=== PATIENT | female | born 1935 | race American Indian/Alaskan Native ===

== ENCOUNTER 2017-01-12 12:36 | Emergency (ER) | payer MEDICARE ==
[2017-01-12 13:21] LABS: Basophils % (Auto) 0.4 % (0.0-1.8); Eosinophils % (Auto) 0.4 % (0.0-4.3); Hematocrit 28.3 % (30.3-42.9); Hemoglobin 9.1 gm/dl (10.1-14.3); Mean Corpuscular HGB Conc 32 % (30-34); Mean Corpuscular Hemoglobin 31 pg (28-32); Mean Corpuscular Volume 96 fl (79-97); Platelet Count 207 K/mm3 (140-440); Red Blood Count 2.95 M/mm3 (3.65-5.03); Red Cell Distribution Width 16.5 % (13.2-15.2); White Blood Count 4.4 K/mm3 (4.5-11.0)
[2017-01-12 13:35] LABS: BUN/Creatinine Ratio 5.85; Calcium 8.9 mg/dL (8.4-10.2); Chloride 91.2 mmol/L (98-107); Potassium 4.1 mmol/L (3.6-5.0)
[2017-01-12] MEDS ORDERED: NORMODYNE IV ONE (16:42)
[2017-01-12] MEDS ORDERED: TYLENOL #3 PO ONE (17:19)
[2017-01-12] MEDS ORDERED: APRESOLINE ONE (17:25)
--- NOTE | 2017-01-12 17:27 | Emergency Department Report ---
HPI - General Chief Complaint: Chest Pain Time Seen by Provider: 01/12/17 16:40 - HPI HPI: The patient is a 81-year-old female who presents for evaluation of chest pain. The patient reports chest pain since noon earlier today, greater than 4 hours prior to my evaluation, constant since onset, pressure-like, currently mild in severity, 3/10 in severity. The patient denies fever, cough, dyspnea, syncope, hemoptysis, unilateral leg swelling, recent immobilization, history of DVT or PE , recent cancer. The patient says that she received a stress test 2 months ago which was unremarkable. ED Past Medical Hx - Past Medical History Hx Hypertension: Yes Hx Congestive Heart Failure: Yes Hx Diabetes: No Hx Renal Disease: Yes (CKD on HD TTS) Hx COPD: No Additional medical history: Afib/Aflutter - Surgical History Additional Surgical History: vas cath to right chest - Social History Smoking Status: Unknown if ever smoked Substance Use Type: None - Medications Home Medications: Home Medications Medication Instructions Recorded Confirmed Last Taken Type Apixaban [Eliquis] 2.5 mg PO BID #60 tablet 01/09/17 01/12/17 01/11/17 Rx Losartan [Cozaar] 100 mg PO QDAY #30 tablet 01/09/17 01/12/17 01/11/17 Rx Metoprolol [Lopressor TAB] 50 mg PO QDAY #30 tablet 01/09/17 01/12/17 01/11/17 Rx NIFEdipine [Nifedipine ER] 60 mg PO QDAY #30 tab.er.24 01/09/17 01/12/17 Rx hydrALAZINE [Apresoline TAB] 50 mg PO Q8HR #90 tablet 01/09/17 01/12/17 Rx traMADol [Ultram 50 MG tab] 50 mg PO Q6HR PRN #10 tablet 01/12/17 Unknown Rx ED Review of Systems ROS: Stated complaint: CHEST PAIN Other details as noted in HPI Constitutional: denies: fever ENT: denies: throat or neck pain Respiratory: denies: cough, shortness of breath Cardiovascular: reports chest pain Endocrine: denies unexplained weight loss or gain Gastrointestinal: denies: abdominal pain, nausea Genitourinary: denies: dysuria Musculoskeletal: denies: leg swelling Skin: denies: rash Neurological: denies: headache Hematological/Lymphatic: denies: easy bleeding or easy bruising Psych: denies sadness or hopelessness Physical Exam - Physical Exam Vital Signs: Vital Signs 01/12/17 12:46 Temperature 99 F Pulse Rate 118 H Respiratory 20 Rate Blood Pressure 169/118 O2 Sat by Pulse 100 Oximetry Physical Exam: General: well-nourished, well-developed, no acute distress Head: Normocephalic, atraumatic Eyes: normal sclera ENT: Mucous membranes are pink and moist Neck: trachea midline, neck supple, No neck stiffness, no cervical adenopathy Respiratory: Breath sounds equal bilaterally, no wheezing, rales, or rhonchi Cardio: S1 and S2 present, no murmurs, rubs, gallops, capillary refill is brisk Abdomen: Normoactive bowel sounds, soft abdomen, no rigidity, no guarding or rebound tenderness Musc: No pitting edema Skin: No rash Neuro: no facial drooping, normal speech Psych: Normal affect ED Course Vital Signs 01/12/17 12:46 Temperature 99 F Pulse Rate 118 H Respiratory 20 Rate Blood Pressure 169/118 O2 Sat by Pulse 100 Oximetry ED Medical Decision Making - Lab Data Result diagrams: 01/12/17 13:05 01/12/17 13:05 - Medical Decision Making The patient was seen and examined by myself. The patient is placed on a cardiac surgeon and continuous pulse ox. On initial evaluation, the patient was found to be in no distress. EKG was negative for ST elevation or depression, or other findings concerning for acute cardiac infarct or ischemia, and EKG is grossly unchanged from recent EKG. Labs and imaging are obtained. The patient was given IV hydralazine for her elevated blood pressure and a tablet of Tylenol 3 for her pain. Chest x-ray is negative for pneumothorax, focal consolidation, pulmonary vascular congestion, pleural effusion, or other obvious acute cardiopulmonary disease process. Lab results revealed elevated creatinine level and patient baseline, and otherwise labs were non-concerning including levels of troponin, WBC, hemoglobin, hematocrit. Medical records are reviewed and revealed that the patient did in fact receive a stress test negative for ischemia 2 months ago. Additionally echocardiogram was grossly unremarkable. The patient was reevaluated and reported that her chest pain was significantly improved and nearly resolved. The patient is stable for discharge with outpatient follow-up. The patient is given follow-up and return instructions. The patient expressed understanding and agreed with the plan. The patient is discharged in stable condition. Critical care attestation.: If time is entered above; I have spent that time in minutes in the direct care of this critically ill patient, excluding procedure time. ED Disposition Clinical Impression: Acute on chronic renal failure, Hypertensive urgency, Acute chest pain Disposition: DISCHARGED TO HOME OR SELFCARE Is pt being admited?: No Does the pt Need Aspirin: No Condition: Stable Instructions: Chest Pain (ED), Chronic Hypertension (ED) Prescriptions: traMADol [Ultram 50 MG tab] 50 mg PO Q6HR PRN #10 tablet PRN Reason: Pain Referrals: AMADEO DE LEON, PAC [Primary Care Provider] - 3-5 Days Time of Disposition: 17:22
[2017-01-12] MEDS ORDERED: APRESOLINE IV ONE (17:55)
[2017-01-12 18:53] VITALS: BP 189/92
--- NOTE | 2017-01-13 08:51 | XRay Report ---
AP CHEST : 01/12/17 12:36:00 CLINICAL: Chest pain. COMPARISON:None FINDINGS: Normal heart and pulmonary vessels. Mild patchy opacity in the left midlung. The lung bases have cleared since the last exam. A right Vas-Cath tip remains in the right atrium at the cavoatrial junction. IMPRESSION: Interval improvement with clearing of the lung bases. Mild subsegmental atelectasis versus airspace disease in the left midlung.
== END 2017-01-12 18:47 | disposition home or self-care (01) ==
LOC: ED 12:36
DX: I16.0 Hypertensive urgency (principal); I12.9 Hypertensive chronic kidney disease with stage 1 through stage 4 chronic kidney disease, or unspecified chronic kidney disease; N18.9 Chronic kidney disease, unspecified; N17.9 Acute kidney failure, unspecified; R07.9 Chest pain, unspecified; I50.9 Heart failure, unspecified
CPT/HCPCS: 36415; 71010; 80048; 84484; 85025; 93005; 93010; 96374; 96375; 99285; J0360

== ENCOUNTER 2017-01-20 19:11 | Emergency (ER) | payer MEDICARE ==
[2017-01-20 19:19] VITALS: BP 160/120
[2017-01-20 20:16] LABS: Basophils % (Auto) 0.3 % (0.0-1.8); Hematocrit 25.6 % (30.3-42.9); Hemoglobin 8.3 gm/dl (10.1-14.3); Mean Corpuscular HGB Conc 33 % (30-34); Mean Corpuscular Hemoglobin 31 pg (28-32); Mean Corpuscular Volume 95 fl (79-97); Platelet Count 240 K/mm3 (140-440); Red Blood Count 2.68 M/mm3 (3.65-5.03); Red Cell Distribution Width 16.4 % (13.2-15.2); White Blood Count 5.6 K/mm3 (4.5-11.0)
[2017-01-20 20:39] LABS: Albumin 3.3 g/dL (3.9-5); Albumin/Globulin Ratio 0.6 %; BUN/Creatinine Ratio 5.07; Bilirubin,Total 0.4 mg/dL (0.1-1.2); Calcium 8.3 mg/dL (8.4-10.2); Chloride 94.7 mmol/L (98-107); Potassium 3.6 mmol/L (3.6-5.0); Total Protein 8.4 g/dL (6.3-8.2)
[2017-01-20 20:43] LABS: Creatine Kinase 53 units/L (30-135)
[2017-01-20 20:53] LABS: Creatine Kinase MB < 1.0 ng/mL (0.0-4.0)
[2017-01-20 21:10] LABS: Cholesterol 143 mg/dL (50-199); HDL Cholesterol 47 mg/dL (40-59); LDL Cholesterol,Direct 73 mg/dL (50-130); Triglycerides 119 mg/dL (2-149)
== END 2017-01-20 21:00 | disposition left against medical advice (07) ==
LOC: ED 19:11
DX: R06.02 Shortness of breath (principal); R10.9 Unspecified abdominal pain; Z53.21 Procedure and treatment not carried out due to patient leaving prior to being seen by health care provider
CPT/HCPCS: 36415; 80053; 80061; 82550; 82553; 83690; 84484; 85025; 93005; 93010

== ENCOUNTER 2017-01-31 15:48 | Emergency (ER) | payer MEDICARE ==
[2017-01-31 16:53] VITALS: BP 84/52
[2017-01-31 17:41] LABS: Basophils % (Auto) 0.8 % (0.0-1.8); Eosinophils % (Auto) 1.4 % (0.0-4.3); Hematocrit 27.5 % (30.3-42.9); Hemoglobin 8.8 gm/dl (10.1-14.3); Mean Corpuscular HGB Conc 32 % (30-34); Mean Corpuscular Hemoglobin 30 pg (28-32); Mean Corpuscular Volume 95 fl (79-97); Platelet Count 213 K/mm3 (140-440); Red Cell Distribution Width 16.4 % (13.2-15.2); White Blood Count 4.2 K/mm3 (4.5-11.0)
[2017-01-31 17:44] LABS: BUN/Creatinine Ratio 4.18; Calcium 8.7 mg/dL (8.4-10.2); Chloride 95.2 mmol/L (98-107); Potassium 4.2 mmol/L (3.6-5.0)
--- NOTE | 2017-02-02 19:45 | ED Elopement Review ---
ED Pt Elopement review - Results review Lab results: Laboratory Tests 01/31/17 01/31/17 17:15 17:15 WBC 4.2 L RBC 2.90 L Hgb 8.8 L Hct 27.5 L MCV 95 MCH 30 MCHC 32 RDW 16.4 H Plt Count 213 Lymph % (Auto) 18.9 Wilkin % (Auto) 7.2 Eos % (Auto) 1.4 Baso % (Auto) 0.8 Lymph # 0.8 L Wilkin # 0.3 Eos # 0.1 Baso # 0.0 Seg Neutrophils % 71.7 H Seg Neutrophils # 3.0 Sodium 138 Potassium 4.2 Chloride 95.2 L Carbon Dioxide 27 Anion Gap 20 BUN 18 H Creatinine 4.3 H Estimated GFR 12 BUN/Creatinine Ratio 4.18 Glucose 139 H Calcium 8.7 - Call Back decision Pt Call Back Decision: Call pt to return to ED VERA (hypotension)
== END 2017-01-31 19:50 | disposition left against medical advice (07) ==
LOC: ED 15:48
DX: R53.1 Weakness (principal); R10.9 Unspecified abdominal pain; Z53.21 Procedure and treatment not carried out due to patient leaving prior to being seen by health care provider
CPT/HCPCS: 36415; 80048; 85025

== ENCOUNTER 2017-02-03 05:13 | Inpatient (IN) | payer MEDICARE ==
[2017-02-03] MEDS ORDERED: ASPIRIN PO ONE (05:27)
[2017-02-03 05:40] LABS: Basophils % (Auto) 0.7 % (0.0-1.8); Eosinophils % (Auto) 1.4 % (0.0-4.3); Hematocrit 27.2 % (30.3-42.9); Hemoglobin 8.8 gm/dl (10.1-14.3); Mean Corpuscular HGB Conc 32 % (30-34); Mean Corpuscular Hemoglobin 31 pg (28-32); Mean Corpuscular Volume 96 fl (79-97); Platelet Count 184 K/mm3 (140-440); Red Blood Count 2.83 M/mm3 (3.65-5.03); Red Cell Distribution Width 17.2 % (13.2-15.2); White Blood Count 5.2 K/mm3 (4.5-11.0)
[2017-02-03] MEDS ORDERED: APRESOLINE IV ONE (05:41)
[2017-02-03] MEDS ORDERED: MORPHINE IV ONE (05:47)
[2017-02-03] MEDS ORDERED: ZOFRAN IV ONE (05:47)
--- NOTE | 2017-02-03 05:48 | Emergency Department Report ---
HPI - General Chief Complaint: Chest Pain - HPI HPI: The patient is a 81-year-old female presents for evaluation of chest pain. The patient reports chest pain center onset 2 hours prior to arrival, constant since onset, currently 9/10 in severity, midsternal, pressure-like in quality, and associated with dyspnea with exertion. The patient denies trauma to the chest wall, fever, cough, syncope, hemoptysis, unilateral leg swelling, recent immobilization, history of DVT or PE. ED Past Medical Hx - Past Medical History Hx Hypertension: Yes (EF 45-50%) Hx Heart Attack/AMI: Yes (01/13/2017 - severe chest pain) Hx Congestive Heart Failure: Yes Hx Diabetes: No Hx Renal Disease: Yes (ESRD Dialysis ,, Fri) Hx Sickle Cell Disease: No Hx COPD: No Additional medical history: Afib/Aflutter - Surgical History Additional Surgical History: vas cath to right chest - Social History Smoking Status: Never Smoker Substance Use Type: None - Medications Home Medications: Home Medications Medication Instructions Recorded Confirmed Last Taken Type Apixaban [Eliquis] 2.5 mg PO BID #60 tablet 01/09/17 01/12/17 01/11/17 Rx NIFEdipine [Nifedipine ER] 60 mg PO QDAY #30 tab.er.24 01/09/17 01/12/17 Rx Amiodarone [Cordarone 200 MG TAB] 200 mg PO BID #60 tablet 01/17/17 Unknown Rx AtorvaSTATin [Lipitor] 40 mg PO QHS #30 tablet 01/17/17 Unknown Rx ISOSORBIDE MONOnitrate [Imdur ER] 30 mg PO QDAY #30 tablet 01/17/17 Unknown Rx Losartan [Cozaar] 25 mg PO QDAY #30 tablet 01/17/17 01/12/17 01/11/17 Rx Metoprolol [Lopressor TAB] 100 mg PO QDAY #30 tablet 01/17/17 01/12/17 01/11/17 Rx ED Review of Systems ROS: Stated complaint: CHEST PAIN Other details as noted in HPI Constitutional: denies: fever ENT: denies: throat or neck pain Respiratory: denies: cough, shortness of breath Cardiovascular: reports chest pain Endocrine: denies unexplained weight loss or gain Gastrointestinal: denies: abdominal pain, nausea Genitourinary: denies: dysuria Musculoskeletal: denies: leg swelling Skin: denies: rash Neurological: denies: headache Hematological/Lymphatic: denies: easy bleeding or easy bruising Psych: denies sadness or hopelessness Physical Exam - Physical Exam Vital Signs: Vital Signs 02/03/17 05:22 Temperature 98.2 F Pulse Rate 102 H Blood Pressure 228/130 O2 Sat by Pulse 99 Oximetry Physical Exam: General: well-nourished, well-developed, patient appears uncomfortable Head: Normocephalic, atraumatic Eyes: normal sclera ENT: Mucous membranes are pink and moist Neck: trachea midline, neck supple, No neck stiffness, no cervical adenopathy Respiratory: Patient tachypnea, Breath sounds equal bilaterally, no wheezing, rales, or rhonchi Cardio: S1 and S2 present, no murmurs, rubs, gallops, capillary refill is brisk Abdomen: Normoactive bowel sounds, soft abdomen, no rigidity, no guarding or rebound tenderness Chest WALL/Back: No tenderness to palpation of the chest wall, no CVA tenderness with percussion Musc: No pitting edema Skin: No rash Neuro: no facial drooping, normal speech Psych: Normal affect ED Course Vital Signs 02/03/17 05:22 Temperature 98.2 F Pulse Rate 102 H Blood Pressure 228/130 O2 Sat by Pulse 99 Oximetry ED Medical Decision Making - Lab Data Result diagrams: 02/03/17 05:31 02/03/17 05:31 - Medical Decision Making The patient was seen and examined by myself. The patient is placed on a development analyst and continuous pulse ox. On initial evaluation, the patient was found to be in no distress. EKG exhibits multiple PVCs, and otherwise is grossly unchanged from previous EKG, and was negative for changes consistent with acute cardiac infarct. The patient is given an aspirin and a nitroglycerin tablet. Labs and imaging are obtained. The patient is given IV morphine for pain. Chest x-ray is negative for pneumothorax, focal consolidation, pulmonary vascular congestion, pleural effusion, or other obvious acute cardiopulmonary disease process. Lab results revealed elevated creatinine, elevated troponin of 0.4, and low hemoglobin level. The patient is given a tablet of aspirin. Medical records are reviewed and revealed that the patient chronically has elevated troponin level. The on-call hospitalist service was contacted. They agreed to admit the patient for further treatment and close monitoring. The ED admit order was placed. The patient was admitted in guarded condition. Critical care attestation.: If time is entered above; I have spent that time in minutes in the direct care of this critically ill patient, excluding procedure time. ED Disposition Clinical Impression: Acute chest pain, End-stage renal disease on hemodialysis, Hypertensive emergency Disposition: OP ADMITTED IP TO THIS HOSP Is pt being admited?: Yes Does the pt Need Aspirin: Yes Condition: Serious Instructions: Chest Pain (ED), Hypertension (ED) Time of Disposition: 05:48
[2017-02-03 05:52] LABS: BUN/Creatinine Ratio 4.75; Chloride 98.6 mmol/L (98-107); Potassium 3.5 mmol/L (3.6-5.0)
[2017-02-03] MEDS ORDERED: NITRO-BID 2% TP ONE (06:26)
--- NOTE | 2017-02-03 06:28 | History and Physical Report ---
History of Present Illness Date of examination: 02/03/17 History of present illness: This is a 81-year-old woman history of end-stage renal disease on dialysis Friday, , Friday, A. fib, hypertension comes emergency room with complaints of chest pain. Pain is in the epigastric area which she described as a dull pain, constant, intensity, 8/10, no radiation and she cannot identify exacerbating or relieving factors. She complains of shortness breath, no nausea vomiting, diaphoresis or palpitation Patient denies palpitation, cough, abdominal pain, hematochezia, dysuria, frequency, focal weakness, dysarthria, fever chills, polydipsia polyuria, hot or cold intolerance, easy bruisability, or rash or bleeding from mucosal membrane, rhinorrhea, epistaxis, earache, tinnitus, blurry vision, eye discharge , anxiety, depression. Other review of systems negative PAST SURGICAL HISTORY: None SOCIAL HISTORY: Denies alcohol, tobacco, drugs FAMILY HISTORY: Hypertension Medications and Allergies Allergies Allergy/AdvReac Type Severity Reaction Status Date / Time naproxen Allergy Itching Verified 01/31/17 16:52 Home Medications Medication Instructions Recorded Confirmed Last Taken Type Apixaban [Eliquis] 2.5 mg PO BID #60 tablet 01/09/17 01/12/17 01/11/17 Rx NIFEdipine [Nifedipine ER] 60 mg PO QDAY #30 tab.er.24 01/09/17 01/12/17 Rx Amiodarone [Cordarone 200 MG TAB] 200 mg PO BID #60 tablet 01/17/17 Unknown Rx AtorvaSTATin [Lipitor] 40 mg PO QHS #30 tablet 01/17/17 Unknown Rx ISOSORBIDE MONOnitrate [Imdur ER] 30 mg PO QDAY #30 tablet 01/17/17 Unknown Rx Losartan [Cozaar] 25 mg PO QDAY #30 tablet 01/17/17 01/12/17 01/11/17 Rx Metoprolol [Lopressor TAB] 100 mg PO QDAY #30 tablet 01/17/17 01/12/17 01/11/17 Rx Active Meds: Active Medications Nitroglycerin (Nitro-Bid 2%) 1 inch TP ONCE ONE PRN Reason: Protocol Stop: 02/03/17 06:27 Exam - Physical Exam Narrative exam: Gen. appearance: Patient lying in bed, no apparent distress HEENT: Normocephalic, atraumatic, pupils equally round and reactive to light, extraocular movement intact, and no sclericterus,. No JVD or thyromegaly or nodule,neck supple, no carotid bruit ,mucous membranes moist, no exudate or erythema Heart: S1, S2, regular rate and rhythm Lungs: Clear to auscultation bilaterally, breathing comfortable Abdomen: Positive bowel sounds, nontender, nondistended, no organomegaly Extremity: No edema, cyanosis, clubbing Skin: No rash, nodules, warm, dry Neuro: Oriented 3, cranial nerves II-12 intact, speech is fluent, motor and sensory intact - Constitutional Vitals: Temp Pulse Resp BP Pulse Ox 98.2 F 93 H 24 229/131 99 02/03/17 05:22 02/03/17 05:55 02/03/17 06:24 02/03/17 05:55 02/03/17 05:22 Results - Labs CBC & Chem 7: 02/03/17 05:31 02/03/17 05:31 Labs: Abnormal lab results 02/03/17 02/03/17 Range/Units 05:31 05:31 RBC 2.83 L (3.65-5.03) M/mm3 Hgb 8.8 L (10.1-14.3) gm/dl Hct 27.2 L (30.3-42.9) % RDW 17.2 H (13.2-15.2) % [place] % (Auto) 7.7 H (0.0-7.3) % Lymph # 0.9 L (1.2-5.4) K/mm3 Seg Neutrophils % 73.4 H (40.0-70.0) % Potassium 3.5 L (3.6-5.0) mmol/L BUN 19 H (7-17) mg/dL Creatinine 4.0 H (0.7-1.2) mg/dL Troponin T 0.040 H (0.00-0.029) ng/mL - Imaging and Cardiology EKG: image reviewed Chest x-ray: image reviewed Assessment and Plan Hypertension urgency, malignant Chest pain most likely secondary to above Acute renal failure Atrial fibrillation Start hydralazine, nitopaste, first dose check cardiac enzymes,d-dimer and consult cardiology Consult renal for dialysis Continue appropriate outpatient medications Continue DVT prophylaxis with eliquis
[2017-02-03] MEDS ORDERED: ZOFRAN IV PRN (06:29)
[2017-02-03] MEDS ORDERED: PERCOCET 5/325 PO PRN (06:29)
[2017-02-03] MEDS ORDERED: TYLENOL PO PRN (06:29)
[2017-02-03] MEDS ORDERED: DULCOLAX PR PRN (06:29)
[2017-02-03] MEDS ORDERED: APRESOLINE IV PRN (06:31)
--- NOTE | 2017-02-03 07:16 | Admit Criteria Form ---
Admission Criteria Documentation: CARDIOLOGY GRG Clinical Indications for Admission to Inpatient Care ( Place 'X' for any and all applicable criteria): Hospital admission is needed for appropriate care of the patient because of ANY ONE of the following (1): [ ] I. Hemodynamic instability as indicated by ALL of the following (1)(2)(3) (4)(5) [ ]a) Vital signs or other findings not as expected for chronic patient condition or baseline [ ]b) Instability indicated by ANY ONE of the following: [ ]i) Hypotension [ ]ii) Symptomatic Tachycardia unresponsive to treatment ( e.g., analgesia, fluids, sedation as indicated) [ ]iii) Inadequate perfusion indicated by ANY ONE of the following: [ ] 1) Lactic acidosis (> 2 mmol/L) [ ] 2) New abnormal capillary refill (> 3 seconds) [ ] 3) Reduced urine output [ ] 4) New altered mental status [ ]iv) Orthostatic vital sign changes unresponsive to treatment (e.g., fluids) [ ]v) IV inotropic or vasopressor medication required to maintain adequate blood pressure or perfusion [ ] II. Severe heart failure as indicated by ANY ONE of the following(17)(18) [ ]a) Respiratory distress [ ]b) Hypotension [ ]c) Anasarca (refractory to outpatient therapy) [ ]d) Cardiac arrhythmias of immediate concern [ ]e) Myocardial ischemia [ ] III. Cardiac arrhythmias or findings of immediate concern indicated by ANY ONE of the following (19)(20): [ ] a) Heart rhythms that are inherently dangerous or unstable indicated by ANY ONE of the following (21)(22)(23): [ ] i) Resuscitated ventricular fibrillation or cardiac arrest [ ] ii) Ventricular escape rhythm [ ] iii) Sustained ventricular tachycardia (30 seconds or more of ventricular rhythm at greater than 100 beats per minute) [ ] iv) Nonsustained ventricular tachycardia and ANY ONE of the following: [ ] 1) Suspected cardiac ischemia as cause or consequence of ventricular tachycardia [ ] 2) In setting of acute myocarditis [ ] b) Unstable cardiac conduction defects indicated by ANY ONE of the following(23)(24)(25) [ ] i) Type II second-degree atrioventricular block [ ]ii) Third-degree atrioventricular block [ ]iii) New-onset left bundle branch block with suspected myocardial ischemia [ ]c) Any heart rhythm and ANY ONE of the following (21)(22)(26)(27) (28) [ ] i) Continuous long-term ECG monitoring needed (e.g., initiation of drug requiring monitoring for more than 24 hours) [ ] ii) Patient has automatic implanted cardioverter defibrillator that is repeatedly firing, malfunctioning, or in need of immediate adjustment of settings beyond the scope of ambulatory or observation care [ ]d) Heart rhythms of concern due to ANY ONE of the following: [ ] i) Hypotension [ ] ii) Respiratory distress [ ] iii) Association with other significant symptoms (e.g., bradycardia with syncope or ongoing dizziness, supraventricular tachycardia with chest pain (14)(15)(17) [ ] IV. Monitoring for cardiac contusion beyond the scope of observation care needed [A](30)(31)(32) [ ] V. Surgical or device complication (e.g., valve replacement complication , pacemaker dysfunction) (35)(41)(44)(45)(46) [ ] . Inpatient palliative care needed. [B](49) Also use Inpatient Palliative Care Criteria [ ] VII. Nonbacterial thrombotic (marantic) endocarditis (36)(43)(47)(48) [X] VIII. Cardiology condition, symptom, or finding for which emergency and observation care has failed or are not considered appropriate. [ ] IX. Acute valvular disease requiring inpatient as indicated by ANY ONE of the following (41) [ ]a) Acute valvular regurgitation (42) [ ]b) Noninfectious valvulitis (43) [ ]c) Obstructive valve thrombosis [ ]d) Paravalvular leak [ ]e) Other significant valvular disorder remaining after emergency or observation level of care (as appropriate) [ ]X. Pericardial disease requiring inpatient treatment as indicated by ANY ONE of the following (33)(34)(35)(36)(37) [ ]a) Suspected tamponade (38)(39)(40) [ ]b) Hemopericardium [ ]c) Other significant pericardial disorder remaining after emergency or observation level of care (as appropriate) [ ] XI. Cardiac ischemia beyond scope of emergency and observation care. [X] XII. Hypertension requiring inpatient treatment as indicated by ANY ONE of the following (6)(7)(8) [X]a) SBP greater than 220 mm Hg or DBP greater than 120 mmHg despite treatment [ ]b) SBP greater than 140 mm Hg or DBP greater than 100 mm Hg with evidence of acute end organ damage as indicated by ANY ONE of the following [ ] i) Altered mental status [ ] ii) Acute renal failure as indicated by new onset of ANY ONE of the following (9)(10)(11)(12)(13) [ ]1) 3-fold rise in serum creatinine from baseline [ ]2) Serum creatinine greater than 4 mg/dL ( 354 micromoles/L) with acute rise greater than 0.5 mg/dL (44.2 micromoles/L) [ ]3) Reduction of more than 75% in estimated glomerular filtration rate from baseline [ ]4) Estimated glomerular filtration rate less than 35 mL/min/1.73m2 (0.59 mL/sec/1.73m2) in child up to 18 years of age [ ]5) Cessation of urine output indicated by ALL of the following [ ]A. Adequate volume status [ ]B. Inadequate urine output as indicated by ANY ONE of the following [ ]a. Urine output less than 0.3 mL/kg/hr for 24 hours [ ]b. Anuria (urine output less than 0.1 mL/kg/hr) for 12 hours [ ] iii) Aortic dissection [ ] iv) Myocardial Ischemia [ ] v) Left ventricular heart failure [ ]vi) Retinal Hemorrhage [ ]vii) Other significant finding [ ]c) Hypertension in child requiring inpatient treatment as indicated by ALL of the following(14)(15)(16) [ ] i) Outpatient treatment not effective, not available, or not appropriate [ ]ii) SBP or DBP greater than 95th percentile for age [ ]iii) Evidence of acute end organ damage as indicated by ANY ONE of the following [ ]1) Altered mental status [ ]2) Acute renal failure as indicated by new onset of ANY ONE of the following(9)(10)(11)(12)(13) [ ]A. 3-fold rise in serum creatinine from baseline [ ]B. Serum creatinine greater than 4 mg/dL (354 micromoles/L) with acute rise greater than 0.5 mg/dL (44.2 micromoles/L) [ ]C. Reduction of more than 75% in estimated glomerular filtration rate from baseline [ ]D. Estimated glomerular filtration rate less than 35 mL/min/1.73m2 (0.59 mL/sec/1.73m2) in child up to 18 years of age [ ]E. Cessation of urine output indicated by ALL of the following [ ]a. Adequate volume status [ ]b. Inadequate urine output as indicated by ANY ONE of the following [ ]i) Urine output less than 0.3 mL/kg/hr for 24 hours [ ]ii) Anuria ( urine output less than 0.1 mL/kg/hr) for 12 hours [ ]3) Severe headache [ ]4) Visual disturbance [ ]5) Retinal hemorrhage [ ]6) Other significant finding [ ]XIII. Complications of transplanted heart indicated by ANY ONE of the following(61): [ ]a) Acute graft rejection requiring inpatient management (eg, intravenous immunosuppression)(62)(63) [ ]b) Acute graft heart failure indicated by ANY ONE of the following(64): [ ]i) Hemodynamic instability [ ]ii) Cardiac arrhythmias of immediate concern [ ]iii) Pulmonary edema that is very severe (eg, mechanical ventilation needed, imminent or likely, need for 100% oxygen to keep oxygen saturation above 90%) [ ]iv) Pulmonary edema that is persistent as indicated by ALL of the following: [ ]1) New need for oxygen therapy to keep oxygen saturation above 90% (or increased FiO2 need from baseline) [ ]2) Has not improved sufficiently with emergency department or observation care IV diuretics or other heart failure treatments[E] [ ]v) Altered mental status that is severe or persistent [ ]vi) Increased creatinine (new on laboratory test) with reduction of more than 50% in estimated glomerular filtration rate from baseline [ ]vii) Progressively (ongoing) rising creatinine (known from past laboratory test) with reduction of more than 25% in estimated glomerular filtration rate from baseline [ ]viii) Acute renal failure [ ]ix) Acute peripheral ischemia (eg, examination shows pulseless, cool, mottled, or cyanotic extremity) [ ]x) Pulmonary artery catheter monitoring needed [ ]xi) Other sign or symptom of heart failure requiring inpatient treatment (ie, too severe or not responsive to outpatient and observation care treatment) [ ]c) Infection requiring inpatient management (eg, Hemodynamic instability, need for intravenous antimicrobial treatment)(66)(67)(68)(69)(70) [ ]d) Cardiac allograft vasculopathy requiring inpatient management ( eg evidence of cardiac ischemia)(71) [ ]e) Other complication of transplanted heart (eg, stroke, severe pulmonary hypertension, severe valvular dysfunction) requiring inpatient management(72) The original [facility] content created by [facility] [employer] has been revised. The portions of the content which have been revised are identified through the use of italic text or in bold, and [facility] has neither reviewed nor approved the modified material. All other unmodified content is copyright [facility] [employer]. Please see references footnoted in the original [facility] edition 2016 Admission Criteria Met: Yes
[2017-02-03 07:18] LABS: Creatine Kinase 31 units/L (30-135)
[2017-02-03 07:21] LABS: Creatine Kinase MB < 1.0 ng/mL (0.0-4.0)
--- NOTE | 2017-02-03 07:22 | XRay Report ---
AP CHEST: HISTORY: chest pain There is increased cardiomegaly and pulmonary venous congestion since 01/25/17. Moderate right pleural effusion and trace left pleural effusion have developed. Right basilar atelectasis is noted. No obvious pneumonia or pneumothorax. Dialysis catheter remains in good position. IMPRESSION: CHF.
--- NOTE | 2017-02-03 08:11 | History and Physical Report ---
History of Present Illness Date of admission: 02/03/17 06:29 Medications and Allergies Allergies Allergy/AdvReac Type Severity Reaction Status Date / Time naproxen Allergy Itching Verified 01/31/17 16:52 Home Medications Medication Instructions Recorded Confirmed Last Taken Type Apixaban [Eliquis] 2.5 mg PO BID #60 tablet 01/09/17 01/12/17 01/11/17 Rx NIFEdipine [Nifedipine ER] 60 mg PO QDAY #30 tab.er.24 01/09/17 01/12/17 Rx Amiodarone [Cordarone 200 MG TAB] 200 mg PO BID #60 tablet 01/17/17 Unknown Rx AtorvaSTATin [Lipitor] 40 mg PO QHS #30 tablet 01/17/17 Unknown Rx ISOSORBIDE MONOnitrate [Imdur ER] 30 mg PO QDAY #30 tablet 01/17/17 Unknown Rx Losartan [Cozaar] 25 mg PO QDAY #30 tablet 01/17/17 01/12/17 01/11/17 Rx Metoprolol [Lopressor TAB] 100 mg PO QDAY #30 tablet 01/17/17 01/12/17 01/11/17 Rx Active Meds: Active Medications Acetaminophen (Tylenol) 650 mg PO Q4H PRN PRN Reason: Pain MILD(1-3)/Fever >100.5/OLMEDO Amiodarone HCl (Cordarone) 200 mg PO BID GAVIOTA Apixaban (Eliquis) 2.5 mg PO BID GAVIOTA Atorvastatin Calcium (Lipitor) 40 mg PO QHS GAVIOTA Bisacodyl (Dulcolax) 10 mg [place] QDAY PRN PRN Reason: Constipation unrelieved by [facility]OM Hydralazine HCl (Apresoline) 5 mg IV Q6H PRN PRN Reason: Hypertension Isosorbide Mononitrate (Imdur) 30 mg PO QDAY GAVIOTA Losartan Potassium (Cozaar) 25 mg PO QDAY GAVIOTA Metoprolol Tartrate (Lopressor) 100 mg PO QDAY GAVIOTA Ondansetron HCl (Zofran) 4 mg IV Q8H PRN PRN Reason: N/V unrelieved by Reglan Oxycodone/Acetaminophen (Percocet 5/325) 1 tab PO Q6H PRN PRN Reason: Pain, Moderate (4-6) Exam - Vital Signs Vital signs: Vital Signs Temp Pulse BP Pulse Ox 98.2 F 102 H 228/130 99 02/03/17 05:22 02/03/17 05:22 02/03/17 05:22 02/03/17 05:22 - Physical Exam Narrative exam: General appearance: well-developed, well-nourished EENT: ATNC Neck: Present: Other (RIJ permcath) Respiratory: Clear to Ascultation Heart: regular, S1S2 Gastrointestinal: Present: normal. Absent: tenderness, distended Integumentary: warm and dry Neurologic: no focal deficit Psychiatric: cooperative lts Results - Lab Results 02/03/17 05:31 02/03/17 05:31 Most recent lab results Calcium 9.0 mg/dL (8.4-10.2) 02/03/17 05:31 Assessment and Plan Assessment: * End stage renal disease on HD TTS * Atrial fibrillation w/ RVR * Fever - r/o catheter related bacteremia * Hypoxia * Hypertension * Anemia secondary to ESRD Plan: * Rate control has improved c/w this am; now HR in 60s; will plan for HD today; UF as tolerated; 3K bath * Continue TTS hemodialysis schedule * Obtain blood cx in light of fever in patient w/ permcath * Will give Vanco 1g x 1 dose empirically * Rate control per cardiology * Continue antiHTN medications * Dose medications for renal function
--- NOTE | 2017-02-03 08:18 | Consultation ---
History of Present Illness - Reason for Consult Consult date: 02/03/17 end stage renal disease, accelerated hypertension Requesting physician: DHARMESH ORDOÑEZ - History of Present Illness This is a 81-year-old woman history of end-stage renal disease on dialysis Friday, , Friday, A. fib, hypertension comes emergency room with complaints of chest pain. Pain is in the epigastric area which she described as a dull pain, constant, intensity, 8/10, no radiation and she cannot identify exacerbating or relieving factors. She complains of shortness breath, no nausea vomiting, diaphoresis or palpitation Patient denies palpitation, cough, abdominal pain, hematochezia, dysuria, frequency, focal weakness, dysarthria, fever chills, polydipsia polyuria, hot or cold intolerance, easy bruisability, or rash or bleeding from mucosal membrane, rhinorrhea, epistaxis, earache, tinnitus, blurry vision, eye discharge , anxiety, depression. Past History Past Medical History: atrial fib, anemia, CAD, dialysis, ESRD, hypertension, renal failure Past Surgical History: Other (dialysis access placement) Social history: full code. denies: alcohol abuse, prescription drug abuse, IV drug use, AND/DNR-allow natural Family history: hypertension Medications and Allergies Allergies Allergy/AdvReac Type Severity Reaction Status Date / Time naproxen Allergy Itching Verified 01/31/17 16:52 Home Medications Medication Instructions Recorded Confirmed Last Taken Type Apixaban [Eliquis] 2.5 mg PO BID #60 tablet 01/09/17 01/12/17 01/11/17 Rx NIFEdipine [Nifedipine ER] 60 mg PO QDAY #30 tab.er.24 01/09/17 01/12/17 Rx Amiodarone [Cordarone 200 MG TAB] 200 mg PO BID #60 tablet 01/17/17 Unknown Rx AtorvaSTATin [Lipitor] 40 mg PO QHS #30 tablet 01/17/17 Unknown Rx ISOSORBIDE MONOnitrate [Imdur ER] 30 mg PO QDAY #30 tablet 01/17/17 Unknown Rx Losartan [Cozaar] 25 mg PO QDAY #30 tablet 01/17/17 01/12/17 01/11/17 Rx Metoprolol [Lopressor TAB] 100 mg PO QDAY #30 tablet 01/17/17 01/12/17 01/11/17 Rx Active Meds: Active Medications Acetaminophen (Tylenol) 650 mg PO Q4H PRN PRN Reason: Pain MILD(1-3)/Fever >100.5/OLMEDO Amiodarone HCl (Cordarone) 200 mg PO BID GAVIOTA Apixaban (Eliquis) 2.5 mg PO BID GAVIOTA Atorvastatin Calcium (Lipitor) 40 mg PO QHS GAVIOTA Bisacodyl (Dulcolax) 10 mg [place] QDAY PRN PRN Reason: Constipation unrelieved by [facility] Hydralazine HCl (Apresoline) 5 mg IV Q6H PRN PRN Reason: Hypertension Isosorbide Mononitrate (Imdur) 30 mg PO QDAY GAVIOTA Losartan Potassium (Cozaar) 25 mg PO QDAY GAVIOTA Metoprolol Tartrate (Lopressor) 100 mg PO QDAY GAVIOTA Ondansetron HCl (Zofran) 4 mg IV Q8H PRN PRN Reason: N/V unrelieved by Reglan Oxycodone/Acetaminophen (Percocet 5/325) 1 tab PO Q6H PRN PRN Reason: Pain, Moderate (4-6) Review of Systems Cardiovascular: rapid/irregular heart beat, dyspnea on exertion, high blood pressure Exam - Vital Signs Vital signs: Vital Signs Temp Pulse BP Pulse Ox 98.2 F 102 H 228/130 99 02/03/17 05:22 02/03/17 05:22 02/03/17 05:22 02/03/17 05:22 - Physical Exam Narrative exam: General appearance: well-developed, well-nourished EENT: ATNC Neck: Present: Other (RIJ permcath) Respiratory: Clear to Ascultation Heart: regular, S1S2 Gastrointestinal: Present: normal. Absent: tenderness, distended Integumentary: warm and dry Neurologic: no focal deficit Psychiatric: cooperative Results - Lab Results 02/03/17 05:31 02/03/17 05:31 Most recent lab results Calcium 9.0 mg/dL (8.4-10.2) 02/03/17 05:31 Assessment and Plan Assessment: * End stage renal disease on HD TTS * Atrial fibrillation w/ RVR * Accelerated HTN * chest pain * Anemia secondary to ESRD * volume overload Plan: * Dialysis today for volume removal then Continue TTS hemodialysis schedule * Rate control per cardiology * Continue antiHTN medications * strict i/os * epogen with hd * dialysis diet * Dose medications for renal function
[2017-02-03] MEDS ORDERED: NACL 0.9% 100 ML IV PRN (08:22)
[2017-02-03] MEDS ORDERED: LOPRESSOR PO SCH (10:00)
[2017-02-03] MEDS ORDERED: LOVENOX SUB-Q SCH (10:00)
--- NOTE | 2017-02-03 11:54 | Consultation ---
History of Present Illness Consult date: 02/03/17 Requesting physician: NORA KAUFFMAN Consult reason: chest pain History of present illness: The patient is a 81-year-old female who is followed by Dr. Moreira in the office with a history of paroxysmal atrial flutter, hypertension, ESRD on HD who presented with complaints of substernal chest pain that started yesterday morning. She states the chest pain is non-radiating and describes it as " someone pressing down on her chest." Associated with shortness of breath and generalized weakness. No palpitations, nausea, vomiting or diaphoresis. BP on presentation was 228/130. Troponin level is mildly elevated. Stress test done was negative for ischemia. Echo done 11/2016 showed moderate LVH, EF 45-50% , mild-moderate MR, moderate-severe TR, RVSP 65mmHg. Left heart cath done 2011 revealed normal coronaries. Past History Past Medical History: atrial fib, anemia, dialysis, ESRD, hypertension Past Surgical History: Other (dialysis access placement) Social history: , full code. denies: smoking, alcohol abuse, prescription drug abuse, IV drug use, AND/DNR-allow natural Family history: hypertension Medications and Allergies Allergies Allergy/AdvReac Type Severity Reaction Status Date / Time naproxen Allergy Itching Verified 01/31/17 16:52 Home Medications Medication Instructions Recorded Confirmed Last Taken Type Apixaban [Eliquis] 2.5 mg PO BID #60 tablet 01/09/17 01/12/17 01/11/17 Rx NIFEdipine [Nifedipine ER] 60 mg PO QDAY #30 tab.er.24 01/09/17 01/12/17 Rx Amiodarone [Cordarone 200 MG TAB] 200 mg PO BID #60 tablet 01/17/17 Unknown Rx AtorvaSTATin [Lipitor] 40 mg PO QHS #30 tablet 01/17/17 Unknown Rx ISOSORBIDE MONOnitrate [Imdur ER] 30 mg PO QDAY #30 tablet 01/17/17 Unknown Rx Losartan [Cozaar] 25 mg PO QDAY #30 tablet 01/17/17 01/12/17 01/11/17 Rx Metoprolol [Lopressor TAB] 100 mg PO QDAY #30 tablet 01/17/17 01/12/17 01/11/17 Rx Active Meds: Active Medications Acetaminophen (Tylenol) 650 mg PO Q4H PRN PRN Reason: Pain MILD(1-3)/Fever >100.5/OLMEDO Amiodarone HCl (Cordarone) 200 mg PO BID GAVIOTA Apixaban (Eliquis) 2.5 mg PO BID GAVIOTA Atorvastatin Calcium (Lipitor) 40 mg PO QHS GAVIOTA Bisacodyl (Dulcolax) 10 mg [place] QDAY PRN PRN Reason: Constipation unrelieved by [facility] Epoetin Harsha (Procrit) 10,000 unit IV SHIRA PRN PRN Reason: hemodialysis Heparin Sodium (Porcine) (Heparin) 5,000 unit IV SHIRA PRN PRN Reason: hemodialysis Hydralazine HCl (Apresoline) 5 mg IV Q6H PRN PRN Reason: Hypertension Sodium Chloride (Nacl 0.9%) 100 mls @ 999 mls/hr IV SHIRA PRN PRN Reason: Hypotension Isosorbide Mononitrate (Imdur) 30 mg PO QDAY GAVIOTA Losartan Potassium (Cozaar) 25 mg PO QDAY GAVIOTA Metoprolol Tartrate (Lopressor) 100 mg PO QDAY GAVIOTA Ondansetron HCl (Zofran) 4 mg IV Q8H PRN PRN Reason: N/V unrelieved by Reglan Oxycodone/Acetaminophen (Percocet 5/325) 1 tab PO Q6H PRN PRN Reason: Pain, Moderate (4-6) Review of Systems Constitutional: weakness, no fever, no chills Ears, nose, mouth and throat: no nasal congestion, no nasal discharge, no sinus pressure Cardiovascular: chest pain, shortness of breath, no palpitations, no leg edema Respiratory: shortness of breath, no cough, no congestion, no wheezing Gastrointestinal: no abdominal pain, no nausea, no vomiting, no diarrhea, no constipation Genitourinary Female: no dysuria, no urgency Musculoskeletal: no neck stiffness, no neck pain, no myalgias Integumentary: no rash, no pruritis Neurological: no parathesias, no numbness, no tingling, no headaches Endocrine: no cold intolerance, no heat intolerance Hematologic/Lymphatic: no easy bruising, no easy bleeding Allergic/Immunologic: no urticaria, no wheezing Physical Examination Vital Signs Temp Pulse BP Pulse Ox 98.2 F 102 H 228/130 99 02/03/17 05:22 02/03/17 05:22 02/03/17 05:22 02/03/17 05:22 General appearance: no acute distress HEENT: Positive: PERRL, Normocephaly, Mucus Membranes Moist Neck: Positive: neck supple, trachea midline Cardiac: Positive: Reg Rate and Rhythm, S1/S2 Lungs: Positive: clear to auscultation Neuro: Positive: Grossly Intact Abdomen: Positive: Soft, Active Bowel Sounds. Negative: Tender Skin: Positive: Clear. Negative: Rash Extremities: Present: normal. Absent: edema Results 02/03/17 05:31 02/03/17 05:31 Cardiac Enzymes 02/03/17 Range/Units 06:42 CK-MB (CK-2) < 1.0 (0.0-4.0) ng/mL - Imaging and Cardiology Echo: report reviewed (11/2016: EF 45-50%, moderate LVH, mild AR, moderate- severe TR, RVSP 65mmHg) EKG: image reviewed EKG interpretations - Telemetry EKG Rhythm: Sinus Rhythm - EKG Sinus rhythms and dysrhythmias: sinus rhythm Ventricular dysrhythmias: ventricular premature com Assessment and Plan Atypical chest pain-->resolved mildly elevated troponin due to CKD stress MPI 10/2016: no ischemia LHC 12/2011: normal coronaries Paroxysmal atrial flutter-->currently sinus rhythm with PVCs s/p SAUNDRA and attempted DCCV with 200, 300, 360 joules on 01/16/17--> unsuccessful Echo 11/2016: EF 45-50%, moderate LVH, mild AR, moderate-severe TR, RVSP 65mmHg continue amiodarone 200mg BID continue metoprolol, Eliquis Accelerated hypertension continue metoprolol, losartan ESRD on HD Anemia Given resolution of atypical chest pain and recent negative stress test, recommend continuing medical management including aggressive BP control. The patient has been seen in conjunction with Dr. Johnson who agrees with the assessment and plan of care. Thank you Dr. Kauffman for allowing us to participate in the care of this patient.
[2017-02-03] MEDS ORDERED: NACL 0.9 (PRIMING MACHINE ONLY DIALYSIS) MC ONE (12:08)
[2017-02-03 12:42] LABS: Creatine Kinase MB 1.1 ng/mL (0.0-4.0)
--- NOTE | 2017-02-03 13:15 | Event Note ---
Date: 02/03/17 Patient admitted for chest pain, uncontrolled HTN. Nephrology and cardiology consulted. Will get dialysis today.
[2017-02-03] MEDS: PROCRIT IV PRN (13:27)
[2017-02-03] MEDS: HEPARIN IV PRN (13:28)
[2017-02-03] MEDS: ELIQUIS PO SCH ×2 (14:42→21:43)
[2017-02-03] MEDS: IMDUR PO SCH (14:42)
[2017-02-03] MEDS: COZAAR PO SCH (14:42)
[2017-02-03] MEDS: CORDARONE PO SCH ×2 (14:42→21:42)
[2017-02-03] MEDS: LOPRESSOR PO SCH (21:44)
[2017-02-04 06:22] LABS: Basophils % (Auto) 1.1 % (0.0-1.8); Hematocrit 26.4 % (30.3-42.9); Hemoglobin 8.6 gm/dl (10.1-14.3); Mean Corpuscular HGB Conc 33 % (30-34); Mean Corpuscular Hemoglobin 31 pg (28-32); Mean Corpuscular Volume 95 fl (79-97); Platelet Count 156 K/mm3 (140-440); Red Blood Count 2.78 M/mm3 (3.65-5.03); Red Cell Distribution Width 16.8 % (13.2-15.2); White Blood Count 2.7 K/mm3 (4.5-11.0)
[2017-02-04 06:27] LABS: BUN/Creatinine Ratio 3.15; Calcium 8.8 mg/dL (8.4-10.2); Chloride 97.1 mmol/L (98-107); Potassium 4.3 mmol/L (3.6-5.0)
--- NOTE | 2017-02-04 07:46 | Progress Note ---
Assessment and Plan Assessment: * End stage renal disease on HD TTS * Atrial fibrillation w/ RVR * Accelerated HTN * chest pain * Anemia secondary to ESRD * volume overload Plan: * Continue TTS hemodialysis schedule * Rate control per cardiology * Continue antiHTN medications * strict i/os * epogen with hd * dialysis diet * Dose medications for renal function Subjective Date of service: 02/04/17 Principal diagnosis: esrd Interval history: no new complaints today, resting in bed Objective - Exam Narrative Exam: General appearance: well-developed, well-nourished EENT: ATNC Neck: Present: Other (RIJ permcath) Respiratory: Clear to Ascultation Heart: regular, S1S2 Gastrointestinal: Present: normal. Absent: tenderness, distended Integumentary: warm and dry Neurologic: no focal deficit Psychiatric: cooperative - Vital Signs Vital signs: Vital Signs - 12hr 02/03/17 02/03/17 02/04/17 21:49 23:00 01:03 Temperature 98.2 F 97.7 F Pulse Rate 77 Pulse Rate [ 81 72 Left Radial] Respiratory 20 20 Rate Blood Pressure 169/75 [Left Radial Artery] Blood Pressure 162/90 [Right Arm] O2 Sat by Pulse 99 100 Oximetry 02/04/17 04:15 Temperature 98.3 F Pulse Rate Pulse Rate [ 73 Left Radial] Respiratory 20 Rate Blood Pressure 135/74 [Left Radial Artery] Blood Pressure [Right Arm] O2 Sat by Pulse 100 Oximetry - Lab 02/04/17 05:15 02/04/17 05:15 Most recent lab results Calcium 8.8 mg/dL (8.4-10.2) 02/04/17 05:15
--- NOTE | 2017-02-04 10:14 | Discharge Summary ---
Providers - Providers Date of Admission: 02/03/17 06:29 Attending physician: SONIYA CEVALLOS 02/03/17 06:37 Consult to Physician [CONS] Routine Consulting Provider: YVES TUCKER Reason For Exam: hd Notified:: placement secretary pl call Primary care physician: KYLEE FRANCO Hospitalization Condition: Serious Hospital course: 81 YO Female admitted for Atypical Chest Pain, Fluid Overload, ESRD on HD. Nephrology team consulted for dialysis. Pt treated with BP control with improvement in symptoms. Cardiology team consulted for Atypical chest pain. Pt convalesced well during hospital course. Pt symptoms resolved with therapy. Pt seen and evaluated prior to discharge but no new physical exam findings since admission. Pt medically optimized and back to usual state of health. Pt discharged home and instructed to f/u pcp 1wk, nephrology and cardiology as directed. 35 minutes dedicated to patient discharge and education. Disposition: DISCHARGED TO HOME OR SELFCARE - Discharge Diagnoses (1) Accelerated hypertension Status: Acute (2) Acute chest pain Status: Acute (3) Acute on chronic renal failure Status: Acute (4) Fluid overload Status: Acute Qualifiers: Hypervolemia type: H (5) Hypertensive emergency Status: Acute Core Measure Documentation - Palliative Care Palliative Care/ Comfort Measures: Not Applicable - Core Measures Any of the following diagnoses?: none Exam - Constitutional Vitals: Temp Pulse Resp BP Pulse Ox 98.8 F 71 18 191/92 100 02/04/17 07:47 02/04/17 08:31 02/04/17 07:47 02/04/17 08:46 02/04/17 07:47 General appearance: Present: no acute distress, well-nourished - EENT Eyes: Present: PERRL ENT: hearing intact, clear oral mucosa - Neck Neck: Present: supple, normal ROM - Respiratory Respiratory effort: normal Respiratory: bilateral: CTA - Cardiovascular Heart Sounds: Present: S1 & S2. Absent: rub, click - Extremities Extremities: pulses symmetrical, No edema Peripheral Pulses: within normal limits - Abdominal General gastrointestinal: Present: soft, non-tender, non-distended, normal bowel sounds Female genitourinary: Present: normal - Integumentary Integumentary: Present: clear, warm, dry - Musculoskeletal Musculoskeletal: gait normal, strength equal bilaterally - Psychiatric Psychiatric: appropriate mood/affect, intact judgment & insight - Neurologic Neurologic: CNII-XII intact, moves all extremities Plan Activity: advance as tolerated Follow up with: KYLEE FRANCO MD [Primary Care Provider] - 3-5 Days Forms: Discharge Signature Page Prescriptions: Amiodarone [Cordarone 200 MG TAB] 200 mg PO BID #60 tablet Apixaban [Eliquis] 2.5 mg PO BID #60 tablet AtorvaSTATin [Lipitor] 40 mg PO QHS #30 tablet ISOSORBIDE MONOnitrate [Imdur ER] 30 mg PO QDAY #30 tablet Losartan [Cozaar] 100 mg PO QDAY #30 tablet Metoprolol [Lopressor TAB] 100 mg PO BID #60 tablet
[2017-02-04] MEDS ORDERED: COZAAR PO SCH ×2 (10:36→11:30)
--- NOTE | 2017-02-04 10:39 | Progress Note ---
Assessment and Plan Atypical chest pain-->resolved mildly elevated troponin due to CKD stress MPI 10/2016: no ischemia C 12/2011: normal coronaries Paroxysmal atrial flutter-->currently sinus rhythm with PVCs s/p SAUNDRA and attempted DCCV with 200, 300, 360 joules on 01/16/17--> unsuccessful Echo 11/2016: EF 45-50%, moderate LVH, mild AR, moderate-severe TR, RVSP 65mmHg continue amiodarone 200mg BID continue metoprolol, Eliquis Accelerated hypertension continue metoprolol increase losartan to 100mg daily ESRD on HD Anemia No further chest pain. Will optimize anti-hypertensive regimen. The patient has been seen in conjunction with Dr. Johnson who agrees with the assessment and plan of care. Subjective Date of service: 02/04/17 Principal diagnosis: esrd, atypical chest pain Interval history: The patient is resting in bed. No further chest pain. Sinus rhythm on the monitor. Objective Last Vital Signs Temp 98.8 F 02/04/17 07:47 Pulse 71 02/04/17 08:31 Resp 18 02/04/17 07:47 BP 191/92 02/04/17 08:46 Pulse Ox 100 02/04/17 10:00 - Physical Examination General: No Apparent Distress HEENT: Positive: PERRL, Normocephaly, Mucus Membranes Moist Neck: Positive: neck supple, trachea midline Cardiac: Positive: Reg Rate and Rhythm, S1/S2, Systolic Murmur Lungs: Positive: clear to auscultation Neuro: Positive: Grossly Intact Abdomen: Positive: Soft, Active Bowel Sounds. Negative: Tender Skin: Positive: Clear. Negative: Rash Extremities: Present: normal. Absent: edema - Labs and Meds Cardiac Enzymes 02/03/17 Range/Units 12:30 CK-MB (CK-2) 1.1 (0.0-4.0) ng/mL CBC 02/04/17 Range/Units 05:15 WBC 2.7 L (4.5-11.0) K/mm3 RBC 2.78 L (3.65-5.03) M/mm3 Hgb 8.6 L (10.1-14.3) gm/dl Hct 26.4 L (30.3-42.9) % Plt Count 156 (140-440) K/mm3 Lymph # 0.8 L (1.2-5.4) K/mm3 Potter # 0.4 (0.0-0.8) K/mm3 Eos # 0.1 (0.0-0.4) K/mm3 Baso # 0.0 (0.0-0.1) K/mm3 Comprehensive Metabolic Panel 02/04/17 Range/Units 05:15 Sodium 137 (137-145) mmol/L Potassium 4.3 D (3.6-5.0) mmol/L Chloride 97.1 L (98-107) mmol/L Carbon Dioxide 28 (22-30) mmol/L BUN 12 (7-17) mg/dL Creatinine 3.8 H (0.7-1.2) mg/dL Glucose 81 (65-100) mg/dL Calcium 8.8 (8.4-10.2) mg/dL - Imaging and Cardiology EKG: image reviewed Echo: report reviewed (11/2016: EF 45-50%, moderate LVH, mild AR, moderate- severe TR, RVSP 65mmHg) - Telemetry EKG Rhythm: Sinus Rhythm - EKG Sinus rhythms and dysrhythmias: sinus rhythm Ventricular dysrhythmias: ventricular premature com
[2017-02-04] MEDS ORDERED: NACL 0.9 (PRIMING MACHINE ONLY DIALYSIS) MC ONE (11:42)
[2017-02-04] MEDS: PROCRIT IV PRN (13:46)
[2017-02-04 14:03] VITALS: BP 161/91
[2017-02-04] MEDS: ELIQUIS PO SCH (14:24)
[2017-02-04] MEDS: IMDUR PO SCH (14:24)
[2017-02-04] MEDS: CORDARONE PO SCH (14:24)
[2017-02-04] MEDS: LOPRESSOR PO SCH (14:25)
[2017-02-04] MEDS: HEPARIN IV PRN (14:42)
[2017-02-04] MEDS: COZAAR PO SCH (14:47)
== END 2017-02-04 14:50 | disposition home or self-care (01) | DRG 291 ==
LOC: SUATTDRO 05:13 → ED 05:13 → 4A 06:29
PROVIDERS: ADMIT Internal Medicine; ATTEND Internal Medicine
PROC: 5A1D60Z (ICD-10-PCS; principal; 2017-02-03)
DX: I13.2 Hypertensive heart and chronic kidney disease with heart failure and with stage 5 chronic kidney disease, or end stage renal disease (principal); N18.6 End stage renal disease; N17.9 Acute kidney failure, unspecified; I48.92 Unspecified atrial flutter; I16.0 Hypertensive urgency; I48.91 Unspecified atrial fibrillation; D63.1 Anemia in chronic kidney disease; R07.89 Other chest pain; I50.9 Heart failure, unspecified; Z79.899 Other long term (current) drug therapy; Z82.49 Family history of ischemic heart disease and other diseases of the circulatory system; Z88.6 Allergy status to analgesic agent
CPT/HCPCS: 36415; 71010; 80048; 80061; 82550; 82553; 84484; 85025; 85379; 93005; 93010; 96374; 96375; A9270-GY; J0360; J0885; J1644; J2270; J2405; J7030

== ENCOUNTER 2017-02-05 14:49 | Emergency (ER) | payer MEDICARE ==
[2017-02-05 16:04] LABS: Eosinophils % (Auto) 1.6 % (0.0-4.3); Hematocrit 28.6 % (30.3-42.9); Hemoglobin 9.2 gm/dl (10.1-14.3); Mean Corpuscular HGB Conc 32 % (30-34); Mean Corpuscular Hemoglobin 31 pg (28-32); Mean Corpuscular Volume 96 fl (79-97); Platelet Count 193 K/mm3 (140-440); Red Blood Count 2.98 M/mm3 (3.65-5.03); Red Cell Distribution Width 17.1 % (13.2-15.2); White Blood Count 3.8 K/mm3 (4.5-11.0)
--- NOTE | 2017-02-05 16:38 | XRay Report ---
AP chest: Comparison is made to the prior study of February 03, 2017. The patient has a central Vas-Cath via the right jugular vein. The heart is normal in size. There is no vascular congestion and the lungs appear relatively clear. This is a marked improvement compared to the recent study demonstrating bilateral effusions and congestion. Impression: Apparent interval resolution of recent fluid overload.
[2017-02-05 16:45] LABS: BUN/Creatinine Ratio 5.11; Calcium 9.3 mg/dL (8.4-10.2); Chloride 95.5 mmol/L (98-107); Potassium 3.9 mmol/L (3.6-5.0)
[2017-02-05] MEDS ORDERED: NACL 0.9% 500 ML 500 ML IV ONE (17:39)
--- NOTE | 2017-02-05 18:15 | Emergency Department Report ---
- General Chief complaint: Weakness Stated complaint: WEAK Time Seen by Provider: 02/05/17 17:03 Source: patient, family Mode of arrival: Ambulatory Limitations: No Limitations - History of Present Illness MD Complaint: generalized weakness, lack of energy -: Gradual (recently discharge yesterday , ) Location: generalized Severity scale (0 -10): 0 Consistency: intermittent Improves with: none Worsens with: none Associated Symptoms: denies: chest pain, confusion, dark stools, diaphoresis, easy bruising, fever/chills, headaches, loss of appetite, nausea/vomiting, rash , shortness of breath - Related Data Previous Rx's Medication Instructions Recorded Last Taken Type NIFEdipine [Nifedipine ER] 60 mg PO QDAY #30 tab.er.24 01/09/17 01/11/17 Rx Amiodarone [Cordarone 200 MG TAB] 200 mg PO BID #60 tablet 02/04/17 Unknown Rx Apixaban [Eliquis] 2.5 mg PO BID #60 tablet 02/04/17 Unknown Rx AtorvaSTATin [Lipitor] 40 mg PO QHS #30 tablet 02/04/17 Unknown Rx ISOSORBIDE MONOnitrate [Imdur ER] 30 mg PO QDAY #30 tablet 02/04/17 Unknown Rx Losartan [Cozaar] 100 mg PO QDAY #30 tablet 02/04/17 Unknown Rx Metoprolol [Lopressor TAB] 100 mg PO BID #60 tablet 02/04/17 Unknown Rx Allergies Allergy/AdvReac Type Severity Reaction Status Date / Time naproxen Allergy Itching Verified 01/31/17 16:52 ED Review of Systems ROS: Stated complaint: WEAK Other details as noted in HPI Constitutional: denies: chills, fever Eyes: denies: eye pain, eye discharge, vision change ENT: denies: ear pain, throat pain Respiratory: denies: cough, shortness of breath, wheezing Cardiovascular: denies: chest pain, palpitations Endocrine: no symptoms reported Gastrointestinal: denies: abdominal pain, nausea, diarrhea Genitourinary: denies: urgency, dysuria, discharge Musculoskeletal: denies: back pain, joint swelling, arthralgia Skin: denies: rash, lesions Neurological: denies: headache, weakness, paresthesias Psychiatric: denies: anxiety, depression Hematological/Lymphatic: denies: easy bleeding, easy bruising ED Past Medical Hx - Past Medical History Previous Medical History?: Yes Hx Hypertension: Yes Hx Heart Attack/AMI: Yes (01/13/2017 - severe chest pain) Hx Congestive Heart Failure: Yes Hx Diabetes: No Hx Renal Disease: Yes (ESRD Dialysis T,Th, Sat) Hx Sickle Cell Disease: No Hx COPD: Yes Additional medical history: Afib/Aflutter - Surgical History Past Surgical History?: Yes Additional Surgical History: vas cath to right chest - Social History Smoking Status: Never Smoker Substance Use Type: Prescribed - Medications Home Medications: Home Medications Medication Instructions Recorded Confirmed Last Taken Type NIFEdipine [Nifedipine ER] 60 mg PO QDAY #30 tab.er.24 01/09/17 02/03/17 Rx Amiodarone [Cordarone 200 MG TAB] 200 mg PO BID #60 tablet 02/04/17 Unknown Rx Apixaban [Eliquis] 2.5 mg PO BID #60 tablet 02/04/17 Unknown Rx AtorvaSTATin [Lipitor] 40 mg PO QHS #30 tablet 02/04/17 Unknown Rx ISOSORBIDE MONOnitrate [Imdur ER] 30 mg PO QDAY #30 tablet 02/04/17 Unknown Rx Losartan [Cozaar] 100 mg PO QDAY #30 tablet 02/04/17 Unknown Rx Metoprolol [Lopressor TAB] 100 mg PO BID #60 tablet 02/04/17 Unknown Rx ED Physical Exam - General Limitations: No Limitations General appearance: alert, in no apparent distress - Head Head exam: Present: atraumatic, normocephalic - Eye Eye exam: Present: normal appearance, PERRL, EOMI - ENT ENT exam: Present: mucous membranes moist - Neck Neck exam: Present: normal inspection - Respiratory Respiratory exam: Present: normal lung sounds bilaterally. Absent: respiratory distress - Cardiovascular Cardiovascular Exam: Present: regular rate, normal rhythm. Absent: systolic murmur, diastolic murmur, rubs, gallop - GI/Abdominal GI/Abdominal exam: Present: soft, normal bowel sounds - Extremities Exam Extremities exam: Present: normal inspection - Back Exam Back exam: Present: normal inspection - Neurological Exam Neurological exam: Present: alert, oriented X3 - Psychiatric Psychiatric exam: Present: normal affect, normal mood - Skin Skin exam: Present: warm, dry, intact, normal color. Absent: rash ED Course Vital Signs 02/05/17 15:03 Temperature 97.4 F L Pulse Rate 66 Respiratory 18 Rate Blood Pressure 124/102 O2 Sat by Pulse 100 Oximetry ED Medical Decision Making - Lab Data Result diagrams: 02/05/17 15:49 02/05/17 15:49 - EKG Data -: EKG Interpreted by Me EKG shows normal: sinus rhythm - EKG Data When compared to previous EKG there are: no significant change Interpretation: no acute changes - Medical Decision Making Patient feeling better upon arrival, recently discharge yesterday fro chest pain and weakness ( please see prior records ), today she had an argument with her and the called 911 cause she was feeling weak again, she is tolerating po here in the er and ambulatory. no chest pain , labs unchanged. Will discharge from ER and follow up in 24-48h, no indication for admission at this time. Critical care attestation.: If time is entered above; I have spent that time in minutes in the direct care of this critically ill patient, excluding procedure time. ED Disposition Clinical Impression: Acute on chronic renal failure, Hypertensive urgency, Weakness Disposition: DISCHARGED TO HOME OR SELFCARE Is pt being admited?: No Does the pt Need Aspirin: No Condition: Good Instructions: Chronic Kidney Disease (ED), Chronic Hypertension (ED) Referrals: PRIMARY CARE, [Primary Care Provider] - 3-5 Days Time of Disposition: 18:15
[2017-02-05 18:28] VITALS: BP 110/72
[2017-02-05 21:35] LABS: Albumin 3.8 g/dL (3.9-5); Albumin/Globulin Ratio 0.7 %; Bilirubin,Total 0.4 mg/dL (0.1-1.2); Calcium 9.4 mg/dL (8.4-10.2); Chloride 93.7 mmol/L (98-107); Total Protein 9.2 g/dL (6.3-8.2)
== END 2017-02-05 18:20 | disposition home or self-care (01) ==
LOC: ED 14:49
DX: I12.9 Hypertensive chronic kidney disease with stage 1 through stage 4 chronic kidney disease, or unspecified chronic kidney disease (principal); N18.9 Chronic kidney disease, unspecified; N17.9 Acute kidney failure, unspecified; I25.2 Old myocardial infarction; I50.9 Heart failure, unspecified; J44.9 Chronic obstructive pulmonary disease, unspecified
CPT/HCPCS: 36415; 71020; 80048; 80053; 84484; 85025; 93005; 93010; 99284

== ENCOUNTER 2017-02-07 16:35 | Emergency (ER) | payer MEDICARE ==
[2017-02-07 17:58] LABS: Basophils % (Auto) 0.9 % (0.0-1.8); Eosinophils % (Auto) 1.6 % (0.0-4.3); Hematocrit 25.6 % (30.3-42.9); Hemoglobin 8.4 gm/dl (10.1-14.3); Mean Corpuscular HGB Conc 33 % (30-34); Mean Corpuscular Hemoglobin 32 pg (28-32); Mean Corpuscular Volume 97 fl (79-97); Platelet Count 192 K/mm3 (140-440); Red Blood Count 2.64 M/mm3 (3.65-5.03); Red Cell Distribution Width 17.7 % (13.2-15.2); White Blood Count 3.7 K/mm3 (4.5-11.0)
[2017-02-07 18:02] LABS: BUN/Creatinine Ratio 5.09; Calcium 9.2 mg/dL (8.4-10.2); Chloride 94.3 mmol/L (98-107); Potassium 4.7 mmol/L (3.6-5.0)
[2017-02-07] MEDS ORDERED: TYLENOL PO ONE (20:30)
--- NOTE | 2017-02-07 20:31 | Emergency Department Report ---
ED Chest Pain HPI - General Chief Complaint: Chest Pain Stated Complaint: CHEST PAIN Time Seen by Provider: 02/07/17 20:15 Source: patient, RN notes reviewed, old records reviewed Mode of arrival: Wheelchair Limitations: No Limitations - History of Present Illness Initial Comments: This is an 81-year-old female. She is previously unknown to me. Her integration specialist is Dr. Graham. Her rectifying operator is Dr. Mendez. Past medical history includes end-stage renal disease, on dialysis Friday, , Friday. Also has a history of paroxysmal atrial flutter/ fibrillation, typically takes eliquis, and reports compliance with this. As per review of old medical records, patient had a nuclear stress test performed in October 2016, which was negative for ischemia. An echocardiogram performed in November 2016 demonstrated left ventricular hypertrophy, ejection fraction of 45-50%, mild to moderate mitral regurgitation, moderate to severe tricuspid regurgitation, and had a left heart cardiac catheterization performed in December 2011 which demonstrated normal coronary arteries. Patient was recently admitted to the hospital for chest pain. She was seen by cardiology, who felt that her chest pain was clinically atypical. They further indicated that they felt that the patient's elevated troponin was secondary to chronic renal insufficiency. Today, the patient presents to the ER with chest pain. The chest pain is epigastric. It does not radiate to the back, arms or neck. There is no vomiting or diaphoresis. There is no leg pain. There is no leg swelling. Currently, the patient is not short of breath. She is not vomiting. She reports compliance with her anticoagulation. Initially she denied shortness of breath in its entirety to me, but upon review of her triage note, she did indicate to the charge nurse/triage nurse that she was expressing shortness of breath was pleuritic in nature. This lasted for a few seconds and has since resolved. Complaint: chest pain -: hour(s) Onset: during rest Pain Location: epigastric Pain Radiation: none Severity: mild Severity scale (0 -10): 6 Consistency: other Improves With: nothing Worsens With: inspiration Context: recent immobilization re: denies: nausea, vomting, diaphoresis, sense of impending doom - Related Data On Oral Contraceptives: No Previous Rx's Medication Instructions Recorded Last Taken Type NIFEdipine [Nifedipine ER] 60 mg PO QDAY #30 tab.er.24 01/09/17 1 Day Ago Rx 60 Amiodarone [Cordarone 200 MG TAB] 200 mg PO BID #60 tablet 02/04/17 1 Day Ago Rx 200 Apixaban [Eliquis] 2.5 mg PO BID #60 tablet 02/04/17 1 Day Ago Rx 2.5 AtorvaSTATin [Lipitor] 40 mg PO QHS #30 tablet 02/04/17 1 Day Ago Rx 40 ISOSORBIDE MONOnitrate [Imdur ER] 30 mg PO QDAY #30 tablet 02/04/17 1 Day Ago Rx 30 Losartan [Cozaar] 100 mg PO QDAY #30 tablet 02/04/17 1 Day Ago Rx 100 Metoprolol [Lopressor TAB] 100 mg PO BID #60 tablet 02/04/17 1 Day Ago Rx 100 Allergies Allergy/AdvReac Type Severity Reaction Status Date / Time naproxen Allergy Itching Verified 01/31/17 16:52 JOSHUA score - Joshua Score Age > 65: (1) Yes Aspirin use within the Past 7 Days: (0) No 3 or more CAD Risk Factors: (1) Yes 2 or more Angina events in past 24 hrs: (0) No Known CAD with more than 50% Stenosis: (0) No Elevated Cardiac Markers: (1) Yes ST Deviation Greater than 0.5mm: (0) No JOSHUA Score: 3 ED Review of Systems ROS: Stated complaint: CHEST PAIN Other details as noted in HPI Constitutional: denies: fever, malaise Eyes: denies: vision change ENT: denies: epistaxis Respiratory: see HPI Cardiovascular: chest pain Gastrointestinal: denies: abdominal pain Genitourinary: denies: urgency, dysuria Musculoskeletal: denies: back pain Skin: denies: rash, lesions Neurological: denies: headache Psychiatric: as per HPI ED Past Medical Hx - Past Medical History Hx Hypertension: Yes Hx Heart Attack/AMI: Yes (01/13/2017 - severe chest pain) Hx Congestive Heart Failure: Yes Hx Diabetes: No Hx Renal Disease: Yes (ESRD Dialysis T,, Fri) Hx Sickle Cell Disease: No Hx COPD: Yes Additional medical history: Afib/Aflutter - Surgical History Additional Surgical History: vas cath to right chest - Social History Smoking Status: Never Smoker Substance Use Type: None - Medications Home Medications: Home Medications Medication Instructions Recorded Confirmed Last Taken Type NIFEdipine [Nifedipine ER] 60 mg PO QDAY #30 tab.er.24 01/09/17 02/07/17 1 Day Ago Rx 60 Amiodarone [Cordarone 200 MG TAB] 200 mg PO BID #60 tablet 02/04/17 02/07/17 1 Day Ago Rx 200 Apixaban [Eliquis] 2.5 mg PO BID #60 tablet 02/04/17 02/07/17 1 Day Ago Rx 2.5 AtorvaSTATin [Lipitor] 40 mg PO QHS #30 tablet 02/04/17 02/07/17 1 Day Ago Rx 40 ISOSORBIDE MONOnitrate [Imdur ER] 30 mg PO QDAY #30 tablet 02/04/17 02/07/17 1 Day Ago Rx 30 Losartan [Cozaar] 100 mg PO QDAY #30 tablet 02/04/17 02/07/17 1 Day Ago Rx 100 Metoprolol [Lopressor TAB] 100 mg PO BID #60 tablet 02/04/17 02/07/17 1 Day Ago Rx 100 ED Physical Exam - General Limitations: No Limitations General appearance: alert, in no apparent distress - Head Head exam: Present: atraumatic, normocephalic - Eye Eye exam: Present: normal appearance, EOMI. Absent: nystagmus - ENT ENT exam: Present: normal exam, normal orophraynx, mucous membranes moist, normal external ear exam - Neck Neck exam: Present: normal inspection, full ROM. Absent: tenderness, meningismus - Respiratory Respiratory exam: Present: normal lung sounds bilaterally. Absent: respiratory distress, wheezes, rales, rhonchi, stridor, decreased breath sounds - Cardiovascular Cardiovascular Exam: Present: regular rate, normal rhythm, normal heart sounds. Absent: bradycardia, tachycardia, irregular rhythm, systolic murmur, diastolic murmur, rubs, gallop - GI/Abdominal GI/Abdominal exam: Present: soft, normal bowel sounds. Absent: distended, tenderness, guarding, rebound, rigid, pulsatile mass - Extremities Exam Extremities exam: Present: normal inspection, full ROM, normal capillary refill. Absent: tenderness, pedal edema, joint swelling, calf tenderness - Back Exam Back exam: Present: normal inspection, full ROM. Absent: tenderness, CVA tenderness (R), CVA tenderness (L), muscle spasm, paraspinal tenderness, vertebral tenderness - Neurological Exam Neurological exam: Present: alert, oriented X3, normal gait, other (Extraocular movements intact. Tongue midline. No facial droop. Facial sensation intact to light touch in the V1, V2, V3 distribution bilaterally. 5 and 5 strength in 4 extremities.. Sensation is intact to light touch in 4 extremities.). Absent : motor sensory deficit, reflexes normal - Psychiatric Psychiatric exam: Present: normal affect, normal mood - Skin Skin exam: Present: warm, dry, intact, normal color. Absent: rash ED Course Vital Signs 02/07/17 02/07/17 02/07/17 16:50 20:26 22:19 Temperature 98.1 F Pulse Rate 56 L 45 L 52 L Respiratory 20 20 18 Rate Blood Pressure 93/53 Blood Pressure 125/60 126/61 [Left] O2 Sat by Pulse 100 98 98 Oximetry 02/08/17 02/08/17 00:00 01:14 Temperature Pulse Rate 54 L 52 L Respiratory 18 18 Rate Blood Pressure Blood Pressure 124/62 126/60 [Left] O2 Sat by Pulse 98 98 Oximetry - Reevaluation(s) Reevaluation #1: 02/07/17 21:03 Differential diagnosis: GERD, gastritis, pneumonia, pericarditis, reflux, pleuritis, acute coronary syndrome Assessment and plan: 81-year-old female with clinically atypical chest pain. She is afebrile with reassuring vital signs. She is pain-free at this time. Her EKG is morphologically abnormal, but is essentially unchanged from prior EKG. Patient recently admitted to the hospital 4 days ago for chest pain, seen and cleared by cardiology. Abdomen negative nuclear stress test a few months ago. Clean cardiac catheterization in 2011. She reports compliance with her systemic anticoagulation. Her chest x-ray is unremarkable, and her clinical symptoms do not suggest a subtle pneumonia. I have discussed the case with the covering rectifying operator, Dr. Gonzalez, who agrees that the patient does not require readmission for acute coronary syndrome risk stratification. Patient will be treated symptomatically, and cardiology indicates patient can follow-up in office on Friday or Friday. This is discussed with the patient and her who are in agreement with this. Given resolved shortness of breath and pleuritic pain, a d-dimer sent to risk stratify the patient for pulmonary embolus, although given the patient's clinical history seems atypical for pulmonary embolus and that she has been taking her systemic anticoagulation consistently, I think pulmonary embolus is very unlikely. Reevaluation #2: 02/08/17 00:27 nuclear medicine study low probability. Mild troponin leak chronic, essentially appears to be at baseline. Patient will be discharged at this time. Instructed to follow-up with her outpatient rectifying operator. Return precautions are extensively reviewed. ED Medical Decision Making - Lab Data Result diagrams: 02/07/17 17:28 02/07/17 17:28 Vital Signs 02/07/17 02/07/17 16:50 20:26 Temperature 98.1 F Pulse Rate 56 L 45 L Respiratory 20 20 Rate Blood Pressure 93/53 Blood Pressure 125/60 [Left] O2 Sat by Pulse 100 98 Oximetry Labs 02/07/17 02/07/17 02/07/17 17:28 17:28 20:14 WBC 3.7 L RBC 2.64 L Hgb 8.4 L Hct 25.6 L MCV 97 MCH 32 MCHC 33 RDW 17.7 H Plt Count 192 Lymph % (Auto) 25.3 Harvey % (Auto) 13.2 H Eos % (Auto) 1.6 Baso % (Auto) 0.9 Lymph # 0.9 L Harvey # 0.5 Eos # 0.1 Baso # 0.0 Seg Neutrophils % 59.0 Seg Neutrophils # 2.2 Sodium 136 L Potassium 4.7 Chloride 94.3 L Carbon Dioxide 25 Anion Gap 21 BUN 26 H Creatinine 5.1 H Estimated GFR 10 BUN/Creatinine Ratio 5.09 Glucose 103 H Calcium 9.2 Troponin T 0.046 H D 0.047 H - EKG Data When compared to previous EKG there are: no significant change Interpretation: no acute changes 02/07/17 21:05\ Sinus bradycardia, 48 bpm, left axis deviation, poor R-wave progression, left bundle branch block, QTC 496 ms, not morphologically consistent with STEMI, appears unchanged from prior EKG from 01/20/2017. - Radiology Data Radiology results: report reviewed, image reviewed interpreted by me: X-ray of the chest is negative for acute disease. Right-sided thoracic dialysis catheter is noted. Nuclear medicine study is low probability Critical care attestation.: If time is entered above; I have spent that time in minutes in the direct care of this critically ill patient, excluding procedure time. ED Disposition Clinical Impression: Chest pain, End-stage renal disease on hemodialysis Disposition: DISCHARGED TO HOME OR SELFCARE Is pt being admited?: No Does the pt Need Aspirin: No Condition: Stable Instructions: Chest Pain (ED), Chronic Kidney Disease (ED) Additional Instructions: continue current outpatient medications. Follow-up with her rectifying operator within the next week. Contact her rectifying operator office on Friday to arrange outpatient follow-up. Return to the ER right away with new pain, worsened pain , migration of pain, fevers or chills, nausea or vomiting, inability to tolerate liquid feeds. Referrals: PRIMARY CARE, [Primary Care Provider] - 3-5 Days STEF MENDEZ MD [Staff Physician] - 3-5 Days
[2017-02-07 21:47] LABS: INR 1.01 (0.87-1.13)
--- NOTE | 2017-02-08 00:16 | Nuclear Medicine Report ---
FINAL REPORT PROCEDURE: NM LUNG SCAN PERF/VENT TECHNIQUE: 5 mCi Tc-99m MAA was injected IV for pulmonary perfusion imaging in multiple projections. 15 MCi XE-[id number] was inhaled for pulmonary ventilation imaging in multiple projections. Injection site: RIGHT antecubital fossa. CPT 32145 REGULATORY GUIDELINES: The patient was released based upon guidelines established in [place] State Regulations for Protection Against Radiation, Chapter 9414-20-48-35, Release of Individuals Containing Radioactive Drugs or Implants. HISTORY: cp COMPARISON: No prior studies are available for comparison. FINDINGS: Perfusion: No defects . Ventilation: No defects . IMPRESSION: Normal Examination
[2017-02-08 01:14] VITALS: BP 126/60
--- NOTE | 2017-02-08 09:32 | XRay Report ---
Chest 2 views: Compared with 02/05/17. History: Chest pain. Findings: Normal cardiomediastinal silhouette. Trachea is midline. No consolidation, pneumothorax or pleural effusion. Impression: No acute cardiopulmonary findings. Stable large bore right venous catheter.
== END 2017-02-08 01:14 | disposition home or self-care (01) ==
LOC: ED 16:35
DX: I12.0 Hypertensive chronic kidney disease with stage 5 chronic kidney disease or end stage renal disease (principal); N18.6 End stage renal disease; R07.9 Chest pain, unspecified; I25.2 Old myocardial infarction; I50.9 Heart failure, unspecified; Z88.8 Allergy status to other drugs, medicaments and biological substances; Z99.2 Dependence on renal dialysis
CPT/HCPCS: 36415; 71020; 78582; 80048; 84484; 85025; 85379; 85610; 93005; 93010; 99285; A9540; A9558

== ENCOUNTER 2017-02-08 18:41 | Emergency (ER) | payer MEDICARE ==
[2017-02-08 19:21] VITALS: BP 90/56
[2017-02-08 19:58] LABS: Eosinophils % (Auto) 1.1 % (0.0-4.3); Hemoglobin 8.7 gm/dl (10.1-14.3); Mean Corpuscular HGB Conc 32 % (30-34); Mean Corpuscular Hemoglobin 31 pg (28-32); Mean Corpuscular Volume 95 fl (79-97); Platelet Count 211 K/mm3 (140-440); Red Blood Count 2.84 M/mm3 (3.65-5.03); Red Cell Distribution Width 17.9 % (13.2-15.2)
[2017-02-08 20:07] LABS: BUN/Creatinine Ratio 3.7; Calcium 8.7 mg/dL (8.4-10.2)
[2017-02-08 20:08] LABS: Chloride 97.8 mmol/L (98-107); Potassium 4.3 mmol/L (3.6-5.0)
--- NOTE | 2017-02-09 10:11 | XRay Report ---
ROUTINE CHEST, TWO VIEWS: HISTORY: Shortness of breath. Compared to 02/07/17. The lungs remain hyperinflated but clear. There is borderline heart size and pulmonary vascularity. No evidence for pleural effusion or pneumothorax. A right venous catheter remains in the same position. IMPRESSION: No change. Hyperinflated lungs. Borderline heart size and pulmonary vascularity but no CHF.
== END 2017-02-08 22:35 | disposition left against medical advice (07) ==
LOC: ED 18:41
DX: R06.02 Shortness of breath (principal); I50.9 Heart failure, unspecified; J44.9 Chronic obstructive pulmonary disease, unspecified; I12.0 Hypertensive chronic kidney disease with stage 5 chronic kidney disease or end stage renal disease; N18.6 End stage renal disease; Z99.2 Dependence on renal dialysis; Z88.8 Allergy status to other drugs, medicaments and biological substances; Z53.21 Procedure and treatment not carried out due to patient leaving prior to being seen by health care provider
CPT/HCPCS: 36415; 71020; 80048; 84484; 85025; 93005; 93010

== ENCOUNTER 2017-02-09 14:34 | Emergency (ER) | payer MEDICARE | END 2017-02-09 14:45 | disposition left against medical advice (07) | LOC: ED 14:34 | DX: R53.1 Weakness (principal); Z53.21 Procedure and treatment not carried out due to patient leaving prior to being seen by health care provider ==

== ENCOUNTER 2017-03-25 15:19 | Emergency (ER) | payer MEDICARE ==
[2017-03-25 15:28] VITALS: BP 171/89
--- NOTE | 2017-03-25 16:10 | Emergency Department Report ---
ED ENT HPI - General Chief complaint: Dental/Oral Stated complaint: TOOTHACHE Time Seen by Provider: 03/25/17 16:04 Source: patient Mode of arrival: Ambulatory Limitations: No Limitations - History of Present Illness Initial comments: 81-year-old -[place] female with past medical history of hypertension end-stage renal disease on dialysis Friday resistance and Saturdays A flutter, pacemaker complaint of upper back tooth pain. Patient reports that she took Tylenol without any relief. Patient reports that she was discharged from the hospital yesterday. He says currently on Elquis, Lipitor carvedilol Imdur, Cozaar, hydralazine. Patient denies any fever or chills no nausea no vomiting. She did go to dialysis today. MD complaint: other (dental pain) - Related Data Previous Rx's Medication Instructions Recorded Last Taken Type Apixaban [Eliquis] 2.5 mg PO BID #60 tablet 03/24/17 Unknown Rx AtorvaSTATin [Lipitor] 40 mg PO QHS #30 tablet 03/24/17 Unknown Rx Carvedilol [Coreg] 12.5 mg PO BID #60 tablet 03/24/17 Unknown Rx ISOSORBIDE MONOnitrate [Imdur ER] 30 mg PO QDAY #30 tablet 03/24/17 Unknown Rx Losartan [Cozaar] 100 mg PO QDAY #30 tablet 03/24/17 Unknown Rx hydrALAZINE [Apresoline TAB] 50 mg PO Q8HR #180 tablet 03/24/17 Unknown Rx traMADol [Ultram 50 MG tab] 50 mg PO Q6HR PRN #12 tablet 03/25/17 Unknown Rx Allergies Allergy/AdvReac Type Severity Reaction Status Date / Time naproxen Allergy Itching Verified 01/31/17 16:52 ED Dental HPI - General Chief complaint: Dental/Oral Stated complaint: TOOTHACHE Time Seen by Provider: 03/25/17 16:04 Source: patient Mode of arrival: Ambulatory Limitations: No Limitations - Related Data Previous Rx's Medication Instructions Recorded Last Taken Type Apixaban [Eliquis] 2.5 mg PO BID #60 tablet 03/24/17 Unknown Rx AtorvaSTATin [Lipitor] 40 mg PO QHS #30 tablet 03/24/17 Unknown Rx Carvedilol [Coreg] 12.5 mg PO BID #60 tablet 05/01/17 Unknown Rx ISOSORBIDE MONOnitrate [Imdur ER] 30 mg PO QDAY #30 tablet 03/24/17 Unknown Rx Losartan [Cozaar] 100 mg PO QDAY #30 tablet 03/24/17 Unknown Rx hydrALAZINE [Apresoline TAB] 50 mg PO Q8HR #180 tablet 03/24/17 Unknown Rx traMADol [Ultram 50 MG tab] 50 mg PO Q6HR PRN #12 tablet 03/25/17 Unknown Rx Allergies Allergy/AdvReac Type Severity Reaction Status Date / Time naproxen Allergy Itching Verified 01/31/17 16:52 ED Review of Systems ROS: Stated complaint: TOOTHACHE Other details as noted in HPI ED Past Medical Hx - Past Medical History Previous Medical History?: Yes Hx Hypertension: Yes Hx Heart Attack/AMI: Yes (01/13/2017 - severe chest pain) Hx Congestive Heart Failure: Yes Hx Diabetes: No Hx Renal Disease: Yes (ESRD Dialysis T,Th, Sat) Hx Sickle Cell Disease: No Hx COPD: Yes Hx Dementia: Yes (NOTED ON H&P/PT CAN TELL ME NAME AND ) Hx HIV: No Additional medical history: Afib/Aflutter - Surgical History Past Surgical History?: Yes Hx Pacemaker: Yes (s/p dual chamber pacemaker insertion 03/19/17 ) Additional Surgical History: vas cath to right chest - Social History Smoking Status: Never Smoker Substance Use Type: None - Medications Home Medications: Home Medications Medication Instructions Recorded Confirmed Last Taken Type Apixaban [Eliquis] 2.5 mg PO BID #60 tablet 03/24/17 Unknown Rx AtorvaSTATin [Lipitor] 40 mg PO QHS #30 tablet 03/24/17 Unknown Rx Carvedilol [Coreg] 12.5 mg PO BID #60 tablet 03/24/17 Unknown Rx ISOSORBIDE MONOnitrate [Imdur ER] 30 mg PO QDAY #30 tablet 03/24/17 Unknown Rx Losartan [Cozaar] 100 mg PO QDAY #30 tablet 03/24/17 Unknown Rx hydrALAZINE [Apresoline TAB] 50 mg PO Q8HR #180 tablet 03/24/17 Unknown Rx traMADol [Ultram 50 MG tab] 50 mg PO Q6HR PRN #12 tablet 03/25/17 Unknown Rx ED Physical Exam - General Limitations: No Limitations General appearance: alert, in no apparent distress - Head Head exam: Present: atraumatic, normocephalic - Eye Eye exam: Present: normal appearance - Expanded ENT Exam Expanded Teeth exam: Present: other (patient has no teeth on upper jaw) Throat exam: Positive: normal inspection - Neck Neck exam: Present: normal inspection, full ROM. Absent: tenderness, lymphadenopathy ED Course Vital Signs 03/25/17 15:26 Temperature 98.5 F Pulse Rate 94 H Respiratory 18 Rate Blood Pressure 171/89 O2 Sat by Pulse 100 Oximetry ED Medical Decision Making - Medical Decision Making Patient's been evaluated by this provider fast track. Discussed patient we'll give her pain medication I will give her tramadol 50mg twice a day . She needs to follow-up with her dentist. Critical care attestation.: If time is entered above; I have spent that time in minutes in the direct care of this critically ill patient, excluding procedure time. ED Disposition Clinical Impression: Pain in gums Disposition: DISCHARGED TO HOME OR SELFCARE Is pt being admited?: No Does the pt Need Aspirin: No Condition: Stable Additional Instructions: Please take pain medication as prescribed follow up with her family dentist. Prescriptions: traMADol [Ultram 50 MG tab] 50 mg PO Q6HR PRN #12 tablet PRN Reason: Pain Referrals: PRIMARY CARE, [Primary Care Provider] - 3-5 Days
== END 2017-03-25 16:16 | disposition home or self-care (01) ==
LOC: ED 15:19
DX: K13.79 Other lesions of oral mucosa (principal); I12.0 Hypertensive chronic kidney disease with stage 5 chronic kidney disease or end stage renal disease; N18.6 End stage renal disease; J44.9 Chronic obstructive pulmonary disease, unspecified; I25.2 Old myocardial infarction; I50.9 Heart failure, unspecified; F03.90 Unspecified dementia, unspecified severity, without behavioral disturbance, psychotic disturbance, mood disturbance, and anxiety; Z95.0 Presence of cardiac pacemaker; Z99.2 Dependence on renal dialysis; Z88.8 Allergy status to other drugs, medicaments and biological substances
CPT/HCPCS: 99282

== ENCOUNTER 2017-04-09 22:35 | Emergency (ER) | payer MEDICARE ==
[2017-04-09 23:16] LABS: Basophils % (Auto) 0.5 % (0.0-1.8); Eosinophils % (Auto) 1.6 % (0.0-4.3); Hematocrit 23.8 % (30.3-42.9); Hemoglobin 7.9 gm/dl (10.1-14.3); Mean Corpuscular HGB Conc 33 % (30-34); Mean Corpuscular Hemoglobin 33 pg (28-32); Mean Corpuscular Volume 99 fl (79-97); Platelet Count 142 K/mm3 (140-440)
[2017-04-09 23:17] LABS: Red Cell Distribution Width 20.9 % (13.2-15.2)
[2017-04-09 23:37] LABS: Albumin 3.6 g/dL (3.9-5); Albumin/Globulin Ratio 0.7 %; BUN/Creatinine Ratio 5.62; Bilirubin,Total 0.7 mg/dL (0.1-1.2); Calcium 9.1 mg/dL (8.4-10.2); Chloride 93.4 mmol/L (98-107); Potassium 3.9 mmol/L (3.6-5.0); Total Protein 8.6 g/dL (6.3-8.2)
--- NOTE | 2017-04-10 00:02 | Cat Scan Report ---
FINAL REPORT EXAM: CT HEAD/BRAIN WO CON HISTORY: HEADACHE TECHNIQUE: CT imaging is acquired through the brain without contrast. Transaxial reformations are provided. PRIORS: 04/02/2017, 03/31/2017 FINDINGS: Loss of pineda-white matter differentiation in the left parieto-occipital region is unchanged from prior. Serpiginous discontinuous hyperattenuation centered within the region of infarct is unchanged. No new/other intracranial hemorrhage. Ventricles and CSF spaces are otherwise proportionately enlarged, consistent with parenchymal atrophy. Scattered deep and subcortical white matter hypodense foci are confluent in some areas and are compatible with microvascular angiopathy. No herniation/mass effect. Calvarium and superficial scalp are intact. Partially visualized paranasal sinuses are clear. Mastoids are clear. IMPRESSION: No significant change involving left parieto-occipital hemorrhagic infarct. No mass effect or new intracranial hemorrhage. Consider additional imaging including MRI for worsening/persistent symptoms.
[2017-04-10] MEDS ORDERED: CATAPRES PO ONE (02:08)
[2017-04-10] MEDS ORDERED: TYLENOL PO ONE (02:09)
--- NOTE | 2017-04-10 02:18 | Emergency Department Report ---
ED Headache HPI - General Chief Complaint: Headache Stated Complaint: SEVERE HEADACHE Time Seen by Provider: 04/10/17 01:41 Source: patient Exam Limitations: no limitations - History of Present Illness Initial Comments: 81-year-old female with a past medical history CHF, COPD, hypertension, atrial fibrillation, end-stage renal disease on dialysis, and recent ischemic stroke with hemorrhagic conversion presents to the hospital complaints of headache that started this evening. Headache is frontal, constant, no aggravating or alleviating factors reported. Pain initially reported 10/10 upon arrival but patient states pain is 9 mild. She did not take any medications and headache improved spontaneously. Patient presents with elevated blood pressure stay she has been compliant with all her medication twice a day. Previous medical record reviewed. Patient was admitted here April 01 until April 05 with presentation of headache and dizziness. CT head without contrast showed left parietal occipital lobe and ischemic infarct with hemorrhagic transformation. Patient was evaluated by neurosurgery and neurology and no intervention was recommended other observation and repeat outpatient CT head in 10-14 days. It appears that patient signed out AMA on the . When questioned, has been states they felt that during the admission they were here long enough they were ready to go home. Since discharge patient apparently has been well up until tonight and has been compliant with her Friday, , and Friday dialysis. No previous or new deficits reported. Anticoagulates with discontinued including antiplatelets medication. Patient is not currently taking any anti-coag denies or antiplatelets. Allergies/Adverse Reactions: Allergies naproxen Allergy (Verified 01/31/17 16:52) Itching Home Medications: Ambulatory Orders Hydralazine HCl 100 mg PO TID 04/02/17 Renal-Peggy Tablet 1 tab PO QDAY 04/02/17 Calcitriol [Rocaltrol] 0.25 mcg PO DAILY 04/03/17 Clonidine HCl [Kapvay] 0.2 mg PO TID 04/03/17 Metoprolol [Lopressor] 25 mg PO BID 04/03/17 Oxycodone-Acetaminophn 5-325/5 5 mg PO Q4H PRN 04/03/17 amLODIPine [Norvasc] 10 mg PO DAILY 04/03/17 HYDROcodone/APAP 5-325 [[place] 5/325] 1 each PO Q6HR PRN #20 tablet 04/10/17 Losartan [Cozaar] 50 mg PO QDAY #30 tablet 04/10/17 ED Review of Systems ROS: Stated complaint: SEVERE HEADACHE Other details as noted in HPI Comment: All other systems reviewed and negative Other: Constitutional: No fevers chills Eyes: No eye pain visual changes ENT: No ear pain or throat pain Neck: Denies pain Respiratory: Denies cough wheezing shortness of breath Cardiovascular: Denies chest pain, palpitations, syncope GI: Denies abdominal pain, nausea, vomiting, diarrhea : Denies dysuria Musculoskeletal: Denies back pain Skin: Denies rash, lesions, erythema Neurologic: Denies numbness, weakness ED Past Medical Hx - Past Medical History Previous Medical History?: Yes Hx Hypertension: Yes Hx Heart Attack/AMI: Yes Hx Congestive Heart Failure: Yes Hx Diabetes: No Hx Renal Disease: Yes (ESRD Dialysis ,, Fri) Hx Sickle Cell Disease: No Hx COPD: Yes Hx Dementia: Yes Hx HIV: No Additional medical history: Afib/Aflutter - Surgical History Past Surgical History?: Yes Hx Pacemaker: Yes (Dual chamber PPM) Additional Surgical History: vas cath to right chest - Social History Smoking Status: Never Smoker Substance Use Type: None - Medications Home Medications: Home Medications Medication Instructions Recorded Confirmed Last Taken Type Hydralazine HCl 100 mg PO TID 04/02/17 04/03/17 Unknown History Renal-Peggy Tablet 1 tab PO QDAY 04/02/17 04/03/17 Unknown History Calcitriol [Rocaltrol] 0.25 mcg PO DAILY 04/03/17 04/03/17 Unknown History Clonidine HCl [Kapvay] 0.2 mg PO TID 04/03/17 04/03/17 Unknown History Metoprolol [Lopressor] 25 mg PO BID 04/03/17 04/03/17 Unknown History Oxycodone-Acetaminophn 5-325/5 5 mg PO Q4H PRN 04/03/17 04/03/17 Unknown History amLODIPine [Norvasc] 10 mg PO DAILY 04/03/17 04/03/17 Unknown History HYDROcodone/APAP 5-325 [[place] 1 each PO Q6HR PRN #20 tablet 04/10/17 Unknown Rx 5/325] Losartan [Cozaar] 50 mg PO QDAY #30 tablet 04/10/17 Unknown Rx ED Physical Exam - General Limitations: No Limitations - Other Other exam information: General: No limitations, patient is alert in no acute distress Head exam: Atraumatic, normocephalic Eyes exam: Normal appearance, pupils equal reactive to light, extraocular movements intact ENT: Moist mucous membrane, normal oropharynx Neck exam: Normal inspection, full range of motion, no meningismus nontender Respiratory exam: Clear to auscultation bilateral, no wheezes, rales, crackles Cardiovascular: Irregular rhythm with a loud systolic murmur Abdomen: Soft, nondistended, and nontender, with normal bowel sounds, no rebound, or guarding Extremity: Full range of motion normal inspection no deformity Back: Normal Inspection, full range of motion, no tenderness Neurologic: Alert, oriented x3, cranial nerves intact, no motor or sensory deficit, [id number] function intact Psychiatric: normal affect, normal mood Skin: Warm, dry, intact ED Course Vital Signs 04/09/17 04/09/17 04/10/17 22:40 22:48 01:29 Temperature 98.2 F 98.2 F Pulse Rate 101 H 101 H 96 H Respiratory 20 20 16 Rate Blood Pressure 179/116 Blood Pressure 179/116 186/111 [Right] O2 Sat by Pulse 97 20 L 100 Oximetry 04/10/17 03:03 Temperature Pulse Rate 88 Respiratory 18 Rate Blood Pressure Blood Pressure 166/95 [Right] O2 Sat by Pulse 99 Oximetry - Reevaluation(s) Reevaluation #1: 04/10/17 03:13 Patient given clonidine and Tylenol with improvement in blood pressure and headache 04/10/17 03:20 BP 166/95 - Consultations Consultation #1: 04/10/17 02:18 case d/w DR. Zavala. Rec increase in Losartan to 50mg bid for better BP control ED Medical Decision Making - Lab Data Result diagrams: 04/09/17 22:59 04/09/17 22:59 Lab Results 04/09/17 04/09/17 Range/Units 22:59 22:59 WBC 4.0 L (4.5-11.0) K/mm3 RBC 2.40 L (3.65-5.03) M/mm3 Hgb 7.9 L (10.1-14.3) gm/dl Hct 23.8 L (30.3-42.9) % MCV 99 H (79-97) fl MCH 33 H (28-32) pg MCHC 33 (30-34) % RDW 20.9 H (13.2-15.2) % Plt Count 142 (140-440) K/mm3 Lymph % (Auto) 30.7 (13.4-35.0) % [place] % (Auto) 10.6 H (0.0-7.3) % Eos % (Auto) 1.6 (0.0-4.3) % Baso % (Auto) 0.5 (0.0-1.8) % Lymph # 1.2 (1.2-5.4) K/mm3 [place] # 0.4 (0.0-0.8) K/mm3 Eos # 0.1 (0.0-0.4) K/mm3 Baso # 0.0 (0.0-0.1) K/mm3 Seg Neutrophils % 56.6 (40.0-70.0) % Seg Neutrophils # 2.3 (1.8-7.7) K/mm3 Sodium 135 L (137-145) mmol/L Potassium 3.9 (3.6-5.0) mmol/L Chloride 93.4 L (98-107) mmol/L Carbon Dioxide 25 (22-30) mmol/L Anion Gap 21 mmol/L BUN 27 H (7-17) mg/dL Creatinine 4.8 H (0.7-1.2) mg/dL Estimated GFR 11 ml/min BUN/Creatinine Ratio 5.62 % Glucose 91 (65-100) mg/dL Calcium 9.1 (8.4-10.2) mg/dL Total Bilirubin 0.70 (0.1-1.2) mg/dL AST 29 (5-40) units/L ALT 6 L (7-56) units/L Alkaline Phosphatase 58 (35-129) units/L Total Protein 8.6 H (6.3-8.2) g/dL Albumin 3.6 L (3.9-5) g/dL Albumin/Globulin Ratio 0.7 % - Radiology Data Radiology results: report reviewed (CT head: No significant change involving the left parietal-occipital hemorrhagic infarct compared to 04/02/2017) - Medical Decision Making Patient has chronic anemia that is unchanged compared to previous. CT does not show any new abnormality. Headache improved even prior to ED treatment. Symptoms further improved with Tylenol and clonidine. Case discussed with nephrology recommends increasing losartan to 50 mg daily. She continues to have uncontrolled hypertension despite medication compliance - Differential Diagnosis intracranial hemorrhage, post-CVA headache, hypertensive emergency Critical Care Time: No Critical care attestation.: If time is entered above; I have spent that time in minutes in the direct care of this critically ill patient, excluding procedure time. ED Disposition Clinical Impression: Headache, Uncontrolled hypertension, ESRD (end stage renal disease) on dialysis , Chronic anemia, Recent cerebrovascular accident (CVA), Chronic atrial fibrillation Disposition: DISCHARGED TO HOME OR SELFCARE Is pt being admited?: No Does the pt Need Aspirin: No Condition: Stable Instructions: Acute Headache (ED), Self Care Measures After a Stroke (ED), Hypertension (ED) Additional Instructions: Take the [place]/hydrocodone as needed for pain. I have increased your Losartan from 25 mg once a day up to 50 mg once a day. I have written for a 30 day supply. You may continue your current losartan 25 mg however, take 2 tablets once a day. Once the 25 mg tablet is done you may began the 50 mg tablets I have prescribed. Follow up with your doctors for further blood pressure check, evaluation, and possible medication adjustment. Return if symptoms worsen. Prescriptions: HYDROcodone/APAP 5-325 [[place] 5/325] 1 each PO Q6HR PRN #20 tablet PRN Reason: Pain Losartan [Cozaar] 50 mg PO QDAY #30 tablet Referrals: KYLEE FRANCO MD [Primary Care Provider] - 2-3 Days Time of Disposition: 03:19
[2017-04-10 03:04] VITALS: BP 166/95
== END 2017-04-10 03:20 | disposition home or self-care (01) ==
LOC: ED 22:35
DX: I12.0 Hypertensive chronic kidney disease with stage 5 chronic kidney disease or end stage renal disease (principal); D64.9 Anemia, unspecified; I63.9 Cerebral infarction, unspecified; N18.6 End stage renal disease; Z99.2 Dependence on renal dialysis; I25.2 Old myocardial infarction; I50.9 Heart failure, unspecified; J44.9 Chronic obstructive pulmonary disease, unspecified; F03.90 Unspecified dementia, unspecified severity, without behavioral disturbance, psychotic disturbance, mood disturbance, and anxiety; I48.91 Unspecified atrial fibrillation; R51 Headache
CPT/HCPCS: 36415; 70450; 80053; 85025; 99284

== ENCOUNTER 2017-04-10 18:02 | Emergency (ER) | payer MEDICARE ==
[2017-04-10 18:50] VITALS: BP 113/73
== END 2017-04-10 18:35 | disposition left against medical advice (07) ==
LOC: ED 18:02
DX: R53.1 Weakness (principal); Z53.21 Procedure and treatment not carried out due to patient leaving prior to being seen by health care provider

== ENCOUNTER 2017-04-12 07:37 | Inpatient (IN) | payer MEDICARE ==
[2017-04-12 08:24] LABS: Eosinophils % (Auto) 0.9 % (0.0-4.3); Hematocrit 24.6 % (30.3-42.9); Hemoglobin 8.1 gm/dl (10.1-14.3); Mean Corpuscular HGB Conc 33 % (30-34); Mean Corpuscular Hemoglobin 33 pg (28-32); Mean Corpuscular Volume 100 fl (79-97); Platelet Count 155 K/mm3 (140-440); Red Blood Count 2.47 M/mm3 (3.65-5.03); White Blood Count 3.9 K/mm3 (4.5-11.0)
[2017-04-12 08:31] LABS: Red Cell Distribution Width 20.5 % (13.2-15.2)
[2017-04-12 09:16] LABS: BUN/Creatinine Ratio 4.13; Calcium 9.2 mg/dL (8.4-10.2); Chloride 95.6 mmol/L (98-107); Potassium 4.3 mmol/L (3.6-5.0)
[2017-04-12] MEDS ORDERED: ZOFRAN IV ONE (10:57)
[2017-04-12] MEDS ORDERED: NITRO-BID 2% TP ONE (10:57)
[2017-04-12] MEDS ORDERED: MORPHINE IV ONE (10:57)
[2017-04-12] MEDS ORDERED: APRESOLINE IV ONE (10:57)
[2017-04-12] MEDS ORDERED: CARDENE 50 MG in NACL 0.9% 250ML 230 ML IV SCH (11:00)
[2017-04-12] MEDS ORDERED: NACL 0.9% 100 ML IV PRN (11:04)
--- NOTE | 2017-04-12 11:30 | XRay Report ---
AP CHEST :04/12/17 07:37:00 CLINICAL: Dyspnea. COMPARISON:03/19/17 FINDINGS: The heart is large and has enlarged since the last exam. Central vascular congestion and new bibasal opacification with silhouetting of the heart borders and the diaphragm. New bilateral perihilar reticular interstitial opacities. A right Vas-Cath tip remains in the distal SVC. Pacer leads in the heart. IMPRESSION: Interval development of congestive heart failure with interstitial pulmonary edema and bilateral pleural effusions.
[2017-04-12 11:41] LABS: INR 1.1 (0.87-1.13)
[2017-04-12 11:42] LABS: Partial Thromboplastin Time 32.5 Sec. (24.2-36.6)
--- NOTE | 2017-04-12 11:53 | Emergency Department Report ---
ED General Adult HPI - General Chief complaint: Chest Pain Stated complaint: CHEST PAIN Time Seen by Provider: 04/12/17 10:29 Source: patient Mode of arrival: Ambulatory Limitations: No Limitations - History of Present Illness Initial comments: This is an 81-year-old female that is 4 months of hemodialysis. 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 Quick review of her previous recent admission with discharge date indicates that she had an occipital stroke with hemorrhagic transformation. She had a history of atrial fibrillation. Due to the above anticoagulation was discontinued. She had an echocardiogram on 04/01/2017 which revealed a depressed left ventricular systolic function and EF 45-50 and a dilated cardiomyopathy. Today the patient states that at about 4 in the morning she began to experience anterior chest pain. It is still mildly persistent. She states she has had this before. It was associated with shortness of breath. According to triage and radiated to the legs but the patient is not complaining of that now. She states that she is compliant with her blood pressure medicine. Due to the chest pain/epigastric pain and difficulty in breathing, the patient presented to this facility for evaluation. At the time of my to show awareness of the patient's chart, I found her to have significantly abnormal vital signs and respiratory distress. Initial stabilization was ordered. -: Gradual Location: chest, abdomen Radiation: extremity Quality: aching Consistency: constant Improves with: none Worsens with: none Associated Symptoms: shortness of breath - Related Data Home Medications Medication Instructions Recorded Confirmed Last Taken Hydralazine HCl 100 mg PO TID 04/02/17 04/12/17 04/11/17 Renal-Peggy Tablet 1 tab PO QDAY 04/02/17 04/12/17 04/11/17 Calcitriol [Rocaltrol] 0.25 mcg PO DAILY 04/03/17 04/12/17 04/11/17 Clonidine HCl [Kapvay] 0.2 mg PO TID 04/03/17 04/12/17 04/11/17 Metoprolol [Lopressor] 25 mg PO BID 04/03/17 04/12/17 04/11/17 Oxycodone-Acetaminophn 5-325/5 5 mg PO Q4H PRN 04/03/17 04/12/17 04/11/17 amLODIPine [Norvasc] 10 mg PO DAILY 04/03/17 04/12/17 04/11/17 Previous Rx's Medication Instructions Recorded Last Taken Type HYDROcodone/APAP 5-325 [[place] 1 each PO Q6HR PRN #20 tablet 04/10/17 04/11/17 Rx 5/325] Losartan [Cozaar] 50 mg PO QDAY #30 tablet 04/10/17 04/11/17 Rx Allergies Allergy/AdvReac Type Severity Reaction Status Date / Time naproxen Allergy Itching Verified 04/12/17 07:53 ED Review of Systems ROS: Stated complaint: CHEST PAIN Other details as noted in HPI Constitutional: denies: chills, fever Eyes: denies: eye pain, eye discharge, vision change ENT: denies: ear pain, throat pain Respiratory: shortness of breath. denies: cough, wheezing Cardiovascular: chest pain. denies: palpitations Endocrine: no symptoms reported Gastrointestinal: abdominal pain. denies: nausea, diarrhea Genitourinary: denies: urgency, dysuria, discharge Musculoskeletal: denies: back pain, joint swelling, arthralgia Skin: denies: rash, lesions Neurological: denies: headache, weakness, paresthesias Psychiatric: denies: anxiety, depression Hematological/Lymphatic: denies: easy bleeding, easy bruising ED Past Medical Hx - Past Medical History Hx Hypertension: Yes Hx Heart Attack/AMI: Yes Hx Congestive Heart Failure: Yes Hx Diabetes: No Hx Renal Disease: Yes (ESRD Dialysis T,Th, Sat) Hx Sickle Cell Disease: No Hx COPD: Yes Hx Dementia: Yes Hx HIV: No Additional medical history: Afib/Aflutter - Surgical History Hx Pacemaker: Yes (Dual chamber PPM) Additional Surgical History: vas cath to right chest - Social History Smoking Status: Never Smoker Substance Use Type: None - Medications Home Medications: Home Medications Medication Instructions Recorded Confirmed Last Taken Type Hydralazine HCl 100 mg PO TID 04/02/17 04/12/17 04/11/17 History Renal-Peggy Tablet 1 tab PO QDAY 04/02/17 04/12/17 04/11/17 History Calcitriol [Rocaltrol] 0.25 mcg PO DAILY 04/03/17 04/12/17 04/11/17 History Clonidine HCl [Kapvay] 0.2 mg PO TID 0504/12/17 04/11/17 History Metoprolol [Lopressor] 25 mg PO BID 04/03/17 04/12/17 04/11/17 History Oxycodone-Acetaminophn 5-325/5 5 mg PO Q4H PRN 04/03/17 04/12/17 04/11/17 History amLODIPine [Norvasc] 10 mg PO DAILY 04/03/17 04/12/17 04/11/17 History HYDROcodone/APAP 5-325 [[place] 1 each PO Q6HR PRN #20 tablet 04/10/17 04/12/17 Rx 5/325] Losartan [Cozaar] 50 mg PO QDAY #30 tablet 04/10/17 04/12/17 04/11/17 Rx ED Physical Exam - General Limitations: No Limitations General appearance: alert, in no apparent distress, in distress (respiratory distress increased work of breathing) - Head Head exam: Present: atraumatic, normocephalic - Eye Eye exam: Present: normal appearance. Absent: scleral icterus - ENT ENT exam: Present: mucous membranes moist - Neck Neck exam: Present: normal inspection - Respiratory Respiratory exam: Present: normal lung sounds bilaterally. Absent: respiratory distress - Cardiovascular Cardiovascular Exam: Present: regular rate, normal rhythm. Absent: systolic murmur, diastolic murmur, rubs, gallop - GI/Abdominal GI/Abdominal exam: Present: soft, normal bowel sounds. Absent: distended, tenderness, guarding, rebound - Extremities Exam Extremities exam: Present: normal inspection - Back Exam Back exam: Present: normal inspection - Neurological Exam Neurological exam: Present: alert, oriented X3, CN II-XII intact. Absent: motor sensory deficit - Psychiatric Psychiatric exam: Present: anxious, flat affect - Skin Skin exam: Present: warm, dry, intact, normal color. Absent: rash ED Course Vital Signs 04/12/17 04/12/17 04/12/17 07:53 08:06 08:10 Temperature 98.2 F Pulse Rate 59 L 105 H 102 H Respiratory 32 H 48 H 47 H Rate Blood Pressure 190/111 196/123 Blood Pressure [Left] O2 Sat by Pulse 98 96 Oximetry 04/12/17 04/12/17 04/12/17 08:16 08:20 08:30 Temperature Pulse Rate 95 H 92 H Respiratory 20 11 L 21 Rate Blood Pressure 183/104 183/104 Blood Pressure [Left] O2 Sat by Pulse 96 95 93 Oximetry 04/12/17 04/12/17 04/12/17 08:40 08:50 09:00 Temperature Pulse Rate 96 H 96 H 93 H Respiratory 14 26 H 21 Rate Blood Pressure 210/115 205/130 205/130 Blood Pressure [Left] O2 Sat by Pulse 99 96 96 Oximetry 04/12/17 04/12/17 04/12/17 09:10 09:20 09:30 Temperature Pulse Rate 91 H 95 H 108 H Respiratory 22 13 13 Rate Blood Pressure 208/112 194/125 194/125 Blood Pressure [Left] O2 Sat by Pulse 98 94 90 Oximetry 04/12/17 04/12/17 04/12/17 09:40 09:50 10:01 Temperature Pulse Rate 108 H 101 H 113 H Respiratory 20 40 H 21 Rate Blood Pressure 194/125 205/130 216/118 Blood Pressure [Left] O2 Sat by Pulse 93 93 96 Oximetry 04/12/17 04/12/17 04/12/17 10:10 10:21 10:31 Temperature Pulse Rate 107 H 95 H 96 H Respiratory 23 37 H 23 Rate Blood Pressure 241/131 241/131 241/131 Blood Pressure [Left] O2 Sat by Pulse 95 96 95 Oximetry 04/12/17 04/12/17 04/12/17 10:40 10:51 11:01 Temperature Pulse Rate 107 H 109 H 103 H Respiratory 19 44 H 15 Rate Blood Pressure 241/131 240/125 240/125 Blood Pressure [Left] O2 Sat by Pulse 95 96 94 Oximetry 04/12/17 04/12/17 04/12/17 11:06 11:10 11:12 Temperature Pulse Rate 107 H 105 H 95 H Respiratory 20 31 H Rate Blood Pressure 240/125 192/105 Blood Pressure 194/101 [Left] O2 Sat by Pulse 96 100 Oximetry 04/12/17 04/12/17 04/12/17 11:20 11:31 11:40 Temperature Pulse Rate 106 H 106 H 102 H Respiratory 26 H 13 22 Rate Blood Pressure 183/89 153/75 153/75 Blood Pressure [Left] O2 Sat by Pulse 96 97 96 Oximetry 04/12/17 04/12/17 04/12/17 11:50 12:01 12:10 Temperature Pulse Rate 101 H 105 H 114 H Respiratory 20 17 18 Rate Blood Pressure 142/73 131/74 132/81 Blood Pressure [Left] O2 Sat by Pulse 96 96 95 Oximetry 04/12/17 04/12/17 04/12/17 12:20 12:30 12:40 Temperature Pulse Rate 99 H 97 H 101 H Respiratory 19 19 21 Rate Blood Pressure 150/80 164/68 165/82 Blood Pressure [Left] O2 Sat by Pulse 96 97 95 Oximetry 04/12/17 04/12/17 04/12/17 12:50 13:00 13:10 Temperature Pulse Rate 99 H 108 H 98 H Respiratory 16 44 H 26 H Rate Blood Pressure 162/85 154/82 151/75 Blood Pressure [Left] O2 Sat by Pulse 96 97 96 Oximetry 04/12/17 04/12/17 04/12/17 13:20 13:30 14:16 Temperature Pulse Rate 99 H 99 H Respiratory 24 23 Rate Blood Pressure 133/74 155/81 150/82 Blood Pressure [Left] O2 Sat by Pulse 96 97 94 Oximetry 04/12/17 04/12/17 04/12/17 14:20 14:30 14:40 Temperature Pulse Rate 95 H 97 H 93 H Respiratory 16 16 19 Rate Blood Pressure 146/77 146/75 148/79 Blood Pressure [Left] O2 Sat by Pulse 98 97 98 Oximetry 04/12/17 04/12/17 04/12/17 14:50 15:12 15:21 Temperature Pulse Rate 91 H 92 H Respiratory 14 18 Rate Blood Pressure 150/83 Blood Pressure [Left] O2 Sat by Pulse 99 95 86 Oximetry - Reevaluation(s) Reevaluation #1: Initial interventions with Nitropaste hydralazine morphine and Zofran were effective. The patient's blood pressure is in the 150s systolic. Dialysis is pending. At placement in the ICU is pending. I do have some residual concern that the patient could have an aortic issue with her significant accelerated hypertension and chest/abdominal pain radiating to the legs. No think she is a candidate for contrast angiogram at this time. I will try to get a noncontrast CT. Further workup regarding this issue, his deferred to the patient's inpatient course. 04/12/17 12:01 ED Medical Decision Making - Lab Data Result diagrams: 04/12/17 08:03 04/12/17 08:03 Laboratory Results - last 24 hr 04/12/17 04/12/17 04/12/17 08:03 08:03 10:58 WBC 3.9 L RBC 2.47 L Hgb 8.1 L Hct 24.6 L MCV 100 H MCH 33 H MCHC 33 RDW 20.5 H Plt Count 155 Lymph % (Auto) 28.6 [place] % (Auto) 6.9 Eos % (Auto) 0.9 Baso % (Auto) 1.0 Lymph # 1.1 L [place] # 0.3 Eos # 0.0 Baso # 0.0 Seg Neutrophils % 62.6 Seg Neutrophils # 2.4 PT 14.1 INR 1.10 APTT 32.5 Sodium 139 Potassium 4.3 Chloride 95.6 L Carbon Dioxide 25 Anion Gap 23 BUN 19 H Creatinine 4.6 H Estimated GFR 11 BUN/Creatinine Ratio 4.13 Glucose 100 Calcium 9.2 Troponin T 0.143 H* Triglycerides 83 Cholesterol 181 LDL Cholesterol Direct 88 HDL Cholesterol 77 H Cholesterol/HDL Ratio 2.35 - EKG Data -: EKG Interpreted by Me Rate: tachycardia - EKG Data Interpretation: other (PVCs nonspecific ST-T wave changes affect. Left axis Deviation. Consider anteroseptal zone) - Radiology Data interpreted by me: Chest x-ray is consistent with pulmonary edema pleural effusion CHF. The mediastinum looks similar compared to prior and is not enlarged. Critical Care Time: Yes Critical care time in (mins) excluding proc time.: 60 Critical care attestation.: If time is entered above; I have spent that time in minutes in the direct care of this critically ill patient, excluding procedure time. ED Disposition Clinical Impression: ESRD (end stage renal disease) on dialysis, Hypertensive urgency, Hypertensive crisis, Chronic anemia Pulmonary edema Qualifiers: Chronicity: acute Qualified Code(s): J81.0 - Acute pulmonary edema Chest pain Qualifiers: Chest pain type: unspecified Qualified Code(s): R07.9 - Chest pain, unspecified Disposition: OP ADMITTED IP TO THIS HOSP Is pt being admited?: Yes Does the pt Need Aspirin: Yes Condition: Stable Time of Disposition: 17:00
[2017-04-12 12:19] LABS: Albumin 3.7 g/dL (3.9-5); Albumin/Globulin Ratio 0.7 %; Bilirubin,Direct 0.3 mg/dL (0-0.2); Bilirubin,Indirect 0.7 mg/dL; Phosphorous 4.6 mg/dL (2.5-4.5)
--- NOTE | 2017-04-12 12:59 | Consultation ---
History of Present Illness Consult date: 04/12/17 Requesting physician: ANUM PITTS Reason for consult: chest pain, pleural effusion (Hypertensive Emergency; ACS), other History of present illness: PULMONARY/CCM CONSULT NOTE (Full dictation #[id number]) Please see dictated notes for full details Medications and Allergies Allergies Allergy/AdvReac Type Severity Reaction Status Date / Time naproxen Allergy Itching Verified 04/12/17 07:53 Home Medications Medication Instructions Recorded Confirmed Last Taken Type Hydralazine HCl 100 mg PO TID 04/02/17 04/12/17 04/11/17 History Renal-Peggy Tablet 1 tab PO QDAY 04/02/17 04/12/17 04/11/17 History Calcitriol [Rocaltrol] 0.25 mcg PO DAILY 04/03/17 04/12/17 04/11/17 History Clonidine HCl [Kapvay] 0.2 mg PO TID 04/03/17 04/12/17 04/11/17 History Metoprolol [Lopressor] 25 mg PO BID 04/03/17 04/12/17 04/11/17 History Oxycodone-Acetaminophn 5-325/5 5 mg PO Q4H PRN 04/03/17 04/12/17 04/11/17 History amLODIPine [Norvasc] 10 mg PO DAILY 04/03/17 04/12/17 04/11/17 History HYDROcodone/APAP 5-325 [[place] 1 each PO Q6HR PRN #20 tablet 04/10/17 04/12/17 Rx 5/325] Losartan [Cozaar] 50 mg PO QDAY #30 tablet 04/10/17 04/12/17 04/11/17 Rx Active Meds: Active Medications Nicardipine HCl 50 mg/ Sodium (Chloride) 250 mls @ 25 mls/hr IV TITR [place]; 5 MG/ HR PRN Reason: Protocol Last Titration: 04/12/17 12:45 Dose: 2.5 mg/hr, 12.5 mls/hr Sodium Chloride (Nacl 0.9%) 100 mls @ 999 mls/hr IV SHIRA PRN PRN Reason: Hypotension Physical Examination Vital signs: Vital Signs Temp Pulse Resp BP Pulse Ox 98.2 F 59 L 32 H 190/111 98 04/12/17 07:53 04/12/17 07:53 04/12/17 07:53 04/12/17 07:53 04/12/17 07:53 Results - Laboratory Findings CBC and BMP: 04/12/17 08:03 04/12/17 08:03 PT/INR, D-dimer PT 14.1 Sec. (12.2-14.9) 04/12/17 10:58 INR 1.10 (0.87-1.13) 04/12/17 10:58
--- NOTE | 2017-04-12 14:06 | Admit Criteria Form ---
Admission Criteria Documentation: RENAL FAILURE, CHRONIC Clinical Indications for Admission to Inpatient Care (Place 'X' for any and all applicable criteria): Admission is indicated for ANY ONE of the following (1)(2)(3)(4)(5): [X ]I. Inpatient admission required rather than observation care (Use Renal Failure, Chronic: Observation Care Criteria as appropriate) because of ANY ONE of the following: [ ]a) Volume overload or uremic symptoms (eg, clinically significant pulmonary edema, hypertension, pericarditis, acidosis) too severe for, or not responsive (eg, for over 24 hours) to emergency department or observation care dialysis or treatment regimen (11) [ ]b) Hemodynamic instability that is severe or persistent [ ]c) Respiratory distress that is severe or persistent (11) [ ]d) Clinically significant electrolyte abnormality that requires inpatient care (eg,hyperkalemia with severe ECG findings)[B] [ ]e) Supplement O2 or respiratory therapy for over 24hrs that is performable only in acute inpatient setting [ ]f) Continuous IV infusion of anticoagulation, platelet inhibitor, vasoactive, or Antiarrhythmic medication (15), [ ]g) Pulmonary artery catheter monitoring [ ]h) Temporary pacemaker placement [ ]i) Emergent pericardiocentesis [X ]j) Other condition, treatment or monitoring requiring inpatient admission [ ]II. Unexplained syncope [A] [ ]III. Recurrent seizures [ ]IV. Severe infections not treatable in outpatient setting (eg, peritonitis)(9 ) [ ]V. Cardiac arrhythmias of immediate concern [ ]. Encephalopathy [ ]VII.Bleeding abnormalities (eg, platelet dysfunction) with active (eg, gastrointestinal) bleeding Extended stay beyond goal length of stay may be needed for (3)(4)(35)(36): [ ]a) Continuing uremic complications [ ]b) Comorbidities or complications The original [employer] content created by [employer] has been revised. The portions of the content which have been revised are identified through the use of italic text or in bold, and [email or web address] has neither reviewed nor approved the modified material. All other unmodified content is copyright [employer]. Please see references footnoted in the original [email or web address] edition 2016 Admission Criteria Met: Yes
[2017-04-12] MEDS ORDERED: NACL 0.9 (PRIMING MACHINE ONLY DIALYSIS) MC ONE (15:21)
--- NOTE | 2017-04-12 15:28 | Cat Scan Report ---
FINAL REPORT EXAM: CT ABDOMEN PELVIS WO CON HISTORY: abd pain htn radiating to legs TECHNIQUE: CT of the abdomen and pelvis was performed without intravenous contrast. Reconstructions were included in the coronal and sagittal planes. PRIORS: None. FINDINGS: Lower thorax: There is a moderate right and small left pleural effusions with patchy bibasilar opacities. Electronic device courses through the right atrium into the superior margin of the IVC of uncertain etiology. The visualized portions of the heart are normal. Liver: The liver is normal in attenuation. No intrahepatic biliary duct dilation. Several scattered simple hepatic cysts are seen. Gallbladder/ biliary system: No cholelithiasis. The common bile duct appears nondilated. Spleen: No splenic lesions are seen. Pancreas: No pancreatic lesions are seen. No pancreatic duct dilation. Kidneys: Two nonspecific hyper attenuating lesions are seen within the right kidney. The lesion in the inferior pole of the right kidney measures 1.3 centimeters. The lesion in the superior pole of the right kidney measures 2.1 centimeters. No renal or ureteral calcifications. Adrenal glands: No adrenal masses. Vasculature: The abdominal aorta is nondilated. Atherosclerotic calcifications are seen within the abdominal aorta. Lymph nodes: No enlarged lymph nodes are seen in the abdomen or pelvis. Bowel, mesentery, peritoneum: No bowel obstruction. No free fluid or free air. The appendix is not definitively seen. No pericecal inflammatory change. Colonic diverticulosis is seen. No evidence of diverticulitis. No bowel wall thickening. Urinary bladder: No filling defects are seen. Pelvis: Post hysterectomy. Abdominal wall: No abdominal wall hernia or other subcutaneous findings. Bones: Diffuse heterogeneous appearance of the bones is noted. IMPRESSION: 1. Two nonspecific right renal lesions should be further evaluated with multiphasic renal CT or MRI to exclude renal cell carcinoma. 2. Appearance of the bones may be related to diffuse metastatic disease versus multiple myeloma or other etiology. Consider further evaluation with bone scan. 3. Moderate right and small left pleural effusions with bibasilar atelectasis versus pneumonia. 4. Colonic diverticulosis without diverticulitis. 5. Several simple hepatic cysts.
[2017-04-12] MEDS ORDERED: ACETAMINOPHEN PO PRN (16:49)
[2017-04-12] MEDS ORDERED: NORCO 5/325 PO PRN (16:49)
[2017-04-12] MEDS ORDERED: OXYCODONE PO PRN (16:49)
[2017-04-12] MEDS ORDERED: HEPARIN IV PRN (16:59)
[2017-04-12] MEDS ORDERED: COZAAR PO SCH (17:00)
[2017-04-12] MEDS ORDERED: NORVASC PO SCH (17:00)
--- NOTE | 2017-04-12 19:55 | Consultation ---
History of Present Illness - Reason for Consult Consult date: 04/12/17 end stage renal disease - History of Present Illness Mrs. Villanueva is an 81yo with ESRD on HD TTS and uncontrolled admission who presented to the ED with < 1 day history of chest pain and SOB. She denies nausea, vomiting. In the ED, she was noted to have a blood pressure of 241- 131. She has been admitted for further management. This is patient's seventh hospitalization since Dec 2016. She is seen during dialysis. At present, she is chest pain free. She denies shortness of breath. Past History Past Medical History: atrial fib, ESRD, heart failure, hypertension, stroke Past Surgical History: Other (Dialyis access placement) Social history: , lives with family Family history: no significant family history Medications and Allergies Allergies Allergy/AdvReac Type Severity Reaction Status Date / Time naproxen Allergy Itching Verified 04/12/17 07:53 Home Medications Medication Instructions Recorded Confirmed Last Taken Type Hydralazine HCl 100 mg PO TID 04/02/17 04/12/17 04/11/17 History Renal-Peggy Tablet 1 tab PO QDAY 04/02/17 04/12/17 04/11/17 History Calcitriol [Rocaltrol] 0.25 mcg PO DAILY 04/03/17 04/12/17 04/11/17 History Clonidine HCl [Kapvay] 0.2 mg PO TID 04/03/17 04/12/17 04/11/17 History Metoprolol [Lopressor] 25 mg PO BID 04/03/17 04/12/17 04/11/17 History Oxycodone-Acetaminophn 5-325/5 5 mg PO Q4H PRN 04/03/17 04/12/17 04/11/17 History amLODIPine [Norvasc] 10 mg PO DAILY 04/03/17 04/12/17 04/11/17 History HYDROcodone/APAP 5-325 [Neon 1 each PO Q6HR PRN #20 tablet 04/10/17 04/12/17 Rx 5/325] Losartan [Cozaar] 50 mg PO QDAY #30 tablet 04/10/17 04/12/17 04/11/17 Rx Active Meds: Active Medications Acetaminophen/Hydrocodone Bitart (Neon 5/325) 1 each PO Q6H PRN PRN Reason: MODERATE PAIN (4-6) Amlodipine Besylate (Norvasc) 10 mg PO DAILY [facility] Calcitriol (Rocaltrol) 0.25 mcg PO DAILY [facility] Clonidine HCl (Catapres) 0.2 mg PO TID [facility] Heparin Sodium (Porcine) (Heparin) 5,000 unit IV SHIRA PRN PRN Reason: hemodialysis Hydralazine HCl (Apresoline) 100 mg PO TID [facility] Nicardipine HCl 50 mg/ Sodium (Chloride) 250 mls @ 25 mls/hr IV TITR [place]; 5 MG/ HR PRN Reason: Protocol Last Titration: 04/12/17 12:45 Dose: 2.5 mg/hr, 12.5 mls/hr Sodium Chloride (Nacl 0.9%) 100 mls @ 999 mls/hr IV SHIRA PRN PRN Reason: Hypotension Losartan Potassium (Cozaar) 50 mg PO QDAY [facility] Metoprolol Tartrate (Lopressor) 25 mg PO BID [facility] Multivit/Ca Carb/B Cmplx/FA/Prenat (Renal Caps) 1 cap PO QDAY [facility] Review of Systems Constitutional: no fever, no chills, no sweats Cardiovascular: chest pain, shortness of breath Respiratory: shortness of breath, no cough Gastrointestinal: no abdominal pain, no nausea, no vomiting, no diarrhea Musculoskeletal: no myalgias Integumentary: no rash Exam - Vital Signs Vital signs: Vital Signs Temp Pulse Resp BP Pulse Ox 98.2 F 59 L 32 H 190/111 98 04/12/17 07:53 04/12/17 07:53 04/12/17 07:53 04/12/17 07:53 04/12/17 07:53 - General Appearance General appearance: well-developed, frail EENT: ATNC Respiratory: Clear to Ascultation Heart: regular, S1S2 Gastrointestinal: Present: normal. Absent: tenderness, distended Integumentary: no rash Musculoskeletal: Present: other (no edema) Psychiatric: cooperative Results - Lab Results 04/12/17 08:03 04/12/17 08:03 Most recent lab results Calcium 9.2 mg/dL (8.4-10.2) 04/12/17 08:03 Phosphorus 4.60 mg/dL (2.5-4.5) H 05/20/17 10:58 Assessment and Plan Impression: * End stage renal disease on HD TTS * Accelerated hypertension * Chest pain * Hx of subacute infract of left parieto-occipital region with hemorrhagic transformation * Atrial fibrillation * Bradycardia --s/p dual chamber PPM 03/19 * Anemia secondary to ESRD * Secondary hyperparathyroidism Plan * Hemodialysis today; copntinue TTS schedule --no systemic heparin - heparin lock catheter ordered only * Cardene gtt per CCM * Resume home antiHTN medications * Renal diet * Epogen Hb 10-12 if BP improves
[2017-04-12] MEDS: LOPRESSOR PO SCH (22:51)
[2017-04-12] MEDS: Renal Caps PO SCH (22:51)
[2017-04-12] MEDS: CATAPRES PO SCH (22:52)
[2017-04-12] MEDS: COZAAR PO SCH (22:57)
[2017-04-12] MEDS: NORVASC PO SCH (22:57)
[2017-04-12] MEDS: APRESOLINE PO SCH (22:57)
--- NOTE | 2017-04-12 23:48 | Event Note ---
Date: 04/12/17 See H/p in reports HTN Emergency on cardene drip ESRD on HD Noncompliance Chst pain-Lexiscan on 04/14/17
--- NOTE | 2017-04-13 02:56 | Consultation ---
CONSULTING PHYSICIAN: Dr. Robins, Emergency Room doctor and Dr. Encinas REASON FOR CONSULTATION: Hypertensive emergency, chest pain, end-stage renal disease requiring dialysis. CHIEF COMPLAINT AND HISTORY OF PRESENT ILLNESS: The patient is an 81-year-old -Turkish female with past medical history indeed significant for a history of end-stage renal disease, on dialysis, but also a cardiomyopathy who came into the Emergency Room today complaining of a chest pain. She apparently has a history of noncompliance with her blood pressure medications. She also had a prior history of atrial fibrillation that she is not on any anticoagulation for it due an occipital stroke with hemorrhage. She told her to bring her to the Emergency Room secondary to the pain it was typical in nature, exertional associated with shortness of breath. She also complained of radiation of the pain to her legs and her lower back. Blood pressure was found to be significantly elevated. She required a Cardene drip. She had missed a dialysis session and the skimmer had been spoken with. ICU admission is requested for continuing the Cardene drip for an acute coronary syndrome and for her dialysis issues. When I stopped by to see her, she was resting in the Emergency Room, she felt she was doing better, asking if she could go home, but remained on the Cardene drip at that time, she denied any nausea, vomiting, the chest pain was a little bit better. Now in terms of tobacco, she is a never smoker. That is as much of the history of presentation as I have. PAST MEDICAL HISTORY: Hypertension, coronary artery disease, congestive heart failure, end-stage renal disease on dialysis Friday, , Friday; COPD and history of dementia and history of atrial fibrillation/flutter. PAST SURGICAL HISTORY: She has a dual chamber permanent pacemaker and Vas-Cath to the right chest. MEDICATIONS: She was on at the time I stopped by to see her, according to the medication administration record included the following, nicardipine drip was going at 5 mg per hour. She had received some morphine earlier. ALLERGIES: NAPROXEN, NATURE OF THIS ALLERGY IS UNKNOWN. DIET: Thin lady. Denies significant weight loss or gain preceding few weeks to months. FAMILY AND SOCIAL HISTORY: Lives in the community. She is . She is a never smoker. Denies alcohol or illicit drug use or abuse. REVIEW OF SYSTEMS: No loss of consciousness. No new onset seizures. No new onset focal weakness. Denies gross hematochezia or melena. Denies gross hematuria or dysuria. No hematemesis. No hemoptysis. She had the chest pain. She denies any headache. Complete review of systems obtained. Pertinent positives and/or negatives as in body of history above, otherwise noncontributory. PHYSICAL EXAMINATION: VITAL SIGNS: At presentation, she was afebrile, temperature 98.2, pulse was 59, respiratory rate was 32, blood pressure was 190/111, respiratory rate is 32, O2 sats 98%, inspired oxygen concentration was not recorded. HEAD, EYES, EARS, NOSE AND THROAT: Pupils are equal, round, about 3 mm, reactive to light. Extraocular muscle movements appeared intact. Grossly, no palpable lymph nodes in the supraclavicular or submandibular lymph node chains. She does complain of some right submandibular tenderness. Right Vas-Cath is in place in the anterior chest wall on the right. LUNGS: Auscultation of both lung urias, diminished breath sounds. No active wheezing, occasional basilar rales. HEART: Sounds 1 and 2 are heard at the time of my evaluation actually regular rate and rhythm. ABDOMEN: Soft, full, bowel sounds are positive, nontender. EXTREMITIES: Without overt digital clubbing, cyanosis or pedal edema. NEUROLOGIC: The exam was grossly nonfocal. LABORATORY DATA: From my review are as follows: White cell count 3900, hemoglobin 8.1, hematocrit 24.6, platelets 155. INR was 1.10. Serum sodium 139, potassium 4.3, chloride 96, bicarbonate 25, BUN 19, creatinine 4.6 and glucose 100. Liver function tests: AST 45, otherwise essentially within normal limits. Troponin was 0.118. Radiographic studies have been reviewed. I have also reviewed the radiologist's interpretation and she has right pleural effusion, left lower lobe bibasilar infiltrates, the Vas-Cath is in place with the tip in the distal SVC/right atrium junction, mild hilar congestion and implanted cardiac device is in the left upper anterior chest wall, perhaps some osteoporosis, no gross pneumothorax, no gross bony fractures. There is fluid in the fissure on the right. There is cardiomegaly. ASSESSMENT AND PLAN: We have an elderly lady in with an acute coronary syndrome, but also complaining of typical type chest pain with significant volume overload and requiring Cardene for hypertensive emergency. From a respiratory standpoint, we will keep her on supplemental oxygen and titrate that to keep sats greater than or equal to about 92 to 94%. Aspiration precautions will be maintained, bilevel positive airway pressure ventilation therapy will be offered on a p.r.n. basis and hopefully, she does better post-dialysis. From a cardiovascular standpoint, she will remain on the Cardene drip. Home antihypertensive medications will be introduced and see if we can get her off the Cardene drip. I will also put her on some IV hydralazine and hopefully we can quickly wean her off the nicardipine drip. Cardiology consultation will be at the behest of the attending physician. She has a nitro paste on and she definitely will need Cardiology evaluation. From a Gastrointestinal and nutritional standpoint, oral nutrition will be the feeding modality of choice. She will be placed on gastrointestinal prophylaxis and aspiration precautions will be maintained. From renal standpoint, skimmer has been consulted. Plans are being made to dialyze her. Ultrafiltration obviously will be required. Also, I will defer to Nephrology, otherwise no major electrolyte abnormalities at this point. From a DRUG DEPARTMENT WORKER standpoint, the exam is grossly nonfocal. No acute indication for neuro imaging. We will follow her clinically. From an Infectious Disease standpoint, no signs and symptoms of overwhelming sepsis. No acute indication for antibiotics. We will follow her clinically. From a general and hospital healthcare maintenance standpoint, she is going to be placed on gastrointestinal and deep venous thrombosis prophylaxis. Flu and pneumonia vaccination will be per protocol. Thank you very much for the consult Dr. Robins, Dr. Encinas. We will follow along and make further recommendations as picture progresses/becomes clearer. At this point, I have spent about 30 to 35 minutes of critical care time without overlap and excluding any procedural time that may be necessary. She is critically ill and life-sustaining interventions including the vasopressors at risk for further deterioration. JOB# [id number] LEBRON/PIERO
[2017-04-13] MEDS ORDERED: SODIUM CHLORIDE FLUSH SYRINGE 10 ML IV PRN (08:15)
[2017-04-13] MEDS: APRESOLINE PO SCH ×3 (09:00→22:39)
[2017-04-13] MEDS: CATAPRES PO SCH ×3 (09:00→22:38)
--- NOTE | 2017-04-13 09:15 | History and Physical Report ---
CHIEF COMPLAINT: Anterior chest pain. HISTORY OF PRESENT ILLNESS: An 87-year-old -[place] female noncompliant with her dialysis and antihypertensive medicine comes in for anterior chest pain which is still mildly persistent. Also has severe shortness of breath. The patient's blood pressure is very high in the range of 190/111 and 196/123. Some shortness of breath and intermittent chest pain present. Noncompliant with medications. Slight shortness of breath present. PAST MEDICAL HISTORY: Significant for end-stage renal disease, congestive heart failure, hypertension, dementia, atrial fibrillation with flutter. PAST SURGICAL HISTORY: Dual chamber pacemaker, Vascath to the right side of the chest. SOCIAL HISTORY: Does not smoke. No alcohol, no recreational drugs. FAMILY HISTORY: Significant for hypertension. CURRENT MEDICATIONS: Hydralazine 100 mg 3 times a day, ____ 1 tablet p.o. daily, calcitriol 0.25 mcg p.o. daily, clonidine 0.2 p.o. q. 8, Lopressor 25 mg twice a day, oxycodone 5 mg q.4 hours p.r.n., amlodipine 10 mg p.o. daily, [place] 5/325 q.6 p.r.n., losartan 50 mg once a day. FAMILY HISTORY: Hypertension. REVIEW OF SYSTEMS: CONSTITUTIONAL: No weight loss, no weight gain. No fever, no chills. HEENT: No sore throat. No postnasal drip. CARDIOVASCULAR AND RESPIRATORY SYSTEM: Slight chest pain present. Slight shortness of breath present. No cough, no wheezing. GASTROINTESTINAL: No nausea, no vomiting, no diarrhea. GENITOURINARY: No dysuria, no flank pain. MUSCULOSKELETAL: No joint pains. CENTRAL NERVOUS SYSTEM: No syncope, no seizures. SKIN: No rashes. PHYSICAL EXAMINATION GENERAL: Elderly female, cooperative during examination, cheerful. VITAL SIGNS: Blood pressure was 190/111 and 190/126. Pulse is 83. Respiratory rate is 17. Sats are 100%. HEENT: Unremarkable. Pupils equal and reactive. NECK: Supple, no lymphadenopathy, no thyromegaly. LUNGS: Clear to auscultation and percussion. Good air entry. CARDIOVASCULAR: S1, S2 heard. No gallop, no murmur, no rub. Apical impulse in left fifth intercostal space and midclavicular line. ABDOMEN: Soft and benign. Bowel sounds are normal. Hernial orifices are normal. EXTREMITIES: Good pedal pulses. No pedal edema. CENTRAL NERVOUS SYSTEM: Alert and oriented x 4, nonfocal exam. SKIN: Normal. LABORATORY DATA: White count is 3900, H and H is 8.1 and 24.6, platelet count is 155,000. Protime is 14.1, INR is 1.1, PTT is 32.5. Sodium is 139, potassium is 4.3, chloride is 95.6, bicarb is 25. BUN and creatinine is 19 and 4.6. Glucose is 100, calcium is 9.2, phosphorus is 4.6. Total bilirubin is 1.0. Direct bilirubin is 0.3. Indirect bilirubin is 0.7. AST is 45, ALT is 10, alkaline phosphatase is 63, troponin is 0.118 and repeat is 0.1417. BNP is 70,000. Total protein is 20. HDL is 77. EKG shows PVCs and nonspecific ST-T wave changes. Chest x-ray is consistent with pulmonary edema and CHF. ASSESSMENT AND PLAN: 1. Hypertensive emergency. The patient started on Cardene drip. The patient also counseled about compliance. The patient to be transitioned from Cardene drip to oral medications. 2. CHF/ pulmonary edema. The patient needs ultrafiltration and removal of more fluid. The patient is being admitted to ICU because of blood pressure 3. Pain management. Continue oxycodone. 4. End-stage renal disease. Continue dialysis and renal diet. 5. Deep venous thrombosis prophylaxis, heparin 5000 q.12h. CRITICAL CARE STATEMENT: High probability of clinically significant sudden or life-threatening deterioration of the cardiorespiratory system required my full and direct attention, intervention and personal management. The aggregate critical care time was 38 minutes. The time is in addition to spent performing reported procedures, but includes the following. 1. Data review and interpretation. 2. The patient assessment and monitoring of vital signs. 3. Documentation. 4. Medication orders and management. JOB# [id number] YEHUDA/NTS
[2017-04-13] MEDS: Renal Caps PO SCH (09:48)
[2017-04-13] MEDS: NORVASC PO SCH (09:48)
[2017-04-13] MEDS: ROCALTROL PO SCH ×2 (09:50→15:06)
[2017-04-13] MEDS: COZAAR PO SCH (09:50)
[2017-04-13] MEDS: LOPRESSOR PO SCH ×2 (09:56→22:39)
[2017-04-13 11:02] LABS: Hematocrit 26.6 % (30.3-42.9); Hemoglobin 8.5 gm/dl (10.1-14.3); Mean Corpuscular HGB Conc 32 % (30-34); Mean Corpuscular Hemoglobin 32 pg (28-32); Mean Corpuscular Volume 100 fl (79-97); Platelet Count 142 K/mm3 (140-440); Red Blood Count 2.65 M/mm3 (3.65-5.03); White Blood Count 3.1 K/mm3 (4.5-11.0)
[2017-04-13 11:04] LABS: Red Cell Distribution Width 20.9 % (13.2-15.2)
[2017-04-13 11:09] LABS: BUN/Creatinine Ratio 3.8; Calcium 8.8 mg/dL (8.4-10.2); Chloride 95.1 mmol/L (98-107); Potassium 3.6 mmol/L (3.6-5.0)
[2017-04-13 11:16] LABS: Creatine Kinase MB 1.1 ng/mL (0.0-4.0)
--- NOTE | 2017-04-13 14:06 | Progress Note ---
Subjective Date of service: 04/13/17 Principal diagnosis: Acute Hypoxemic Resp Failure; Hypertensive Emergency Interval history: Seen and examined at bedside; 24 hour events reviewed; nursing and respiratory care staff consulted; no adverse overnight events reported to me; Objective Vital Signs - 12hr 04/13/17 04/13/17 04/13/17 03:35 04:51 05:00 Temperature 98.8 F Pulse Rate 66 68 Respiratory 18 18 Rate Blood Pressure 133/64 124/74 O2 Sat by Pulse 100 100 Oximetry 04/13/17 04/13/17 04/13/17 05:11 05:21 05:30 Temperature Pulse Rate 62 64 60 Respiratory 19 17 14 Rate Blood Pressure 124/74 130/73 122/68 O2 Sat by Pulse 100 100 100 Oximetry 04/13/17 04/13/17 04/13/17 05:41 05:51 06:00 Temperature Pulse Rate 76 62 63 Respiratory 17 17 17 Rate Blood Pressure 122/68 130/72 135/70 O2 Sat by Pulse 100 100 100 Oximetry 04/13/17 04/13/17 04/13/17 06:11 06:21 06:30 Temperature Pulse Rate 65 58 L 61 Respiratory 18 18 18 Rate Blood Pressure 135/70 136/79 135/77 O2 Sat by Pulse 100 100 100 Oximetry 04/13/17 04/13/17 04/13/17 06:41 06:51 07:00 Temperature Pulse Rate 61 59 L 61 Respiratory 17 15 16 Rate Blood Pressure 136/79 131/71 138/64 O2 Sat by Pulse 100 100 100 Oximetry 04/13/17 04/13/17 04/13/17 07:11 07:21 07:30 Temperature Pulse Rate 62 61 61 Respiratory 14 16 19 Rate Blood Pressure 138/64 127/69 127/72 O2 Sat by Pulse 100 92 100 Oximetry 04/13/17 04/13/17 04/13/17 07:41 07:51 08:00 Temperature 98.0 F Pulse Rate 59 L 62 60 Respiratory 14 12 19 Rate Blood Pressure 127/72 129/65 132/69 O2 Sat by Pulse 100 100 100 Oximetry 04/13/17 04/13/17 04/13/17 08:11 08:21 08:30 Temperature Pulse Rate 59 L 63 61 Respiratory 16 15 13 Rate Blood Pressure 132/69 128/69 133/71 O2 Sat by Pulse 100 100 100 Oximetry 04/13/17 04/13/17 04/13/17 08:41 08:51 09:00 Temperature Pulse Rate 72 64 69 Respiratory 16 14 15 Rate Blood Pressure 133/71 140/78 131/77 O2 Sat by Pulse 100 100 100 Oximetry 04/13/17 04/13/17 04/13/17 09:10 09:21 09:30 Temperature Pulse Rate 68 66 65 Respiratory 12 17 17 Rate Blood Pressure 136/79 119/71 122/71 O2 Sat by Pulse 100 100 100 Oximetry 04/13/17 04/13/17 04/13/17 09:41 09:48 09:50 Temperature Pulse Rate 70 73 69 Respiratory 18 Rate Blood Pressure 119/71 122/71 122/71 O2 Sat by Pulse 100 Oximetry 04/13/17 04/13/17 04/13/17 09:51 09:56 10:00 Temperature Pulse Rate 68 73 77 Respiratory 16 Rate Blood Pressure 114/64 122/71 O2 Sat by Pulse 100 100 Oximetry 04/13/17 04/13/17 04/13/17 10:01 10:11 10:21 Temperature Pulse Rate 89 78 72 Respiratory 23 20 18 Rate Blood Pressure 114/64 122/71 109/68 O2 Sat by Pulse 89 94 100 Oximetry 04/13/17 04/13/17 04/13/17 10:30 10:41 10:51 Temperature Pulse Rate 70 70 71 Respiratory 21 17 18 Rate Blood Pressure 103/62 103/62 106/55 O2 Sat by Pulse 100 100 100 Oximetry 04/13/17 04/13/17 04/13/17 11:00 11:11 11:21 Temperature Pulse Rate 67 69 67 Respiratory 20 17 18 Rate Blood Pressure 109/55 109/55 109/62 O2 Sat by Pulse 100 100 100 Oximetry 04/13/17 04/13/17 04/13/17 11:30 11:41 11:51 Temperature Pulse Rate 70 69 69 Respiratory 17 14 17 Rate Blood Pressure 110/56 110/56 107/63 O2 Sat by Pulse 100 99 100 Oximetry 04/13/17 04/13/17 04/13/17 12:00 12:11 12:21 Temperature 97.3 F L Pulse Rate 63 65 71 Respiratory 16 17 19 Rate Blood Pressure 115/57 115/57 117/60 O2 Sat by Pulse 100 100 100 Oximetry 04/13/17 04/13/17 04/13/17 12:30 12:41 12:51 Temperature Pulse Rate 66 73 70 Respiratory 20 14 19 Rate Blood Pressure 125/60 125/60 107/57 O2 Sat by Pulse 99 100 98 Oximetry 04/13/17 13:00 Temperature Pulse Rate 70 Respiratory 19 Rate Blood Pressure 117/60 O2 Sat by Pulse 100 Oximetry CBC and BMP: 04/13/17 10:36 04/13/17 10:36 ABG, PT/INR, D-dimer: PT/INR, D-dimer PT 14.1 Sec. (12.2-14.9) 04/12/17 10:58 INR 1.10 (0.87-1.13) 04/12/17 10:58 Abnormal lab findings: Abnormal Labs 04/12/17 04/13/17 04/13/17 15:06 10:36 10:36 WBC 3.1 L RBC 2.65 L Hgb 8.5 L Hct 26.6 L MCV 100 H RDW 20.9 H Chloride Creatinine Glucose Troponin T 0.141 H* 0.159 H* 04/13/17 10:36 WBC RBC Hgb Hct MCV RDW Chloride 95.1 L Creatinine 4.2 H Glucose 113 H Troponin T
--- NOTE | 2017-04-13 15:37 | Progress Note ---
Assessment and Plan Mrs. Villanueva is an 81yo with ESRD on HD TTS and uncontrolled hypertension who presented to the ED with < 1 day history of chest pain and SOB. In the ED, she was noted to have a blood pressure of 241-131, placed on Cardene drip. She has been admitted for further management. 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 Recent Echocardiogram revealed global left trigger systolic function mildly decreased with an EF of 45-50%. There is also evidence of severe pulmonary hypertension. The right ventricular systolic pressure is 69 mmHg. Placed on duel chamber pacemaker on 03/10. Acute hypoxemic respiratory failure - due to volume overload Hypertensive emergency Acute CHF exacerbation Chronic pain syndrome End-stage renal disease on dialysis H/o atrial fib, not on anticoagualtion Severe pulmonary hypertension Chest pain, with elevated troponin h/o hemorrhagic CVA Bradycardia s/p dual chamber PPM 03/19 - off cardine drip this am - S/p HD, on RA now - resumed home meds - place on renal diet, transfer to tele floor - will follow stress test result Subjective Date of service: 04/13/17 Principal diagnosis: Acute Hypoxemic Resp Failure; Hypertensive Emergency Interval history: Patient seen and examined. Medical records and medication list reviewed. No acute event overnight noted by the RN. Patient denies any chest pain or difficulty breathing. Patient is tolerating diet. Discussed plan of care at bedside with patient. Objective - Exam Narrative Exam: GENERAL: well-developed elderly AAF lying on bed appeared to be in no discomfort. HEENT: Normocephalic. Atraumatic. No conjunctival congestion or icterus. Patient has moist mucous membranes. NECK: Supple. Trachea midline. CHEST/LUNGS: Clear to auscultated bilaterally, breathing nonlabored. No wheezes crackles or rhonchi. HEART/CARDIOVASCULAR: Regular in rate and rhythm. S1 and S2 positive. ABDOMEN: Abdomen is soft, nontender. Patient has normal bowel sounds. SKIN: There is no rash. Warm and dry. NEURO: No focal motor deficit. Follows command. MUSCULOSKELETAL: No joint effusion or tenderness. EXTRIMITY: No edema, no cyanosis or clubbing. PSYCH: Cooperative. - Constitutional Vitals: Vital Signs - 12hr 04/13/17 04/13/17 04/13/17 04:51 05:00 05:11 Temperature Pulse Rate 66 68 62 Respiratory 18 18 19 Rate Blood Pressure 133/64 124/74 124/74 O2 Sat by Pulse 100 100 100 Oximetry 04/13/17 04/13/17 04/13/17 05:21 05:30 05:41 Temperature Pulse Rate 64 60 76 Respiratory 17 14 17 Rate Blood Pressure 130/73 122/68 122/68 O2 Sat by Pulse 100 100 100 Oximetry 04/13/17 04/13/17 04/13/17 05:51 06:00 06:11 Temperature Pulse Rate 62 63 65 Respiratory 17 17 18 Rate Blood Pressure 130/72 135/70 135/70 O2 Sat by Pulse 100 100 100 Oximetry 04/13/17 04/13/17 04/13/17 06:21 06:30 06:41 Temperature Pulse Rate 58 L 61 61 Respiratory 18 18 17 Rate Blood Pressure 136/79 135/77 136/79 O2 Sat by Pulse 100 100 100 Oximetry 04/13/17 04/13/17 04/13/17 06:51 07:00 07:11 Temperature Pulse Rate 59 L 61 62 Respiratory 15 16 14 Rate Blood Pressure 131/71 138/64 138/64 O2 Sat by Pulse 100 100 100 Oximetry 04/13/17 04/13/17 04/13/17 07:21 07:30 07:41 Temperature Pulse Rate 61 61 59 L Respiratory 16 19 14 Rate Blood Pressure 127/69 127/72 127/72 O2 Sat by Pulse 92 100 100 Oximetry 04/13/17 04/13/17 04/13/17 07:51 08:00 08:11 Temperature 98.0 F Pulse Rate 62 60 59 L Respiratory 12 19 16 Rate Blood Pressure 129/65 132/69 132/69 O2 Sat by Pulse 100 100 100 Oximetry 04/13/17 04/13/17 04/13/17 08:21 08:30 08:41 Temperature Pulse Rate 63 61 72 Respiratory 15 13 16 Rate Blood Pressure 128/69 133/71 133/71 O2 Sat by Pulse 100 100 100 Oximetry 04/13/17 04/13/17 04/13/17 08:51 09:00 09:10 Temperature Pulse Rate 64 69 68 Respiratory 14 15 12 Rate Blood Pressure 140/78 131/77 136/79 O2 Sat by Pulse 100 100 100 Oximetry 04/13/17 04/13/17 04/13/17 09:21 09:30 09:41 Temperature Pulse Rate 66 65 70 Respiratory 17 17 18 Rate Blood Pressure 119/71 122/71 119/71 O2 Sat by Pulse 100 100 100 Oximetry 04/13/17 04/13/17 04/13/17 09:48 09:50 09:51 Temperature Pulse Rate 73 69 68 Respiratory 16 Rate Blood Pressure 122/71 122/71 114/64 O2 Sat by Pulse 100 Oximetry 04/13/17 04/13/17 04/13/17 09:56 10:00 10:01 Temperature Pulse Rate 73 77 89 Respiratory 23 Rate Blood Pressure 122/71 114/64 O2 Sat by Pulse 100 89 Oximetry 04/13/17 04/13/17 04/13/17 10:11 10:21 10:30 Temperature Pulse Rate 78 72 70 Respiratory 20 18 21 Rate Blood Pressure 122/71 109/68 103/62 O2 Sat by Pulse 94 100 100 Oximetry 04/13/17 04/13/17 04/13/17 10:41 10:51 11:00 Temperature Pulse Rate 70 71 67 Respiratory 17 18 20 Rate Blood Pressure 103/62 106/55 109/55 O2 Sat by Pulse 100 100 100 Oximetry 04/13/17 04/13/17 04/13/17 11:11 11:21 11:30 Temperature Pulse Rate 69 67 70 Respiratory 17 18 17 Rate Blood Pressure 109/55 109/62 110/56 O2 Sat by Pulse 100 100 100 Oximetry 04/13/17 04/13/17 04/13/17 11:41 11:51 12:00 Temperature 97.3 F L Pulse Rate 69 69 63 Respiratory 14 17 16 Rate Blood Pressure 110/56 107/63 115/57 O2 Sat by Pulse 99 100 100 Oximetry 04/13/17 04/13/17 04/13/17 12:11 12:21 12:30 Temperature Pulse Rate 65 71 66 Respiratory 17 19 20 Rate Blood Pressure 115/57 117/60 125/60 O2 Sat by Pulse 100 100 99 Oximetry 04/13/17 04/13/17 04/13/17 12:41 12:51 13:00 Temperature Pulse Rate 73 70 70 Respiratory 14 19 19 Rate Blood Pressure 125/60 107/57 117/60 O2 Sat by Pulse 100 98 100 Oximetry - Labs CBC & Chem 7: 04/13/17 10:36 04/13/17 10:36 Labs: Abnormal lab results 04/12/17 04/13/1717 Range/Units 15:06 10:36 10:36 WBC 3.1 L (4.5-11.0) K/mm3 RBC 2.65 L (3.65-5.03) M/mm3 Hgb 8.5 L (10.1-14.3) gm/dl Hct 26.6 L (30.3-42.9) % MCV 100 H (79-97) fl RDW 20.9 H (13.2-15.2) % Chloride (98-107) mmol/L Creatinine (0.7-1.2) mg/dL Glucose (65-100) mg/dL Troponin T 0.141 H* 0.159 H* (0.00-0.029) ng/mL 04/13/17 Range/Units 10:36 WBC (4.5-11.0) K/mm3 RBC (3.65-5.03) M/mm3 Hgb (10.1-14.3) gm/dl Hct (30.3-42.9) % MCV (79-97) fl RDW (13.2-15.2) % Chloride 95.1 L (98-107) mmol/L Creatinine 4.2 H (0.7-1.2) mg/dL Glucose 113 H (65-100) mg/dL Troponin T (0.00-0.029) ng/mL
--- NOTE | 2017-04-13 16:19 | Progress Note ---
Assessment and Plan Impression: * End stage renal disease on HD TTS * Accelerated hypertension * Chest pain * Hx of subacute infract of left parieto-occipital region with hemorrhagic transformation * Atrial fibrillation * Bradycardia --s/p dual chamber PPM 03/19 * Anemia secondary to ESRD * Secondary hyperparathyroidism * Recurrent hospitalizations (seventh admission since Dec) Plan * Hemodialysis TS schedule --no systemic heparin - heparin lock catheter ordered only * Continue antiHTN medications - BP is controlled * Renal diet * Epogen Hb 10-12 as BP improved Subjective Date of service: 04/13/17 Principal diagnosis: Acute Hypoxemic Resp Failure; Hypertensive Emergency Interval history: Patient without complaint. Objective - Vital Signs Vital signs: Vital Signs - 12hr 04/13/17 04/13/17 04/13/17 04:51 05:00 05:11 Temperature Pulse Rate 66 68 62 Respiratory 18 18 19 Rate Blood Pressure 133/64 124/74 124/74 O2 Sat by Pulse 100 100 100 Oximetry 04/13/17 04/13/17 04/13/17 05:21 05:30 05:41 Temperature Pulse Rate 64 60 76 Respiratory 17 14 17 Rate Blood Pressure 130/73 122/68 122/68 O2 Sat by Pulse 100 100 100 Oximetry 04/13/17 04/13/17 04/13/17 05:51 06:00 06:11 Temperature Pulse Rate 62 63 65 Respiratory 17 17 18 Rate Blood Pressure 130/72 135/70 135/70 O2 Sat by Pulse 100 100 100 Oximetry 04/13/17 04/13/17 04/13/17 06:21 06:30 06:41 Temperature Pulse Rate 58 L 61 61 Respiratory 18 18 17 Rate Blood Pressure 136/79 135/77 136/79 O2 Sat by Pulse 100 100 100 Oximetry 04/13/17 04/13/17 04/13/17 06:51 07:00 07:11 Temperature Pulse Rate 59 L 61 62 Respiratory 15 16 14 Rate Blood Pressure 131/71 138/64 138/64 O2 Sat by Pulse 100 100 100 Oximetry 04/13/17 04/13/17 04/13/17 07:21 07:30 07:41 Temperature Pulse Rate 61 61 59 L Respiratory 16 19 14 Rate Blood Pressure 127/69 127/72 127/72 O2 Sat by Pulse 92 100 100 Oximetry 04/13/17 04/13/17 04/13/17 07:51 08:00 08:11 Temperature 98.0 F Pulse Rate 62 60 59 L Respiratory 12 19 16 Rate Blood Pressure 129/65 132/69 132/69 O2 Sat by Pulse 100 100 100 Oximetry 04/13/17 04/13/17 04/13/17 08:21 08:30 08:41 Temperature Pulse Rate 63 61 72 Respiratory 15 13 16 Rate Blood Pressure 128/69 133/71 133/71 O2 Sat by Pulse 100 100 100 Oximetry 04/13/17 04/13/17 04/13/17 08:51 09:00 09:10 Temperature Pulse Rate 64 69 68 Respiratory 14 15 12 Rate Blood Pressure 140/78 131/77 136/79 O2 Sat by Pulse 100 100 100 Oximetry 04/13/17 04/13/17 04/13/17 09:21 09:30 09:41 Temperature Pulse Rate 66 65 70 Respiratory 17 17 18 Rate Blood Pressure 119/71 122/71 119/71 O2 Sat by Pulse 100 100 100 Oximetry 04/13/17 04/13/17 04/13/17 09:48 09:50 09:51 Temperature Pulse Rate 73 69 68 Respiratory 16 Rate Blood Pressure 122/71 122/71 114/64 O2 Sat by Pulse 100 Oximetry 04/13/17 04/13/17 04/13/17 09:56 10:00 10:01 Temperature Pulse Rate 73 77 89 Respiratory 23 Rate Blood Pressure 122/71 114/64 O2 Sat by Pulse 100 89 Oximetry 04/13/17 04/13/17 04/13/17 10:11 10:21 10:30 Temperature Pulse Rate 78 72 70 Respiratory 20 18 21 Rate Blood Pressure 122/71 109/68 103/62 O2 Sat by Pulse 94 100 100 Oximetry 04/13/17 04/13/17 04/13/17 10:41 10:51 11:00 Temperature Pulse Rate 70 71 67 Respiratory 17 18 20 Rate Blood Pressure 103/62 106/55 109/55 O2 Sat by Pulse 100 100 100 Oximetry 04/13/17 04/13/17 04/13/17 11:11 11:21 11:30 Temperature Pulse Rate 69 67 70 Respiratory 17 18 17 Rate Blood Pressure 109/55 109/62 110/56 O2 Sat by Pulse 100 100 100 Oximetry 04/13/17 04/13/17 04/13/17 11:41 11:51 12:00 Temperature 97.3 F L Pulse Rate 69 69 63 Respiratory 14 17 16 Rate Blood Pressure 110/56 107/63 115/57 O2 Sat by Pulse 99 100 100 Oximetry 04/13/17 04/13/17 04/13/17 12:11 12:21 12:30 Temperature Pulse Rate 65 71 66 Respiratory 17 19 20 Rate Blood Pressure 115/57 117/60 125/60 O2 Sat by Pulse 100 100 99 Oximetry 04/13/17 04/13/17 04/13/17 12:41 12:51 13:00 Temperature Pulse Rate 73 70 70 Respiratory 14 19 19 Rate Blood Pressure 125/60 107/57 117/60 O2 Sat by Pulse 100 98 100 Oximetry - General Appearance General appearance: well-developed, well-nourished EENT: ATNC Respiratory: Present: Clear to Ascultation Cardiology: regular, S1S2 Gastrointestinal: normal, no tenderness, no distended Integumentary: no rash Musculoskeletal: other (no edema) Psychiatric: cooperative - Lab 04/13/17 10:36 04/13/17 10:36 Most recent lab results Calcium 8.8 mg/dL (8.4-10.2) 04/13/17 10:36 Phosphorus 4.60 mg/dL (2.5-4.5) H 04/12/17 10:58
--- NOTE | 2017-04-14 08:16 | Progress Note ---
Assessment and Plan End-stage renal disease the patient was very noncompliant Patient was last seen on hemodialysis last week she did not have name of any of her medication neither did she had bottles including her It was very unsafe to take medications without knowledge of what she is taking and hence she was sent to the ER Patient likely will require to be transferred to a structured facility I believe she deserves a higher level of care than what she is being provided at home Family has very poor knowledge about her medication this has resulted in several different admissions for different causes anemia and demonstrated no disease to monitor current hemoglobin 8.5 Secondary hyperparathyroidism to monitor phosphorus and PTH level History of atrial fibrillation history of left occipital stroke Patient does need disposition to a correction Subjective Principal diagnosis: Acute Hypoxemic Resp Failure; Hypertensive Emergency Objective - Vital Signs Vital signs: Vital Signs - 12hr 04/13/17 04/13/17 04/13/17 20:57 21:23 22:38 Temperature Pulse Rate 66 Pulse Rate [ Apical] Respiratory Rate Blood Pressure 130/67 Blood Pressure [Left Arm] O2 Sat by Pulse 100 98 Oximetry 04/13/17 04/14/17 04/14/17 22:39 00:30 06:12 Temperature 99.1 F 98.1 F Pulse Rate 66 Pulse Rate [ 69 53 L Apical] Respiratory 18 18 Rate Blood Pressure 130/67 Blood Pressure 142/71 110/61 [Left Arm] O2 Sat by Pulse 100 100 Oximetry 04/14/17 07:42 Temperature Pulse Rate Pulse Rate [ Apical] Respiratory Rate Blood Pressure Blood Pressure [Left Arm] O2 Sat by Pulse 95 Oximetry - Lab 04/13/17 10:36 04/13/17 10:36 Most recent lab results Calcium 8.8 mg/dL (8.4-10.2) 04/13/17 10:36 Phosphorus 4.60 mg/dL (2.5-4.5) H 04/12/17 10:58
[2017-04-14 10:15] VITALS: BP 136/70
[2017-04-14] MEDS: CATAPRES PO SCH (10:39)
[2017-04-14] MEDS: APRESOLINE PO SCH (10:39)
[2017-04-14] MEDS: NORVASC PO SCH (10:51)
[2017-04-14] MEDS: COZAAR PO SCH (10:51)
[2017-04-14] MEDS: Renal Caps PO SCH (10:52)
[2017-04-14] MEDS: LOPRESSOR PO SCH (10:52)
[2017-04-14] MEDS: ROCALTROL PO SCH (10:52)
--- NOTE | 2017-04-14 10:58 | Discharge Summary ---
Providers - Providers Date of Admission: 04/12/17 11:55 Date of discharge: 04/14/17 Attending physician: SOPHIA DELEON 04/12/17 12:08 Consult to Physician [CONS] Urgent Consulting Provider: DONTAE PAGAN Reason For Exam: ICU Place consult to:: [facility]/WAITER Notified:: yes Was contact made?: Yes 04/12/17 14:59 Consult to Physician [CONS] Urgent Consulting Provider: YVES TUCKER Reason For Exam: ESRD CHF Place consult to:: NEPHROLOGY Notified:: yes If yes, spoke with:: DR TUCKER 04/13/17 Consult to Cardiac Rehabilitation [CONS] Routine Reason For Exam: Phase I 04/13/17 08:19 Consult to Physician [CONS] Routine Consulting Provider: BROOK OCONNELL Reason For Exam: CHF +Htn emergency Place consult to:: cardialogist Notified:: yes If yes, spoke with:: cal Oconnell Primary care physician: COUNTER INSTALLER Hospitalization Condition: Stable Hospital course: Mrs. Villanueva is an 81yo with ESRD on HD TTS and uncontrolled hypertension who presented to the ED with < 1 day history of chest pain and SOB. In the ED, she was noted to have a blood pressure of 241-131, placed on Cardene drip. She has been admitted for further management. 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 Recent Echocardiogram revealed global left trigger systolic function mildly decreased with an EF of 45-50%. There is also evidence of severe pulmonary hypertension. The right ventricular systolic pressure is 69 mmHg. Placed on duel chamber pacemaker on 03/10. Discharge Diagnosis: Acute hypoxemic respiratory failure - due to volume overload, resolved Hypertensive emergency s/p cardene drip Acute CHF exacerbation Chronic pain syndrome End-stage renal disease on dialysis H/o atrial fib, not on anticoagualtion Severe pulmonary hypertension Chest pain, with elevated troponin h/o hemorrhagic CVA Bradycardia s/p dual chamber PPM 03/19 Disposition: DISCHARGED TO HOME OR SELFCARE Time spent for discharge: 32 minutes Core Measure Documentation - Palliative Care Palliative Care/ Comfort Measures: Not Applicable Exam - Constitutional Vitals: Temp Pulse Resp BP Pulse Ox 98.1 F 62 20 136/70 100 04/14/17 08:00 04/14/17 10:52 04/14/17 08:00 04/14/17 10:52 04/14/17 08:00 Plan Follow up with: PRIMARY CARE, [Primary Care Provider] - 3-5 Days
--- NOTE | 2017-04-14 12:28 | Consultation ---
History of Present Illness Consult date: 04/14/17 Requesting physician: SHAHRIAR MARTINO Consult reason: congestive heart failure, hypertension History of present illness: The patient is a 81-year-old female who is followed by Dr. Moreira in the office with a history of bradycardia, PPM in situ, paroxysmal atrial flutter, CVA with hemorrhagic conversion (Eliquis d/c'd), hypertension, recurrent chest pain, ESRD on HD, and noncompliance. She presented with c/o chest pain and SOB. She reports that her chest pain was a nonexertional, nonradiating, midsternal pressure that became present several hours [employer]. She denies any aggravating or alleviating factors associated with her symptoms. She denies any palpitations, n /v, diaphoresis, dizziness, or syncope. She reports that she always takes her AM BP meds, but usually forgets to take her PM meds. Following admission, her BP was found to be 190s/120s. Stress test done 10/2016 was negative for ischemia. Echo done 03/2017 showed moderate LVH, EF 45-50%, moderate MR, moderate TR, severe pulm HTN, RVSP 69mmHg, mild . Left heart cath done 12/2011 revealed normal coronaries. On evaluation, she denies any complaints and is requesting to be discharged home. She promises to be compliant with her medications and OP follow up appts. Past History Past Medical History: atrial fib, ESRD, heart failure, hypertension, stroke Past Surgical History: Other (Dialyis access placement; PPM ) Social history: , lives with family Family history: no significant family history Medications and Allergies Allergies Allergy/AdvReac Type Severity Reaction Status Date / Time naproxen Allergy Itching Verified 04/12/17 07:53 Home Medications Medication Instructions Recorded Confirmed Last Taken Type Hydralazine HCl 100 mg PO TID 04/02/17 04/12/17 04/11/17 History Renal-Peggy Tablet 1 tab PO QDAY 04/02/17 04/12/17 04/11/17 History Calcitriol [Rocaltrol] 0.25 mcg PO DAILY 04/03/17 04/12/17 04/11/17 History Clonidine HCl [Kapvay] 0.2 mg PO TID 04/03/17 04/12/17 04/11/17 History Metoprolol [Lopressor TAB] 25 mg PO BID 04/03/17 04/12/17 04/11/17 History Oxycodone-Acetaminophn 5-325/5 5 mg PO Q4H PRN 04/03/17 04/12/17 04/11/17 History amLODIPine [Norvasc] 10 mg PO DAILY 04/03/17 04/12/17 04/11/17 History HYDROcodone/APAP 5-325 [[place] 1 each PO Q6HR PRN #20 tablet 04/10/17 04/12/17 Rx 5-325 mg TAB] Losartan [Cozaar] 50 mg PO QDAY #30 tablet 04/10/17 04/12/17 04/11/17 Rx Review of Systems All systems: negative Cardiovascular: chest pain, shortness of breath Physical Examination Vital Signs Temp Pulse Resp BP Pulse Ox 98.2 F 59 L 32 H 190/111 98 04/12/17 07:53 04/12/17 07:53 04/12/17 07:53 04/12/17 07:53 04/12/17 07:53 General appearance: no acute distress HEENT: Positive: PERRL, Normocephaly, Mucus Membranes Moist Neck: Positive: neck supple Cardiac: Positive: Reg Rate and Rhythm, S1/S2 Lungs: Positive: Normal Exam, clear to auscultation, Normal Breath Sounds Neuro: Positive: Grossly Intact, Cranial Nerve 2-12 Intact Abdomen: Positive: Unremarkable, Soft, Active Bowel Sounds Skin: Positive: Clear, Other. Negative: Rash, Wound Musculoskeletal: No Fluid Collection, No Pain, Normal Range of Motion Extremities: Present: upper extr. pulses, lower extr. pulses. Absent: edema Results 04/13/17 10:36 04/13/17 10:36 Cardiac Enzymes 04/13/17 Range/Units 16:02 CK-MB (CK-2) 1.0 (0.0-4.0) ng/mL - Imaging and Cardiology Echo: report reviewed Cardiac cath: report reviewed EKG: report reviewed, image reviewed Assessment and Plan Assessment: Accelerated hypertension - improved s/p cardene gtt. Chest pain, atypical - ECG with NAF; currently resolved. Elevated troponin - with normal CK/MB; chronically minimally elevated in setting of ESRD on HD; currently nonspecific. 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 ESRD on HD - s/p HD access placement on 03/21/2017. PPM in situ - h/o Bradycardia (CHB v. ventricular escape); S/P dual chamber PPM implantation 03/19/2017 Anemia Dementia Noncompliance Plan: Currently stable cardiac status. No indication for any further cardiac testing at this time. D/c plans as per hospitalist. Pt may discharge home from cardiology standpoint. Follow up in our [place] office with Kyung Mancia NP, within 1-2 weeks of hospital discharge. The patient has been seen in conjunction with Dr. Moreira who agrees with the assessment and plan of care.
== END 2017-04-14 12:19 | disposition home health service (06) | DRG 291 ==
LOC: ED 07:37 → CC1 11:55 → 4A 04-13 15:25
PROVIDERS: ADMIT Internal Medicine; ATTEND Internal Medicine
PROC: 5A1D00Z (ICD-10-PCS; principal; 2017-04-12)
DX: I13.2 Hypertensive heart and chronic kidney disease with heart failure and with stage 5 chronic kidney disease, or end stage renal disease (principal); I50.21 Acute systolic (congestive) heart failure; J96.00 Acute respiratory failure, unspecified whether with hypoxia or hypercapnia; N18.6 End stage renal disease; I16.1 Hypertensive emergency; I16.9 Hypertensive crisis, unspecified; N25.81 Secondary hyperparathyroidism of renal origin; I48.92 Unspecified atrial flutter; J44.9 Chronic obstructive pulmonary disease, unspecified; F03.90 Unspecified dementia, unspecified severity, without behavioral disturbance, psychotic disturbance, mood disturbance, and anxiety; I25.10 Atherosclerotic heart disease of native coronary artery without angina pectoris; G89.4 Chronic pain syndrome; D63.1 Anemia in chronic kidney disease; I48.91 Unspecified atrial fibrillation; Z91.14 Patient's other noncompliance with medication regimen; Z86.73 Personal history of transient ischemic attack (TIA), and cerebral infarction without residual deficits; Z88.8 Allergy status to other drugs, medicaments and biological substances; I25.2 Old myocardial infarction; Z99.2 Dependence on renal dialysis; Z82.49 Family history of ischemic heart disease and other diseases of the circulatory system
CPT/HCPCS: 36415; 71010; 74176; 80048; 80061; 80074; 82550; 82553; 83880; 84100; 84484; 85025; 85027; 85610; 85730; 93005; 93010; 94760; 96365; 96375; J0360; J2270; J2405; J7030; J7050

== ENCOUNTER 2017-04-17 11:13 | Emergency (ER) | payer MEDICARE ==
[2017-04-17 11:28] VITALS: BP 146/86
[2017-04-17 11:56] LABS: Basophils % (Auto) 0.7 % (0.0-1.8); Eosinophils % (Auto) 1.1 % (0.0-4.3); Hematocrit 25.6 % (30.3-42.9); Hemoglobin 8.2 gm/dl (10.1-14.3); Mean Corpuscular HGB Conc 32 % (30-34); Mean Corpuscular Hemoglobin 32 pg (28-32); Mean Corpuscular Volume 99 fl (79-97); Platelet Count 150 K/mm3 (140-440); Red Blood Count 2.59 M/mm3 (3.65-5.03); White Blood Count 2.8 K/mm3 (4.5-11.0)
[2017-04-17 12:05] LABS: BUN/Creatinine Ratio 4.2; Calcium 8.9 mg/dL (8.4-10.2); Chloride 88.3 mmol/L (98-107); Potassium 3.5 mmol/L (3.6-5.0)
--- NOTE | 2017-04-20 05:34 | ED Elopement Review ---
ED Pt Elopement review - Results review Lab results: Laboratory Tests 04/17/17 04/17/17 04/17/17 11:31 11:31 14:14 WBC 2.8 L RBC 2.59 L Hgb 8.2 L Hct 25.6 L MCV 99 H MCH 32 MCHC 32 RDW 19.0 H Plt Count 150 Lymph % (Auto) 29.7 [place] % (Auto) 9.5 H Eos % (Auto) 1.1 Baso % (Auto) 0.7 Lymph # 0.8 L [place] # 0.3 Eos # 0.0 Baso # 0.0 Seg Neutrophils % 59.0 Seg Neutrophils # 1.7 L Sodium 134 L Potassium 3.5 L Chloride 88.3 L Carbon Dioxide 30 Anion Gap 19 BUN 21 H Creatinine 5.0 H Estimated GFR 10 BUN/Creatinine Ratio 4.20 Glucose 127 H Calcium 8.9 Troponin T 0.082 H D 0.079 H - Call Back decision Pt Call Back Decision: No action required
== END 2017-04-17 21:34 | disposition left against medical advice (07) ==
LOC: ED 11:13
DX: R07.9 Chest pain, unspecified (principal); Z53.21 Procedure and treatment not carried out due to patient leaving prior to being seen by health care provider
CPT/HCPCS: 36415; 80048; 84484; 85025; 93005; 93010

== ENCOUNTER 2017-06-26 22:01 | Inpatient (IN) | payer MEDICARE ==
[2017-06-26 23:31] LABS: Basophils % (Auto) 0.5 % (0.0-1.8); Eosinophils % (Auto) 0.9 % (0.0-4.3); Hematocrit 32.2 % (30.3-42.9); Hemoglobin 10.1 gm/dl (10.1-14.3); Mean Corpuscular HGB Conc 31 % (30-34); Mean Corpuscular Hemoglobin 33 pg (28-32); Mean Corpuscular Volume 107 fl (79-97); Platelet Count 111 K/mm3 (140-440); Red Blood Count 3.02 M/mm3 (3.65-5.03); White Blood Count 3.6 K/mm3 (4.5-11.0)
[2017-06-26 23:38] LABS: BUN/Creatinine Ratio 10.43; Calcium 9.3 mg/dL (8.4-10.2); Chloride 86.8 mmol/L (98-107)
[2017-06-26 23:50] LABS: Red Cell Distribution Width 22.1 % (13.2-15.2)
[2017-06-26 23:57] LABS: Potassium 6.7 mmol/L (3.6-5.0)
[2017-06-27] MEDS ORDERED: ASPIRIN PO ONE (02:56)
[2017-06-27] MEDS ORDERED: CALCIUM GLUCONATE 1,000 MG in NACL 0.9% 100 ML IV ONE (02:59)
[2017-06-27] MEDS ORDERED: D50W (25GM) IV ONE (03:00)
--- NOTE | 2017-06-27 04:33 | History and Physical Report ---
History of Present Illness Date of examination: 06/27/17 History of present illness: This is a 81-year-old woman history of end-stage renal disease on dialysis Friday, , Friday, A. fib, hypertension comes emergency room with complaints of chest pain. Pain is in the epigastric area which she described as a sharp pain, intermittent in nature, lasting for less than 5 minutes,, intensity, 5/10, no radiation and she cannot identify exacerbating or relieving factors. Constitutional: no fever, no chills, no weight loss Ears, eyes, nose, mouth and throat: no nasal congestion, no nasal discharge, no sinus pressure, no vision change, no red eye. Neck: No neck pain or rigidity. Cardiovascular: no orthopnea, no palpitations, no leg swelling Respiratory: No shortness of breath, no cough, no congestion, no wheezing Gastrointestinal: abdominal pain, hematochezia, no nausea, no vomiting Genitourinary : no dysuria, frequency , no hematuria Musculoskeletal: no joint swelling or muscle ache Integumentary: no rash, no pruritis Neurological: no parathesias, no numbness, no focal weakness Endocrine: no cold or heat intolerance, no polyuria or polydipsia Hematologic/Lymphatic: no easy bruising, no easy bleeding, no gland swelling Allergic/Immunologic: no urticaria, no angioedema. PAST MEDICAL HISTORY:End-stage renal disease, A. fib, hypertension PAST SURGICAL HISTORY: None SOCIAL HISTORY: Denies alcohol, tobacco, drugs FAMILY HISTORY: Hypertension Medications and Allergies Allergies Allergy/AdvReac Type Severity Reaction Status Date / Time naproxen Allergy Itching Verified 04/17/17 11:25 Home Medications Medication Instructions Recorded Confirmed Last Taken Type Hydralazine HCl 100 mg PO TID 04/02/17 06/20/17 04/11/17 History Clonidine HCl [Kapvay] 0.2 mg PO TID 04/03/17 06/20/17 04/11/17 History Exam - Physical Exam Narrative exam: Gen. appearance: Patient lying in bed, no apparent distress HEENT: Normocephalic, atraumatic, pupils equally round and reactive to light, extraocular movement intact, and no sclericterus,. No JVD or thyromegaly or nodule,neck supple, no carotid bruit ,mucous membranes moist, no exudate or erythema Heart: S1, S2, regular rate and rhythm Lungs: Clear to auscultation bilaterally, breathing comfortable Abdomen: Positive bowel sounds, nontender, nondistended, no organomegaly Extremity: No edema, cyanosis, clubbing Skin: No rash, nodules, warm, dry Neuro: Oriented 3, cranial nerves II-12 intact, speech is fluent, motor and sensory intact - Constitutional Vitals: Temp Pulse Resp BP Pulse Ox 97.9 F 62 12 204/112 100 06/26/17 22:18 06/26/17 23:18 06/26/17 23:18 06/26/17 23:18 06/26/17 23:18 Results - Labs CBC & Chem 7: 06/26/17 23:06 06/26/17 23:06 Labs: Abnormal lab results 06/26/17 06/26/17 Range/Units 23:06 23:06 WBC 3.6 L (4.5-11.0) K/mm3 RBC 3.02 L (3.65-5.03) M/mm3 MCV 107 H (79-97) fl MCH 33 H (28-32) pg RDW 22.1 H (13.2-15.2) % Plt Count 111 L (140-440) K/mm3 [place] % (Auto) 10.3 H (0.0-7.3) % Sodium 131 L (137-145) mmol/L Potassium 6.7 H* (3.6-5.0) mmol/L Chloride 86.8 L (98-107) mmol/L Carbon Dioxide 13 L (22-30) mmol/L BUN 97 H (7-17) mg/dL Creatinine 9.3 H (0.7-1.2) mg/dL Troponin T 0.058 H (0.00-0.029) ng/mL - Imaging and Cardiology EKG: image reviewed Assessment and Plan Hypertensive urgency Hyperkalemia End Stage renal disease needing dialysis Chest pain most likely secondary to #1 Atrial fibrillation Start IV hydralazine hydralazine, first dose now check cardiac enzymes,d-dimer and consult cardiology Consult renal for dialysis, if cocktail for hyperkalemia Continue appropriate outpatient medications Due to prophylaxis with SCD, status post bleeding on eliquis
[2017-06-27] MEDS ORDERED: PERCOCET 5/325 PO PRN (05:36)
[2017-06-27] MEDS ORDERED: TYLENOL PO PRN (05:36)
[2017-06-27] MEDS ORDERED: ZOFRAN IV PRN (05:36)
[2017-06-27] MEDS ORDERED: DULCOLAX PR PRN (05:36)
[2017-06-27] MEDS ORDERED: SODIUM BICARBONATE IV ONE ×3 (06:06→06:17)
[2017-06-27] MEDS ORDERED: APRESOLINE IV PRN ×2 (06:17→14:34)
--- NOTE | 2017-06-27 06:26 | Emergency Department Report ---
ED General Adult HPI - General Chief complaint: Weakness Stated complaint: CHEST PAIN Source: patient Mode of arrival: Ambulatory Limitations: No Limitations - History of Present Illness Initial comments: Condition is an 82-year-old female who has end-stage renal disease who presents with weakness and fatigue. She also states that she has been having some chest pain does been going on for the last 2 days. She previously came here but eloped from the hospital. Her chest pain right now is a 4 out of 10 located in the right side of her chest nothing makes her chest pain better or worse and is intermittent is an achy type of chest pain is not associated with any symptoms. Patient states that she's had weakness episode that occurred which caused her to come back to the emergency department. Severity scale (0 -10): 0 - Related Data Home Medications Medication Instructions Recorded Confirmed Last Taken Hydralazine HCl 100 mg PO TID 04/02/17 06/20/17 04/11/17 Clonidine HCl [Kapvay] 0.2 mg PO TID 04/03/17 06/20/17 04/11/17 Allergies Allergy/AdvReac Type Severity Reaction Status Date / Time naproxen Allergy Itching Verified 04/17/17 11:25 ED Review of Systems ROS: Stated complaint: CHEST PAIN Other details as noted in HPI Constitutional: weakness Eyes: denies: eye pain, eye discharge, vision change ENT: denies: ear pain, throat pain Respiratory: denies: cough, shortness of breath, wheezing Cardiovascular: chest pain. denies: palpitations Endocrine: no symptoms reported Gastrointestinal: denies: abdominal pain, nausea, diarrhea Genitourinary: denies: urgency, dysuria, discharge Musculoskeletal: denies: back pain, joint swelling, arthralgia Skin: denies: rash, lesions Neurological: denies: headache, weakness, paresthesias Psychiatric: denies: anxiety, depression Hematological/Lymphatic: denies: easy bleeding, easy bruising ED Past Medical Hx - Past Medical History Previous Medical History?: Yes Hx Hypertension: Yes Hx Heart Attack/AMI: Yes Hx Congestive Heart Failure: Yes Hx Diabetes: No Hx Renal Disease: Yes (ESRD Dialysis T,, Fri) Hx Sickle Cell Disease: No Hx COPD: Yes Hx Dementia: Yes Hx HIV: No Additional medical history: Afib/Aflutter - Surgical History Past Surgical History?: Yes Hx Pacemaker: Yes (Dual chamber PPM) Additional Surgical History: vas cath to right chest - Social History Smoking Status: Unknown if ever smoked Substance Use Type: Prescribed - Medications Home Medications: Home Medications Medication Instructions Recorded Confirmed Last Taken Type Hydralazine HCl 100 mg PO TID 04/02/17 06/20/17 04/11/17 History Clonidine HCl [Kapvay] 0.2 mg PO TID 04/03/17 06/20/17 04/11/17 History ED Physical Exam - General Limitations: No Limitations General appearance: alert, in no apparent distress - Head Head exam: Present: atraumatic, normocephalic - Eye Eye exam: Present: normal appearance - ENT ENT exam: Present: mucous membranes moist - Neck Neck exam: Present: normal inspection - Respiratory Respiratory exam: Present: normal lung sounds bilaterally. Absent: respiratory distress - Cardiovascular Cardiovascular Exam: Present: regular rate, normal rhythm. Absent: systolic murmur, diastolic murmur, rubs, gallop - GI/Abdominal GI/Abdominal exam: Present: soft, normal bowel sounds - Extremities Exam Extremities exam: Present: normal inspection - Back Exam Back exam: Present: normal inspection - Neurological Exam Neurological exam: Present: alert, oriented X3 - Skin Skin exam: Present: warm, dry, intact, normal color. Absent: rash ED Course Vital Signs 06/26/17 06/26/17 06/27/17 22:18 23:18 03:00 Temperature 97.9 F Pulse Rate 67 62 64 Respiratory 12 22 Rate Blood Pressure 201/106 Blood Pressure 204/112 [Right] O2 Sat by Pulse 96 100 Oximetry 06/27/17 06/27/17 06/27/17 03:11 03:21 03:31 Temperature Pulse Rate 61 79 Respiratory 21 18 19 Rate Blood Pressure 195/93 205/98 195/93 Blood Pressure [Right] O2 Sat by Pulse 100 99 Oximetry 06/27/17 06/27/17 06/27/17 03:41 03:51 04:01 Temperature Pulse Rate Respiratory 14 13 15 Rate Blood Pressure 195/93 195/93 195/93 Blood Pressure [Right] O2 Sat by Pulse 99 99 100 Oximetry 06/27/17 06/27/17 06/27/17 04:11 04:21 04:31 Temperature Pulse Rate Respiratory 13 13 20 Rate Blood Pressure 195/93 195/93 195/93 Blood Pressure [Right] O2 Sat by Pulse 98 99 98 Oximetry 06/27/17 04:45 Temperature Pulse Rate Respiratory 18 Rate Blood Pressure Blood Pressure [Right] O2 Sat by Pulse 99 Oximetry - Reevaluation(s) Reevaluation #1: 06/27/17 06:34 Patient has hyperkalemia will give albuterol insulin dextrose fluids and will closely monitor. Reevaluation #2: 06/27/17 05:34 This case with hospitalist will give patient aspirin discussed patient that she will need to be admitted and will need to be seen by nephrology in the morning to consider for urgent dialysis. ED Medical Decision Making - Lab Data Result diagrams: 06/26/17 23:06 06/26/17 23:06 Laboratory Results - last 24 hr 06/26/17 06/26/17 23:06 23:06 WBC 3.6 L RBC 3.02 L Hgb 10.1 Hct 32.2 MCV 107 H MCH 33 H MCHC 31 RDW 22.1 H Plt Count 111 L Lymph % (Auto) 33.7 [place] % (Auto) 10.3 H Eos % (Auto) 0.9 Baso % (Auto) 0.5 Lymph # 1.2 [place] # 0.4 Eos # 0.0 Baso # 0.0 Seg Neutrophils % 54.6 Seg Neutrophils # 1.9 Sodium 131 L Potassium 6.7 H* Chloride 86.8 L Carbon Dioxide 13 L Anion Gap 38 BUN 97 H Creatinine 9.3 H Estimated GFR 5 BUN/Creatinine Ratio 10.43 Glucose 80 Calcium 9.3 Troponin T 0.058 H - EKG Data -: EKG Interpreted by Ok - EKG Data 06/27/17 06:35 EKG shows electronic atrial pacemaker left axis deviation nonspecific intraventricular block septal infarct T wave depressions in V5 and V6 and Q waves in lead 3 - Medical Decision Making Chief medical diagnosis: Hyperkalemia secondary to end-stage renal disease Differential medical diagnosis hypertensive emergency, non-STEMI CBC, CMP, EKG, albuterol, calcium, insulin and dextrose Due to patient's life-threatening condition she will need to be admitted to the hospital and will need hyperkalemic treatment Critical Care Time: Yes Critical care time in (mins) excluding proc time.: 30 Critical care attestation.: If time is entered above; I have spent that time in minutes in the direct care of this critically ill patient, excluding procedure time. Critical Care Time: Critical care Time spent with the patient 20 minutes Time spent reviewing patient's laboratory findings of medical records 5 minutes Time spent discussing with hospitalist and discussing diagnostic findings patient 5 Total time of critical care 30 minutes. ED Disposition Clinical Impression: End stage renal disease, Hyperkalemia, Hypertensive urgency, Elevated troponin Chest pain Qualifiers: Chest pain type: other chest pain Qualified Code(s): R07.89 - Other chest pain Disposition: 09 OP ADMIT IP TO THIS HOSP Is pt being admited?: Yes Does the pt Need Aspirin: No Condition: Stable Time of Disposition: 06:32
[2017-06-27 06:37] LABS: Creatine Kinase MB 1.9 ng/mL (0.0-4.0)
--- NOTE | 2017-06-27 07:20 | Admit Criteria Form ---
Admission Criteria Documentation: GENERAL ADMISSION CRITERIA (Place 'X' for any and all applicable criteria): Admission is indicated for ANY ONE of the following: [ ]I. Hemodynamic instability as indicated by ANY ONE of the following(1)(2) (3)(4)(5): [ ]a) Vital sign abnormality not readily corrected by appropriate treatment within 12 to 24 hours indicated by ANY ONE of the following: [ ]i) Hypotension [ ]ii) Symptomatic Tachycardia unresponsive to treatment (eg , analgesia, fluids, sedation as indicated) [ ]iii) Orthostatic vital sign changes unresponsive to treatment (eg, fluids) [ ]b) Vital sign abnormality that is severe indicated by ANY ONE of the following: [ ]i) Inadequate perfusion indicated by ANY ONE of the following: [ ]1) Lactic acidosis (greater than 2 mmol/L) [ ]2) New abnormal capillary refill (greater than 3 seconds) [ ]3) Other metabolic acidosis (arterial pH less than 7.35) not otherwise explained [ ]4) Reduced urine output [ ]5) Altered mental status [ ]6) Myocardial Ischemia [ ]v) Mean arterial pressure[A] less than 60 mm Hg [ ]vi) Mean arterial pressure[A] less than 70 mm Hg after 30 minutes of appropriate treatment (eg, fluid resuscitation) [ ]vii) IV inotropic or vasopressor medication required to maintain adequate blood pressure or perfusion [ ]viii) Sustained heart rate greater than 120 beats per minute in adult or child 6 years or older[B]] [ ]II. Hypertension requiring inpatient treatment as indicated by ANY ONE of the following(6)(7)(8): [ ]a) SBP greater than 220 mm Hg or DBP greater than 120 mm Hg despite treatment [ ]b) SBP greater than 140 mm Hg or DBP greater than 100 mm Hg with evidence of acute end organ damage as indicated by ANY ONE of the following: [ ]i) Encephalopathy [ ]ii) Acute renal failure as indicated by new onset of ANY ONE of the following(9)(10)(11)(12)(13): [ ]1) A 3-fold rise in serum creatinine from baseline [ ]2) Serum creatinine greater than 4 mg/dL ( 354 micromoles/L) with acute rise greater than 0.5 mg/dL (44.2 micromoles/L) [ ]3) Reduction of more than 75% in estimated glomerular filtration rate from baseline [ ]4) Estimated glomerular filtration rate less than 35 mL/min/1.73m2 (0.59 mL/sec/1.73m2) in child up to 18 years of age [ ]5) Cessation of urine output indicated by ALL of the following: [ ]A. Adequate volume status [ ]B. Inadequate urine output as indicated by ANY ONE of the following: [ ]a. Urine output less than 0.3 mL/kg/hr for 24 hours [ ]b. Anuria (urine output less than 0.1 mL/kg/hr) for 12 hours [ ]iii) Aortic dissection [ ]iv) Myocardial ischemia [ ]v) Left ventricular heart failure [ ]vi) Retinal hemorrhage [ ]vii) Other significant finding [ ]c) Hypertension in child requiring inpatient treatment as indicated by ALL of the following(14)(15)(16): [ ]i) Outpatient treatment not effective, not available, or not appropriate [ ]ii) SBP or DBP greater than 95th percentile for age [ ]iii) Evidence of acute end organ damage as indicated by ANY ONE of the following: [ ]1) Altered mental status [ ]2) Acute renal failure as indicated by new onset of ANY ONE of the following(9)(10)(11)(12)(13): [ ]A. A 3-fold rise in serum creatinine from baseline [ ]B. Serum creatinine greater than 4 mg/dL (354 micromoles/L) with acute rise greater than 0.5 mg/dL (44.2 micromoles/L) [ ]C. Reduction of more than 75% in estimated glomerular filtration rate from baseline [ ]D. Estimated glomerular filtration rate less than 35 mL/min/1.73m2 (0.59 mL/sec/1.73m2)in child up to 18 years of age [ ]E. Cessation of urine output indicated by ALL of the following: [ ]a. Adequate volume status [ ]b. Inadequate urine output as indicated by ANY ONE of the following: [ ]1) Urine output less than 0.3 mL/kg/hr for 24 hours [ ]2) Anuria (urine output less than 0.1 mL/kg/hr) for 12 hours [ ]3) Severe headache [ ]4) Visual disturbance [ ]5) Retinal hemorrhage [ ]6) Other significant finding [ ]III. Acute cardiac or peripheral ischemia as indicated by ANY ONE of the following: [ ]a) Acute coronary syndrome(17)(18) [ ]b) Acute peripheral ischemia (eg, pulseless, cool, mottled, or cyanotic extremity)(19) [ ]IV. Cardiac arrhythmias or findings of immediate concern indicated by ANY ONE of the following(20)(21): [ ]a) Heart rhythms that are inherently dangerous or unstable indicated by ANY ONE of the following(22)(23)(24): [ ]i) Resuscitated ventricular fibrillation or cardiac arrest [ ]ii) Ventricular escape rhythm [ ]iii) Sustained ventricular tachycardia (30 seconds or more of ventricular rhythm at greater than 100 beats per minute) [ ]iv) Nonsustained ventricular tachycardia and ANY ONE of the following: [ ]1) Suspected cardiac ischemia as cause or consequence of ventricular tachycardia [ ]2) In setting of acute myocarditis [ ]b) Unstable cardiac conduction defects indicated by ANY ONE of the following(24)(25)(26): [ ]i) Type II second-degree atrioventricular block [ ]ii) Third-degree atrioventricular block [ ]iii) New-onset left bundle branch block with suspected myocardial ischemia [ ]c) Any heart rhythm and ANY ONE of the following(22)(23)(27)(28)( 29): [ ] i) Continuous long-term ECG monitoring needed (eg, initiation of drug requiring monitoring for more than 24 hours) [ ] ii) Patient has automatic implanted cardioverter defibrillator that is repeatedly firing, malfunctioning, or in need of immediate adjustment of settings beyond the scope of ambulatory or observation care. [ ]d) Heart rhythms of concern due to ANY ONE of the following: [ ]i) Hypotension [ ]ii) Respiratory distress [ ]iii) Association with other significant symptoms (eg, bradycardia with syncope or ongoing dizziness, supraventricular tachycardia with chest pain) (27)(28) (30) [ ] V. Severe heart failure as indicated by ANY ONE of the following ( 31)(32): [ ]a) Respiratory distress [ ]b) Hypotension [ ]c) Anasarca (refractory to outpatient therapy) [ ]d) Cardiac arrhythmias of immediate concern [ ]e) Myocardial ischemia [ ]. Respiratory abnormalities, including ANY ONE of the following(33)(34) (35)(36): [ ]a) Respiratory rate greater than 30 breaths per minute unresponsive to treatment [A] [ ]b) New saturation of arterial oxygen less than 90% [ ]c) New partial pressure of carbon dioxide greater than 44 mm Hg ( 5.9 kPa) [ ]d) Supplemental oxygen or respiratory treatments needed that are new or not performable at other levels of care [ ]e) New-onset cyanosis [ ]f) Inability to protect airway [ ]g) Chronic lung disease with severe deterioration (not responsive to emergency and observation care treatment as appropriate) as indicated by ANY ONE of the following(34)(36 ): [ ]i) SaO2 5% below baseline in patient with chronic hypoxemia [ ]ii) New requirement for supplemental oxygen to keep SaO2 at baseline or acceptable level [ ]iii) Required supplemental oxygen performable only in acute inpatient setting [ ]iv) Severe airflow or ventilation abnormalities [ ]v) Previously mobile patient unable to walk between rooms [ ]vi Inability to eat or sleep due to dyspnea [ ]vii) Rapid rate of exacerbation onset [ ]viii) Altered mental status ]VII. Severe airflow or ventilation abnormalities (not responsive to emergency and observation care treatment as appropriate) as indicated by ANY ONE of the following(33)(34)(35)(37): [ ]a) PCO2 greater than 42 mm Hg (5.6 kPa) and pH less than 7.35 (new ) [ ]b) Documented PCO2 increased more than 5 mm Hg (0.7 kPa) from disease baseline [ ]c) Airflow measurements [B] less than 60% of previous best or predicted (eg, peak expiratory flow rate less than 300 L/minute) despite intensive emergent treatment [C] [ ]d) Required respiratory treatments that are performable only in acute inpatient setting [ ]VIII. Impending or actual respiratory arrest ( Also use Respiratory Failure GRG for severe respiratory disease and long-term mechanical ventilation patients) [ ]IX. Neurologic abnormalities, including ANY ONE of the following: [ ]a) New findings that suggest ANY ONE of the following: [ ]i) VARNISH BLENDER infection(38) [ ]ii) Cerebral bleeding, ischemia, or vasospasm(39)(40) [ ]iii) Increased intracranial pressure, hydrocephalus, or cerebral edema(41)(42)(43) [ ]iv) Spinal cord injury(44) [ ]b) Uncontrolled seizures(45) [ ]c) New-onset coma (eg, Prague coma scale score less than 9) or unexplained abnormal mental status (eg, Prague coma scale score less than 14) [D](41)(46)(47) [ ]X. New-onset severe neurologic findings requiring inpatient care; examples include(42)(48)(49): [ ]a) Papilledema [ ]b) Cerebral edema [ ]c) Mass effect on CT scan [ ]XI. Suspected acute intra-abdominal process with peritoneal signs, abdominal mass, or similar findings (50)(51)(52) [ ]XII. Severe physiologic disorder remaining after emergency or observation level care (as appropriate) as indicated by ANY ONE of the following (53): [ ]a) Significant dehydration [ ]b) Diabetic ketoacidosis [ ]c) Hyperglycemic hyperosmolar state (eg, osmolality greater than 320 mOsm/kg (mmol/kg) [ ]d) Hypoglycemia [ ]e) Other (new) acid-base disorder with pH less than 7.35 or greater than 7.5(54) [ ]f) Thyroid storm (55) [ ]g) Myxedema coma (55) [ ]XIII. Abdominal abnormalities with ANY ONE of the following(56)(57): [ ]a) Absent bowel sounds with complete ileus [ ]b) Signs of intestinal obstruction or peritonitis [E] [ ]c) Nausea and vomiting that cannot be controlled with outpatient or observation care [ ]XIV. Acute renal failure as indicated by new onset of ANY ONE of the following(9)(10)(11)(12)(13): [ ]a) A 3-fold rise in serum creatinine from baseline [ ]b) Serum creatinine greater than 4 mg/dL (354 micromoles/L) with acute rise greater than 0.5 mg/dL (44.2 micromoles/L) [ ]c) Reduction of more than 75% in estimated glomerular filtration rate from baseline [ ]d) Estimated glomerular filtration rate less than 35 mL/min/ 1.73m2 (0.59 mL/sec/1.73m2) in child up to 18 years of age [ ]e) Cessation of urine output indicated by ALL of the following: [ ]i) Adequate volume status [ ]ii) Inadequate urine output as indicated by ANY ONE of the following: [ ]1) Urine output less than 0.3 mL/kg/hr for 24 hours [ ]2) Anuria (urine output less than 0.1 mL/kg/hr) for 12 hours [ ]XV. Significant uremic complications as indicated by ANY ONE of the following(58)(59)(60): [ ]a) Outpatient therapy is ineffective or not feasible for ANY ONE of the following: [ ]i) Severe heart failure [ ]ii) Severehypertension [ ]iii) Pleural effusion [ ]iv) Pericarditis or pericardial effusion [ ]b) Cardiac arrhythmias of immediate concern [ ]c) Intractable nausea or vomiting [ ]d) Recurrent seizures [ ]e) Encephalopathy [ ]f) Bleeding abnormalities (eg, platelet dysfunction) with active (eg, gastrointestinal) bleeding [ ]g) Dialysis indicated before long-term access or ambulatory arrangements can be made [ ]h) Significant metabolic or electrolyte abnormalities (eg, severe acidosis or hyperkalemia) [ ]XVI. High fever or other high-risk infection situation as indicated by ANY ONE of the following(61)(62)(63)(64): [ ]a) Outpatient and observation care antimicrobial treatment unavailable, not effective, or not appropriate [ ]b) Documented bacteremia [ ]c) Temperature greater than 40.5 degrees C (104.9 degrees F) ( oral) [ ]d) Temperature greater than 39.5 degrees C (103.1 degrees F) ( oral) or less than 36 degrees C (96.8 degrees F) (rectal) that does not respond to e treatment and observation care [ ] XVII. Temperature less than 95 degrees F (35 degrees C)(rectal)(65) [ ] XVIII. Severe nutritional abnormalities as indicated by ALL of the following (66)(67): [ ]a) Inability to tolerate or establish sufficient oral or other enteral nutrition in outpatient setting [ ]b) Parenteral nutrition regimen need that must be implemented on inpatient basis [X ] XIX. Severe electrolyte abnormalities indicated by ALL of the following(68 )(69)(70): [X]a) Electrolytes and associated findings are not as expected for patient baseline or acceptable treatment effects. [X ]b) Severe abnormalities indicated by ANY ONE of the following: [ ]i) Sodium less than 130 mEq/L (mmol/L) (new) [ ]ii)Sodium less than 135 mEq/L (mmol/L) with ANY ONE of the following: [ ]1) Uncorrectable (to near normal or chronic baseline) after trial of outpatient and emergency treatment [ ]2) Altered mental status [ ]3) Seizures [ ]4) Severe medical etiology requiring inpatient management (eg, heart failure, hypovolemia) [ ]iii) Sodium greater than 155 mEq/L (mmol/L) [ ]iv) Sodium greater than 150 mEq/L (mmol/L) with ANY ONE of the following: [ ]1) Uncorrectable (to near normal or chronic baseline) with outpatient and emergency treatment [ ]2) Altered mental status [ ]3) Seizures [ ]4) Severe medical etiology (eg, hypovolemia, diabetes insipidus) [ ]v) Potassium less than 2.5 mEq/L (mmol/L) despite outpatient and emergency treatment [ ]vi) Potassium less than 3 mEq/L (mmol/L) with ANY ONE of the following: [ ]1) Weakness [ ]2) Cardiac abnormality (eg, arrhythmia, conduction disturbance) [ ]3) Cardiac ischemia [ ]4) Ileus [ ]5) Ongoing medical cause requiring inpatient management (eg, acute renal wasting or SIADH) [ ]6) Other severe symptoms [X ]vii) Potassium greater than 6.5 mEq/L (mmol/L) [ ]viii) Potassium greater than 5 mEq/L (mmol/L) with ANY ONE of the following: [ ]1) Uncorrectable (to near normal or chronic baseline) with outpatient and emergency treatment [ ]2) Severe ECG findings [F] [ ]3) Acute worsening of renal failure (creatinine greater than 2.5 mg/dL (221 micromoles/L) or significant elevation for age and size) [ ]4) Severe weakness [ ]5) Severe medical etiology (eg, hemolysis, infection, drug overdose) [ ]ix) Calcium less than 7 mg/dL (1.75 mmol/L) despite outpatient and emergency treatment (72) [ ]x) Calcium less than 8 mg/dL (2 mmol/L) with significant symptoms or findings; examples include(72): [ ]1) Altered mental status [ ]2) Muscle spasms [ ]3) Seizures [ ]4) Breathing difficulty [ ]5) Cardiac abnormality (eg, arrhythmia or conduction disturbance) [ ]xi) Calcium greater than 14 mg/dL (3.5 mmol/L)(72) [ ]xii) Calcium greater than 12 mg/dL (3 mmol/L) with ANY ONE of the following(72): [ ]1) Uncorrectable (to near normal or chronic baseline) with outpatient and emergency treatment [ ]2) Significant dehydration or hypovolemia as indicated by ALL of the following(70)(73)(74): [ ]A. Not resolved with initial treatments [ ]B. Clinically significant dehydration as indicated by ANY ONE of the following: [ ]a. Vomiting refractory to outpatient treatment (ie, precluding oral rehydration) [ ]b. Inability to drink [ ]c. Hypernatremia or other electrolyte abnormality unable to be corrected with outpatient and emergency treatment [ ]d. Failure to remain hydrated with outpatient therapy [ ]e. Reduced urine output [ ]f. Hypotension [ ]g. Serious cause for dehydration requiring acute hospitalization (eg, bowel obstruction, increased intracranial pressure, infectious cause) [ ]h. Child with ANY ONE of the following(75): [ ]1) Severe abdominal tenderness [ ]2) Adequate care not available at home [ ]3) Severe dehydration ( greater than 9% loss of body weight) [ ]4) Significant symptoms or findings; examples include: [ ]A. Altered mental status [ ]B. Cardiac abnormality (eg, arrhythmia, conduction disturbance) [ ]C. Malignant etiology requiring inpatient treatment [ ]xiii) Phosphorus less than 1 mg/dL (0.32 mmol/L) [ ]xiv) Phosphorus less than 1.5 mg/dL (0.48 mmol/L) with ANY ONE of the following: [ ]1) Patient unresponsive to outpatient and emergency treatment [ ]2) Significant symptoms or findings; examples include: [ ]A. Weakness [ ]B. Altered mental status [ ]C. Breathing difficulty [ ]D. Seizures [ ]E. Rhabdomyolysis [ ]xv) Phosphorus greater than 10 mg/dL (3.2 mmol/L) [ ]xvi) Phosphorus greater than 4.5 mg/dL (1.45 mmol/L) (new) with ANY ONE of the following: [ ]1) Severe medical etiology (eg, crush injury, acute renal failure) [ ]2) Associated hypocalcemia with significant findings; examples include: [ ]A. Neurologic symptoms [ ]B. Altered mental status [ ]C. Muscle spasms [ ]D. Seizures [ ]E. Breathing difficulty [ ]F. Cardiac abnormality (eg, arrhythmia, conduction disturbance) [ ]xvii) Magnesium less than 1 mg/dL (0.41 mmol/L) [ ]xviii) Magnesium less than 1.5 mg/dL (0.62 mmol/L) with ANY ONE of the following: [ ]1) Patient unresponsive to outpatient and emergency treatment [ ]2) Associated hypocalcemia with significant findings; examples include: [ ]A. Altered mental status [ ]B. Muscle spasms [ ]C. Seizures [ ]D. Breathing difficulty [ ]E. Cardiac abnormality (eg, arrhythmia , conduction disturbance) [ ]3) Associated hypokalemia (potassium less than 3 mEq/L (mmol/L)) with risk of arrhythmia [ ]xix) Magnesium greater than 4 mEq/L (2 mmol/L) [ ]xx) Magnesium greater than 2.5 mEq/L (1.25 mmol/L) with significant symptoms or findings; examples include: [ ]1) Weakness [ ]2) Altered mental status [ ]3) Cardiac abnormality (eg, arrhythmia, conduction disturbance) [ ]4) Breathing difficulty [ ]5) Severe medical etiology (eg, renal failure, hypovolemia) [ ]xxi) Uric acid greater than 20 mg/dL (1190 micromoles/L)(76) [ ]xxii) Uric acid greater than 8 mg/dL (476 micromoles/L) with significant symptoms or findings of tumor lysis syndrome; examples include(76): [ ]1) Creatinine greater than 1.5 times upper limit of normal [ ]2) Cardiac abnormality (eg, arrhythmia, conduction disturbance) [ ]3) Seizure [ ]XX. Acute blood loss causing significant abnormality as indicated by ANY ONE of the following(77)(78): [ ]a) Hemoglobin less than 10 g/dL (100 g/L) (not baseline) [ ]b) Hematocrit less than 30% (0.30) (not baseline) [ ]c) Repeat hematocrit decreased more than 2% (0.02) [ ]d) Uncontrolled bleeding [ ]XXI. Severe anemia indicated by ANY ONE of the following(78)(79): [ ]a) Altered mental status [ ]b) Chest pain [ ]c) Exertional dyspnea [ ]d) Syncope [ ]e) Other findings suggesting inadequate perfusion [ ]f) Treatment with transfusion or volume replacement is ineffective at resolving ANY ONE of the following [G]: [ ]i) Tachycardia for age [ ]ii) Orthostatic vital sign changes as indicated by ANY ONE of the following(80): [ ]1) Fall in SBP of 20 mm Hg or more 1 to 3 minutes after patient sits or stands from recumbent position [ ]2) Fall in DBP of 10 mm Hg or more 1 to 3 minutes after patient sits or stands from recumbent position [ ]XXII. High-risk low platelet count as indicated by ANY ONE of the following( 81)(82): [ ]a) Severe or life-threatening bleeding (eg, intracranial, major gastrointestinal, or extensive mucosal bleeding), with any reduced platelet count [ ]b) Platelet count less than 20,000/mm3 (20 x109/L) with any active bleeding [ ]c) Platelet count less than 10,000/mm3 (10 x109/L) with minor purpura or petechiae [ ]d) Platelet count less than 5000/mm3 (5 x109/L) [ ]e) Low platelet count with hemolytic anemia [ ]XXIII. Disseminated intravascular coagulation(77)(83) [ ]XXIV. Severe adverse drug or systemic toxin reaction requiring inpatient treatment; examples include(84)(85): [ ]a) Serotonin syndrome(86) [ ]b) Neuroleptic malignant syndrome(86) [ ]c) Cholinergic syndrome with severe symptoms (eg, bronchorrhea, weakness, mental status changes, seizures) [ ]d) Sympathetic syndrome with severe symptoms (eg, seizures, mental status changes, cardiac dysrhythmias) [ ]e) Anticholinergic syndrome [ ]XXV. Severe pain requiring acute inpatient management as indicated by ALL of the following (87)(88)(89): [ ]a) Continuous or frequent (eg, every 2 to 4 hours) parenteral analgesics required [H] [ ]b) Rapid improvement expected from treatment or acute intervention (eg, surgery, anesthesia procedure) [ ]XXVI.Severe behavioral health issues judged unmanageable at a lower level of care (eg, residential) in a patient who is ANY ONE of the following(91) [ ]a) Acutely suicidal [ ]b) A danger to self (eg, self-mutilating or suicidal behavior) [ ]c) A danger to others (eg, assaultive or homicidal behavior) [ ]d) Incapacitated because of grave disability (eg, inability to provide for self at lower level of care) (92) [ ]XXVII. Inpatient monitoring needed; examples include(1)(3)(87)(93)(94)(95)(96 ): [ ]a) Vital signs, neurologic signs, or vascular checks more frequently than every 4 hours [ ]b) Cardiac or respiratory monitoring beyond the scope (eg, over 24 hours) of observation care [ ]c) Pulmonary artery catheter monitoring [ ]d) Suspected compartment syndrome(97) (98) [ ]e) Cerebral bleeding, hydrocephalus, or vasospasm monitoring [ ]f) Increased intracranial pressure or cerebral edema monitoring [ ]g) monitoring [ ]XXVIII. Treatment requiring inpatient care; examples include: [ ]a) IV fluid to replace significant ongoing losses (greater than 3 L/m2 per day)(53) [ ]b) High concentration oxygen (greater than 40%)(33)(99)(100) [ ]c) Frequent respiratory therapy (more frequently than every 4 hours) to maintain airflow rates greater than 60% of baseline(33)(99)(100) [ ]d) Epidural analgesia(87) [ ]e) IV anticoagulation, vasoactive, or antiarrhythmic medication(19 )(23) [ ]f) Acute thrombolytics (generally require 24 hours of observation )(101)(102) [ ]XXIX. Emergency procedures needed; examples include: [ ]a) Emergency inpatient surgery [ ]b) Temporary pacemaker placement(103) [ ]c) Chest tube placement with active evacuation (eg, suction, drainage)(104) [ ]d) Emergent cardioversion(105) [ ]e) Emergent cardiac or vascular procedures (eg, cardiac catheterization, angioplasty) (17)(18) [ ]f) Emergent dialysis access placement and institution(10)(106) [ ]g) Emergent pericardiocentesis(107) [ ]h) Emergent plasmapheresis or leukapheresis(83) [ ]i) Emergent tracheostomy The original [employer] content created by [employer] has been revised. The portions of the content which have been revised are identified through the use of italic text or in bold, and [employer] has neither reviewed nor approved the modified material. All other unmodified content is copyright [employer]. Please see references footnoted in the original [employer] edition 2016 Admission Criteria Met: Yes
--- NOTE | 2017-06-27 09:51 | Consultation ---
History of Present Illness Consult date: 06/27/17 Requesting physician: NORA MCDERMOTT Consult reason: chest pain History of present illness: The patient is a 82-year-old female who is followed by Dr. Moreira in the office with a history of bradycardia, PPM in situ, paroxysmal atrial flutter, CVA with hemorrhagic conversion (Eliquis d/c'd), hypertension, recurrent chest pain, ESRD on HD, dementia, and noncompliance. She presented with c/o "high blood pressure". On evaluation, she denies any complaints. Per records, she presented with c/o chest pain. She denies any palpitations, n/v, diaphoresis, dizziness, or syncope. Following admission, her BP was found to be 201/106. Stress test done 10/2016 was negative for ischemia. Echo done 03/2017 showed moderate LVH, EF 45-50%, moderate MR, moderate TR, severe pulm HTN, RVSP 69mmHg, mild . Left heart cath done 12/2011 revealed normal coronaries. Past History Past Medical History: atrial fib, dialysis, ESRD, hypertension, stroke Past Surgical History: Other (PPM) Medications and Allergies Allergies Allergy/AdvReac Type Severity Reaction Status Date / Time naproxen Allergy Itching Verified 04/17/17 11:25 Home Medications Medication Instructions Recorded Confirmed Last Taken Type Hydralazine HCl 100 mg PO TID 04/02/17 06/20/17 04/11/17 History Clonidine HCl [Kapvay] 0.2 mg PO TID 04/03/17 06/20/17 04/11/17 History Active Meds: Active Medications Acetaminophen (Tylenol) 650 mg PO Q4H PRN PRN Reason: Pain MILD(1-3)/Fever >100.5/OLMEDO Bisacodyl (Dulcolax) 10 mg [place] QDAY PRN PRN Reason: Constipation unrelieved by MOM Hydralazine HCl (Apresoline) 5 mg IV Q6HR PRN PRN Reason: Hypertension Ondansetron HCl (Zofran) 4 mg IV Q8H PRN PRN Reason: N/V unrelieved by Reglan Oxycodone/Acetaminophen (Percocet 5/325) 1 tab PO Q6H PRN PRN Reason: Pain, Moderate (4-6) Review of Systems All systems: negative Cardiovascular: high blood pressure Physical Examination Vital Signs Temp Pulse BP Pulse Ox 97.9 F 67 201/106 96 06/26/17 22:18 06/26/17 22:18 06/26/17 22:18 06/26/17 22:18 General appearance: no acute distress HEENT: Positive: PERRL, Normocephaly, Mucus Membranes Moist Neck: Positive: neck supple, trachea midline Cardiac: Positive: Reg Rate and Rhythm, S1/S2 Lungs: Positive: clear to auscultation Neuro: Positive: Grossly Intact, Cranial Nerve 2-12 Intact Abdomen: Positive: Unremarkable, Soft, Active Bowel Sounds. Negative: Tender Skin: Positive: Clear. Negative: Rash, Wound Musculoskeletal: No Fluid Collection, No Pain, Normal Range of Motion Extremities: Absent: edema Results 06/26/17 23:06 06/26/17 23:06 Cardiac Enzymes 06/27/17 Range/Units 05:59 CK-MB (CK-2) 1.9 (0.0-4.0) ng/mL Lipids 06/27/17 Range/Units 05:59 Triglycerides 78 (2-149) mg/dL Cholesterol 147 (50-199) mg/dL HDL Cholesterol 48 (40-59) mg/dL Cholesterol/HDL Ratio 3.06 % - Imaging and Cardiology Echo: report reviewed (03/2017 showed moderate LVH, EF 45-50%, moderate MR, moderate TR, severe pulm HTN, RVSP 69mmHg, mild ) Cardiac cath: report reviewed (12/2011 revealed normal coronaries.) EKG: image reviewed EKG interpretations Pacemaker: atrial pacing w/capture Assessment and Plan Assessment: Accelerated hypertension ? Chest pain, atypical - per records, pt denies on evaluation; ECG with NAF; currently resolved. Elevated troponin - with normal CK/MB; chronically minimally elevated in setting of ESRD on HD; currently nonspecific. Hyperkalemia Paroxysmal atrial flutter h/o Subacute infarct of the left parietal occipital region with hemorrhagic transformation - Rajni d/c'd. ESRD on HD - s/p HD access placement on 03/21/2017. PPM in situ - h/o Bradycardia (CHB v. ventricular escape); S/P dual chamber PPM implantation 03/19/2017 Anemia Dementia Noncompliance Plan: Resume home Toprol XL, 50mg daily, and hydralazine, 100mg PO TID. No indication for any further cardiac testing at this time. Await nephrology consultation. Volume optimization per HD. The patient has been seen in conjunction with Dr. Horne who agrees with the assessment and plan of care.
--- NOTE | 2017-06-27 12:22 | XRay Report ---
PORTABLE CHEST INDICATION: Protocol. COMPARISON: 06/20/2017 FINDINGS: Portable, frontal chest radiograph demonstrates stable cardiomediastinal silhouette/mild cardiomegaly, slight aortic knob calcifications, left-sided dual-chamber pacemaker, right-sided central catheter tip along the distal SVC and various bony degenerative changes. Right lower lung hazy opacity/effusion obscuring the right hemidiaphragm again noted. Mild left basilar atelectasis may also again be present. No CHF. CONCLUSION: No significant interval change, as described. Thank you for the opportunity to participate in this patient's care.
[2017-06-27] MEDS ORDERED: NACL 0.9% 100 ML IV PRN (12:54)
[2017-06-27] MEDS ORDERED: PROCRIT IV PRN (12:54)
[2017-06-27] MEDS: APRESOLINE PO SCH ×2 (13:32→14:23)
[2017-06-27] MEDS: TOPROL XL PO SCH (13:32)
--- NOTE | 2017-06-27 13:46 | Event Note ---
Date: 06/27/17 seen and examined, in no acute distress. D.dimer elevated above baseline. patient denies chest pain. states she was sent from dialysis center. R/O PE/DVT RECHECK K to ensure correction with intervention. Patient agreable to placement on Discharge. d/w Case management.
--- NOTE | 2017-06-27 14:13 | Nuclear Medicine Report ---
LUNG SCAN, VENTILATION AND PERFUSION: History: Chest pain, pulmonary embolus. Technique: 5mci of Tc99m MAA was infused for the perfusion images. 15mci XE 133 gas was inhaled for the ventilatory images. Correlation is made with a chest x-ray dated 06/27/17. Findings: Inhalation of Xenon gas demonstrates a normal distribution of the activity throughout both lungs. The wash out phases show no focal retention of activity. After injection of Technetium 99m macroaggregated albumin gamma camera imaging of the lungs in multiple projections demonstrates normal pulmonary contours with a homogeneous distribution of activity. No focal areas of perfusion deficiency are identified. IMPRESSION: Low probability for pulmonary embolus.
--- NOTE | 2017-06-27 14:25 | Consultation ---
History of Present Illness - Reason for Consult Consult date: 06/27/17 end stage renal disease Requesting physician: NORA MCDERMOTT - History of Present Illness History of present illness: This is a 81-year-old woman history of end-stage renal disease on dialysis Friday, , Friday, A. fib, hypertension comes emergency room with complaints of chest pain. Pain is in the epigastric area which she described as a sharp pain, intermittent in nature, lasting for less than 5 minutes,, intensity, 5/10, no radiation and she cannot identify exacerbating or relieving factors. Patient did not get her dialysis yesterday. She denies any shortness of breath at this time. No nausea vomiting or diarrhea Past History Past Medical History: atrial fib, dialysis, ESRD, hypertension, stroke Past Surgical History: Other (PPM) Medications and Allergies Allergies Allergy/AdvReac Type Severity Reaction Status Date / Time naproxen Allergy Itching Verified 04/17/17 11:25 Home Medications Medication Instructions Recorded Confirmed Last Taken Type Hydralazine HCl 100 mg PO TID 04/02/17 06/20/17 04/11/17 History Clonidine HCl [Kapvay] 0.2 mg PO TID 04/03/17 06/20/17 04/11/17 History Active Meds: Active Medications Acetaminophen (Tylenol) 650 mg PO Q4H PRN PRN Reason: Pain MILD(1-3)/Fever >100.5/OLMEDO Bisacodyl (Dulcolax) 10 mg [place] QDAY PRN PRN Reason: Constipation unrelieved by MOM Epoetin Harsha (Procrit) 10,000 unit IV SHIRA PRN PRN Reason: hemodialysis Hydralazine HCl (Apresoline) 5 mg IV Q6HR PRN PRN Reason: Hypertension Hydralazine HCl (Apresoline) 100 mg PO TID [facility] Last Admin: 06/27/17 13:32 Dose: Not Given Sodium Chloride (Nacl 0.9%) 100 mls @ 999 mls/hr IV SHIRA PRN PRN Reason: Hypotension Metoprolol Succinate (Toprol Xl) 50 mg PO QDAY [facility] Last Admin: 06/27/17 13:32 Dose: Not Given Ondansetron HCl (Zofran) 4 mg IV Q8H PRN PRN Reason: N/V unrelieved by Reglan Oxycodone/Acetaminophen (Percocet 5/325) 1 tab PO Q6H PRN PRN Reason: Pain, Moderate (4-6) Review of Systems All systems: negative (except as noted above) Exam - Vital Signs Vital signs: Vital Signs Temp Pulse BP Pulse Ox 97.9 F 67 201/106 96 06/26/17 22:18 06/26/17 22:18 06/26/17 22:18 06/26/17 22:18 - General Appearance General appearance: well-developed, well-nourished, appears stated age EENT: ATNC, PERRL Neck: Present: neck supple, trachea midline, Other (right IJ permcath in place ) . Absent: JVD/HJR, Masses Respiratory: Clear to Ascultation Heart: irregularly irregular Gastrointestinal: Present: normal, normoactive bowel sounds Integumentary: no rash, other (no edema) Results - Lab Results 06/26/17 23:06 06/27/17 11:45 Most recent lab results Calcium 9.3 mg/dL (8.4-10.2) 06/26/17 23:06 Assessment and Plan Impression * End-stage renal disease on maintenance hemodialysis * Hyperkalemia * Chronic atrial fibrillation * Hypertension * Chest pain Recommendations * Shall schedule patient for hemodialysis today. * Outpatient days are however Tuesdays, and Saturdays * Hyperkalemia should be corrected with the dialysis treatment * Recheck her chemistries in AM * Adjust diet and meds for ESRD state * Epogen with dialysis * Binders with diet * Avoid nephrotoxins * Thank you very much for the consultation. Shall follow along with you
[2017-06-27] MEDS ORDERED: NORVASC PO STA (14:40)
[2017-06-27] MEDS ORDERED: HEPARIN IV PRN (15:58)
[2017-06-27] MEDS ORDERED: NACL 0.9 (PRIMING MACHINE ONLY DIALYSIS) MC ONE (16:50)
[2017-06-28 05:39] LABS: BUN/Creatinine Ratio 8.08; Calcium 7.9 mg/dL (8.4-10.2); Chloride 91.7 mmol/L (98-107)
[2017-06-28 05:45] LABS: Potassium 4.5 mmol/L (3.6-5.0)
[2017-06-28 05:46] LABS: Basophils % (Auto) 0.9 % (0.0-1.8); Eosinophils % (Auto) 1.2 % (0.0-4.3); Hematocrit 27.6 % (30.3-42.9); Hemoglobin 9.2 gm/dl (10.1-14.3); Mean Corpuscular HGB Conc 34 % (30-34); Mean Corpuscular Hemoglobin 33 pg (28-32); Mean Corpuscular Volume 99 fl (79-97); Platelet Count 103 K/mm3 (140-440); Red Blood Count 2.78 M/mm3 (3.65-5.03); White Blood Count 3.1 K/mm3 (4.5-11.0)
[2017-06-28 05:54] LABS: Red Cell Distribution Width 21.1 % (13.2-15.2)
[2017-06-28] MEDS ORDERED: NORVASC PO SCH ×2 (10:00)
--- NOTE | 2017-06-28 10:21 | Progress Note ---
Assessment and Plan Accelerated hypertension Noncompliance ntsemi type 2 Atypical chest pain End-stage renal disease on hemodialysis Mild cardiomyopathy Dementia Coronary disease Pacemaker Recommend continue Norvasc beta lowell at hydralazine 50 mg 3 times a day and dialysis as per the nephrology stable from a cardiovascular BP is better today Subjective Date of service: 06/28/17 Principal diagnosis: htn Interval history: Patient has no chest pain shortness of breath sitting in chair Objective Vital Signs Temp Pulse Pulse Resp Resp BP Pulse Ox 06/28/17 08:20 97.6 F 88 20 169/88 97 06/27/17 22:00 80 16 06/27/17 20:57 16 06/27/17 20:54 98 06/27/17 18:10 98.0 F 76 18 187/93 06/27/17 18:00 60 173/88 06/27/17 17:45 78 179/95 06/27/17 17:30 78 159/92 06/27/17 17:15 62 165/102 06/27/17 17:07 63 06/27/17 17:00 79 180/90 06/27/17 16:45 75 183/104 06/27/17 16:30 70 175/96 06/27/17 16:15 80 181/102 06/27/17 16:00 74 182/92 06/27/17 15:45 75 183/91 06/27/17 15:30 73 176/93 06/27/17 15:15 76 179/99 06/27/17 15:09 100 06/27/17 15:00 77 191/96 06/27/17 14:45 80 191/92 06/27/17 14:30 78 194/98 06/27/17 14:15 79 199/102 06/27/17 14:00 98.0 F 80 18 199/107 06/27/17 11:00 97.5 F L 60 18 182/84 100 - Physical Examination HEENT: Positive: PERRL, Normocephaly, Mucus Membranes Moist Neck: Positive: neck supple, trachea midline, Other (right IJ permcath in place ). Negative: JVD/HJR, Masses Cardiac: Positive: Reg Rate and Rhythm Lungs: Positive: clear to auscultation Neuro: Positive: Grossly Intact, Cranial Nerve 2-12 Intact Abdomen: Positive: Unremarkable, Soft, Active Bowel Sounds. Negative: Tender Skin: Positive: Clear. Negative: Rash, Wound Musculoskeletal: No Fluid Collection, No Pain, Normal Range of Motion Extremities: Absent: edema - Labs and Meds Cardiac Enzymes 06/27/17 Range/Units 11:45 CK-MB (CK-2) 2.0 (0.0-4.0) ng/mL CBC 06/28/17 Range/Units 04:27 WBC 3.1 L (4.5-11.0) K/mm3 RBC 2.78 L (3.65-5.03) M/mm3 Hgb 9.2 L (10.1-14.3) gm/dl Hct 27.6 L (30.3-42.9) % Plt Count 103 L (140-440) K/mm3 Lymph # 0.7 L (1.2-5.4) K/mm3 [place] # 0.5 (0.0-0.8) K/mm3 Eos # 0.0 (0.0-0.4) K/mm3 Baso # 0.0 (0.0-0.1) K/mm3 Comprehensive Metabolic Panel 06/27/17 06/28/17 Range/Units 11:45 04:27 Sodium 132 L (137-145) mmol/L Potassium 6.3 H* 4.5 D (3.6-5.0) mmol/L Chloride 91.7 L (98-107) mmol/L Carbon Dioxide 22 D (22-30) mmol/L BUN 38 H (7-17) mg/dL Creatinine 4.7 H (0.7-1.2) mg/dL Glucose 102 H (65-100) mg/dL Calcium 7.9 L D (8.4-10.2) mg/dL - Imaging and Cardiology EKG: image reviewed Echo: report reviewed (03/2017 showed moderate LVH, EF 45-50%, moderate MR, moderate TR, severe pulm HTN, RVSP 69mmHg, mild ) Cardiac cath: report reviewed (12/2011 revealed normal coronaries.) - Telemetry EKG Rhythm: Sinus Rhythm Pacemaker: atrial pacing w/capture
--- NOTE | 2017-06-28 12:07 | Discharge Summary ---
Providers - Providers Date of Admission: 06/27/17 05:36 Date of discharge: 06/28/17 Attending physician: MICHELLE SHAH MD Primary care physician: [facility] Hospitalization Reason for admission: chest pain, hyperkalemia Condition: Stable Hospital course: Patient is an 81-year-old female with history of end-stage renal disease on dialysis Friday, , Friday, A. fib, hypertension amongst all dose who has presented to the hospital 10 times this year alone and has also based on the specialist evaluation been seen at all the neighboring hospitals as much time. Each visit is for similar or different etiology most likely resultant from noncompliance. Although the that they do not miss dialysis he is unable to tell me the days that he had dialysis normally are except I make sure she goes to dialysis whenever she can. He returns this time with complaints of chest pain intermittent in nature and epigastric center last 5-10 minutes although on my evaluation on day of admission the patient tells me that she went to dialysis and was still without potassium was too high and sent to the hospital regardless of the case she was markedly lethargic on my evaluation on that day I did discuss with her again the need for half-way facility to ensure that she is compliant with medications gets adequate rehabilitation treatment and also compliant with her treatment the patient at that time verbalize that she would like to go we did S breasts that she normally returns to her normal self after she is dialyzed here which tells me that there is some compliance issue with dialysis the patient verbalized that I will not be the case this time she would definitely want to go to rehabilitation well this morning after dialysis was again she is remarkably improved and demands to be discharged. She states that her pain is resolved she is clinically stable I would like to go back home to her and children. She states that she is trying to leave the [facility] which is [facility] looking for a ambriz. Again the is supportive of this I discussed with the butter melter who is in agreement that the patient come to discharge from this standpoint also with cardiology again stressed my reservation and my recommendation that the patient should go to a half-way facility for better management at least in the first 30 days so that we can better strategize as to why she is having multiple admissions in the hospital patient verbalized understanding but declines. This time around her medications were addressed she is going to be on Norvasc, beta lowell and hydralazine discussed the need for compliance again as her blood pressure was significantly high which likely was causing her chest pain. She does have a chronically elevated creatinine. Discharge diagnosis Hypertensive urgency Hyperkalemia End Stage renal disease needing dialysis Chest pain most likely secondary to #1 Chronic Atrial fibrillation-patient not on anticoagulation secondary to bleeding Disposition: [id number] HOME [facility] Time spent for discharge: 35 mins Core Measure Documentation - Palliative Care Palliative Care/ Comfort Measures: Not Applicable - Core Measures Any of the following diagnoses?: none - VTE Discharge Requirements Deep Vein Thrombosis/Pulmonary Embolism Present on Admission: No Exam - Physical Exam Narrative exam: VITAL SIGNS: Reviewed. GENERAL: The patient appeared in no acute distress. Vital signs as documented. HEAD: No signs of head trauma. Marked temporal wasting EYES: Pupils are equal. Extraocular motions intact. EARS: Hearing grossly intact. MOUTH: Oropharynx is normal. NECK: No adenopathy, no JVD. CHEST: Chest with clear breath sounds bilaterally. No wheezes, rales, or rhonchi. CARDIAC: Regular rate and rhythm. S1 and S2, without murmurs, gallops, or rubs. VASCULAR: No Edema. Peripheral pulses normal and equal in all extremities. ABDOMEN: Soft, without detectable tenderness. No sign of distention. No rebound or guarding, and no masses palpated. Bowel Sounds normal. MUSCULOSKELETAL: Good range of motion of all major joints. Extremities without clubbing, cyanosis or edema. NEUROLOGIC EXAM: Alert and oriented x 3. No focal sensory or strength deficits. Speech normal. Follows commands. PSYCHIATRIC: Mood normal. SKIN: No rash or lesions. Chest port for vascular access - Constitutional Vitals: Temp Pulse Resp BP Pulse Ox 97.6 F 88 20 169/88 97 06/28/17 08:20 06/28/17 08:20 06/28/17 08:20 06/28/17 08:20 06/28/17 08:20 Plan Activity: advance as tolerated, fall precautions Diet: renal Special Instructions: record daily weights, record daily BP diary Follow up with: KYLEE FRANCO MD [Referring] - 3-5 Days YING MCMILLAN MD [Staff Physician] - 7 Days YVES TUCKER MD [Staff Physician] - 7 Days Prescriptions: amLODIPine [Norvasc] 5 mg PO QDAY #30 tablet hydrALAZINE [Apresoline TAB] 50 mg PO Q8HR #90 tablet Metoprolol Xl [Metoprolol SUCCINATE ER TAB] 50 mg PO QDAY #30 tablet
[2017-06-28] MEDS: TOPROL XL PO SCH (12:33)
--- NOTE | 2017-06-28 13:38 | Progress Note ---
Assessment and Plan Impression * End-stage renal disease on maintenance hemodialysis * Hyperkalemia * Chronic atrial fibrillation * Hypertension * Chest pain Recommendations * Uneventful hemodialysis yesterday . * Patient states that her outpatient dialysis days are Mondays, Wednesdays and Fridays * Hyperkalemia has been corrected * Adjust diet and meds for ESRD state * Epogen with dialysis * Binders with diet * Avoid nephrotoxins * Okay to discharge patient home from renal standpoint Subjective Date of service: 06/28/17 Principal diagnosis: htn Interval history: Patient feels much better. Anxious to go home. Denies any chest pain or shortness of breath Objective - Vital Signs Vital signs: Vital Signs - 12hr 06/28/17 06/28/17 08:20 10:00 Temperature 97.6 F Pulse Rate 88 82 Respiratory 20 Rate Blood Pressure 169/88 O2 Sat by Pulse 97 Oximetry - General Appearance General appearance: chronically ill, frail, other (pleasant -[place] female) EENT: PERRL, mucous membranes moist Neck: no JVD, no thyromegaly, no carotid bruit, supple, other (right IJ PermCath in place) Respiratory: Present: Clear to Ascultation Cardiology: irregularly irregular Gastrointestinal: normal, normoactive bowel sounds Integumentary: no rash, other (no edema) - Lab 06/28/17 04:27 06/28/17 04:27 Most recent lab results Calcium 7.9 mg/dL (8.4-10.2) L D 06/28/17 04:27
[2017-06-28] MEDS ORDERED: APRESOLINE PO SCH (14:00)
[2017-06-28 14:21] VITALS: BP 140/88
== END 2017-06-28 13:29 | disposition home health service (06) | DRG 304 ==
LOC: ED 22:01 → 4A 06-27 05:36
PROVIDERS: ADMIT Internal Medicine; ATTEND Internal Medicine
PROC: 5A1D00Z (ICD-10-PCS; principal; 2017-06-27)
DX: I16.0 Hypertensive urgency (principal); N18.6 End stage renal disease; I42.9 Cardiomyopathy, unspecified; I13.2 Hypertensive heart and chronic kidney disease with heart failure and with stage 5 chronic kidney disease, or end stage renal disease; E87.5 Hyperkalemia; I48.2 Chronic atrial fibrillation; I50.9 Heart failure, unspecified; J44.9 Chronic obstructive pulmonary disease, unspecified; F03.90 Unspecified dementia, unspecified severity, without behavioral disturbance, psychotic disturbance, mood disturbance, and anxiety; D64.9 Anemia, unspecified; I25.10 Atherosclerotic heart disease of native coronary artery without angina pectoris; Z99.2 Dependence on renal dialysis; Z88.8 Allergy status to other drugs, medicaments and biological substances; Z95.0 Presence of cardiac pacemaker; Z82.49 Family history of ischemic heart disease and other diseases of the circulatory system; Z91.19 Patient's noncompliance with other medical treatment and regimen
CPT/HCPCS: 36415; 71010; 78582; 80048; 80061; 82550; 82553; 84132; 84484; 85025; 85379; 93005; 93010; 93970; 96365; 96375; A9540; A9558; J0360; J0610; J1644; J1815; J7030

== ENCOUNTER 2017-07-02 23:04 | Inpatient (IN) | payer MEDICARE ==
[2017-07-02] MEDS ORDERED: D50W (25GM) IV ONE ×2 (23:16→23:18)
--- NOTE | 2017-07-02 23:22 | Emergency Department Report ---
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 Patient presented with depressed mental status. Accu- Chek was less than 20 upon arrival. Patient still able to nod her head and follow basic commands but appears weak and lethargic. She denies chest pain at this time. Previous medical records reviewed. Patient has had frequent recent admissions here. She was most recently admitted June 27 until June 28. She has a history of dialysis noncompliance. On June 27 she had a low probability V/Q scan. On October 2016 negative stress test. Patient repeatedly denies chest pain after arrival. - Related Data Previous Rx's Medication Instructions Recorded Last Taken Type Metoprolol Xl [Metoprolol 50 mg PO QDAY #30 tablet 06/28/17 Unknown Rx SUCCINATE ER TAB] amLODIPine [Norvasc] 5 mg PO QDAY #30 tablet 06/28/17 Unknown Rx hydrALAZINE [Apresoline TAB] 50 mg PO Q8HR #90 tablet 06/28/17 Unknown Rx Allergies Allergy/AdvReac Type Severity Reaction Status Date / Time naproxen Allergy Itching Verified 04/17/17 11:25 Heart Score - HEART Score History: Slightly suspicious EKG: Non-specific Age: > 65 Risk factors: > 3 risk factors or hx of atherosclerotic disease Troponin: > 3x normal limit HEART Score: 7 ED Review of Systems ROS: Stated complaint: POSS STEMI Other details as noted in HPI Comment: Unobtainable due to pts medical conditions (ams see hpi) ED Past Medical Hx - Past Medical History Previous Medical History?: Yes Hx Hypertension: Yes Hx Heart Attack/AMI: Yes Hx Congestive Heart Failure: Yes Hx Diabetes: No Hx Renal Disease: Yes (ESRD Dialysis T,, Fri) Hx Sickle Cell Disease: No Hx COPD: Yes Hx Dementia: Yes Hx HIV: No Additional medical history: Afib/Aflutter - Surgical History Past Surgical History?: Yes Hx Pacemaker: Yes (Dual chamber PPM) Additional Surgical History: vas cath to right chest - Social History Smoking Status: Unknown if ever smoked Substance Use Type: None - Medications Home Medications: Home Medications Medication Instructions Recorded Confirmed Last Taken Type Metoprolol Xl [Metoprolol 50 mg PO QDAY #30 tablet 06/28/17 Unknown Rx SUCCINATE ER TAB] amLODIPine [Norvasc] 5 mg PO QDAY #30 tablet 06/28/17 Unknown Rx hydrALAZINE [Apresoline TAB] 50 mg PO Q8HR #90 tablet 06/28/17 Unknown Rx ED Physical Exam - General Limitations: Physical Limitation - Other Other exam information: General: Patient lethargic but able to respond Head exam: Atraumatic, normocephalic Eyes exam: Normal appearance, pupils equal reactive to light ENT: Moist mucous membrane, normal oropharynx Neck exam: Normal inspection, full range of motion, no meningismus nontender Respiratory exam: Clear to auscultation bilateral, no wheezes, rales, crackles Cardiovascular: Normal rate and rhythm, positive systolic murmur. Right upper chest dialysis catheter Abdomen: Soft, nondistended, and nontender, with normal bowel sounds, no rebound, or guarding Extremity: Full range of motion normal inspection no deformity Back: Normal Inspection, full range of motion, no tenderness Neurologic: Lethargic, no facial droop, speech clear, equal hand metal tile lather and foot dorsiflexion Psychiatric: normal affect, normal mood Skin: Warm, dry, intact ED Course Vital Signs 07/02/17 07/02/17 07/02/17 22:58 23:00 23:10 Temperature Pulse Rate 73 75 Pulse Rate [ Anterior Bilateral] Respiratory 16 27 H Rate Respiratory Rate [Anterior Bilateral] Blood Pressure 211/117 Blood Pressure [Right] O2 Sat by Pulse 95 90 99 Oximetry O2 Sat by Pulse Oximetry [ Anterior Bilateral Throughout] 07/02/17 07/02/17 07/02/17 23:19 23:20 23:30 Temperature 95.0 F L Pulse Rate 79 90 78 Pulse Rate [ Anterior Bilateral] Respiratory 16 26 H 23 Rate Respiratory Rate [Anterior Bilateral] Blood Pressure 180/106 180/106 Blood Pressure 211/117 [Right] O2 Sat by Pulse 95 100 100 Oximetry O2 Sat by Pulse Oximetry [ Anterior Bilateral Throughout] 07/02/17 07/02/17 07/03/17 23:40 23:50 00:00 Temperature Pulse Rate 79 70 85 Pulse Rate [ Anterior Bilateral] Respiratory 23 17 19 Rate Respiratory Rate [Anterior Bilateral] Blood Pressure 182/109 195/97 157/64 Blood Pressure 195/97 [Right] O2 Sat by Pulse 100 99 99 Oximetry O2 Sat by Pulse Oximetry [ Anterior Bilateral Throughout] 07/03/17 07/03/17 07/03/17 00:11 00:21 00:30 Temperature Pulse Rate 83 82 80 Pulse Rate [ Anterior Bilateral] Respiratory 18 20 17 Rate Respiratory Rate [Anterior Bilateral] Blood Pressure 195/97 134/67 127/57 Blood Pressure [Right] O2 Sat by Pulse 100 99 100 Oximetry O2 Sat by Pulse Oximetry [ Anterior Bilateral Throughout] 07/03/17 07/03/17 07/03/17 00:41 00:51 00:58 Temperature Pulse Rate 80 79 Pulse Rate [ 82 Anterior Bilateral] Respiratory 18 22 Rate Respiratory 18 Rate [Anterior Bilateral] Blood Pressure 127/57 127/57 Blood Pressure [Right] O2 Sat by Pulse 100 99 Oximetry O2 Sat by Pulse Oximetry [ Anterior Bilateral Throughout] 07/03/17 07/03/17 07/03/17 01:00 01:32 02:06 Temperature Pulse Rate 80 82 Pulse Rate [ 88 Anterior Bilateral] Respiratory 19 14 Rate Respiratory 18 Rate [Anterior Bilateral] Blood Pressure 128/64 109/56 Blood Pressure [Right] O2 Sat by Pulse 100 99 Oximetry O2 Sat by Pulse Oximetry [ Anterior Bilateral Throughout] 07/03/17 07/03/17 07/03/17 02:11 02:21 02:30 Temperature Pulse Rate 85 82 87 Pulse Rate [ Anterior Bilateral] Respiratory 22 14 18 Rate Respiratory Rate [Anterior Bilateral] Blood Pressure 109/56 128/64 128/66 Blood Pressure [Right] O2 Sat by Pulse 100 100 100 Oximetry O2 Sat by Pulse Oximetry [ Anterior Bilateral Throughout] 07/03/17 07/03/17 07/03/17 02:41 02:46 02:47 Temperature 93.5 F L 93.5 F L Pulse Rate 85 Pulse Rate [ Anterior Bilateral] Respiratory 13 Rate Respiratory Rate [Anterior Bilateral] Blood Pressure 128/66 Blood Pressure [Right] O2 Sat by Pulse 100 Oximetry O2 Sat by Pulse Oximetry [ Anterior Bilateral Throughout] 07/03/17 07/03/17 07/03/17 02:51 02:59 03:00 Temperature Pulse Rate 85 86 Pulse Rate [ Anterior Bilateral] Respiratory 13 14 Rate Respiratory Rate [Anterior Bilateral] Blood Pressure 135/65 131/68 Blood Pressure [Right] O2 Sat by Pulse 100 96 100 Oximetry O2 Sat by Pulse Oximetry [ Anterior Bilateral Throughout] 07/03/17 07/03/17 07/03/17 04:15 04:26 04:27 Temperature 95.0 F L Pulse Rate 91 H 90 90 Pulse Rate [ Anterior Bilateral] Respiratory 14 Rate Respiratory Rate [Anterior Bilateral] Blood Pressure 135/80 135/80 135/80 Blood Pressure [Right] O2 Sat by Pulse Oximetry O2 Sat by Pulse 100 Oximetry [ Anterior Bilateral Throughout] 07/03/17 07/03/17 07/03/17 04:30 04:45 05:00 Temperature Pulse Rate 91 H 91 H 95 H Pulse Rate [ Anterior Bilateral] Respiratory Rate Respiratory Rate [Anterior Bilateral] Blood Pressure 135/80 132/78 140/78 Blood Pressure [Right] O2 Sat by Pulse Oximetry O2 Sat by Pulse Oximetry [ Anterior Bilateral Throughout] 07/03/17 05:04 Temperature 98.4 F Pulse Rate Pulse Rate [ Anterior Bilateral] Respiratory Rate Respiratory Rate [Anterior Bilateral] Blood Pressure Blood Pressure [Right] O2 Sat by Pulse Oximetry O2 Sat by Pulse Oximetry [ Anterior Bilateral Throughout] - Reevaluation(s) Reevaluation #1: 07/03/17 01:25 Patient received D50 with improvement and Accu-Chek. Culture is ordered to rule out sepsis. Patient, vancomycin and Zosyn Y sources radiating to be identified. Cardene drip initiated for hypertension. Medications ordered for hyperkalemia included albuterol, calcium gluconate, sodium bicarbonate, and Kayexalate - Consultations Consultation #1: 07/02/17 23:33 EKG was reviewed and discussed with Dr. Chairez loom doffer retention manager at 10:57 PM. He agrees no signs of ST elevation SC at this time. After patient arrival I am able to verify that EKG is unchanged compared to previous Consultation #2: 07/03/17 01:05 Case d/w Dr Moreno. will arrange for dialysis tonight therefore patient may receive IV contrast with her scans JOSHUA score - Joshua Score Age > 65: (1) Yes Aspirin use within the Past 7 Days: (0) No 3 or more CAD Risk Factors: (1) Yes 2 or more Angina events in past 24 hrs: (0) No Known CAD with more than 50% Stenosis: (0) No Elevated Cardiac Markers: (1) Yes ST Deviation Greater than 0.5mm: (0) No JOSHUA Score: 3 ED Medical Decision Making - Lab Data Result diagrams: 07/02/17 23:32 07/02/17 23:32 Lab Results 07/02/17 07/02/17 07/02/17 Range/Units 23:13 23:32 23:32 WBC 4.5 (4.5-11.0) K/mm3 RBC 2.81 L (3.65-5.03) M/mm3 Hgb 9.2 L (10.1-14.3) gm/dl Hct 30.7 (30.3-42.9) % MCV 109 H (79-97) fl MCH 33 H (28-32) pg MCHC 30 (30-34) % RDW 21.9 H (13.2-15.2) % Plt Count 74 L (140-440) K/mm3 Lymph % (Auto) 8.2 L (13.4-35.0) % Mccone % (Auto) 4.3 (0.0-7.3) % Eos % (Auto) 0.0 (0.0-4.3) % Baso % (Auto) 0.2 (0.0-1.8) % Lymph # 0.4 L (1.2-5.4) K/mm3 Mccone # 0.2 (0.0-0.8) K/mm3 Eos # 0.0 (0.0-0.4) K/mm3 Baso # 0.0 (0.0-0.1) K/mm3 Seg Neutrophils % 87.3 H (40.0-70.0) % Seg Neutrophils # 3.9 (1.8-7.7) K/mm3 PT (12.2-14.9) Sec. INR (0.87-1.13) APTT (24.2-36.6) Sec. VBG pH (7.320-7.420) Sodium 131 L (137-145) mmol/L Potassium 5.9 H D (3.6-5.0) mmol/L Chloride 87.9 L (98-107) mmol/L Carbon Dioxide 8 L* D (22-30) mmol/L Anion Gap 41 mmol/L BUN 83 H (7-17) mg/dL Creatinine 8.4 H D (0.7-1.2) mg/dL Estimated GFR 5 ml/min BUN/Creatinine Ratio 9.88 % Glucose 187 H (65-100) mg/dL POC Glucose < 40 L (70-105) Lactic Acid (0.7-2.0) mmol/L Calcium 9.0 (8.4-10.2) mg/dL Total Creatine Kinase (30-135) units/L CK-MB (CK-2) (0.0-4.0) ng/mL CK-MB (CK-2) Rel Index (0-4) Troponin T 0.096 H (0.00-0.029) ng/mL Urine Color (Yellow) Urine Turbidity (Clear) Urine pH (5.0-7.0) Ur Specific [place] (1.003-1.030) Urine Protein (Negative) mg/dL Urine Glucose (UA) (Negative) mg/dL Urine Ketones (Negative) mg/dL Urine Blood (Negative) Urine Nitrite (Negative) Urine Bilirubin (Negative) Urine Urobilinogen (<2.0) mg/dL Ur Leukocyte Esterase (Negative) Urine WBC (Auto) (0.0-6.0) /HPF Urine RBC (Auto) (0.0-6.0) /HPF U Epithel Cells (Auto) (0-13.0) /HPF Urine Bacteria (Auto) (Negative) /HPF Urine WBC Clumps /HPF Urine Mucus /HPF 07/02/17 07/02/17 07/02/17 Range/Units 23:32 23:43 23:43 WBC (4.5-11.0) K/mm3 RBC (3.65-5.03) M/mm3 Hgb (10.1-14.3) gm/dl Hct (30.3-42.9) % MCV (79-97) fl MCH (28-32) pg MCHC (30-34) % RDW (13.2-15.2) % Plt Count (140-440) K/mm3 Lymph % (Auto) (13.4-35.0) % Mccone % (Auto) (0.0-7.3) % Eos % (Auto) (0.0-4.3) % Baso % (Auto) (0.0-1.8) % Lymph # (1.2-5.4) K/mm3 Mccone # (0.0-0.8) K/mm3 Eos # (0.0-0.4) K/mm3 Baso # (0.0-0.1) K/mm3 Seg Neutrophils % (40.0-70.0) % Seg Neutrophils # (1.8-7.7) K/mm3 PT 21.3 H (12.2-14.9) Sec. INR 1.74 H (0.87-1.13) APTT 40.0 H (24.2-36.6) Sec. VBG pH (7.320-7.420) Sodium (137-145) mmol/L Potassium (3.6-5.0) mmol/L Chloride (98-107) mmol/L Carbon Dioxide (22-30) mmol/L Anion Gap mmol/L BUN (7-17) mg/dL Creatinine (0.7-1.2) mg/dL Estimated GFR ml/min BUN/Creatinine Ratio % Glucose (65-100) mg/dL POC Glucose (70-105) Lactic Acid 9.90 H* (0.7-2.0) mmol/L Calcium (8.4-10.2) mg/dL Total Creatine Kinase 57 (30-135) units/L CK-MB (CK-2) 2.5 (0.0-4.0) ng/mL CK-MB (CK-2) Rel Index 4.3 H (0-4) Troponin T (0.00-0.029) ng/mL Urine Color (Yellow) Urine Turbidity (Clear) Urine pH (5.0-7.0) Ur Specific Sterling (1.003-1.030) Urine Protein (Negative) mg/dL Urine Glucose (UA) (Negative) mg/dL Urine Ketones (Negative) mg/dL Urine Blood (Negative) Urine Nitrite (Negative) Urine Bilirubin (Negative) Urine Urobilinogen (<2.0) mg/dL Ur Leukocyte Esterase (Negative) Urine WBC (Auto) (0.0-6.0) /HPF Urine RBC (Auto) (0.0-6.0) /HPF U Epithel Cells (Auto) (0-13.0) /HPF Urine Bacteria (Auto) (Negative) /HPF Urine WBC Clumps /HPF Urine Mucus /HPF 07/02/17 07/02/17 07/03/17 Range/Units 23:43 23:43 00:51 WBC (4.5-11.0) K/mm3 RBC (3.65-5.03) M/mm3 Hgb (10.1-14.3) gm/dl Hct (30.3-42.9) % MCV (79-97) fl MCH (28-32) pg MCHC (30-34) % RDW (13.2-15.2) % Plt Count (140-440) K/mm3 Lymph % (Auto) (13.4-35.0) % Mccone % (Auto) (0.0-7.3) % Eos % (Auto) (0.0-4.3) % Baso % (Auto) (0.0-1.8) % Lymph # (1.2-5.4) K/mm3 Mccone # (0.0-0.8) K/mm3 Eos # (0.0-0.4) K/mm3 Baso # (0.0-0.1) K/mm3 Seg Neutrophils % (40.0-70.0) % Seg Neutrophils # (1.8-7.7) K/mm3 PT (12.2-14.9) Sec. INR (0.87-1.13) APTT (24.2-36.6) Sec. VBG pH 7.268 L (7.320-7.420) Sodium (137-145) mmol/L Potassium (3.6-5.0) mmol/L Chloride (98-107) mmol/L Carbon Dioxide (22-30) mmol/L Anion Gap mmol/L BUN (7-17) mg/dL Creatinine (0.7-1.2) mg/dL Estimated GFR ml/min BUN/Creatinine Ratio % Glucose (65-100) mg/dL POC Glucose 164 H (70-105) Lactic Acid (0.7-2.0) mmol/L Calcium (8.4-10.2) mg/dL Total Creatine Kinase (30-135) units/L CK-MB (CK-2) (0.0-4.0) ng/mL CK-MB (CK-2) Rel Index (0-4) Troponin T (0.00-0.029) ng/mL Urine Color [place] (Yellow) Urine Turbidity Cloudy (Clear) Urine pH 5.0 (5.0-7.0) Ur Specific Sterling 1.016 (1.003-1.030) Urine Protein >500 (Negative) mg/dL Urine Glucose (UA) Neg (Negative) mg/dL Urine Ketones Neg (Negative) mg/dL Urine Blood Lg (Negative) Urine Nitrite Neg (Negative) Urine Bilirubin Neg (Negative) Urine Urobilinogen < 2.0 (<2.0) mg/dL Ur Leukocyte Esterase Lg (Negative) Urine WBC (Auto) > 182.0 H (0.0-6.0) /HPF Urine RBC (Auto) 19.0 (0.0-6.0) /HPF U Epithel Cells (Auto) 4.0 (0-13.0) /HPF Urine Bacteria (Auto) 4+ (Negative) /HPF Urine WBC Clumps 2+ /HPF Urine Mucus Few /HPF 07/03/17 07/03/17 Range/Units 02:31 03:38 WBC (4.5-11.0) K/mm3 RBC (3.65-5.03) M/mm3 Hgb (10.1-14.3) gm/dl Hct (30.3-42.9) % MCV (79-97) fl MCH (28-32) pg MCHC (30-34) % RDW (13.2-15.2) % Plt Count (140-440) K/mm3 Lymph % (Auto) (13.4-35.0) % Mccone % (Auto) (0.0-7.3) % Eos % (Auto) (0.0-4.3) % Baso % (Auto) (0.0-1.8) % Lymph # (1.2-5.4) K/mm3 Mccone # (0.0-0.8) K/mm3 Eos # (0.0-0.4) K/mm3 Baso # (0.0-0.1) K/mm3 Seg Neutrophils % (40.0-70.0) % Seg Neutrophils # (1.8-7.7) K/mm3 PT (12.2-14.9) Sec. INR (0.87-1.13) APTT (24.2-36.6) Sec. VBG pH (7.320-7.420) Sodium (137-145) mmol/L Potassium (3.6-5.0) mmol/L Chloride (98-107) mmol/L Carbon Dioxide (22-30) mmol/L Anion Gap mmol/L BUN (7-17) mg/dL Creatinine (0.7-1.2) mg/dL Estimated GFR ml/min BUN/Creatinine Ratio % Glucose (65-100) mg/dL POC Glucose 147 H 153 H (70-105) Lactic Acid (0.7-2.0) mmol/L Calcium (8.4-10.2) mg/dL Total Creatine Kinase (30-135) units/L CK-MB (CK-2) (0.0-4.0) ng/mL CK-MB (CK-2) Rel Index (0-4) Troponin T (0.00-0.029) ng/mL Urine Color (Yellow) Urine Turbidity (Clear) Urine pH (5.0-7.0) Ur Specific Sterling (1.003-1.030) Urine Protein (Negative) mg/dL Urine Glucose (UA) (Negative) mg/dL Urine Ketones (Negative) mg/dL Urine Blood (Negative) Urine Nitrite (Negative) Urine Bilirubin (Negative) Urine Urobilinogen (<2.0) mg/dL Ur Leukocyte Esterase (Negative) Urine WBC (Auto) (0.0-6.0) /HPF Urine RBC (Auto) (0.0-6.0) /HPF U Epithel Cells (Auto) (0-13.0) /HPF Urine Bacteria (Auto) (Negative) /HPF Urine WBC Clumps /HPF Urine Mucus /HPF - EKG Data -: EKG Interpreted by Me (paced rhythm rate 75) - EKG Data When compared to previous EKG there are: no significant change (compared to 01/2017) - Radiology Data Radiology results: report reviewed, image reviewed (chest x-ray portable: Right pleural effusion versus admission versus atelectasis appears somewhat similar to previous) CT head: No acute findings CT chest IV contrast: Concerning for CHF, mild cardiac enlargement. Moderate bilateral pleural effusions with septal thickening and groundglass opacities throughout the lungs. Consolidations at the lower lobes likely reflect compressive atelectasis. Should her post pneumonia cannot be is clear. No central PE. Diffuse patchy sclerosis and lucency of the bony pelvis concerning for osseous metastatic disease versus multiple myeloma CT abdomen and pelvis IV contrast: Findings compatible with diffuse anasarca. Diffuse body wall edema moderate ascites. No loculated collection or free air. Stable hepatic lesions likely cysts. Mild wall thickening of several large and small bowel loops segments. May be reactive secondary to ascites. Mild primary inflammation cannot be excluded. No bowel structure. Diffuse patchy sclerosis and lucency of the lumbar spine bony pelvis concerning for osseous metastatic disease versus multiple myeloma - Medical Decision Making I suspect the patient has an infection given her high lactic acid. She has been appeared to be covered with vancomycin and Zosyn was source of infection is being identified. Hospitalist and movement assembler informed. Emergency dialysis will be provided tonight. CT findings significant for sclerotic bony lesions represent metastatic disease or multiple myeloma. Troponin is noted to be mildly elevated which could be due to chronic renal disease. Patient denies chest pain during ED stay during ED stay - Differential Diagnosis sepsis, dialysis noncompliance, uremia, intracranial abnormality, Critical Care Time: No Critical care attestation.: If time is entered above; I have spent that time in minutes in the direct care of this critically ill patient, excluding procedure time. ED Disposition Clinical Impression: Hypertensive urgency, Hyperkalemia, ESRD needing dialysis, Lactic acidosis, Hypoglycemia, Pacemaker, CHF exacerbation, Thrombocytopenia, Bilateral pleural effusion, Anasarca Disposition: OP ADMIT IP TO THIS HOSP Is pt being admited?: Yes Condition: Stable Time of Disposition: 01:28 (Dr biswas/Hospitalist)
[2017-07-02] MEDS ORDERED: CARDENE 50 MG in NACL 0.9% 250ML 230 ML IV SCH (23:45)
[2017-07-02 23:49] LABS: Basophils % (Auto) 0.2 % (0.0-1.8); Mean Corpuscular HGB Conc 30 % (30-34); Mean Corpuscular Hemoglobin 33 pg (28-32); Mean Corpuscular Volume 109 fl (79-97); Red Blood Count 2.81 M/mm3 (3.65-5.03); White Blood Count 4.5 K/mm3 (4.5-11.0)
[2017-07-02 23:57] LABS: Hematocrit 30.7 % (30.3-42.9); Hemoglobin 9.2 gm/dl (10.1-14.3); Red Cell Distribution Width 21.9 % (13.2-15.2)
[2017-07-02 23:58] LABS: Platelet Count 74 K/mm3 (140-440)
[2017-07-03 00:12] LABS: Creatine Kinase MB 2.5 ng/mL (0.0-4.0)
[2017-07-03 00:25] LABS: INR 1.74 (0.87-1.13)
[2017-07-03 00:32] LABS: BUN/Creatinine Ratio 9.88; Chloride 87.9 mmol/L (98-107)
[2017-07-03 00:35] LABS: Potassium 5.9 mmol/L (3.6-5.0)
[2017-07-03] MEDS ORDERED: ZOSYN/NS 4.5GM/100ML 4.5 GM/100 ML VIAL IV ONE (00:49)
[2017-07-03] MEDS ORDERED: VANCOMYCIN/NS 1 GM/250 ML 1 GM/250 ML BAG IV ONE (00:49)
[2017-07-03] MEDS ORDERED: PROVENTIL IH ONE (00:49)
[2017-07-03] MEDS ORDERED: SODIUM BICARBONATE IV ONE ×2 (00:50)
[2017-07-03] MEDS ORDERED: CALCIUM GLUCONATE 1,000 MG in NACL 0.9% 100 ML IV ONE (00:51)
[2017-07-03] MEDS ORDERED: NACL ONE (01:07)
[2017-07-03] MEDS ORDERED: NACL 0.9% 100 ML IV PRN ×2 (01:15→04:06)
[2017-07-03 01:21] LABS: Bacteria,Urine 4+ /HPF (Negative); Bilirubin,Urine NEG (Negative); Blood,Urine LG (Negative); Ketones,Urine NEG (Negative); Leukocyte Esterase,Urine LG (Negative); Mucus,Urine FEW /HPF; Nitrite,Urine NEG (Negative); Urobilinogen,Urine < 2.0 mg/dL (<2.0)
[2017-07-03 01:22] LABS: Protein,Urine >500 mg/dL (Negative); WBC,Urine > 182.0 /HPF (0.0-6.0)
[2017-07-03] MEDS: KIONEX PO ONE ×2 (02:23→03:02)
--- NOTE | 2017-07-03 02:31 | Cat Scan Report ---
FINAL REPORT PROCEDURE: CT HEAD/BRAIN WO CON TECHNIQUE: Computerized tomography of the head was performed without contrast material. HISTORY: ams COMPARISON: 04/09/2017 FINDINGS: Skull and scalp: Normal. Paranasal sinuses: Normal. Ventricles and subarachnoid spaces: There is moderate central and cortical atrophy. There is no hydrocephalus or asymmetry.. Cerebrum: No evidence of hemorrhage, acute infarction or mass. There encephalomalacia in the left parietal lobe consistent with an old infarct. There is chronic periventricular deep white matter ischemic gliosis Cerebellum and brainstem: No evidence of hemorrhage, acute infarction or mass. Vasculature: Normal. Comments: None. IMPRESSION: There are chronic changes as described. There is no acute abnormality.
[2017-07-03] MEDS ORDERED: ZOFRAN IV PRN (02:37)
[2017-07-03] MEDS ORDERED: ALUM-MAG HYDROX-SIMETH 200-200-20MG/5ML PO PRN (02:37)
[2017-07-03] MEDS ORDERED: MORPHINE IV PRN (02:37)
[2017-07-03] MEDS ORDERED: DULCOLAX PR PRN (02:37)
--- NOTE | 2017-07-03 02:40 | History and Physical Report ---
History of Present Illness Date of examination: 07/03/17 Date of admission: 07/03/17 Chief complaint: Chest pain, Minimally responsive History of present illness: Patient is 82-year-old with history of end-stage renal disease on hemodialysis, coronary artery disease, stroke, atrial fibrillation and hypertension. Patient was brought in because of chest pain. Also she was minimally responsive. In Emergency Department was found to have a glucose of less than 20. Labs also show hyperkalemia with potassium of 5.9, severe metabolic acidosis with CO2 of 8 , and urinary tract infection. She was diagnosed with severe sepsis started on IV antibiotics. She will be admitted for further management. Past History Past Medical History: atrial fib, ESRD, heart failure, hypertension, hyperlipidemia, stroke (with hemorrhagic conversion) Past Surgical History: No surgical history Social history: , lives with family. denies: smoking, alcohol abuse Family history: CAD, hypertension Medications and Allergies Allergies Allergy/AdvReac Type Severity Reaction Status Date / Time naproxen Allergy Itching Verified 04/17/17 11:25 Home Medications Medication Instructions Recorded Confirmed Last Taken Type Metoprolol Xl [Metoprolol 50 mg PO QDAY #30 tablet 06/28/17 Unknown Rx SUCCINATE ER TAB] amLODIPine [Norvasc] 5 mg PO QDAY #30 tablet 06/28/17 Unknown Rx hydrALAZINE [Apresoline TAB] 50 mg PO Q8HR #90 tablet 06/28/17 Unknown Rx Active Meds: Active Medications Nicardipine HCl 50 mg/ Sodium (Chloride) 250 mls @ 25 mls/hr IV TITR GAVIOTA; 5 MG/ HR PRN Reason: Protocol Last Admin: 07/02/17 23:53 Dose: 5 mg/hr, 25 mls/hr Sodium Chloride (Nacl 0.9%) 100 mls @ 999 mls/hr IV SHIRA PRN PRN Reason: Hypotension Review of Systems ROS unobtainable: due to mental status Exam - Physical Exam Narrative exam: Gen appearance: very lethargic, HEENT: Head atraumatic Neck:supple, no JVD Lungs: clear to auscultation bilaterally, no crackles or wheezes Heart :S1 and S2 regular, no murmurs, rubs or gallop Abdomen: Soft, non tender,non distended, normal bowel sounds Extremities :no edema,no clubbing or cyanosis, Neuro: Very lethargic, - Constitutional Vitals: Temp Pulse Resp BP Pulse Ox 95.0 F L 85 22 109/56 100 07/02/17 23:19 07/03/17 02:11 07/03/17 02:11 07/03/17 02:11 07/03/17 02:11 Results - Labs CBC & Chem 7: 07/02/17 23:32 07/02/17 23:32 Labs: Abnormal lab results 07/02/17 07/02/17 07/02/17 Range/Units 23:13 23:32 23:32 RBC 2.81 L (3.65-5.03) M/mm3 Hgb 9.2 L (10.1-14.3) gm/dl MCV 109 H (79-97) fl MCH 33 H (28-32) pg RDW 21.9 H (13.2-15.2) % Plt Count 74 L (140-440) K/mm3 Lymph % (Auto) 8.2 L (13.4-35.0) % Lymph # 0.4 L (1.2-5.4) K/mm3 Seg Neutrophils % 87.3 H (40.0-70.0) % PT (12.2-14.9) Sec. INR (0.87-1.13) APTT (24.2-36.6) Sec. VBG pH (7.320-7.420) Sodium 131 L (137-145) mmol/L Potassium 5.9 H D (3.6-5.0) mmol/L Chloride 87.9 L (98-107) mmol/L Carbon Dioxide 8 L* D (22-30) mmol/L BUN 83 H (7-17) mg/dL Creatinine 8.4 H D (0.7-1.2) mg/dL Glucose 187 H (65-100) mg/dL POC Glucose < 40 L (70-105) Lactic Acid (0.7-2.0) mmol/L CK-MB (CK-2) Rel Index (0-4) Troponin T 0.096 H (0.00-0.029) ng/mL Urine WBC (Auto) (0.0-6.0) /HPF 07/02/17 07/02/17 07/02/17 Range/Units 23:32 23:43 23:43 RBC (3.65-5.03) M/mm3 Hgb (10.1-14.3) gm/dl MCV (79-97) fl MCH (28-32) pg RDW (13.2-15.2) % Plt Count (140-440) K/mm3 Lymph % (Auto) (13.4-35.0) % Lymph # (1.2-5.4) K/mm3 Seg Neutrophils % (40.0-70.0) % PT 21.3 H (12.2-14.9) Sec. INR 1.74 H (0.87-1.13) APTT 40.0 H (24.2-36.6) Sec. VBG pH (7.320-7.420) Sodium (137-145) mmol/L Potassium (3.6-5.0) mmol/L Chloride (98-107) mmol/L Carbon Dioxide (22-30) mmol/L BUN (7-17) mg/dL Creatinine (0.7-1.2) mg/dL Glucose (65-100) mg/dL POC Glucose (70-105) Lactic Acid 9.90 H* (0.7-2.0) mmol/L CK-MB (CK-2) Rel Index 4.3 H (0-4) Troponin T (0.00-0.029) ng/mL Urine WBC (Auto) (0.0-6.0) /HPF 07/02/17 07/02/17 07/03/17 Range/Units 23:43 23:43 00:51 RBC (3.65-5.03) M/mm3 Hgb (10.1-14.3) gm/dl MCV (79-97) fl MCH (28-32) pg RDW (13.2-15.2) % Plt Count (140-440) K/mm3 Lymph % (Auto) (13.4-35.0) % Lymph # (1.2-5.4) K/mm3 Seg Neutrophils % (40.0-70.0) % PT (12.2-14.9) Sec. INR (0.87-1.13) APTT (24.2-36.6) Sec. VBG pH 7.268 L (7.320-7.420) Sodium (137-145) mmol/L Potassium (3.6-5.0) mmol/L Chloride (98-107) mmol/L Carbon Dioxide (22-30) mmol/L BUN (7-17) mg/dL Creatinine (0.7-1.2) mg/dL Glucose (65-100) mg/dL POC Glucose 164 H (70-105) Lactic Acid (0.7-2.0) mmol/L CK-MB (CK-2) Rel Index (0-4) Troponin T (0.00-0.029) ng/mL Urine WBC (Auto) > 182.0 H (0.0-6.0) /HPF 07/03/17 Range/Units 02:31 RBC (3.65-5.03) M/mm3 Hgb (10.1-14.3) gm/dl MCV (79-97) fl MCH (28-32) pg RDW (13.2-15.2) % Plt Count (140-440) K/mm3 Lymph % (Auto) (13.4-35.0) % Lymph # (1.2-5.4) K/mm3 Seg Neutrophils % (40.0-70.0) % PT (12.2-14.9) Sec. INR (0.87-1.13) APTT (24.2-36.6) Sec. VBG pH (7.320-7.420) Sodium (137-145) mmol/L Potassium (3.6-5.0) mmol/L Chloride (98-107) mmol/L Carbon Dioxide (22-30) mmol/L BUN (7-17) mg/dL Creatinine (0.7-1.2) mg/dL Glucose (65-100) mg/dL POC Glucose 147 H (70-105) Lactic Acid (0.7-2.0) mmol/L CK-MB (CK-2) Rel Index (0-4) Troponin T (0.00-0.029) ng/mL Urine WBC (Auto) (0.0-6.0) /HPF Assessment and Plan Sepsis syndrome likely due to UTI. Patient has hypothermia, tachycardia, lactic acidosis. Admits to ICU. Blood Cultures drawn. Started on Zosyn and vancomycin. Hyperkalemia. Potassium 5.9. Calcium gluconate, Kayexalate ordered. Nephrology consulted for urgent hemodialysis End-stage renal disease on hemodialysis. Hyponatremia Acute on Chronic systolic CHF Acute pulmonary edema from fluid overload Hypothermia. Temp of 93.5. Warming blanket Urinary tract infection. Zosyn initiated. Obtain Urine culture. Severe metabolic acidosis. For urgent henodialysis tonight DVT prophylaxis. Heparin subcut Full CODE STATUS Sclerosis and lucency of bones on CT. Will need further workup.
[2017-07-03] MEDS ORDERED: D50W (25GM) IV PRN (02:55)
[2017-07-03] MEDS ORDERED: VANCOMYCIN PHARMACY TO DOSE IV SCH (03:00)
--- NOTE | 2017-07-03 03:04 | Cat Scan Report ---
FINAL REPORT EXAM: CT CHEST W CON HISTORY: cp, effusion, vs pneuomnia, vs atelectais COMPARISON: Chest x-ray from June 20, 2017. TECHNIQUE: Contiguous axial images were obtained. Administration of IV contrast given per institution protocol. Images submitted for interpretation. 100 cc Omnipaque 300. Additional sagittal and coronal reformatted images were obtained. FINDINGS: Mild cardiac enlargement. Thoracic aorta normal in caliber. No dissection. Mild to moderate calcified plaque along the thoracic aorta. No central pulmonary embolus. Distal segmental branches not well evaluated due to respiratory motion. Left-sided cardiac pacer is in place. Borderline enlarged intrathoracic lymph nodes suspected to be reactive. Ground-glass opacities and septal thickening throughout the lungs with more dense consolidations bilateral lower lobes which may relate to compressive atelectasis from moderate large bilateral pleural effusions. Patchy areas of sclerosis and lucency throughout the bony thorax. This is concerning for osseous metastatic disease versus multiple myeloma. Thoracic vertebral body heights are preserved. IMPRESSION: Findings most concerning for CHF. Mild cardiac enlargement. Moderate large bilateral pleural effusions with septal thickening and ground-glass opacities throughout the lungs. Consolidations of the lower lobes likely reflect compressive atelectasis. Superimposed pneumonia cannot be excluded. No central pulmonary embolus. Diffuse patchy sclerosis and lucency of the bony thorax concerning for osseous metastatic disease versus multiple myeloma.
--- NOTE | 2017-07-03 03:29 | Cat Scan Report ---
FINAL REPORT EXAM: CT ABDOMEN PELVIS W CON HISTORY: elevated lactic acid COMPARISON: CT abdomen pelvis from June 20, [address] from today. TECHNIQUE: Contiguous axial images were obtained. Additional sagittal and coronal reformatted images were obtained. Administration of IV contrast given per institution protocol. Images submitted for interpretation. 100 cc Omnipaque 300. FINDINGS: Please see CT of the chest from the same day for further details of the visualized lung bases. Moderate ascites. No loculated collection. Diffuse body wall edema. Stable low-attenuation lesion at the lateral margin right hepatic lobe measuring 1.8 x 1.7 centimeters. Internal Hounsfield units 17. There additional subcentimeter low-attenuation lesions within the left and right hepatic lobes. These are too small to accurately characterize by CT, but may reflects cysts. No definite solid enhancing hepatic mass. Portal vein is patent. No calcified gallstones or biliary dilatation. The common bile duct measures approximately 6-7 millimeters within normal limits for patient age. Spleen and pancreas are grossly unremarkable. No focal pancreatic lesion. Mild nodular thickening of adrenal glands. Stable hypodense lesion at the superior margin right kidney measuring 1.7 x 1.7 centimeters. Internal Hounsfield units 37. At the posterior margin right kidney there is a 2nd exophytic lesion measuring 1.2 x 1.2 centimeters. Internal Hounsfield units 102. No internal enhancement of these lesions compared to prior noncontrast exam compatible with hyperdense cyst. There are additional subcentimeter low-attenuation renal lesions on the right. These are stable from prior exam. These are too small to accurately characterize by CT, but may reflects cysts. no solid renal lesion on the left. No hydronephrosis bilaterally. Mild ectasia of the infrarenal aorta. Infrarenal aorta measures up to 2 centimeters in diameter. No dissection. Moderate calcification of the aorta. Urinary bladder is decompressed. Wall thickening which may relate to its decompressed state. Uterus is surgically absent. Major arterial branches of the aorta are well opacified despite atherosclerotic disease. The appendix is gas-filled and normal in caliber. Respiratory motion limits evaluation. Mild wall thickening of several segments of large and small bowel loops which may be reactive secondary to ascites. Mild inflammation of bowel cannot be excluded. No bowel obstruction. No free air pneumatosis. Diffuse patchy lucency and sclerosis of the lumbar spine and bony pelvis. This is nonspecific concerning for osseous metastatic disease versus multiple myeloma. IMPRESSION: Findings compatible with diffuse anasarca. There is diffuse body wall edema with moderate ascites. No loculated collection or free air. Stable low-attenuation hepatic lesions which may reflect cysts. No definite solid enhancing hepatic mass. Stable hyperdense renal cysts on the right. Mild wall thickening of several large and small bowel loops segments. This may be reactive secondary to ascites. Mild primary inflammation of bowel cannot be excluded. No bowel obstruction. No pneumatosis. Diffuse patchy sclerosis and lucency of the lumbar spine bony pelvis concerning for osseous metastatic disease versus multiple myeloma.
[2017-07-03] MEDS: APRESOLINE PO SCH ×3 (04:26→22:16)
[2017-07-03] MEDS: NORVASC PO SCH ×2 (04:27→11:06)
[2017-07-03] MEDS ORDERED: ZOSYN/NS 4.5GM/100ML 4.5 GM/100 ML VIAL IV SCH (06:00)
[2017-07-03] MEDS: HEPARIN SUB-Q SCH ×3 (07:21→22:14)
[2017-07-03] MEDS: HEPARIN IV PRN (07:23)
--- NOTE | 2017-07-03 07:36 | XRay Report ---
Single view chest: Compared to 06/27/17. History: Difficulty breathing. Findings: Borderline cardiomegaly. Stable right venous catheter. Moderate right pleural effusion. Probably slight increase in right pleural effusion. No consolidation or pneumothorax. Impression: Cardiomegaly with moderate right pleural effusion.
--- NOTE | 2017-07-03 09:05 | Consultation ---
History of Present Illness - Reason for Consult Consult date: 07/03/17 end stage renal disease Past History Past Medical History: atrial fib, ESRD, heart failure, hypertension, hyperlipidemia, stroke (with hemorrhagic conversion) Past Surgical History: No surgical history Social history: , lives with family. denies: smoking, alcohol abuse Family history: CAD, hypertension Medications and Allergies Allergies Allergy/AdvReac Type Severity Reaction Status Date / Time naproxen Allergy Itching Verified 04/17/17 11:25 Home Medications Medication Instructions Recorded Confirmed Last Taken Type Metoprolol Xl [Metoprolol 50 mg PO QDAY #30 tablet 06/28/17 Unknown Rx SUCCINATE ER TAB] amLODIPine [Norvasc] 5 mg PO QDAY #30 tablet 06/28/17 Unknown Rx hydrALAZINE [Apresoline TAB] 50 mg PO Q8HR #90 tablet 06/28/17 Unknown Rx Active Meds: Active Medications Al Hydrox/Mg Hydrox/Simethicone (Alum-Mag Hydrox-Simeth [id number]/5ml) 30 ml PO Q4H PRN PRN Reason: Indigestion Amlodipine Besylate (Norvasc) 5 mg PO QDAY GAVIOTA Last Admin: 07/03/17 04:27 Dose: Not Given Bisacodyl (Dulcolax) 10 mg WI QDAY PRN PRN Reason: constipation unrelieved by MOM Dextrose (D50w (25gm)) 25 ml IV PRN PRN PRN Reason: Hypoglycemia Heparin Sodium (Porcine) (Heparin) 5,000 unit SUB-Q Q8HR GAVIOTA Last Admin: 07/03/17 07:21 Dose: 5,000 unit Heparin Sodium (Porcine) (Heparin) 5,000 unit IV SHIRA PRN PRN Reason: hemodialysis Last Admin: 07/03/17 07:23 Dose: 5,000 unit Hydralazine HCl (Apresoline) 50 mg PO Q8HR GAVIOTA Last Admin: 07/03/17 04:26 Dose: Not Given Nicardipine HCl 50 mg/ Sodium (Chloride) 250 mls @ 25 mls/hr IV TITR GAVIOTA; 5 MG/ HR PRN Reason: Protocol Last Admin: 07/02/17 23:53 Dose: 5 mg/hr, 25 mls/hr Sodium Chloride (Nacl 0.9%) 100 mls @ 999 mls/hr IV SHIRA PRN PRN Reason: Hypotension Piperacillin Sod/Tazobactam Sod (Zosyn/Ns 2.25 Gm/50ml) 2.25 gm in 50 mls @ 100 mls/hr IV Q8H GAVIOTA PRN Reason: Protocol Metoprolol Succinate (Toprol Xl) 50 mg PO QDAY [facility] Morphine Sulfate (Morphine) 2 mg IV Q4H PRN PRN Reason: Pain, Moderate (4-6) Ondansetron HCl (Zofran) 4 mg IV Q6H PRN PRN Reason: nausea or vomiting Vancomycin HCl (Vancomycin Pharmacy To Dose) 1 each IV PKCONSULT GAVIOTA PRN Reason: Protocol Exam - Vital Signs Vital signs: Vital Signs Pulse Ox 95 07/02/17 22:58 Results - Lab Results 07/02/17 23:32 07/02/17 23:32 Most recent lab results Calcium 9.0 mg/dL (8.4-10.2) 07/02/17 23:32 Assessment and Plan Impression: * End stage renal disease on HD (outpatient TTS) * Metabolic acidosis secondary to lactic acidosis * Hypoglycemia * Hypothermia * Accelerated hypertension * Chest pain * 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
--- NOTE | 2017-07-03 09:22 | Admit Criteria Form ---
Admission Criteria Documentation: SEVERE SEPSIS Clinical Indications for Admission to Inpatient Care (Place 'X' for any and all applicable criteria): Hospital admission is needed for appropriate care of the patient because of ANY ONE of the following: []I. Hemodynamic instability indicated by ANY ONE of the following(1)(2)(3)(4 )(5): []a. Vital sign abnormality not readily corrected by appropriate treatment within 12 to 24 hours indicated by ANY ONE of the following: []i) Tachycardia that persists despite appropriate treatment []ii) Hypotension that persists despite appropriate treatment []iii) Orthostatic vital sign changes that persist despite appropriate treatment [X]b. Vital sign abnormality that is severe indicated by ANY ONE of the following: []i. Inadequate perfusion indicated by ANY ONE of the following: [X]1) Lactic acidosis (greater than 2 mmol/L) []2) New abnormal capillary refill (greater than 3 seconds) []3) Reduced urine output []4) New altered mental status []5) Myocardial Ischemia []ii. Mean arterial pressure [A] less than 60 mm Hg []iii. Mean arterial pressure[A] less than 70 mm Hg after 30 minutes of appropriate treatment (eg, fluid resuscitation) []iv. Sustained heart rate greater than 120 beats per minute in adult []v. IV inotropic or vasopressor medication required to maintain adequate blood pressure or perfusion []II. Systemic or infectious condition causing severe symptoms or findings not responsive to emergency or observation care treatment (as appropriate) indicated by ANY ONE of the following: []a. Cardiac arrhythmias of immediate concern(1)(2)(3) []b. Severe endocrine disorder (eg, thyrotoxicosis, adrenal insufficiency)(4)(5) []c. Seizures (eg, new or recurrent)(6) []d. New-onset end organ failure or dysfunction as indicated by ANY ONE of the following: []i. Acute unexplained hypoxemia (eg, not from lung infection or chronic disease)(7)(8)(9) []ii. Acute renal failure as indicated by new onset of ANY ONE of the following(10)(11)(12)(13)(14): []1) 3-fold rise in serum creatinine from baseline []2) Serum creatinine greater than 4 mg/dL (354 micromoles/L) with acute rise greater than 0.5 mg/dL (44.2 micromoles/L) []3) Reduction of more than 75% in estimated glomerular filtration rate from baseline. []4) Estimated glomerular filtration rate less than 35 mL/min/1.73m2 ( 0.59 mL/sec/1.73m2) in child younger than 18 years. []5) Cessation of urine output indicated by ALL of the following: []A. Adequate volume status []B. Inadequate urine output as indicated by ANY ONE of the following: []a. Urine output less than 0.3 mL/kg/hr for 24 hours []b. Anuria (urine output less than 0.1 mL/kg/hr) for 12 hours []iii. Acute mental status changes(15) []iv. Acute hepatic failure (eg, plasma bilirubin greater than 4 mg/ dL (68 micromoles/L), new INR greater than 2.0)(16)(17) []e. Unmanageable nausea and vomiting(18) []f. New-onset or uncontrolled central diabetes insipidus(19)(20) []g. Clinically significant dehydration(18)(21) []h. Hypoglycemia(22) [X]i. Acidosis (pH less than 7.35) or alkalosis (pH greater than 7.45)( 22)(23) []j. Toxic drug level that indicates need for specific monitoring or treatment(24)(25) []k. Severe electrolyte abnormalities indicated by ALL of the following( 1)(2)(3): []i. Electrolytes and associated findings are not as expected for patient baseline or acceptable treatment effects. []ii. Severe abnormalities indicated by ANY ONE of the following: []1) Sodium less than 130 mEq/L (mmol/L) (new) []2) Sodium less than 135 mEq/L (mmol/L) with ANY ONE of the following: []A. Uncorrectable (to near normal or chronic baseline) after trial of outpatient and emergency treatment []B. Altered mental status []C. Seizures []D. Severe medical etiology requiring inpatient management (eg , heart failure, hypovolemia) []3) Sodium greater than 155 mEq/L (mmol/L) []4) Sodium greater than 150 mEq/L (mmol/L) with ANY ONE of the following: []A. Uncorrectable (to near normal or chronic baseline) with outpatient and emergency treatment []B. Altered mental status []C. Seizures []D. Severe medical etiology (eg, hypovolemia, diabetes insipidus) []5) Potassium less than 2.5 mEq/L (mmol/L) despite outpatient and emergency treatment []6) Potassium less than 3 mEq/L (mmol/L) with ANY ONE of the following : []A. Weakness []B. Cardiac abnormality (eg, arrhythmia, conduction disturbance ) []C. Cardiac ischemia []D. Ileus []E. Ongoing medical cause requiring inpatient management (eg, acute renal wasting or SIADH) []F. Other severe symptoms []7) Potassium greater than 6.5 mEq/L (mmol/L) []8) Potassium greater than 5 mEq/L (mmol/L) with ANY ONE of the following: []A. Uncorrectable (to near normal or chronic baseline) with outpatient and emergency treatment []B. Severe ECG findings[A] []C. Acute worsening of renal failure (creatinine greater than 2.5 mg/dL (221 micromoles/L) or significant elevation for age and size) []D. Severe weakness []E. Severe medical etiology (eg, hemolysis, infection, drug overdose) []9) Calcium less than 7 mg/dL (1.75 mmol/L) despite outpatient and emergency treatment(5) []10) Calcium less than 8 mg/dL (2 mmol/L) with significant symptoms or findings (eg, altered mental status, muscle spasms, seizures, breathing difficulty, cardiac abnormality (eg, arrhythmia or conduction disturbance))(5) []11) Calcium greater than 14 mg/dL (3.5 mmol/L)(5) []12) Calcium greater than 12 mg/dL (3 mmol/L) with ANY ONE of the following(5): []A. Uncorrectable (to near normal or chronic baseline) with outpatient and emergency treatment []B. Significant dehydration or hypovolemia as indicated by ALL of the following(3)(6)(7): []a. Not resolved with initial treatments []b. Clinically significant dehydration as indicated by ANY ONE of the following: [](1) Vomiting refractory to outpatient treatment (ie, precluding oral rehydration) [](2) Inability to drink [](3) Hypernatremia or other electrolyte abnormality unable to be corrected with outpatient and emergency treatment [](4) Failure to remain hydrated with outpatient therapy [](5) Reduced urine output [](6) Hypotension [](7) Serious cause for dehydration requiring acute hospitalization ( eg, bowel obstruction, increased intracranial pressure, infectious cause) [](8) Child with ANY ONE of the following(8): [](i) Severe abdominal tenderness [](ii) Adequate care not available at home [](iii) Severe dehydration (greater than 9% loss of body weight) []C. Significant symptoms or findings (eg, altered mental status , cardiac abnormality (eg, arrhythmia, conduction disturbance), malignant etiology requiring inpatient treatment) []13) Phosphorus less than 1 mg/dL (0.32 mmol/L) []14) Phosphorus less than 1.5 mg/dL (0.48 mmol/L) with ANY ONE of the following: []A. Patient unresponsive to outpatient and emergency treatment []B. Significant symptoms or findings (eg, weakness, altered mental status, breathing difficulty, seizures, rhabdomyolysis) []15) Phosphorus greater than 10 mg/dL (3.2 mmol/L) []16) Phosphorus greater than 4.5 mg/dL (1.45 mmol/L) (new) with ANY ONE of the following: []A. Severe medical etiology (eg, crush injury, acute renal failure) []B. Associated hypocalcemia with significant findings (eg, neurologic symptoms, altered mental status, muscle spasms, seizures, breathing difficulty, cardiac abnormality (eg, arrhythmia, conduction disturbance)) []16) Magnesium less than 1 mg/dL (0.41 mmol/L) []17) Magnesium less than 1.5 mg/dL (0.62 mmol/L) with ANY ONE of the following: []A. Patient unresponsive to outpatient and emergency treatment []B. Associated hypocalcemia with significant findings (eg, altered mental status, muscle spasms, seizures, breathing difficulty, cardiac abnormality (eg, arrhythmia, conduction disturbance)) []C. Associated hypokalemia (potassium less than 3 mEq/L (mmol/L )) with risk of arrhythmia []18) Magnesium greater than 4 mEq/L (2 mmol/L) []19) Magnesium greater than 2.5 mEq/L (1.25 mmol/L) with significant symptoms or findings (eg, weakness, altered mental status, cardiac abnormality (eg, arrhythmia, conduction disturbance), breathing difficulty, severe medical etiology (eg, renal failure, hypovolemia)) []20) Uric acid greater than 20 mg/dL (1190 micromoles/L)(9) []21) Uric acid greater than 8 mg/dL (476 micromoles/L) with significant symptoms or findings of tumor lysis syndrome (eg, creatinine greater than 1.5 times upper limit of normal, cardiac abnormality (eg , arrhythmia, conduction disturbance), seizure)(9) []III. High fever or other high-risk infection situation as indicated by ANY ONE of the following(26)(27)(28): []a. Outpatient and observation care antimicrobial treatment unavailable, not effective, or not appropriate []b. Documented bacteremia []c. Temperature greater than 104.9 degrees F (40.5 degrees C) (oral) []d. Temperature greater than 103.1 degrees F (39.5 degrees C) (oral) or less than 96.8 degrees F (36 degrees C) (rectal) that does not respond to emergency treatment and observation care []IV. High-risk febrile neutropenia[A] as indicated by ANY ONE of the following(29)(30)(31)(32): []a. Profound neutropenia[B] anticipated to extend for more than 7 days []b. Hemodynamic instability []c. Hypoxemia []d. Tachypnea []e. Altered mental status []f. New-onset abdominal pain []g. New-onset vomiting or diarrhea []h. Oral or gastrointestinal mucositis that interferes with swallowing or causes severe diarrhea []i. Focal infection (eg, cellulitis, pneumonia, central line or catheter infection, perirectal abscess) []j. Renal insufficiency (eg, GFR of less than 30 mL/min/1.73m2 (0.5 mL/sec /1.73m2)). []k. Severe liver dysfunction (transaminase levels greater than 5 times normal) []l. Platelet count less than 50,000/mm3 (50 x109/L)(33) []m. Leukemia or lymphoma induction therapy []n. Leukemia not in complete remission or with evidence of disease progression []o. Bone marrow transplant patient []p. Alemtuzumab being used for therapy []q. [employer] Association for Supportive Care in Cancer (MASCC) Risk Index score of less than 21[C](33)(35). []V. Isolation required (eg, tuberculosis that requires isolation, Ebola infection)[D](36)(37)(38)(39)(40) []. Gangrene that requires treatment beyond emergency or observation level care(41)(42) []VII. Antitoxin administration and ongoing observation required (eg, tetanus, botulism)(43)(44) []. Suspected infection with rapid progression or severe symptoms as indicated by ANY ONE of the following(45): []a. Streptococcal or staphylococcal toxic shock(46) []b. Diphtheria(47) []c. Hantavirus(48) []d. Severe acute respiratory syndrome(8)(49) []e. Anthrax(50) []f. Ebola[D](36)(37)(38) []g. Necrotizing soft tissue infection(41)(42) []h. Plague(50) []i. Other suspected infection that requires care beyond emergency or observation level care []VII. Severe adverse drug or systemic toxin reaction as indicated by ANY ONE of the following(24): []a. Serotonin syndrome(51)(52) []b. Neuroleptic malignant syndrome(51)(52) []c. Cholinergic syndrome with severe symptoms (eg, bronchorrhea, weakness , mental status changes, seizures)(53) []d. Anticholinergic syndrome []e. Sympathetic syndrome with severe symptoms (eg, seizures, mental status changes, cardiac dysrhythmias) []f. Other severe adverse drug or systemic toxin reaction that remains after emergency or observation level care (as appropriate) []VIII. Allergic reaction with severe symptoms (not responsive to emergency or observation care treatment as appropriate), including ANY ONE of the following(54): []a. Airway edema (pharyngeal, epiglottic, or laryngeal edema) []b. Stridor []c. Respiratory failure []d. Bronchospasm []e. Hypotension []IX. Environmental emergency (not responsive to emergency or observation care treatment as appropriate) as indicated by ANY ONE of the following(55)(56): []a. Hyperthermia []b. Heat stroke []c. Heat exhaustion []d. Hypothermia (temperature less than 95 degrees F (35 degrees C) rectal) (57) []e. Electrocution(58) []X. Complications of transplanted organ (ie, not covered elsewhere)[E] indicated by ANY ONE of the following(59): []a. Acute graft rejection (or graft vs. host disease)[F] requiring inpatient management (eg, intravenous immunosuppression)(60)(61)(62)( 63) []b. Acute failure of transplanted organ necessitating inpatient care (eg, cannot be managed in other setting) []c. Infection requiring inpatient management (eg, Hemodynamic instability, need for intravenous antimicrobial treatment)(64)(65) []d. Other complication of transplanted organ requiring inpatient management []XI. Systemic or Infectious Condition condition, symptom, or finding for which emergency and observation care have failed or are not considered appropriate. See General Criteria: Observation Care, General Admission Criteria or Pediatric General Admission Criteria guideline as appropriate. (Contents from SEVERE SEPSIS and SYSTEMIC OR INFECTIOUS CONDITION clinical indications for admission to inpatient care have been integrated in this form) The [facility] content created by [facility] has been revised. The portions of the content which have been revised are identified through the use of italic text or in bold and [facility] has neither reviewed nor approved the modified material. All other unmodified content is copyright [facility]. Please see references footnoted in the original [facility] edition 2016 Admission Criteria Met: Yes
[2017-07-03 10:56] LABS: BUN/Creatinine Ratio 8.13; Calcium 8.3 mg/dL (8.4-10.2); Chloride 91.2 mmol/L (98-107); Potassium 3.4 mmol/L (3.6-5.0)
[2017-07-03] MEDS: ZOSYN/NS 2.25 GM/50ML 2.25 GM/50 ML BAG IV SCH ×2 (11:05→18:40)
[2017-07-03] MEDS: TOPROL XL PO SCH (11:07)
--- NOTE | 2017-07-03 12:28 | Progress Note ---
Assessment and Plan Assessment and plan: Sepsis syndrome likely due to UTI. Patient had hypothermia, tachycardia, lactic acidosis on admission. Blood cultures are pending. Continue Zosyn and vancomycin. Hyperkalemia. Potassium 5.9 on admission. Resolved. Patient s/p urgent hemodialysis last evening. End-stage renal disease on hemodialysis. Continue per nephrology. Hyponatremia. Acute on Chronic systolic CHF. Patient status post hemodialysis. 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 Continue home antihypertensives medications. Urinary tract infection. Continue antibiotics. Follow-up urine culture. Severe metabolic acidosis with lactic acidosis. Recheck lactate levels. DVT prophylaxis. Heparin subcut Full CODE STATUS Sclerosis and lucency of bones on CT. Will need further workup. History Interval history: Patient complains of diarrhea 3. No hematochezia Hospitalist Physical - Constitutional Vitals: Temp Pulse Resp BP Pulse Ox 98.1 F 95 H 22 168/99 100 07/03/17 08:00 07/03/17 11:07 07/03/17 07:50 07/03/17 11:07 07/03/17 07:50 General appearance: Present: no acute distress, well-nourished - EENT Eyes: Present: PERRL, EOM intact ENT: hearing intact, clear oral mucosa, dentition normal - Neck Neck: Present: supple, normal ROM - Respiratory Respiratory effort: normal Respiratory: bilateral: CTA - Cardiovascular Rhythm: regular Heart Sounds: Present: S1 & S2. Absent: gallop, rub - Extremities Extremities: no ischemia, No edema, Full ROM - Abdominal General gastrointestinal: soft, non-tender, non-distended, normal bowel sounds - Integumentary Integumentary: Present: clear, warm, dry - Neurologic Neurologic: CNII-XII intact, moves all extremities Results - Labs CBC & Chem 7: 07/02/17 23:32 07/03/17 10:07 Labs: Laboratory Last Values WBC 4.5 K/mm3 (4.5-11.0) 07/02/17 23:32 RBC 2.81 M/mm3 (3.65-5.03) L 07/02/17 23:32 Hgb 9.2 gm/dl (10.1-14.3) L 07/02/17 23:32 Hct 30.7 % (30.3-42.9) 07/02/17 23:32 MCV 109 fl (79-97) H 07/02/17 23:32 MCH 33 pg (28-32) H 07/02/17 23:32 MCHC 30 % (30-34) 07/02/17 23:32 RDW 21.9 % (13.2-15.2) H 07/02/17 23:32 Plt Count 74 K/mm3 (140-440) L 07/02/17 23:32 Lymph % (Auto) 8.2 % (13.4-35.0) L 07/02/17 23:32 [place] % (Auto) 4.3 % (0.0-7.3) 07/02/17 23:32 Eos % (Auto) 0.0 % (0.0-4.3) 07/02/17 23: Baso % (Auto) 0.2 % (0.0-1.8) 07/02/17 23:32 Lymph # 0.4 K/mm3 (1.2-5.4) L 07/02/17 23:32 [place] # 0.2 K/mm3 (0.0-0.8) 07/02/17 23:32 Eos # 0.0 K/mm3 (0.0-0.4) 07/02/17 23:32 Baso # 0.0 K/mm3 (0.0-0.1) 07/02/17 23:32 Seg Neutrophils % 87.3 % (40.0-70.0) H 07/02/17 23:32 Seg Neutrophils # 3.9 K/mm3 (1.8-7.7) 07/02/17 23:32 PT 21.3 Sec. (12.2-14.9) H 07/02/17 23:43 INR 1.74 (0.87-1.13) H 07/02/17 23:43 APTT 40.0 Sec. (24.2-36.6) H 07/02/17 23:43 VBG pH 7.268 (7.320-7.420) L 07/02/17 23:43 Sodium 135 mmol/L (137-145) L 07/03/17 10:07 Potassium 3.4 mmol/L (3.6-5.0) L D 07/03/17 10:07 Chloride 91.2 mmol/L (98-107) L 07/03/17 10:07 Carbon Dioxide 23 mmol/L (22-30) D 07/03/17 10:07 Anion Gap 24 mmol/L 07/03/17 10:07 BUN 35 mg/dL (7-17) H 07/03/17 10:07 Creatinine 4.3 mg/dL (0.7-1.2) H 07/03/17 10:07 Estimated GFR 12 ml/min 07/03/17 10:07 BUN/Creatinine Ratio 8.13 % 07/03/17 10:07 Glucose 155 mg/dL (65-100) H 07/03/17 10:07 POC Glucose 153 (70-105) H 07/03/17 03:38 Lactic Acid 9.90 mmol/L (0.7-2.0) H* 07/02/17 23:43 Calcium 8.3 mg/dL (8.4-10.2) L 07/03/17 10:07 Total Creatine Kinase 57 units/L (30-135) 07/02/17 23:32 CK-MB (CK-2) 2.5 ng/mL (0.0-4.0) 07/02/17 23:32 CK-MB (CK-2) Rel Index 4.3 (0-4) H 07/02/17 23:32 Troponin T 0.114 ng/mL (0.00-0.029) H* 07/03/17 10:07 Urine Color [place] (Yellow) 07/03/17 00:51 Urine Turbidity Cloudy (Clear) 07/03/17 00:51 Urine pH 5.0 (5.0-7.0) 07/03/17 00:51 Ur Specific Hope 1.016 (1.003-1.030) 07/03/17 00:51 Urine Protein >500 mg/dL (Negative) 07/03/17 00:51 Urine Glucose (UA) Neg mg/dL (Negative) 07/03/17 00:51 Urine Ketones Neg mg/dL (Negative) 07/03/17 00:51 Urine Blood Lg (Negative) 07/03/17 00:51 Urine Nitrite Neg (Negative) 07/03/17 00:51 Urine Bilirubin Neg (Negative) 07/03/17 00:51 Urine Urobilinogen < 2.0 mg/dL (<2.0) 07/03/17 00:51 Ur Leukocyte Esterase Lg (Negative) 07/03/17 00:51 Urine WBC (Auto) > 182.0 /HPF (0.0-6.0) H 07/03/17 00:51 Urine RBC (Auto) 19.0 /HPF (0.0-6.0) 07/03/17 00:51 U Epithel Cells (Auto) 4.0 /HPF (0-13.0) 07/03/17 00:51 Urine Bacteria (Auto) 4+ /HPF (Negative) 07/03/17 00:51 Urine WBC Clumps 2+ /HPF 07/03/17 00:51 Urine Mucus Few /HPF 07/03/17 00:51
--- NOTE | 2017-07-03 12:30 | Consultation ---
History of Present Illness Consult date: 07/03/17 Requesting physician: CA AHMADI History of present illness: PULMONARY / CCM CONSULT NOTE (Full dictation # [id number]) Please see dictated notes for full details Past History Past Medical History: atrial fib, ESRD, heart failure, hypertension, hyperlipidemia, stroke (with hemorrhagic conversion) Past Surgical History: No surgical history Social history: , lives with family. denies: smoking, alcohol abuse Family history: CAD, hypertension Medications and Allergies Allergies Allergy/AdvReac Type Severity Reaction Status Date / Time naproxen Allergy Itching Verified 04/17/17 11:25 Home Medications Medication Instructions Recorded Confirmed Last Taken Type Metoprolol Xl [Metoprolol 50 mg PO QDAY #30 tablet 06/28/17 07/03/17 07/02/17 Rx SUCCINATE ER TAB] amLODIPine [Norvasc] 5 mg PO QDAY #30 tablet 06/28/17 07/03/17 07/02/17 Rx hydrALAZINE [Apresoline TAB] 50 mg PO Q8HR #90 tablet 06/28/17 07/03/17 Rx Active Meds: Active Medications Al Hydrox/Mg Hydrox/Simethicone (Alum-Mag Hydrox-Simeth [id number]/5ml) 30 ml PO Q4H PRN PRN Reason: Indigestion Amlodipine Besylate (Norvasc) 5 mg PO QDAY GAVIOTA Last Admin: 07/03/17 11:06 Dose: 5 mg Bisacodyl (Dulcolax) 10 mg [place] QDAY PRN PRN Reason: constipation unrelieved by MOM Dextrose (D50w (25gm)) 25 ml IV PRN PRN PRN Reason: Hypoglycemia Heparin Sodium (Porcine) (Heparin) 5,000 unit SUB-Q Q8HR GAVIOTA Last Admin: 07/03/17 07:21 Dose: 5,000 unit Heparin Sodium (Porcine) (Heparin) 5,000 unit IV SHIRA PRN PRN Reason: hemodialysis Last Admin: 07/03/17 07:23 Dose: 5,000 unit Hydralazine HCl (Apresoline) 50 mg PO Q8HR GAVIOTA Last Admin: 07/03/17 04:26 Dose: Not Given Nicardipine HCl 50 mg/ Sodium (Chloride) 250 mls @ 25 mls/hr IV TITR GAVIOTA; 5 MG/ HR PRN Reason: Protocol Last Admin: 07/02/17 23:53 Dose: 5 mg/hr, 25 mls/hr Sodium Chloride (Nacl 0.9%) 100 mls @ 999 mls/hr IV SHIRA PRN PRN Reason: Hypotension Piperacillin Sod/Tazobactam Sod (Zosyn/Ns 2.25 Gm/50ml) 2.25 gm in 50 mls @ 100 mls/hr IV Q8H GAVIOTA PRN Reason: Protocol Last Admin: 07/03/17 11:05 Dose: 100 mls/hr Metoprolol Succinate (Toprol Xl) 50 mg PO QDAY [facility] Last Admin: 07/03/17 11:07 Dose: 50 mg Morphine Sulfate (Morphine) 2 mg IV Q4H PRN PRN Reason: Pain, Moderate (4-6) Ondansetron HCl (Zofran) 4 mg IV Q6H PRN PRN Reason: nausea or vomiting Vancomycin HCl (Vancomycin Pharmacy To Dose) 1 each IV PKCONSULT GAVIOTA PRN Reason: Protocol Physical Examination Vital signs: Vital Signs Pulse Ox 95 07/02/17 22:58 Results - Laboratory Findings CBC and BMP: 07/02/17 23:32 07/03/17 10:07 PT/INR, D-dimer PT 21.3 Sec. (12.2-14.9) H 07/02/17 23:43 INR 1.74 (0.87-1.13) H 07/02/17 23:43 Abnormal lab findings: Abnormal Labs 07/03/17 07/03/17 03:38 10:07 Sodium 135 L Potassium 3.4 L D Chloride 91.2 L BUN 35 H Creatinine 4.3 H Glucose 155 H POC Glucose 153 H Calcium 8.3 L Troponin T 0.114 H*
[2017-07-03] MEDS: PEPCID PO SCH (18:40)
[2017-07-04] MEDS: ZOSYN/NS 2.25 GM/50ML 2.25 GM/50 ML BAG IV SCH ×2 (02:05→09:25)
[2017-07-04 05:12] LABS: Basophils % (Auto) 0.3 % (0.0-1.8); Eosinophils % (Auto) 0.9 % (0.0-4.3); Hemoglobin 8.7 gm/dl (10.1-14.3); Mean Corpuscular HGB Conc 32 % (30-34); Mean Corpuscular Hemoglobin 33 pg (28-32); Mean Corpuscular Volume 101 fl (79-97); Red Blood Count 2.68 M/mm3 (3.65-5.03); White Blood Count 3.7 K/mm3 (4.5-11.0)
[2017-07-04 05:27] LABS: Platelet Count 81 K/mm3 (140-440)
[2017-07-04 05:29] LABS: Albumin 3.3 g/dL (3.9-5); Albumin/Globulin Ratio 0.7 %; BUN/Creatinine Ratio 7.85; Bilirubin,Total 0.8 mg/dL (0.1-1.2); Calcium 8.5 mg/dL (8.4-10.2); Chloride 93.7 mmol/L (98-107); Potassium 3.7 mmol/L (3.6-5.0); Total Protein 7.9 g/dL (6.3-8.2)
[2017-07-04] MEDS: APRESOLINE PO SCH ×3 (05:49→22:51)
[2017-07-04] MEDS: HEPARIN SUB-Q SCH ×3 (05:50→22:50)
--- NOTE | 2017-07-04 07:31 | Consultation ---
CONSULTING PHYSICIAN: Dr. Becerra. REASON FOR CONSULTATION: Sepsis syndrome, need for ICU admission. CHIEF COMPLAINT AND HISTORY OF PRESENT ILLNESS: The patient is an 82-year-old -[place] female actually known to me from prior admissions. PAST MEDICAL HISTORY: Significant for end-stage renal disease, on dialysis. In particular, she was brought in because of chest pain. She was minimally responsive. She was found to be hypoglycemic, glucose was less than 20. She was hyperkalemic. She had a severe metabolic acidosis with serum bicarbonate of 8.0. She was also found to have a urinary tract infection. She was as a result of the constellation of her symptoms and in particularly sepsis syndrome numbers. ICU admission was requested for management. She amongst other things was found to receive significantly hypertensive requiring emergent dialysis and also for that reason, an ICU admission was requested for monitored dialysis. When I stopped by to see her, she was feeling a little bit better. She had come in hypothermic, but she was normothermic at the time I saw her, she denied any more chest pain. She denied fevers or chills. She stated she had been compliant with her medications at home as she has said in the past. She also says that she has been compliant with her dialysis at home. This really is as much of the history of this presentation as I have. She is not a current smoker and she had denied tobacco use or abuse in the past. 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 She has had multiple admissions for sepsis syndrome. PAST SURGICAL HISTORY: I believe she has an AV fistula. She has had that I should say for dialysis access. She certainly has had a Vas-Cath placed also. MEDICATIONS: She was on at the time I stopped by to see her, according to the medication administration record included the following: P.r.n. milk of magnesia, Norvasc 5 mg p.o. daily, Dulcolax p.r.n., Pepcid 20 mg p.o. daily, heparin 5000 units subQ q.8 hours, hydralazine 50 mg p.o. q.8 hours, metoprolol 50 mg p.o. daily, morphine sulfate 2 mg IV q. 4 hours p.r.n. moderate pain, nicardipine drip had been going at 5 mg per hour earlier, Zofran 4 mg IV q.6h. p.r.n. nausea and vomiting, Zosyn 2.25 grams IV q.8h., vancomycin she received, I believe 1 gram dose in the Emergency Room that will be adjusted per pharmacy. ALLERGIES: NAPROXEN, NATURE OF THIS ALLERGY IS UNKNOWN. DIET: Thin lady, no significant weight loss or gain in the preceding few weeks to months. FAMILY AND SOCIAL HISTORY: Lives in the community. I believe she is . Denies current alcohol, tobacco or illicit drug use or abuse. Family history, otherwise noncontributory. REVIEW OF SYSTEMS: No loss of consciousness. She did have the altered mental status on presentation. No new onset focal weakness. No gross hematochezia or melena. No gross hematuria. She denies dysuria. No hematemesis. No hemoptysis. Denies palpitations. Complete 13-system review of systems obtained with pertinent positives and/or negatives as in body of history above, otherwise noncontributory. PHYSICAL EXAMINATION: VITAL SIGNS: At presentation her initial temperature was measured at 93.5 according to the records, but in the ER, it was 95.0 Fahrenheit; pulse was 73; respiratory rate of 16; blood pressure was 211/117; oxygen sats were 90%, inspired oxygen concentration was not recorded at that time. HEAD, EYES, EARS, NOSE AND THROAT: Pupils are equal, round, about 3 to 4 mm, reactive to light. Extraocular muscle movements appeared intact. Grossly, there were no palpable lymph nodes in the supraclavicular or submandibular lymph node chains. Oropharynx is a Mallampati #2 oropharynx. No significant posterior oropharyngeal erythema. No gross jugular venous distention. She has a right subclavian or right IJ Vas-Cath in place, the tip is in the SVC. Distal SVC/right atrium junction. LUNGS: Auscultation of both lung urias reveal diminished right lower lobe air entry and occasional bibasilar crackles. No wheezing. HEART: Heart sounds 1 and 2 are heard. They were regular in rate and rhythm at time of my evaluation. ABDOMEN: Soft, full, bowel sounds are positive, nontender. EXTREMITIES: Without overt digital clubbing, cyanosis or pedal edema. NEUROLOGIC: The exam was grossly nonfocal. LABORATORY DATA: From my review are as follows: Admission white cell count 4500 with hemoglobin of 9.2, hematocrit of 30.7, platelets of 74. INR was 1.74. Venous blood gas at presentation was 7.27. Serum sodium 131, potassium 5.9, chloride 88, bicarbonate 8, BUN 83, creatinine 8.41 and glucose of 187. Lactic acid level was 9.9. Troponin was 0.096. Urinalysis, large leukocyte esterase with greater than 182 white cells per high power field. RADIOGRAPHIC STUDIES: CT of the head was done at presentation, I have reviewed the radiologist's interpretation and essentially describes it as no acute abnormality. A CT of the abdomen and pelvis was also done. I have also reviewed the radiologist interpretation, essentially compatible with diffuse anasarca with body wall edema, moderate ascites. Chest CT was also done was a noncontrast CT. Cardiomegaly moderate, moderate bilateral pleural effusions and ground glass opacification through both the lungs. No PE. Apparently it was done with contrast I am assuming it is a CTA of the chest. I will try and pull up that film. ASSESSMENT AND PLAN: We have elderly lady in with acute hypoxemic respiratory failure, sepsis syndrome and picture consistent with volume overload. She swears that she is compliant with her dialysis, but this has been a recurrent in this kind of presentation. Certainly critically requiring ICU admission. From a respiratory standpoint, she will be kept on supplemental oxygen to keep sats greater than or equal to about 90 to 94%. Aspiration precautions will be maintained. Bronchodilators will be on a p.r.n. basis. Bilevel positive airway pressure ventilation therapy will be offered. In case of increased work of breathing, postdialysis numbers certainly will improve. From a cardiovascular standpoint, she will be weaned off the Cardene drip as p.o. antihypertensives are introduced, hopefully that ____ pretty rapidly. I note the elevated troponins in the setting of renal failure, it is unclear if we really should bother more about this. We will trend them. Cardiology evaluation will be at the behest of the attending physician. I think that from a renal standpoint with the ultrafiltration we probably do not need to bother too much with the cardiac issues at this point. Now, from a GI and nutritional standpoint, oral nutrition will be the feeding modality of choice. She has been started on gastrointestinal prophylaxis. Aspiration precautions will be maintained. From a renal standpoint, she has been seen by the design coordinator and dialysis has been done. She may need another dialysis session before she leaves the hospital. I will defer to them. Electrolytes will be followed and corrected as necessary. She is on empiric antibiotic therapy for the urinary tract infection and this takes me to the Infectious Disease standpoint, she is appropriately on broad-spectrum anti-infective therapy. She has been cultured. Anti-infectives will ultimately be deescalated based on results of clinical and microbiologic data. She has tolerated dialysis very well, does not appear to be intravascularly volume depleted. Blood pressure is actually doing better, by which I mean less hypertensive for a period. From a [employer] standpoint, the exam is grossly nonfocal at this point. No acute indication for neuro imaging. We will follow her clinically. I should mention that from a respiratory standpoint also, the pleural effusions have been drained at least a couple of times by me in the past and they have been transudative so I will not be aggressively going for a thoracentesis at this point. Now from a general and hospital healthcare maintenance standpoint, she is on GI and DVT prophylaxis. Flu and pneumonia vaccination will be per protocol. Thank you very much for the consult, Dr. Becerra. We will follow along and make further recommendations as picture progresses/becomes clearer. She is critically ill on life-sustaining interventions including the Cardene drip and risk for further deterioration including . I have spent about 30 to 35 minutes of critical care time without overlap and excluding any procedural time that may be necessary. JOB# [id number] LEBRON/PIERO
[2017-07-04] MEDS: TOPROL XL PO SCH (09:24)
[2017-07-04] MEDS: NORVASC PO SCH (09:25)
[2017-07-04] MEDS: PEPCID PO SCH (09:25)
[2017-07-04] MEDS ORDERED: NACL 0.9% 100 ML IV PRN ×2 (10:24→11:30)
--- NOTE | 2017-07-04 12:51 | Progress Note ---
Assessment and Plan - Patient Problems (1) Bilateral pleural effusion Current Visit: Yes Status: Acute Plan to address problem: - manage conservatively with HD/UF - prn thoracentesis (2) ESRD needing dialysis Current Visit: Yes Status: Acute Plan to address problem: - HD/UF prescription per nephrology - s/p dialysis today then MWF thereafter (3) Hypertensive urgency Current Visit: Yes Status: Acute Plan to address problem: - resolved - continue p.o. antihypertensives (4) Chest pain Current Visit: No Status: Acute Qualifiers: Chest pain type: precordial chest pain Ischemic chest pain type: I Plan to address problem: - resolved (5) Pulmonary edema Current Visit: No Status: Acute Qualifiers: Chronicity: C Plan to address problem: - mild - continue HD/UF for management - adviced to watch liquid intake as per her search marketing coordinator's directives (6) Discharge planning issues Current Visit: Yes Status: Acute Plan to address problem: - transfer out of ICU to [facility] unit Subjective Date of service: 07/04/17 Principal diagnosis: Acute Respiratory Distress; ESRD on Dialysis; Hypertensive Urgency Interval history: Seen and examined at bedside; 24 hour events reviewed; nursing and respiratory care staff consulted; no adverse overnight events reported to me; continues to do better; denies acute chest pains or increased SOB; No N/V/F/C Objective Vital Signs - 12hr 07/04/17 07/04/17 07/04/17 01:00 01:10 01:20 Temperature Pulse Rate 91 H 89 89 Pulse Rate [ Left Dorsalis Pedis] Pulse Rate [ Left Radial] Pulse Rate [ Right Dorsalis Pedis] Pulse Rate [ Right Radial] Respiratory 19 14 17 Rate Blood Pressure 170/89 166/107 166/107 O2 Sat by Pulse 99 99 99 Oximetry O2 Sat by Pulse Oximetry [ Anterior Bilateral Throughout] 07/04/17 07/04/17 07/04/17 01:30 01:40 01:50 Temperature Pulse Rate 87 87 87 Pulse Rate [ Left Dorsalis Pedis] Pulse Rate [ Left Radial] Pulse Rate [ Right Dorsalis Pedis] Pulse Rate [ Right Radial] Respiratory 16 18 16 Rate Blood Pressure 166/107 166/107 166/107 O2 Sat by Pulse 100 99 99 Oximetry O2 Sat by Pulse Oximetry [ Anterior Bilateral Throughout] 07/04/17 07/04/17 07/04/17 02:00 02:10 02:20 Temperature Pulse Rate 89 90 88 Pulse Rate [ Left Dorsalis Pedis] Pulse Rate [ Left Radial] Pulse Rate [ Right Dorsalis Pedis] Pulse Rate [ Right Radial] Respiratory 19 16 17 Rate Blood Pressure 166/107 166/107 166/107 O2 Sat by Pulse 100 98 100 Oximetry O2 Sat by Pulse Oximetry [ Anterior Bilateral Throughout] 07/04/17 07/04/17 07/04/17 02:30 02:40 02:50 Temperature Pulse Rate 88 90 88 Pulse Rate [ Left Dorsalis Pedis] Pulse Rate [ Left Radial] Pulse Rate [ Right Dorsalis Pedis] Pulse Rate [ Right Radial] Respiratory 15 19 14 Rate Blood Pressure 166/107 166/107 166/107 O2 Sat by Pulse 100 98 100 Oximetry O2 Sat by Pulse Oximetry [ Anterior Bilateral Throughout] 07/04/17 07/04/17 07/04/17 03:00 03:06 03:10 Temperature Pulse Rate 86 86 Pulse Rate [ 73 Left Dorsalis Pedis] Pulse Rate [ 73 Left Radial] Pulse Rate [ 73 Right Dorsalis Pedis] Pulse Rate [ 73 Right Radial] Respiratory 17 20 18 Rate Blood Pressure 166/107 166/107 O2 Sat by Pulse 100 98 98 Oximetry O2 Sat by Pulse Oximetry [ Anterior Bilateral Throughout] 07/04/17 07/04/17 07/04/17 03:20 03:30 03:40 Temperature Pulse Rate 93 H 91 H 89 Pulse Rate [ Left Dorsalis Pedis] Pulse Rate [ Left Radial] Pulse Rate [ Right Dorsalis Pedis] Pulse Rate [ Right Radial] Respiratory 14 17 16 Rate Blood Pressure 166/107 166/107 166/107 O2 Sat by Pulse 99 99 98 Oximetry O2 Sat by Pulse Oximetry [ Anterior Bilateral Throughout] 07/04/17 07/04/17 07/04/17 03:50 04:00 04:10 Temperature Pulse Rate 96 H 92 H 91 H Pulse Rate [ Left Dorsalis Pedis] Pulse Rate [ Left Radial] Pulse Rate [ Right Dorsalis Pedis] Pulse Rate [ Right Radial] Respiratory 18 14 20 Rate Blood Pressure 166/107 165/96 165/96 O2 Sat by Pulse 97 99 99 Oximetry O2 Sat by Pulse Oximetry [ Anterior Bilateral Throughout] 07/04/17 07/04/17 07/04/17 04:20 04:30 04:39 Temperature 98.6 F Pulse Rate 87 86 Pulse Rate [ Left Dorsalis Pedis] Pulse Rate [ Left Radial] Pulse Rate [ Right Dorsalis Pedis] Pulse Rate [ Right Radial] Respiratory 17 15 Rate Blood Pressure 165/96 165/96 O2 Sat by Pulse 99 100 Oximetry O2 Sat by Pulse Oximetry [ Anterior Bilateral Throughout] 07/04/17 07/04/17 07/04/17 04:40 04:50 05:00 Temperature Pulse Rate 85 87 85 Pulse Rate [ Left Dorsalis Pedis] Pulse Rate [ Left Radial] Pulse Rate [ Right Dorsalis Pedis] Pulse Rate [ Right Radial] Respiratory 15 17 16 Rate Blood Pressure 165/96 165/96 173/92 O2 Sat by Pulse 100 100 98 Oximetry O2 Sat by Pulse Oximetry [ Anterior Bilateral Throughout] 07/04/17 07/04/17 07/04/17 05:10 05:20 05:30 Temperature Pulse Rate 91 H 88 84 Pulse Rate [ Left Dorsalis Pedis] Pulse Rate [ Left Radial] Pulse Rate [ Right Dorsalis Pedis] Pulse Rate [ Right Radial] Respiratory 16 13 11 L Rate Blood Pressure 173/92 173/92 173/92 O2 Sat by Pulse 97 99 97 Oximetry O2 Sat by Pulse Oximetry [ Anterior Bilateral Throughout] 07/04/17 07/04/17 07/04/17 05:40 05:49 05:50 Temperature Pulse Rate 92 H 98 H 88 Pulse Rate [ Left Dorsalis Pedis] Pulse Rate [ Left Radial] Pulse Rate [ Right Dorsalis Pedis] Pulse Rate [ Right Radial] Respiratory 16 15 Rate Blood Pressure 173/92 167/98 173/92 O2 Sat by Pulse 98 98 Oximetry O2 Sat by Pulse Oximetry [ Anterior Bilateral Throughout] 07/04/17 07/04/17 07/04/17 06:00 06:10 06:20 Temperature Pulse Rate 88 89 86 Pulse Rate [ Left Dorsalis Pedis] Pulse Rate [ Left Radial] Pulse Rate [ Right Dorsalis Pedis] Pulse Rate [ Right Radial] Respiratory 24 16 25 H Rate Blood Pressure 171/98 171/98 171/98 O2 Sat by Pulse 98 99 98 Oximetry O2 Sat by Pulse Oximetry [ Anterior Bilateral Throughout] 07/04/17 07/04/17 07/04/17 06:30 06:40 06:50 Temperature Pulse Rate 86 85 82 Pulse Rate [ Left Dorsalis Pedis] Pulse Rate [ Left Radial] Pulse Rate [ Right Dorsalis Pedis] Pulse Rate [ Right Radial] Respiratory 21 17 18 Rate Blood Pressure 171/98 171/98 171/98 O2 Sat by Pulse 98 99 98 Oximetry O2 Sat by Pulse Oximetry [ Anterior Bilateral Throughout] 07/04/17 07/04/17 07/04/17 07:00 07:10 07:20 Temperature Pulse Rate 86 85 88 Pulse Rate [ Left Dorsalis Pedis] Pulse Rate [ Left Radial] Pulse Rate [ Right Dorsalis Pedis] Pulse Rate [ Right Radial] Respiratory 18 15 18 Rate Blood Pressure 170/98 170/98 170/98 O2 Sat by Pulse 99 100 100 Oximetry O2 Sat by Pulse Oximetry [ Anterior Bilateral Throughout] 07/04/17 07/04/17 07/04/17 07:30 07:40 07:50 Temperature Pulse Rate 85 85 87 Pulse Rate [ Left Dorsalis Pedis] Pulse Rate [ Left Radial] Pulse Rate [ Right Dorsalis Pedis] Pulse Rate [ Right Radial] Respiratory 19 12 22 Rate Blood Pressure 170/98 170/98 170/98 O2 Sat by Pulse 99 97 100 Oximetry O2 Sat by Pulse Oximetry [ Anterior Bilateral Throughout] 07/04/17 07/04/17 07/04/17 08:00 08:10 08:20 Temperature Pulse Rate 81 88 89 Pulse Rate [ Left Dorsalis Pedis] Pulse Rate [ Left Radial] Pulse Rate [ Right Dorsalis Pedis] Pulse Rate [ Right Radial] Respiratory 14 18 16 Rate Blood Pressure 150/88 150/88 150/88 O2 Sat by Pulse 98 100 100 Oximetry O2 Sat by Pulse Oximetry [ Anterior Bilateral Throughout] 07/04/17 07/04/17 07/04/17 08:35 08:47 09:24 Temperature 97.7 F Pulse Rate 91 H Pulse Rate [ Left Dorsalis Pedis] Pulse Rate [ Left Radial] Pulse Rate [ Right Dorsalis Pedis] Pulse Rate [ Right Radial] Respiratory Rate Blood Pressure 150/95 O2 Sat by Pulse 96 Oximetry O2 Sat by Pulse Oximetry [ Anterior Bilateral Throughout] 07/04/17 07/04/17 07/04/17 09:25 10:39 10:45 Temperature 94.0 F L 98.2 F Pulse Rate 91 H 84 Pulse Rate [ Left Dorsalis Pedis] Pulse Rate [ Left Radial] Pulse Rate [ Right Dorsalis Pedis] Pulse Rate [ Right Radial] Respiratory 15 Rate Blood Pressure 150/95 150/87 O2 Sat by Pulse Oximetry O2 Sat by Pulse 100 Oximetry [ Anterior Bilateral Throughout] 07/04/17 07/04/17 07/04/17 11:00 11:15 11:31 Temperature Pulse Rate 84 80 90 Pulse Rate [ Left Dorsalis Pedis] Pulse Rate [ Left Radial] Pulse Rate [ Right Dorsalis Pedis] Pulse Rate [ Right Radial] Respiratory Rate Blood Pressure 159/87 156/85 161/88 O2 Sat by Pulse Oximetry O2 Sat by Pulse Oximetry [ Anterior Bilateral Throughout] 07/04/17 07/04/17 07/04/17 11:37 11:45 12:00 Temperature Pulse Rate 92 H 81 Pulse Rate [ 76 Left Dorsalis Pedis] Pulse Rate [ 80 Left Radial] Pulse Rate [ 81 Right Dorsalis Pedis] Pulse Rate [ 76 Right Radial] Respiratory 18 Rate Blood Pressure 147/92 139/100 O2 Sat by Pulse 96 Oximetry O2 Sat by Pulse Oximetry [ Anterior Bilateral Throughout] 07/04/17 12:15 Temperature Pulse Rate 79 Pulse Rate [ Left Dorsalis Pedis] Pulse Rate [ Left Radial] Pulse Rate [ Right Dorsalis Pedis] Pulse Rate [ Right Radial] Respiratory Rate Blood Pressure 156/80 O2 Sat by Pulse Oximetry O2 Sat by Pulse Oximetry [ Anterior Bilateral Throughout] Constitutional: no acute distress, alert Eyes: non-icteric ENT: oropharynx moist Neck: supple, no lymphadenopathy Effort: normal Ascultation: Bilateral: diminished breath sounds (bases R>L), rales (scant in bases) Cardiovascular: regular rate and rhythm Gastrointestinal: normoactive bowel sounds, hypoactive bowel sounds, soft, non- tender Integumentary: normal Extremities: no cyanosis, no edema, pulses normal, no ischemia or petechiae Neurologic: normal mental status, non-focal exam, pupils equal and round, motor strength normal and Psychiatric: mood appropriate, affect normal CBC and BMP: 07/04/17 04:19 07/04/17 04:19 ABG, PT/INR, D-dimer: PT/INR, D-dimer PT 21.3 Sec. (12.2-14.9) H 07/02/17 23:43 INR 1.74 (0.87-1.13) H 07/02/17 23:43 Abnormal lab findings: Abnormal Labs 07/03/17 07/03/17 07/03/17 03:38 10:07 19:00 WBC RBC Hgb Hct MCV MCH RDW Plt Count [place] % (Auto) Lymph # Seg Neutrophils % Sodium 135 L Potassium 3.4 L D Chloride 91.2 L BUN 35 H Creatinine 4.3 H Glucose 155 H POC Glucose 153 H Lactic Acid Calcium 8.3 L Troponin T 0.114 H* C-Reactive Protein 3.00 H Albumin 07/03/17 07/04/17 07/04/17 19:00 04:19 04:19 WBC 3.7 L RBC 2.68 L Hgb 8.7 L Hct 27.0 L MCV 101 H MCH 33 H RDW 21.0 H Plt Count 81 L [place] % (Auto) 7.4 H Lymph # 0.6 L Seg Neutrophils % 75.2 H Sodium Potassium Chloride 93.7 L BUN 44 H Creatinine 5.6 H Glucose POC Glucose Lactic Acid 2.40 H* Calcium Troponin T C-Reactive Protein Albumin 3.3 L
--- NOTE | 2017-07-04 13:25 | Progress Note ---
Assessment and Plan Assessment and plan: Sepsis. Etiology is due to UTI. Continue Zosyn and vancomycin. Hyperkalemia. Potassium 5.9 on admission. Resolved. Patient s/p urgent hemodialysis last evening. End-stage renal disease on hemodialysis. Continue per nephrology. Hyponatremia. Acute on Chronic systolic CHF. Patient status post hemodialysis. 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 Continue home antihypertensives medications. Urinary tract infection. Continue antibiotics. Follow-up urine culture. Severe metabolic acidosis with lactic acidosis. Recheck lactate levels. DVT prophylaxis. Heparin subcut Full CODE STATUS Sclerosis and lucency of bones on CT. Will need further workup. Diarrhea. C. difficile and stool studies. History Interval history: No Issues overnight. Hospitalist Physical - Constitutional Vitals: Temp Pulse Resp BP Pulse Ox 98.2 F 80 18 144/100 99 07/04/17 10:45 07/04/17 13:00 07/04/17 13:00 07/04/17 13:00 07/04/17 13:00 General appearance: Present: no acute distress, well-nourished - EENT Eyes: Present: PERRL, EOM intact ENT: hearing intact, clear oral mucosa, dentition normal - Neck Neck: Present: supple, normal ROM - Respiratory Respiratory effort: normal Respiratory: bilateral: CTA - Cardiovascular Rhythm: regular Heart Sounds: Present: S1 & S2. Absent: gallop, rub - Extremities Extremities: no ischemia, No edema, Full ROM - Abdominal General gastrointestinal: soft, non-tender, non-distended, normal bowel sounds - Integumentary Integumentary: Present: clear, warm, dry - Neurologic Neurologic: CNII-XII intact, moves all extremities Results - Labs CBC & Chem 7: 07/04/17 04:19 07/04/17 04:19 Labs: Laboratory Last Values WBC 3.7 K/mm3 (4.5-11.0) L 07/04/17 04:19 RBC 2.68 M/mm3 (3.65-5.03) L 07/04/17 04:19 Hgb 8.7 gm/dl (10.1-14.3) L 07/04/17 04:19 Hct 27.0 % (30.3-42.9) L 07/04/17 04:19 MCV 101 fl (79-97) H 07/04/17 04:19 MCH 33 pg (28-32) H 07/04/17 04:19 MCHC 32 % (30-34) 07/04/17 04:19 RDW 21.0 % (13.2-15.2) H 07/04/17 04:19 Plt Count 81 K/mm3 (140-440) L 07/04/17 04:19 Lymph % (Auto) 16.2 % (13.4-35.0) 07/04/17 04:19 [place] % (Auto) 7.4 % (0.0-7.3) H 07/04/17 04:19 Eos % (Auto) 0.9 % (0.0-4.3) 07/04/17 04:19 Baso % (Auto) 0.3 % (0.0-1.8) 07/04/17 04:19 Lymph # 0.6 K/mm3 (1.2-5.4) L 07/04/17 04:19 [place] # 0.3 K/mm3 (0.0-0.8) 07/04/17 04:19 Eos # 0.0 K/mm3 (0.0-0.4) 07/04/17 04:19 Baso # 0.0 K/mm3 (0.0-0.1) 07/04/17 04:19 Seg Neutrophils % 75.2 % (40.0-70.0) H 07/04/17 04:19 Seg Neutrophils # 2.8 K/mm3 (1.8-7.7) 07/04/17 04:19 PT 21.3 Sec. (12.2-14.9) H 07/02/17 23:43 INR 1.74 (0.87-1.13) H 07/02/17 23:43 APTT 40.0 Sec. (24.2-36.6) H 07/02/17 23:43 VBG pH 7.268 (7.320-7.420) L 07/02/17 23:43 Sodium 139 mmol/L (137-145) 07/04/17 04:19 Potassium 3.7 mmol/L (3.6-5.0) 07/04/17 04:19 Chloride 93.7 mmol/L (98-107) L 07/04/17 04:19 Carbon Dioxide 25 mmol/L (22-30) 07/04/17 04:19 Anion Gap 24 mmol/L 07/04/17 04:19 BUN 44 mg/dL (7-17) H 07/04/17 04:19 Creatinine 5.6 mg/dL (0.7-1.2) H 07/04/17 04:19 Estimated GFR 9 ml/min 07/04/17 04:19 BUN/Creatinine Ratio 7.85 % 07/04/17 04:19 Glucose 74 mg/dL (65-100) 07/04/17 04:19 POC Glucose 153 (70-105) H 07/03/17 03:38 Lactic Acid 2.40 mmol/L (0.7-2.0) H* 07/03/17 19:00 Calcium 8.5 mg/dL (8.4-10.2) 07/04/17 04:19 Total Bilirubin 0.80 mg/dL (0.1-1.2) 07/04/17 04:19 AST 34 units/L (5-40) 07/04/17 04:19 ALT 12 units/L (7-56) 07/04/17 04:19 Alkaline Phosphatase 49 units/L (35-129) 07/04/17 04:19 Total Creatine Kinase 57 units/L (30-135) 07/02/17 23:32 CK-MB (CK-2) 2.5 ng/mL (0.0-4.0) 07/02/17 23:32 CK-MB (CK-2) Rel Index 4.3 (0-4) H 07/02/17 23:32 Troponin T 0.114 ng/mL (0.00-0.029) H* 07/03/17 10:07 C-Reactive Protein 3.00 mg/dL (0.00-1.30) H 07/03/17 19:00 Total Protein 7.9 g/dL (6.3-8.2) 07/04/17 04:19 Albumin 3.3 g/dL (3.9-5) L 07/04/17 04:19 Albumin/Globulin Ratio 0.7 % 07/04/17 04:19 Urine Color [place] (Yellow) 07/03/17 00:51 Urine Turbidity Cloudy (Clear) 07/03/17 00:51 Urine pH 5.0 (5.0-7.0) 07/03/17 00:51 Ur Specific [place] 1.016 (1.003-1.030) 07/03/17 00:51 Urine Protein >500 mg/dL (Negative) 07/03/17 00:51 Urine Glucose (UA) Neg mg/dL (Negative) 07/03/17 00:51 Urine Ketones Neg mg/dL (Negative) 07/03/17 00:51 Urine Blood Lg (Negative) 07/03/17 00:51 Urine Nitrite Neg (Negative) 07/03/17 00:51 Urine Bilirubin Neg (Negative) 07/03/17 00:51 Urine Urobilinogen < 2.0 mg/dL (<2.0) 07/03/17 00:51 Ur Leukocyte Esterase Lg (Negative) 07/03/17 00:51 Urine WBC (Auto) > 182.0 /HPF (0.0-6.0) H 07/03/17 00:51 Urine RBC (Auto) 19.0 /HPF (0.0-6.0) 07/03/17 00:51 U Epithel Cells (Auto) 4.0 /HPF (0-13.0) 07/03/17 00:51 Urine Bacteria (Auto) 4+ /HPF (Negative) 07/03/17 00:51 Urine WBC Clumps 2+ /HPF 07/03/17 00:51 Urine Mucus Few /HPF 07/03/17 00:51
--- NOTE | 2017-07-04 14:02 | Progress Note ---
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 Objective - Vital Signs Vital signs: Vital Signs - 12hr 07/04/17 07/04/17 07/04/17 02:10 02:20 02:30 Temperature Pulse Rate 90 88 88 Pulse Rate [ Left Dorsalis Pedis] Pulse Rate [ Left Radial] Pulse Rate [ Right Dorsalis Pedis] Pulse Rate [ Right Radial] Respiratory 16 17 15 Rate Blood Pressure 166/107 166/107 166/107 O2 Sat by Pulse 98 100 100 Oximetry O2 Sat by Pulse Oximetry [ Anterior Bilateral Throughout] 07/04/17 07/04/17 07/04/17 02:40 02:50 03:00 Temperature Pulse Rate 90 88 86 Pulse Rate [ Left Dorsalis Pedis] Pulse Rate [ Left Radial] Pulse Rate [ Right Dorsalis Pedis] Pulse Rate [ Right Radial] Respiratory 19 14 17 Rate Blood Pressure 166/107 166/107 166/107 O2 Sat by Pulse 98 100 100 Oximetry O2 Sat by Pulse Oximetry [ Anterior Bilateral Throughout] 07/04/17 07/04/17 07/04/17 03:06 03:10 03:20 Temperature Pulse Rate 86 93 H Pulse Rate [ 73 Left Dorsalis Pedis] Pulse Rate [ 73 Left Radial] Pulse Rate [ 73 Right Dorsalis Pedis] Pulse Rate [ 73 Right Radial] Respiratory 20 18 14 Rate Blood Pressure 166/107 166/107 O2 Sat by Pulse 98 98 99 Oximetry O2 Sat by Pulse Oximetry [ Anterior Bilateral Throughout] 07/04/17 07/04/17 07/04/17 03:30 03:40 03:50 Temperature Pulse Rate 91 H 89 96 H Pulse Rate [ Left Dorsalis Pedis] Pulse Rate [ Left Radial] Pulse Rate [ Right Dorsalis Pedis] Pulse Rate [ Right Radial] Respiratory 17 16 18 Rate Blood Pressure 166/107 166/107 166/107 O2 Sat by Pulse 99 98 97 Oximetry O2 Sat by Pulse Oximetry [ Anterior Bilateral Throughout] 07/04/17 07/04/17 07/04/17 04:00 04:10 04:20 Temperature Pulse Rate 92 H 91 H 87 Pulse Rate [ Left Dorsalis Pedis] Pulse Rate [ Left Radial] Pulse Rate [ Right Dorsalis Pedis] Pulse Rate [ Right Radial] Respiratory 14 20 17 Rate Blood Pressure 165/96 165/96 165/96 O2 Sat by Pulse 99 99 99 Oximetry O2 Sat by Pulse Oximetry [ Anterior Bilateral Throughout] 07/04/17 07/04/17 07/04/17 04:30 04:39 04:40 Temperature 98.6 F Pulse Rate 86 85 Pulse Rate [ Left Dorsalis Pedis] Pulse Rate [ Left Radial] Pulse Rate [ Right Dorsalis Pedis] Pulse Rate [ Right Radial] Respiratory 15 15 Rate Blood Pressure 165/96 165/96 O2 Sat by Pulse 100 100 Oximetry O2 Sat by Pulse Oximetry [ Anterior Bilateral Throughout] 07/04/17 07/04/17 07/04/17 04:50 05:00 05:10 Temperature Pulse Rate 87 85 91 H Pulse Rate [ Left Dorsalis Pedis] Pulse Rate [ Left Radial] Pulse Rate [ Right Dorsalis Pedis] Pulse Rate [ Right Radial] Respiratory 17 16 16 Rate Blood Pressure 165/96 173/92 173/92 O2 Sat by Pulse 100 98 97 Oximetry O2 Sat by Pulse Oximetry [ Anterior Bilateral Throughout] 07/04/17 07/04/17 07/04/17 05:20 05:30 05:40 Temperature Pulse Rate 88 84 92 H Pulse Rate [ Left Dorsalis Pedis] Pulse Rate [ Left Radial] Pulse Rate [ Right Dorsalis Pedis] Pulse Rate [ Right Radial] Respiratory 13 11 L 16 Rate Blood Pressure 173/92 173/92 173/92 O2 Sat by Pulse 99 97 98 Oximetry O2 Sat by Pulse Oximetry [ Anterior Bilateral Throughout] 07/04/17 07/04/17 07/04/17 05:49 05:50 06:00 Temperature Pulse Rate 98 H 88 88 Pulse Rate [ Left Dorsalis Pedis] Pulse Rate [ Left Radial] Pulse Rate [ Right Dorsalis Pedis] Pulse Rate [ Right Radial] Respiratory 15 24 Rate Blood Pressure 167/98 173/92 171/98 O2 Sat by Pulse 98 98 Oximetry O2 Sat by Pulse Oximetry [ Anterior Bilateral Throughout] 07/04/17 07/04/17 07/04/17 06:10 06:20 06:30 Temperature Pulse Rate 89 86 86 Pulse Rate [ Left Dorsalis Pedis] Pulse Rate [ Left Radial] Pulse Rate [ Right Dorsalis Pedis] Pulse Rate [ Right Radial] Respiratory 16 25 H 21 Rate Blood Pressure 171/98 171/98 171/98 O2 Sat by Pulse 99 98 98 Oximetry O2 Sat by Pulse Oximetry [ Anterior Bilateral Throughout] 07/04/17 07/04/17 07/04/17 06:40 06:50 07:00 Temperature Pulse Rate 85 82 86 Pulse Rate [ Left Dorsalis Pedis] Pulse Rate [ Left Radial] Pulse Rate [ Right Dorsalis Pedis] Pulse Rate [ Right Radial] Respiratory 17 18 18 Rate Blood Pressure 171/98 171/98 170/98 O2 Sat by Pulse 99 98 99 Oximetry O2 Sat by Pulse Oximetry [ Anterior Bilateral Throughout] 07/04/17 07/04/17 07/04/17 07:10 07:20 07:30 Temperature Pulse Rate 85 88 85 Pulse Rate [ Left Dorsalis Pedis] Pulse Rate [ Left Radial] Pulse Rate [ Right Dorsalis Pedis] Pulse Rate [ Right Radial] Respiratory 15 18 19 Rate Blood Pressure 170/98 170/98 170/98 O2 Sat by Pulse 100 100 99 Oximetry O2 Sat by Pulse Oximetry [ Anterior Bilateral Throughout] 07/04/17 07/04/17 07/04/17 07:40 07:50 08:00 Temperature Pulse Rate 85 87 81 Pulse Rate [ Left Dorsalis Pedis] Pulse Rate [ Left Radial] Pulse Rate [ Right Dorsalis Pedis] Pulse Rate [ Right Radial] Respiratory 12 22 14 Rate Blood Pressure 170/98 170/98 150/88 O2 Sat by Pulse 97 100 98 Oximetry O2 Sat by Pulse Oximetry [ Anterior Bilateral Throughout] 07/04/17 07/04/17 07/04/17 08:10 08:20 08:30 Temperature Pulse Rate 88 89 90 Pulse Rate [ Left Dorsalis Pedis] Pulse Rate [ Left Radial] Pulse Rate [ Right Dorsalis Pedis] Pulse Rate [ Right Radial] Respiratory 18 16 16 Rate Blood Pressure 150/88 150/88 150/88 O2 Sat by Pulse 100 100 100 Oximetry O2 Sat by Pulse Oximetry [ Anterior Bilateral Throughout] 08/10/1007/04/17 07/04/17 08:35 08:40 08:47 Temperature 97.7 F Pulse Rate 88 Pulse Rate [ Left Dorsalis Pedis] Pulse Rate [ Left Radial] Pulse Rate [ Right Dorsalis Pedis] Pulse Rate [ Right Radial] Respiratory 18 Rate Blood Pressure 150/88 O2 Sat by Pulse 98 96 Oximetry O2 Sat by Pulse Oximetry [ Anterior Bilateral Throughout] 07/04/17 07/04/17 07/04/17 08:50 09:00 09:10 Temperature Pulse Rate 88 88 87 Pulse Rate [ Left Dorsalis Pedis] Pulse Rate [ Left Radial] Pulse Rate [ Right Dorsalis Pedis] Pulse Rate [ Right Radial] Respiratory 16 18 18 Rate Blood Pressure 150/88 150/88 150/95 O2 Sat by Pulse 99 99 98 Oximetry O2 Sat by Pulse Oximetry [ Anterior Bilateral Throughout] 07/04/17 07/04/17 07/04/17 09:20 09:24 09:25 Temperature Pulse Rate 86 91 H 91 H Pulse Rate [ Left Dorsalis Pedis] Pulse Rate [ Left Radial] Pulse Rate [ Right Dorsalis Pedis] Pulse Rate [ Right Radial] Respiratory 16 Rate Blood Pressure 150/95 150/95 150/95 O2 Sat by Pulse 99 Oximetry O2 Sat by Pulse Oximetry [ Anterior Bilateral Throughout] 07/04/17 07/04/17 07/04/17 09:30 09:40 09:50 Temperature Pulse Rate 87 91 H 85 Pulse Rate [ Left Dorsalis Pedis] Pulse Rate [ Left Radial] Pulse Rate [ Right Dorsalis Pedis] Pulse Rate [ Right Radial] Respiratory 17 16 15 Rate Blood Pressure 150/95 150/95 150/95 O2 Sat by Pulse 98 99 100 Oximetry O2 Sat by Pulse Oximetry [ Anterior Bilateral Throughout] 07/04/17 07/04/17 07/04/17 10:00 10:10 10:20 Temperature Pulse Rate 87 84 87 Pulse Rate [ Left Dorsalis Pedis] Pulse Rate [ Left Radial] Pulse Rate [ Right Dorsalis Pedis] Pulse Rate [ Right Radial] Respiratory 17 17 13 Rate Blood Pressure 150/95 150/95 O2 Sat by Pulse 100 99 99 Oximetry O2 Sat by Pulse Oximetry [ Anterior Bilateral Throughout] 07/04/17 07/04/17 07/04/17 10:30 10:39 10:40 Temperature 94.0 F L Pulse Rate 85 82 Pulse Rate [ Left Dorsalis Pedis] Pulse Rate [ Left Radial] Pulse Rate [ Right Dorsalis Pedis] Pulse Rate [ Right Radial] Respiratory 14 13 Rate Blood Pressure 159/93 O2 Sat by Pulse 99 99 Oximetry O2 Sat by Pulse Oximetry [ Anterior Bilateral Throughout] 07/04/17 07/04/17 07/04/17 10:45 10:50 11:00 Temperature 98.2 F Pulse Rate 84 88 83 Pulse Rate [ Left Dorsalis Pedis] Pulse Rate [ Left Radial] Pulse Rate [ Right Dorsalis Pedis] Pulse Rate [ Right Radial] Respiratory 15 13 15 Rate Blood Pressure 150/87 159/93 159/87 O2 Sat by Pulse 99 99 Oximetry O2 Sat by Pulse 100 Oximetry [ Anterior Bilateral Throughout] 07/04/17 07/04/17 07/04/17 11:10 11:15 11:20 Temperature Pulse Rate 82 80 88 Pulse Rate [ Left Dorsalis Pedis] Pulse Rate [ Left Radial] Pulse Rate [ Right Dorsalis Pedis] Pulse Rate [ Right Radial] Respiratory 14 13 Rate Blood Pressure 159/87 156/85 156/85 O2 Sat by Pulse 99 100 Oximetry O2 Sat by Pulse Oximetry [ Anterior Bilateral Throughout] 07/04/17 07/04/17 07/04/17 11:30 11:31 11:37 Temperature Pulse Rate 85 90 Pulse Rate [ 76 Left Dorsalis Pedis] Pulse Rate [ 80 Left Radial] Pulse Rate [ 81 Right Dorsalis Pedis] Pulse Rate [ 76 Right Radial] Respiratory 16 18 Rate Blood Pressure 171/84 161/88 O2 Sat by Pulse 98 96 Oximetry O2 Sat by Pulse Oximetry [ Anterior Bilateral Throughout] 07/04/17 07/04/17 07/04/17 11:40 11:45 11:50 Temperature Pulse Rate 87 92 H 82 Pulse Rate [ Left Dorsalis Pedis] Pulse Rate [ Left Radial] Pulse Rate [ Right Dorsalis Pedis] Pulse Rate [ Right Radial] Respiratory 14 26 H Rate Blood Pressure 171/84 147/92 147/92 O2 Sat by Pulse 100 100 Oximetry O2 Sat by Pulse Oximetry [ Anterior Bilateral Throughout] 07/04/17 07/04/17 07/04/17 12:00 12:10 12:15 Temperature Pulse Rate 89 82 79 Pulse Rate [ Left Dorsalis Pedis] Pulse Rate [ Left Radial] Pulse Rate [ Right Dorsalis Pedis] Pulse Rate [ Right Radial] Respiratory 14 13 Rate Blood Pressure 139/100 139/100 156/80 O2 Sat by Pulse 99 100 Oximetry O2 Sat by Pulse Oximetry [ Anterior Bilateral Throughout] 07/04/17 07/04/17 07/04/17 12:20 12:30 12:40 Temperature Pulse Rate 79 79 78 Pulse Rate [ Left Dorsalis Pedis] Pulse Rate [ Left Radial] Pulse Rate [ Right Dorsalis Pedis] Pulse Rate [ Right Radial] Respiratory 12 13 13 Rate Blood Pressure 156/80 156/87 156/87 O2 Sat by Pulse 99 100 100 Oximetry O2 Sat by Pulse Oximetry [ Anterior Bilateral Throughout] 07/04/17 07/04/17 07/04/17 12:45 12:50 13:00 Temperature Pulse Rate 71 80 80 Pulse Rate [ Left Dorsalis Pedis] Pulse Rate [ Left Radial] Pulse Rate [ Right Dorsalis Pedis] Pulse Rate [ Right Radial] Respiratory 18 18 Rate Blood Pressure 155/86 155/86 144/100 O2 Sat by Pulse 100 99 Oximetry O2 Sat by Pulse Oximetry [ Anterior Bilateral Throughout] 07/04/17 07/04/17 07/04/17 13:15 13:30 13:45 Temperature Pulse Rate 80 79 73 Pulse Rate [ Left Dorsalis Pedis] Pulse Rate [ Left Radial] Pulse Rate [ Right Dorsalis Pedis] Pulse Rate [ Right Radial] Respiratory Rate Blood Pressure 148/90 152/91 162/94 O2 Sat by Pulse Oximetry O2 Sat by Pulse Oximetry [ Anterior Bilateral Throughout] - General Appearance General appearance: well-developed, well-nourished EENT: ATNC Neck: other (RIJ permcath) Respiratory: Present: Clear to Ascultation Cardiology: regular, S1S2 Gastrointestinal: normal, no tenderness, no distended Integumentary: no rash Musculoskeletal: other (no edema) Psychiatric: cooperative - Lab 07/04/17 04:19 07/04/17 04:19 Most recent lab results Calcium 8.5 mg/dL (8.4-10.2) 07/04/17 04:19
[2017-07-04] MEDS: HEPARIN IV PRN (14:52)
[2017-07-05] MEDS: ZOSYN/NS 2.25 GM/50ML 2.25 GM/50 ML BAG IV SCH (02:48)
[2017-07-05 05:50] LABS: Basophils % (Auto) 0.3 % (0.0-1.8); Eosinophils % (Auto) 1.1 % (0.0-4.3); Hematocrit 26.2 % (30.3-42.9); Hemoglobin 8.7 gm/dl (10.1-14.3); Mean Corpuscular HGB Conc 33 % (30-34); Mean Corpuscular Hemoglobin 33 pg (28-32); Mean Corpuscular Volume 100 fl (79-97); Red Blood Count 2.61 M/mm3 (3.65-5.03); White Blood Count 3.1 K/mm3 (4.5-11.0)
[2017-07-05 06:10] LABS: Platelet Count 81 K/mm3 (140-440)
[2017-07-05 06:11] LABS: BUN/Creatinine Ratio 6.66; Calcium 8.8 mg/dL (8.4-10.2); Potassium 3.6 mmol/L (3.6-5.0)
[2017-07-05] MEDS: HEPARIN SUB-Q SCH ×3 (06:40→22:00)
[2017-07-05] MEDS: APRESOLINE PO SCH ×3 (06:41→23:00)
[2017-07-05] MEDS: TOPROL XL PO SCH (10:00)
[2017-07-05] MEDS: PEPCID PO SCH (10:00)
[2017-07-05] MEDS: NORVASC PO SCH (10:00)
--- NOTE | 2017-07-05 12:29 | Progress Note ---
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 * Atrial fibrillation --s/p dual chamber PPM 03/19 * Anemia secondary to ESRD * Secondary hyperparathyroidism * Recurrent hospitalizations Plan * Hemodialysis today - continue MWF schedule * UF as tolerated * SPEP/SIFE ordered; consider heme/onc consult * Abx per primary team * Await blood cx * Empiric abx per primary team * Continue antiHTN medications * Dose medications for renal function Subjective Date of service: 07/05/17 Principal diagnosis: Acute Respiratory Distress; ESRD on Dialysis; Hypertensive Urgency Interval history: Patient c/o abdominal pain Objective - Vital Signs Vital signs: Vital Signs - 12hr 07/05/17 07/05/17 06:41 10:00 Pulse Rate 70 73 Blood Pressure 138/76 135/75 - General Appearance General appearance: well-developed, frail EENT: ATNC Respiratory: Present: Clear to Ascultation Cardiology: regular, S1S2 Gastrointestinal: tenderness (epigastric) Integumentary: no rash Musculoskeletal: other (no edema) Psychiatric: cooperative - Lab 07/05/17 05:05 07/05/17 05:05 Most recent lab results Calcium 8.8 mg/dL (8.4-10.2) 07/05/17 05:05
--- NOTE | 2017-07-05 12:57 | Progress Note ---
Assessment and Plan Assessment and plan: Sepsis. Etiology is due to UTI. Continue Zosyn and vancomycin. Await urine culture results. Hyperkalemia. Resolved. Patient s/p urgent hemodialysis. End-stage renal disease on hemodialysis. Continue Friday, Friday and Friday schedule per nephrology. Hyponatremia. Acute on Chronic systolic CHF. Patient status post hemodialysis. 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 Continue home antihypertensives medications. Urinary tract infection. Continue antibiotics. Follow-up urine culture. DVT prophylaxis. Heparin subcut Full CODE STATUS Sclerosis and lucency of bones on CT. Will need further workup. Diarrhea. C. difficile and stool studies. Atrial fibrillation. History Interval history: No Issues overnight. Hospitalist Physical - Constitutional Vitals: Temp Pulse Resp BP Pulse Ox 98.2 F 73 20 135/75 100 07/04/17 14:48 07/05/17 10:00 07/04/17 22:00 07/05/17 10:00 07/04/17 14:48 General appearance: Present: no acute distress, well-nourished - EENT Eyes: Present: PERRL, EOM intact ENT: hearing intact, clear oral mucosa, dentition normal - Neck Neck: Present: supple, normal ROM - Respiratory Respiratory effort: normal Respiratory: bilateral: CTA - Cardiovascular Rhythm: regular Heart Sounds: Present: S1 & S2. Absent: gallop, rub - Extremities Extremities: no ischemia, No edema, Full ROM - Abdominal General gastrointestinal: soft, non-tender, non-distended, normal bowel sounds - Integumentary Integumentary: Present: clear, warm, dry - Neurologic Neurologic: CNII-XII intact, moves all extremities Results - Labs CBC & Chem 7: 07/05/17 05:05 07/05/17 05:05 Labs: Laboratory Last Values WBC 3.1 K/mm3 (4.5-11.0) L 07/05/17 05:05 RBC 2.61 M/mm3 (3.65-5.03) L 07/05/17 05:05 Hgb 8.7 gm/dl (10.1-14.3) L 07/05/17 05:05 Hct 26.2 % (30.3-42.9) L 07/05/17 05:05 MCV 100 fl (79-97) H 07/05/17 05:05 MCH 33 pg (28-32) H 07/05/17 05:05 MCHC 33 % (30-34) 07/05/17 05:05 RDW 21.0 % (13.2-15.2) H 07/05/17 05:05 Plt Count 81 K/mm3 (140-440) L 07/05/17 05:05 Lymph % (Auto) 20.3 % (13.4-35.0) 07/05/17 05:05 [place] % (Auto) 9.4 % (0.0-7.3) H 07/05/17 05:05 Eos % (Auto) 1.1 % (0.0-4.3) 07/05/17 05:05 Baso % (Auto) 0.3 % (0.0-1.8) 07/05/17 05:05 Lymph # 0.6 K/mm3 (1.2-5.4) L 07/05/17 05:05 [place] # 0.3 K/mm3 (0.0-0.8) 07/05/17 05:05 Eos # 0.0 K/mm3 (0.0-0.4) 07/05/17 05:05 Baso # 0.0 K/mm3 (0.0-0.1) 07/05/17 05:05 Seg Neutrophils % 68.9 % (40.0-70.0) 07/05/17 05:05 Seg Neutrophils # 2.1 K/mm3 (1.8-7.7) 07/05/17 05:05 PT 21.3 Sec. (12.2-14.9) H 07/02/17 23:43 INR 1.74 (0.87-1.13) H 07/02/17 23:43 APTT 40.0 Sec. (24.2-36.6) H 07/02/17 23:43 VBG pH 7.268 (7.320-7.420) L 07/02/17 23:43 Sodium 138 mmol/L (137-145) 07/05/17 05:05 Potassium 3.6 mmol/L (3.6-5.0) 07/05/17 05:05 Chloride 96.0 mmol/L (98-107) L 07/05/17 05:05 Carbon Dioxide 23 mmol/L (22-30) 07/05/17 05:05 Anion Gap 23 mmol/L 07/05/17 05:05 BUN 26 mg/dL (7-17) H 07/05/17 05:05 Creatinine 3.9 mg/dL (0.7-1.2) H 07/05/17 05:05 Estimated GFR 13 ml/min 07/05/17 05:05 BUN/Creatinine Ratio 6.66 % 07/05/17 05:05 Glucose 81 mg/dL (65-100) 07/05/17 05:05 POC Glucose 153 (70-105) H 07/03/17 03:38 Lactic Acid 3.00 mmol/L (0.7-2.0) H* 07/04/17 20:11 Calcium 8.8 mg/dL (8.4-10.2) 07/05/17 05:05 Total Bilirubin 0.80 mg/dL (0.1-1.2) 07/04/17 04:19 AST 34 units/L (5-40) 07/04/17 04:19 ALT 12 units/L (7-56) 07/04/17 04:19 Alkaline Phosphatase 49 units/L (35-129) 07/04/17 04:19 Total Creatine Kinase 57 units/L (30-135) 07/02/17 23:32 CK-MB (CK-2) 2.5 ng/mL (0.0-4.0) 07/02/17 23:32 CK-MB (CK-2) Rel Index 4.3 (0-4) H 07/02/17 23:32 Troponin T 0.114 ng/mL (0.00-0.029) H* 07/03/17 10:07 C-Reactive Protein 3.00 mg/dL (0.00-1.30) H 07/03/17 19:00 Total Protein 7.9 g/dL (6.3-8.2) 07/04/17 04:19 Albumin 3.3 g/dL (3.9-5) L 07/04/17 04:19 Albumin/Globulin Ratio 0.7 % 07/04/17 04:19 Urine Color [place] (Yellow) 07/03/17 00:51 Urine Turbidity Cloudy (Clear) 07/03/17 00:51 Urine pH 5.0 (5.0-7.0) 07/03/17 00:51 Ur Specific [place] 1.016 (1.003-1.030) 07/03/17 00:51 Urine Protein >500 mg/dL (Negative) 07/03/17 00:51 Urine Glucose (UA) Neg mg/dL (Negative) 07/03/17 00:51 Urine Ketones Neg mg/dL (Negative) 07/03/17 00:51 Urine Blood Lg (Negative) 07/03/17 00:51 Urine Nitrite Neg (Negative) 07/03/17 00:51 Urine Bilirubin Neg (Negative) 07/03/17 00:51 Urine Urobilinogen < 2.0 mg/dL (<2.0) 07/03/17 00:51 Ur Leukocyte Esterase Lg (Negative) 07/03/17 00:51 Urine WBC (Auto) > 182.0 /HPF (0.0-6.0) H 07/03/17 00:51 Urine RBC (Auto) 19.0 /HPF (0.0-6.0) 07/03/17 00:51 U Epithel Cells (Auto) 4.0 /HPF (0-13.0) 07/03/17 00:51 Urine Bacteria (Auto) 4+ /HPF (Negative) 07/03/17 00:51 Urine WBC Clumps 2+ /HPF 07/03/17 00:51 Urine Mucus Few /HPF 07/03/17 00:51
[2017-07-05 15:42] LABS: Creatine Kinase MB 1.2 ng/mL (0.0-4.0)
--- NOTE | 2017-07-05 19:05 | Progress Note ---
Assessment and Plan No complaint of chest pain or shortness of breath. Patient resting on room air. O2 saturation 100%. - Patient Problems (1) Bilateral pleural effusion Current Visit: Yes Status: Acute Plan to address problem: Obtaining ultrasound of chest to quantitate pleural effusion. (2) CHF exacerbation Current Visit: Yes Status: Acute Qualifiers: Congestive heart failure type: C Plan to address problem: Management as per primary care and cardiology. (3) ESRD needing dialysis Current Visit: Yes Status: Acute Plan to address problem: Management as per nephrology. (4) Hypertensive urgency Current Visit: Yes Status: Acute Plan to address problem: Management as per primary care. Subjective Date of service: 07/05/17 Principal diagnosis: Acute Respiratory Distress; ESRD on Dialysis; Hypertensive Urgency Interval history: No complaint of chest pain or shortness of breath. Patient resting on room air. O2 saturation 100%. Objective Vital Signs - 12hr 07/05/17 10:00 Temperature 98.2 F Pulse Rate 73 Pulse Rate [ 62 Left Dorsalis Pedis] Pulse Rate [ 60 Right Dorsalis Pedis] Pulse Rate [ 64 Right Radial] Respiratory 18 Rate Blood Pressure 135/75 Constitutional: no acute distress, alert Eyes: non-icteric ENT: oropharynx moist Neck: supple, no lymphadenopathy Effort: normal Ascultation: Bilateral: diminished breath sounds (bases R>L), rales (scant in bases) Cardiovascular: regular rate and rhythm Gastrointestinal: normoactive bowel sounds, hypoactive bowel sounds, soft, non- tender Integumentary: normal Extremities: no cyanosis, no edema, pulses normal, no ischemia or petechiae Neurologic: normal mental status, non-focal exam, pupils equal and round, motor strength normal and Psychiatric: mood appropriate, affect normal CBC and BMP: 07/05/17 05:05 07/05/17 05:05 ABG, PT/INR, D-dimer: PT/INR, D-dimer PT 21.3 Sec. (12.2-14.9) H 07/02/17 23:43 INR 1.74 (0.87-1.13) H 07/02/17 23:43 Abnormal lab findings: Abnormal Labs 07/03/17 07/03/17 07/03/17 03:38 10:07 19:00 WBC RBC Hgb Hct MCV MCH RDW Plt Count [place] % (Auto) Lymph # Seg Neutrophils % Sodium 135 L Potassium 3.4 L D Chloride 91.2 L BUN 35 H Creatinine 4.3 H Glucose 155 H POC Glucose 153 H Lactic Acid Calcium 8.3 L Troponin T 0.114 H* C-Reactive Protein 3.00 H Albumin 07/03/17 07/04/17 07/04/17 19:00 04:19 04:19 WBC 3.7 L RBC 2.68 L Hgb 8.7 L Hct 27.0 L MCV 101 H MCH 33 H RDW 21.0 H Plt Count 81 L [place] % (Auto) 7.4 H Lymph # 0.6 L Seg Neutrophils % 75.2 H Sodium Potassium Chloride 93.7 L BUN 44 H Creatinine 5.6 H Glucose POC Glucose Lactic Acid 2.40 H* Calcium Troponin T C-Reactive Protein Albumin 3.3 L 07/04/17 07/05/17 07/05/17 20:11 05:05 05:05 WBC 3.1 L RBC 2.61 L Hgb 8.7 L Hct 26.2 L MCV 100 H MCH 33 H RDW 21.0 H Plt Count 81 L [place] % (Auto) 9.4 H Lymph # 0.6 L Seg Neutrophils % Sodium Potassium Chloride 96.0 L BUN 26 H Creatinine 3.9 H Glucose POC Glucose Lactic Acid 3.00 H* Calcium Troponin T C-Reactive Protein Albumin 07/05/17 15:07 WBC RBC Hgb Hct MCV MCH RDW Plt Count [place] % (Auto) Lymph # Seg Neutrophils % Sodium Potassium Chloride BUN Creatinine Glucose POC Glucose Lactic Acid Calcium Troponin T 0.094 H C-Reactive Protein Albumin Chest x-ray: report reviewed (Bilateral pleural effusion, more on right side. Defirillator or pace maker implantation.), image reviewed
[2017-07-05 22:15] LABS: Creatine Kinase MB 1.2 ng/mL (0.0-4.0)
[2017-07-06] MEDS: ZOSYN/NS 2.25 GM/50ML 2.25 GM/50 ML BAG IV SCH (01:30)
[2017-07-06] MEDS: APRESOLINE PO SCH (06:00)
[2017-07-06] MEDS: HEPARIN SUB-Q SCH (06:00)
--- NOTE | 2017-07-06 10:25 | Progress Note ---
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 * Atrial fibrillation --s/p dual chamber PPM 03/19 * Anemia secondary to ESRD * Secondary hyperparathyroidism * Recurrent hospitalizations Plan * Hemodialysis MWF schedule * UF as tolerated * SPEP/SIFE ordered; consider heme/onc consult * Abx per primary team * Await blood cx * Empiric abx per primary team * Continue antiHTN medications * Dose medications for renal function Subjective Date of service: 07/06/17 Principal diagnosis: Acute Respiratory Distress; ESRD on Dialysis; Hypertensive Urgency Objective - Vital Signs Vital signs: Vital Signs - 12hr 07/05/17 07/06/17 07/06/17 23:00 00:07 06:00 Temperature 99.0 F Pulse Rate 108 H 72 Pulse Rate [ 108 H Brachial] Respiratory 17 Rate Blood Pressure 152/86 152/86 176/86 O2 Sat by Pulse 93 Oximetry 07/06/17 08:51 Temperature 97.5 F L Pulse Rate Pulse Rate [ 77 Brachial] Respiratory 18 Rate Blood Pressure 158/87 O2 Sat by Pulse 100 Oximetry - General Appearance General appearance: frail EENT: ATNC Respiratory: Present: Clear to Ascultation Cardiology: regular, S1S2 - Lab 07/05/17 05:05 07/05/17 05:05 Most recent lab results Calcium 8.8 mg/dL (8.4-10.2) 07/05/17 05:05
[2017-07-06] MEDS: PEPCID PO SCH (10:28)
[2017-07-06] MEDS: TOPROL XL PO SCH (10:29)
[2017-07-06] MEDS: NORVASC PO SCH (10:32)
--- NOTE | 2017-07-06 11:46 | Discharge Summary ---
Providers - Providers Date of Admission: 07/03/17 02:37 Date of discharge: 07/06/17 Attending physician: ТАТЬЯНА HAYES 07/03/17 02:51 Consult to Physician [CONS] Routine Consulting Provider: DONTAE SCHUMACHER Reason For Exam: CCU Place consult to:: Dr. Schumacher Notified:: Answering Service Phone number called:: [phone] Was contact made?: No 07/06/17 08:49 Consult to Cardiology [CONS] Routine Consulting Provider: JASEN URIBE Reason For Exam: cp Primary care physician: [employer] Hospitalization Reason for admission: sepsis Condition: Stable Hospital course: The patient is a 82-year-old female with significant past medical history of ESRD on hemodialysis, coronary artery disease, CVA, atrial fibrillation and hypertension who presented through the emergency department with chief complaint of chest pain. Patient was noted to have also on admission severe hypoglycemia and hyperkalemia with a blood glucose less than 20 and potassium of 5.9. Patient also had severe metabolic acidosis with CO2 of 8 and hypothermia with a temperature of 93.5. Urinalysis was indicative of urinary tract infection. Blood cultures were eventually found to be negative. Patient was admitted with diagnosis of severe sepsis secondary to UTI, toxic metabolic encephalopathy and acute on chronic systolic heart failure. On admission, patient was noted to have acute pulmonary edema from fluid overload. Patient was seen by nephrology consultation and underwent emergent hemodialysis. Patient had CT scan which illustrated the volume overload with diffuse body wall edema/anasarca. CT scan also revealed diffuse patchy sclerosis and lucency of the lumbar spine and bony pelvis concerning for osseous metastatic disease versus multiple myeloma. The patient received appropriate IV antibiotic therapy with Zosyn. Urine culture revealed Escherichia coli that was sensitive to the antibiotic. Patient will be discharged with Ceftin and which E coli is also sensitive. Patient should have further follow-up as an outpatient for the abnormal CT scan with repeat CAT scan. Cardiology also saw the patient in consultation given her initial complaint of chest pain. However , patient had a recent Lexiscan that was normal in October. Cardiology will follow up as an outpatient. The patient is felt to have received maximal hospital benefit. Dedicated discharge time 35 minutes. Disposition: DC-30 STILL A PATIENT Time spent for discharge: 35 - Discharge Diagnoses (1) Severe sepsis Status: Acute (2) Toxic metabolic encephalopathy Status: Acute (3) Anasarca Status: Acute (4) CHF exacerbation Status: Acute Qualifiers: Congestive heart failure type: C (5) ESRD needing dialysis Status: Acute (6) Hyperkalemia Status: Acute Core Measure Documentation - Palliative Care Palliative Care/ Comfort Measures: Not Applicable - Core Measures Any of the following diagnoses?: none Exam - Constitutional Vitals: Temp Pulse Resp BP Pulse Ox 97.5 F L 77 18 158/87 100 07/06/17 08:51 07/06/17 10:32 07/06/17 08:51 07/06/17 10:32 07/06/17 08:51 General appearance: Present: no acute distress, well-nourished - EENT Eyes: Present: PERRL ENT: hearing intact, clear oral mucosa - Neck Neck: Present: supple, normal ROM - Respiratory Respiratory effort: normal Respiratory: bilateral: CTA - Cardiovascular Heart Sounds: Present: S1 & S2. Absent: rub, click - Extremities Extremities: pulses symmetrical, No edema Peripheral Pulses: within normal limits - Abdominal General gastrointestinal: Present: soft, non-tender, non-distended, normal bowel sounds Female genitourinary: Present: normal - Integumentary Integumentary: Present: clear, warm, dry - Musculoskeletal Musculoskeletal: gait normal, strength equal bilaterally - Psychiatric Psychiatric: appropriate mood/affect, intact judgment & insight - Neurologic Neurologic: CNII-XII intact, moves all extremities Plan Activity: no restrictions Weight Bearing Status: Full Weight Bearing Diet: renal Follow up with: DONAVAN PECK MD [Primary Care Provider] - 3-5 Days YVES TUCKER MD [Staff Physician] - 7 Days JASEN URIBE MD [Staff Physician] - 7 Days Prescriptions: Cefuroxime Axetil [Ceftin] 500 mg PO Q12H #10 tablet
--- NOTE | 2017-07-06 11:54 | Consultation ---
History of Present Illness Consult date: 07/06/17 Requesting physician: ТАТЬЯНА HAYES Consult reason: chest pain History of present illness: The patient has a history of atypical chest pain. He had normal coronary arteries in December 2011. He has had multiple presentations with atypical chest pain since then including a negative stress test in October 2016. He presented a few days ago with substernal chest and lasting for a few minutes and resolving spontaneously. However, he was noted to be septic upon presentation to the hospital. His cardiac enzymes showed mildly elevated troponin levels. Notably, he has end-stage renal disease. He has been treated for sepsis with improvement but has not had any recurrent chest pain. Past History Past Medical History: atrial fib (paroxysmal), ESRD, heart failure, hypertension , hyperlipidemia, stroke (with hemorrhagic conversion), other (sinus node dysfunction, negative stress test in October 2016, pulmonary hypertension, echocardiogram with ejection fraction of 4550 percent and moderate LVH in November 2016, normal coronary arteries in 01/05, anemia of chronic disease.) Past Surgical History: Other (permanent pacemaker implantation) Social history: , lives with family. denies: smoking, alcohol abuse Family history: CAD Medications and Allergies Allergies Allergy/AdvReac Type Severity Reaction Status Date / Time naproxen Allergy Itching Verified 04/17/17 11:25 Home Medications Medication Instructions Recorded Confirmed Last Taken Type Metoprolol Xl [Metoprolol 50 mg PO QDAY #30 tablet 06/28/17 07/03/17 07/02/17 Rx SUCCINATE ER TAB] amLODIPine [Norvasc] 5 mg PO QDAY #30 tablet 06/28/17 07/03/17 07/02/17 Rx hydrALAZINE [Apresoline TAB] 50 mg PO Q8HR #90 tablet 06/28/17 07/03/17 Rx Active Meds: Active Medications Al Hydrox/Mg Hydrox/Simethicone (Alum-Mag Hydrox-Simeth [id number]/5ml) 30 ml PO Q4H PRN PRN Reason: Indigestion Amlodipine Besylate (Norvasc) 5 mg PO QDAY GAVIOTA Last Admin: 07/06/17 10:32 Dose: 5 mg Bisacodyl (Dulcolax) 10 mg AR QDAY PRN PRN Reason: constipation unrelieved by MOM Dextrose (D50w (25gm)) 25 ml IV PRN PRN PRN Reason: Hypoglycemia Famotidine (Pepcid) 20 mg PO QDAY [facility] Last Admin: 07/06/17 10:28 Dose: 20 mg Heparin Sodium (Porcine) (Heparin) 5,000 unit SUB-Q Q8HR [facility] Last Admin: 07/06/17 06:00 Dose: 5,000 unit Heparin Sodium (Porcine) (Heparin) 5,000 unit IV SHIRA PRN PRN Reason: hemodialysis Last Admin: 07/04/17 14:52 Dose: 5,000 unit Hydralazine HCl (Apresoline) 50 mg PO Q8HR [facility] Last Admin: 07/06/17 06:00 Dose: 50 mg Nicardipine HCl 50 mg/ Sodium (Chloride) 250 mls @ 25 mls/hr IV TITR GAVIOTA; 5 MG/ HR PRN Reason: Protocol Last Admin: 07/02/17 23:53 Dose: 5 mg/hr, 25 mls/hr Piperacillin Sod/Tazobactam Sod (Zosyn/Ns 2.25 Gm/50ml) 2.25 gm in 50 mls @ 100 mls/hr IV Q8H GAVIOTA PRN Reason: Protocol Last Admin: 07/06/17 01:30 Dose: 100 mls/hr Sodium Chloride (Nacl 0.9%) 100 mls @ 999 mls/hr IV SHIRA PRN PRN Reason: Hypotension Sodium Chloride (Nacl 0.9%) 100 mls @ 999 mls/hr IV SHIRA PRN PRN Reason: Hypotension Metoprolol Succinate (Toprol Xl) 50 mg PO QDAY [facility] Last Admin: 07/06/17 10:29 Dose: 50 mg Morphine Sulfate (Morphine) 2 mg IV Q4H PRN PRN Reason: Pain, Moderate (4-6) Ondansetron HCl (Zofran) 4 mg IV Q6H PRN PRN Reason: nausea or vomiting Review of Systems Constitutional: no fever, no chills Ears, nose, mouth and throat: no ear pain, no ear discharge, no sore throat Cardiovascular: chest pain, no palpitations, no edema, no lightheadedness, no shortness of breath Respiratory: no cough, no hemoptysis Gastrointestinal: no abdominal pain, no nausea, no vomiting, no diarrhea, no constipation Genitourinary Female: no dysuria, no urgency Rectal: no pain, no bleeding Musculoskeletal: no neck stiffness, no neck pain, no myalgias Integumentary: no rash, no pruritis Neurological: no paralysis, no weakness, no parathesias, no numbness, no tingling, no headaches Endocrine: no cold intolerance, no heat intolerance Hematologic/Lymphatic: no easy bruising, no easy bleeding Allergic/Immunologic: no urticaria, no wheezing Physical Examination Vital Signs Last Vital Signs Temp 97.5 F L 07/06/17 08:51 Pulse 77 07/06/17 10:32 Resp 18 07/06/17 08:51 BP 158/87 07/06/17 10:32 Pulse Ox 100 07/06/17 08:51 General appearance: no acute distress HEENT: Positive: EOMI, Normocephaly, Mucus Membranes Moist Neck: Positive: neck supple, trachea midline Cardiac: Positive: Reg Rate and Rhythm, S1/S2 Lungs: Positive: clear to auscultation Neuro: Positive: Grossly Intact Abdomen: Positive: Soft, Active Bowel Sounds. Negative: Tender Skin: Positive: Clear. Negative: Rash Musculoskeletal: Normal Range of Motion Extremities: Present: normal. Absent: edema Results 07/05/17 05:05 07/05/17 05:05 Cardiac Enzymes 07/05/17 07/05/17 Range/Units 15:07 20:59 CK-MB (CK-2) 1.2 1.2 (0.0-4.0) ng/mL - Imaging and Cardiology EKG: image reviewed EKG interpretations - Telemetry EKG Rhythm: Paced Pacemaker: atrial pacing w/capture Assessment and Plan 1. Atypical chest pain. Chronic, recurrent, resolved. 2. Normal coronary arteries in December 2011. 3. Sepsis, resolved 4. Hypertension 5. Mildly elevated troponin level. Likely secondary to ESRD 6. Permanent pacemaker in situ. 7. Pulmonary hypertension. 8. Anemia. 9. End-stage renal disease Recommendations His cardiac status appears stable. Continue medical management. Optimize antihypertensive regimen. Consider adding oral nitrates. Follow-up with Dr. Shama Moreira at our office in 1-2 weeks.
[2017-07-06 12:05] LABS: Basophils % (Auto) 0.4 % (0.0-1.8); Eosinophils % (Auto) 0.5 % (0.0-4.3); Hematocrit 29.7 % (30.3-42.9); Hemoglobin 9.3 gm/dl (10.1-14.3); Mean Corpuscular HGB Conc 31 % (30-34); Mean Corpuscular Hemoglobin 33 pg (28-32); Mean Corpuscular Volume 104 fl (79-97); Red Blood Count 2.85 M/mm3 (3.65-5.03); White Blood Count 3.5 K/mm3 (4.5-11.0)
[2017-07-06 12:12] LABS: Platelet Count 89 K/mm3 (140-440); Red Cell Distribution Width 21.3 % (13.2-15.2)
[2017-07-06 12:13] LABS: BUN/Creatinine Ratio 7.77; Calcium 8.4 mg/dL (8.4-10.2); Chloride 90.5 mmol/L (98-107); Potassium 3.7 mmol/L (3.6-5.0)
[2017-07-06 12:15] LABS: Creatine Kinase MB 1.2 ng/mL (0.0-4.0)
[2017-07-06 12:58] VITALS: BP 159/72
[2017-07-06] MEDS ORDERED: IMDUR PO SCH (13:00)
[2017-07-08 22:18] LABS: Abnormal Protein Band 1 2.6 g/dL; Albumin 3.5 g/dL (3.8-4.8); Gamma Globulin 2.8 g/dL (0.8-1.7)
== END 2017-07-06 13:10 | disposition home or self-care (01) | DRG 871 ==
LOC: ED 23:04 → CC1 07-03 02:37 → CC2 07-04 16:33
PROVIDERS: ADMIT Internal Medicine; ATTEND Hospitalist
PROC: 5A1D60Z (ICD-10-PCS; principal; 2017-07-03)
DX: A41.9 Sepsis, unspecified organism (principal); N18.6 End stage renal disease; I50.23 Acute on chronic systolic (congestive) heart failure; J96.01 Acute respiratory failure with hypoxia; G92 Toxic encephalopathy; I13.2 Hypertensive heart and chronic kidney disease with heart failure and with stage 5 chronic kidney disease, or end stage renal disease; E87.2 Acidosis; N39.0 Urinary tract infection, site not specified; I42.9 Cardiomyopathy, unspecified; C90.00 Multiple myeloma not having achieved remission; I16.0 Hypertensive urgency; E87.5 Hyperkalemia; I27.2 Other secondary pulmonary hypertension; G89.4 Chronic pain syndrome; J44.9 Chronic obstructive pulmonary disease, unspecified; E16.2 Hypoglycemia, unspecified; D69.6 Thrombocytopenia, unspecified; I25.10 Atherosclerotic heart disease of native coronary artery without angina pectoris; R65.20 Severe sepsis without septic shock; E78.5 Hyperlipidemia, unspecified; D63.1 Anemia in chronic kidney disease; I48.0 Paroxysmal atrial fibrillation; R19.7 Diarrhea, unspecified; B96.20 Unspecified Escherichia coli [E. coli] as the cause of diseases classified elsewhere; Z95.0 Presence of cardiac pacemaker; Z82.49 Family history of ischemic heart disease and other diseases of the circulatory system; Z91.15 Patient's noncompliance with renal dialysis; Z79.899 Other long term (current) drug therapy; Z88.6 Allergy status to analgesic agent; I25.2 Old myocardial infarction; Z99.2 Dependence on renal dialysis; Z86.73 Personal history of transient ischemic attack (TIA), and cerebral infarction without residual deficits
CPT/HCPCS: 36415; 70450; 71010; 71260; 74177; 80048; 80053; 81001; 82140; 82550; 82553; 82805; 82962; 84165; 84484; 85025; 85610; 85730; 86140; 86334; 87040; 87076; 87086; 87186; 93005; 93010; 94644; 96365; 96366; 96368; 96375; J0610; J1644; J2543; J3370; J7050; Q9967

== ENCOUNTER 2017-07-14 13:23 | Inpatient (IN) | payer MEDICARE ==
--- NOTE | 2017-07-14 13:55 | Emergency Department Report ---
Chief Complaint: Weakness Stated Complaint: WEAKNESS/CANT STAND Time Seen by Provider: 07/14/17 13:50 - HPI History of Present Illness: pt brought in by her for generalized weakness. - ROS Review of Systems: - chest pain - Exam Vital Signs: Vital Signs 07/14/17 13:50 Temperature 98.4 F Pulse Rate 97 H Blood Pressure 185/103 O2 Sat by Pulse 99 Oximetry Physical Exam: thin female no acute distress MSE screening note: Focused history and physical exam performed. Due to findings the following was ordered: labs, ekg ED Disposition for MSE Condition: Stable
[2017-07-14 14:20] LABS: Basophils % (Auto) 0.3 % (0.0-1.8); Eosinophils % (Auto) 0.2 % (0.0-4.3); Hemoglobin 9.3 gm/dl (10.1-14.3); Mean Corpuscular HGB Conc 31 % (30-34); Mean Corpuscular Hemoglobin 33 pg (28-32); Mean Corpuscular Volume 108 fl (79-97); Red Blood Count 2.79 M/mm3 (3.65-5.03); White Blood Count 4.6 K/mm3 (4.5-11.0)
[2017-07-14 14:32] LABS: Platelet Count 76 K/mm3 (140-440); Red Cell Distribution Width 23.3 % (13.2-15.2)
[2017-07-14 14:34] LABS: Albumin 3.6 g/dL (3.9-5); Albumin/Globulin Ratio 0.7 %; BUN/Creatinine Ratio 10.27; Bilirubin,Total 1.6 mg/dL (0.1-1.2); Calcium 9.1 mg/dL (8.4-10.2); Chloride 91.6 mmol/L (98-107); Total Protein 8.5 g/dL (6.3-8.2)
[2017-07-14 14:38] LABS: Potassium 6.1 mmol/L (3.6-5.0)
[2017-07-14] MEDS ORDERED: SODIUM BICARBONATE IV ONE ×2 (14:45→16:00)
[2017-07-14] MEDS ORDERED: PROVENTIL IH ONE (14:45)
[2017-07-14] MEDS ORDERED: D50W (25GM) Syringe IV ONE ×3 (14:45→15:58)
[2017-07-14] MEDS ORDERED: CALCIUM CHLORIDE IVP ONE (14:45)
[2017-07-14] MEDS ORDERED: LASIX IV ONE (15:27)
--- NOTE | 2017-07-14 15:57 | Emergency Department Report ---
- General Chief complaint: Weakness Stated complaint: WEAKNESS/CANT STAND Time Seen by Provider: 07/14/17 13:50 Source: patient Mode of arrival: Wheelchair Limitations: No Limitations - History of Present Illness Initial comments: 82-year-old female with a past medical history CHF, COPD, dementia, atrial fib/ flutter, hypertension, end-stage renal disease on dialysis Friday, , and Friday presents to the hospital with complaints of generalized weakness. Initial complaints that she cannot walk. Patient states she can walk but feels weak all over. No complaints of pain. Patient had a recent admission here 07/03 - 07/06 for hypoglycemia, hyperkalemia, lactic acidosis, and urosepsis. Patient also had a CT revealing patchy sclerosis and lucency of the lumbar spine and pelvis concerning for osseous metastatic disease versus multiple myeloma. Patient was treated with Zofran and discharged on Ceftin for Escherichia coli UTI. Patient has been compliant with her dialysis. Last dialysis was Friday and due tomorrow. - Related Data Home Medications Medication Instructions Recorded Confirmed Last Taken Apixaban [Eliquis] 2.5 mg PO BID 07/14/17 07/14/17 Unknown Aspirin [Adult Low Dose Aspirin EC] 81 mg PO QPM 07/14/17 07/14/17 Unknown AtorvaSTATin [Lipitor] 40 mg PO QHS 07/14/17 07/14/17 Unknown Carvedilol [Coreg] 25 mg PO BID 07/14/17 07/14/17 Unknown Losartan [Cozaar] 100 mg PO QDAY 07/14/17 07/14/17 Unknown hydrALAZINE [Apresoline TAB] 100 mg PO TID 07/14/17 07/14/17 07/14/17 Allergies Allergy/AdvReac Type Severity Reaction Status Date / Time naproxen Allergy Itching Verified 04/17/17 11:25 ED Review of Systems ROS: Stated complaint: WEAKNESS/CANT STAND Other details as noted in HPI Comment: All other systems reviewed and negative Other: Constitutional: No fevers chills Eyes: No eye pain visual changes ENT: No ear pain or throat pain Neck: Denies pain Respiratory: Denies cough wheezing shortness of breath Cardiovascular: Denies chest pain, palpitations, syncope GI: Denies abdominal pain, nausea, vomiting, diarrhea : Denies dysuria, pt still has Urine output Musculoskeletal: Denies back pain Skin: Denies rash, lesions, erythema Neurologic: Denies headache, numbness, focal weakness Psychiatric: Denies suicidal ideation, hallucinations ED Past Medical Hx - Past Medical History Hx Hypertension: Yes Hx Heart Attack/AMI: Yes Hx Congestive Heart Failure: Yes Hx Diabetes: No Hx Renal Disease: Yes (ESRD Dialysis T,Th, Sat) Hx Sickle Cell Disease: No Hx COPD: Yes Hx Dementia: Yes Hx HIV: No Additional medical history: Afib/Aflutter - Surgical History Hx Pacemaker: Yes (Dual chamber PPM) Additional Surgical History: vas cath to right chest - Social History Smoking Status: Never Smoker Substance Use Type: None - Medications Home Medications: Home Medications Medication Instructions Recorded Confirmed Last Taken Type Apixaban [Eliquis] 2.5 mg PO BID 07/14/17 07/14/17 Unknown History Aspirin [Adult Low Dose Aspirin EC] 81 mg PO QPM 07/14/17 07/14/17 Unknown History AtorvaSTATin [Lipitor] 40 mg PO QHS 07/14/17 07/14/17 Unknown History Carvedilol [Coreg] 25 mg PO BID 07/14/17 07/14/17 Unknown History Losartan [Cozaar] 100 mg PO QDAY 07/14/17 07/14/17 Unknown History hydrALAZINE [Apresoline TAB] 100 mg PO TID 07/14/17 07/14/17 07/14/17 History ED Physical Exam - General Limitations: No Limitations ED Course Vital Signs 07/14/17 07/14/17 07/14/17 13:50 15:31 16:37 Temperature 98.4 F Pulse Rate 97 H Pulse Rate [ 75 95 H Anterior Bilateral Throughout] Respiratory Rate Respiratory 20 20 Rate [Anterior Bilateral Throughout] Blood Pressure 185/103 Blood Pressure [Left] O2 Sat by Pulse 99 Oximetry 07/14/17 07/14/17 17:05 17:07 Temperature Pulse Rate 106 H 106 H Pulse Rate [ Anterior Bilateral Throughout] Respiratory 20 20 Rate Respiratory Rate [Anterior Bilateral Throughout] Blood Pressure Blood Pressure 111/70 [Left] O2 Sat by Pulse 99 99 Oximetry - Reevaluation(s) Reevaluation #1: 07/14/17 16:07 D50 x 2 amps given for hypoglycemia prior to insulin. Rest of Hyperkalemia cocktail ordered. UA collection pending given recent uti diagnosis - Consultations Consultation #1: 07/14/17 15:28 Case discussed with Phoebe with nephrology. She would discuss case with Dr. Graham and call back regarding need for possible dialysis today ED Medical Decision Making - Lab Data Result diagrams: 07/14/17 13:59 07/14/17 13:59 Lab Results 07/14/17 07/14/17 07/14/17 Range/Units 13:59 13:59 13:59 WBC 4.6 (4.5-11.0) K/mm3 RBC 2.79 L (3.65-5.03) M/mm3 Hgb 9.3 L (10.1-14.3) gm/dl Hct 30.0 L (30.3-42.9) % MCV 108 H (79-97) fl MCH 33 H (28-32) pg MCHC 31 (30-34) % RDW 23.3 H (13.2-15.2) % Plt Count 76 L (140-440) K/mm3 Lymph % (Auto) 15.1 (13.4-35.0) % Sanborn % (Auto) 6.5 (0.0-7.3) % Eos % (Auto) 0.2 (0.0-4.3) % Baso % (Auto) 0.3 (0.0-1.8) % Lymph # 0.7 L (1.2-5.4) K/mm3 Sanborn # 0.3 (0.0-0.8) K/mm3 Eos # 0.0 (0.0-0.4) K/mm3 Baso # 0.0 (0.0-0.1) K/mm3 Seg Neutrophils % 77.9 H (40.0-70.0) % Seg Neutrophils # 3.6 (1.8-7.7) K/mm3 D-Dimer (0-234) ng/mlDDU Sodium 137 (137-145) mmol/L Potassium 6.1 H* (3.6-5.0) mmol/L Chloride 91.6 L (98-107) mmol/L Carbon Dioxide 16 L (22-30) mmol/L Anion Gap 36 mmol/L BUN 76 H (7-17) mg/dL Creatinine 7.4 H (0.7-1.2) mg/dL Estimated GFR 6 ml/min BUN/Creatinine Ratio 10.27 % Glucose 53 L (65-100) mg/dL Calcium 9.1 (8.4-10.2) mg/dL Total Bilirubin 1.60 H (0.1-1.2) mg/dL AST 53 H (5-40) units/L ALT 16 (7-56) units/L Alkaline Phosphatase 65 65 (35-129) units/L Lactate Dehydrogenase 445 H (91-180) units/L Total Protein 8.5 H (6.3-8.2) g/dL Albumin 3.6 L (3.9-5) g/dL Albumin/Globulin Ratio 0.7 % Urine Color (Yellow) Urine Turbidity (Clear) Urine pH (5.0-7.0) Ur Specific Doyle (1.003-1.030) Urine Protein (Negative) mg/dL Urine Glucose (UA) (Negative) mg/dL Urine Ketones (Negative) mg/dL Urine Blood (Negative) Urine Nitrite (Negative) Urine Bilirubin (Negative) Urine Urobilinogen (<2.0) mg/dL Ur Leukocyte Esterase (Negative) Urine WBC (Auto) (0.0-6.0) /HPF Urine RBC (Auto) (0.0-6.0) /HPF U Epithel Cells (Auto) (0-13.0) /HPF Urine Bacteria (Auto) (Negative) /HPF Urine Mucus /HPF Ur Yeast w Hyphae /HPF Urine Yeast (Budding) /HPF 07/14/17 07/14/17 Range/Units 17:07 17:41 WBC (4.5-11.0) K/mm3 RBC (3.65-5.03) M/mm3 Hgb (10.1-14.3) gm/dl Hct (30.3-42.9) % MCV (79-97) fl MCH (28-32) pg MCHC (30-34) % RDW (13.2-15.2) % Plt Count (140-440) K/mm3 Lymph % (Auto) (13.4-35.0) % Sanborn % (Auto) (0.0-7.3) % Eos % (Auto) (0.0-4.3) % Baso % (Auto) (0.0-1.8) % Lymph # (1.2-5.4) K/mm3 Sanborn # (0.0-0.8) K/mm3 Eos # (0.0-0.4) K/mm3 Baso # (0.0-0.1) K/mm3 Seg Neutrophils % (40.0-70.0) % Seg Neutrophils # (1.8-7.7) K/mm3 D-Dimer 4240.77 H (0-234) ng/mlDDU Sodium (137-145) mmol/L Potassium (3.6-5.0) mmol/L Chloride (98-107) mmol/L Carbon Dioxide (22-30) mmol/L Anion Gap mmol/L BUN (7-17) mg/dL Creatinine (0.7-1.2) mg/dL Estimated GFR ml/min BUN/Creatinine Ratio % Glucose (65-100) mg/dL Calcium (8.4-10.2) mg/dL Total Bilirubin (0.1-1.2) mg/dL AST (5-40) units/L ALT (7-56) units/L Alkaline Phosphatase (35-129) units/L Lactate Dehydrogenase (91-180) units/L Total Protein (6.3-8.2) g/dL Albumin (3.9-5) g/dL Albumin/Globulin Ratio % Urine Color Yellow (Yellow) Urine Turbidity Slightly-cloudy (Clear) Urine pH 6.0 (5.0-7.0) Ur Specific Doyle 1.017 (1.003-1.030) Urine Protein 100 mg/dl (Negative) mg/dL Urine Glucose (UA) 50 (Negative) mg/dL Urine Ketones Neg (Negative) mg/dL Urine Blood Sm (Negative) Urine Nitrite Neg (Negative) Urine Bilirubin Neg (Negative) Urine Urobilinogen < 2.0 (<2.0) mg/dL Ur Leukocyte Esterase Sm (Negative) Urine WBC (Auto) 21.0 H (0.0-6.0) /HPF Urine RBC (Auto) 10.0 (0.0-6.0) /HPF U Epithel Cells (Auto) 12.0 (0-13.0) /HPF Urine Bacteria (Auto) 1+ (Negative) /HPF Urine Mucus Few /HPF Ur Yeast w Hyphae Few /HPF Urine Yeast (Budding) 2+ /HPF - EKG Data -: EKG Interpreted by Me (sinus rate 94, no peak t waves, no stemi) - EKG Data When compared to previous EKG there are: changes noted (07/02/17, paced rhytm) - Medical Decision Making Patient presents with hypoglycemia and hyperkalemia. She'll be admitted for dialysis and glucose monitoring. UA pending collection of disposition to rule out persistent UTI - Differential Diagnosis mi, uti, hypoglycemia, hypokalemia, hyperkalemia Critical Care Time: No Critical care attestation.: If time is entered above; I have spent that time in minutes in the direct care of this critically ill patient, excluding procedure time. ED Disposition Clinical Impression: End-stage renal disease on hemodialysis, Hyperkalemia, Hypoglycemia, Generalized weakness, Thrombocythemia Anemia Qualifiers: Anemia type: unspecified type Qualified Code(s): D64.9 - Anemia, unspecified Disposition: 09 OP ADMIT IP TO THIS HOSP Is pt being admited?: Yes Condition: Stable Time of Disposition: 16:28 (Dr St/hosp)
[2017-07-14] MEDS ORDERED: CALCIUM CHLORIDE IV ONE (16:00)
--- NOTE | 2017-07-14 16:00 | Admit Criteria Form ---
Admission Criteria Documentation: HYPONATREMIA; HYPERNATREMIA; HYPOKALEMIA; HYPERKALEMIA; HYPOCALCEMIA; HYPERCALCEMIA Clinical Indications for Inpatient Care (Place 'X' for any and all applicable criteria): Ongoing inpatient care may be indicated for ANY ONE of the following [G](1)(2)(3 )(5): [ ]I. Hyponatremia with ANY ONE of the following: [ ]a) Sodium less than 130 mEq/L (mmol/L) (new) (6)(22) [ ]b) Sodium less than 135 mEq/L (mmol/L) with ANY ONE of the following: [ ]i) Severe medical etiology requiring inpatient management (eg, heart failure, hypovolemia) [ ]ii) Altered mental status [ ]iii) Seizures [ ]II. Hypernatremia with ANY ONE of the following: [ ]a) Sodium greater than 155 mEq/L (mmol/L) [ ]b) Sodium greater than 150 mEq/L (mmol/L) with ANY ONE of the following: [ ] i) Altered mental status [ ]ii) Seizures [ ]iii) Severe medical etiology (eg, hypovolemia, diabetes insipidus) [ ]iv) Severe weakness [ ]v) Severe medical etiology (eg, hemolysis, infection, drug overdose) [ ]III. Hypokalemia with ANY ONE of the following: [ ]a) Potassium less than 2.5 mEq/L (mmol/L) despite outpatient and emergency treatment [ ]b) Potassium less than 3.0 mEq/L (mmol/L) with ANY ONE of the following: [ ]i) Weakness [ ]ii) Cardiac abnormality (eg, arrhythmia, conduction disturbance) [ ]iii) Cardiac ischemia [ ]iv) Ileus [ ]v) Ongoing medical cause requiring inpatient management. ( e.g., acute renal wasting, SIADH) [ ]vi) Other severe symptoms [X ] IV. Hyperkalemia with ANY ONE of the following: [ ]a) Potassium greater than 6.5 mEq/L (mmol/L) [ X]b) Potassium greater than 5 mEq/L (mmol/L) with ANY ONE of the following: [ ]i) Severe ECG findings [H] [X]ii) Acute worsening of renal failure (creatinine greater than 2.5 mg/dL (221 micromoles/L) or significant elevation for age and size) [ ] V. Hypocalcemia with ANY ONE of the following: [ ]a) Calcium less than 7 mg/dL (1.75 mmol/L) despite outpatient and emergency treatment(19) [ ]b) Calcium less than 8 mg/dL (2 mmol/L) with significant symptoms or findings; examples include: [ ]i) Cardiac abnormality (eg, arrhythmia or conduction disturbance) [ ]ii) Altered mental status [ ]iii) Seizures [ ]iv) Breathing difficulty [ ]v) Muscle spasms [ ]. Hypercalcemia with ANY ONE of the following: [ ]a) Calcium greater than 14 mg/dL (3.5 mmol/L) [ ]b) Calcium greater than 12 mg/dL (3 mmol/L) with ANY ONE of the following: [ ]i) Significant dehydration or hypovolemia as indicated by ANY ONE of the following(2): [ ]1. Clinically significant dehydration as indicated by ANY ONE of the following: [ ]A. Acute loss of weight from baseline (5% of body weight in adults, 9% in pediatric patients) [ ]B. Hemodynamic instability [ ]C. Acute renal failure [ ]D. Serum sodium greater than 150 mEq/L (mmol/L) [ ]2) Dehydration that is persistent indicated by ALL of the following: [ ]A. Oral rehydration therapy not tolerated or insufficient to adequately correct dehydration [ ]B. Appropriate intravenous treatment (eg, fluids ) does not readily correct dehydration ie, after 12 to 24 hours of treatment) [ ]ii) Significant symptoms or findings; examples include: [ ]1) Altered mental status [ ]2) Cardiac abnormality (eg, arrhythmia, conduction disturbance) [ ]3) Cardiac abnormality (eg, arrhythmia, conduction disturbance) The original [email or web address] content created by [email or web address] has been revised. The portions of the content which have been revised are identified through the use of italic text or in bold, and [facility] has neither reviewed nor approved the modified material. All other unmodified content is copyright [facility] [employer] Please see references footnoted in the original [facility] [employer] edition 2016 Admission Criteria Met: Yes
[2017-07-14] MEDS ORDERED: KIONEX PO ONE (16:08)
--- NOTE | 2017-07-14 16:52 | History and Physical Report ---
History of Present Illness Chief complaint: I feel weak, Im tired History of present illness: 82 YO Female with CHF, COPD, Dementia, Atrial Fib on anticoagulation, Dementia, ESRD on HD(T,R,Sa), presents to ED for evaluation. Pt states that she has experienced progressive weakness and shortness of breath over the past week with worsening symptoms over the past 2 days. Pt states that she is now unable to walk and cannot stand up without fear of falling. Pt denies fever, chills, CP, Palpitations, Productive cough, Syncope, Falls, Trauma, or known recent ill contacts. Past History Past Medical History: atrial fib, COPD, ESRD, heart failure Past Surgical History: Other (VAs Cath, Pacemaker) Social history: . denies: smoking, alcohol abuse, prescription drug abuse, IV drug use Family history: CAD, hypertension Medications and Allergies Allergies Allergy/AdvReac Type Severity Reaction Status Date / Time naproxen Allergy Itching Verified 04/17/17 11:25 Home Medications Medication Instructions Recorded Confirmed Last Taken Type Apixaban [Eliquis] 2.5 mg PO BID 07/14/17 07/14/17 Unknown History Aspirin [Adult Low Dose Aspirin EC] 81 mg PO QPM 07/14/17 07/14/17 Unknown History AtorvaSTATin [Lipitor] 40 mg PO QHS 07/14/17 07/14/17 Unknown History Carvedilol [Coreg] 25 mg PO BID 07/14/17 07/14/17 Unknown History Losartan [Cozaar] 100 mg PO QDAY 07/14/17 07/14/17 Unknown History hydrALAZINE [Apresoline TAB] 100 mg PO TID 07/14/17 07/14/17 07/14/17 History Review of Systems Constitutional: weakness, no weight loss, no weight gain, no fever Ears, nose, mouth and throat: no ear pain, no ear discharge, no tinnitis, no decreased hearing Breasts: no swelling, no mass Cardiovascular: no chest pain, no orthopnea, no palpitations, no rapid/ irregular heart beat, no lightheadedness, no claudication, no phlebitis Respiratory: shortness of breath, dyspnea on exertion, no cough, no cough with sputum, no excessive sputum Gastrointestinal: no abdominal pain, no nausea, no vomiting, no diarrhea Genitourinary Female: no pelvic pain, no flank pain, no menorrhagia Rectal: no pain, no incontinence, no bleeding Musculoskeletal: no neck stiffness, no neck pain, no shooting arm pain, no arm numbness/tingling, no low back pain, no hot joints Integumentary: no rash, no pruritis, no redness, no sores Neurological: weakness, no head injury, no transient paralysis, no paralysis, no seizures Psychiatric: no anxiety, no memory loss, no sleep disturbances, no insomnia, no hypersomnia, no change in appetite Endocrine: no cold intolerance, no heat intolerance, no polyphagia, no excessive thirst, no polydipsia Hematologic/Lymphatic: no easy bruising, no easy bleeding Allergic/Immunologic: no urticaria, no allergic rhinitis, no wheezing Exam - Constitutional Vitals: Temp Pulse Resp BP Pulse Ox 98.4 F 95 H 20 185/103 99 07/14/17 13:50 07/14/17 16:37 07/14/17 16:37 07/14/17 13:50 07/14/17 13:50 General appearance: Present: mild distress - EENT Eyes: Present: PERRL ENT: hearing intact, clear oral mucosa - Neck Neck: Present: supple, normal ROM - Respiratory Respiratory: bilateral: CTA, rhonchi - Cardiovascular Rhythm: irregularly irregular - Extremities Extremities: pulses symmetrical, No edema Extremity abnormal: edema Peripheral Pulses: within normal limits - Abdominal General gastrointestinal: Present: soft, non-tender, non-distended, normal bowel sounds Female genitourinary: Present: normal - Integumentary Integumentary: Present: clear, warm, dry - Musculoskeletal Musculoskeletal: generalized weakness - Psychiatric Psychiatric: appropriate mood/affect, intact judgment & insight - Neurologic Neurologic: no focal deficits, moves all extremities, no gait normal Results - Labs CBC & Chem 7: 07/14/17 13:59 07/14/17 13:59 Labs: Abnormal lab results 07/14/17 07/14/17 Range/Units 13:59 13:59 RBC 2.79 L (3.65-5.03) M/mm3 Hgb 9.3 L (10.1-14.3) gm/dl Hct 30.0 L (30.3-42.9) % MCV 108 H (79-97) fl MCH 33 H (28-32) pg RDW 23.3 H (13.2-15.2) % Plt Count 76 L (140-440) K/mm3 Lymph # 0.7 L (1.2-5.4) K/mm3 Seg Neutrophils % 77.9 H (40.0-70.0) % Potassium 6.1 H* (3.6-5.0) mmol/L Chloride 91.6 L (98-107) mmol/L Carbon Dioxide 16 L (22-30) mmol/L BUN 76 H (7-17) mg/dL Creatinine 7.4 H (0.7-1.2) mg/dL Glucose 53 L (65-100) mg/dL Total Bilirubin 1.60 H (0.1-1.2) mg/dL AST 53 H (5-40) units/L Total Protein 8.5 H (6.3-8.2) g/dL Albumin 3.6 L (3.9-5) g/dL Assessment and Plan - Patient Problems (1) Acute on chronic systolic (congestive) heart failure Current Visit: No Status: Acute Plan to address problem: Admit to telemetry, monitor uop q shift, afterload reduction, negative fluid balance, telemetry monitoring, diuresis with dialysis, repeat physical exam. (2) Metabolic acidemia Current Visit: Yes Status: Acute Plan to address problem: supportive care, encourage free water intake, monitor fluid balance, (3) Multiple myeloma Current Visit: Yes Status: Acute Qualifiers: Multiple myeloma remission status: M Plan to address problem: Gamma Gap: 4.9, [id number], hematology consulted, Spep/upep, Alk phos, HLD (4) Accelerated hypertension Current Visit: No Status: Acute Plan to address problem: Monitor BP q shift, resume home medication, (5) Acute on chronic renal failure Current Visit: No Status: Acute Qualifiers: Acute renal failure type: A Chronic kidney disease stage: C Plan to address problem: Nephrology consulted, dialysis as per renal team. (6) Atrial flutter Current Visit: No Status: Acute Qualifiers: Atrial flutter type: typical Qualified Code(s): I48.3 - Typical atrial flutter Plan to address problem: rate currently controlled, supportive care, resume anticoagulation, telemetry monitoring (7) ESRD (end stage renal disease) on dialysis Current Visit: No Status: Acute Plan to address problem: Nephrology consulted, supportive care, dialysis per renal service (8) DVT prophylaxis Current Visit: Yes Status: Acute
[2017-07-14 18:02] LABS: Bacteria,Urine 1+ /HPF (Negative); Bilirubin,Urine NEG (Negative); Blood,Urine SM (Negative); Ketones,Urine NEG (Negative); Leukocyte Esterase,Urine SM (Negative); Mucus,Urine FEW /HPF; Nitrite,Urine NEG (Negative); Urobilinogen,Urine < 2.0 mg/dL (<2.0)
[2017-07-14] MEDS ORDERED: BABY ASPIRIN ONE (18:10)
[2017-07-14 18:17] LABS: Alkaline Phosphatase 65 units/L (35-129); Lactate Dehydrogenase 445 units/L (91-180)
[2017-07-14] MEDS: APRESOLINE PO SCH ×2 (18:17→23:50)
[2017-07-14] MEDS: HALFPRIN EC PO SCH (18:18)
[2017-07-14] MEDS ORDERED: KIONEX ONE ×2 (18:53→18:56)
[2017-07-14] MEDS ORDERED: NACL 0.9% 100 ML IV PRN ×2 (19:01→20:16)
[2017-07-14] MEDS ORDERED: HEPARIN IV PRN (20:18)
[2017-07-14] MEDS ORDERED: NACL 0.9 (PRIMING MACHINE ONLY DIALYSIS) MC ONE (20:33)
--- NOTE | 2017-07-14 21:40 | Consultation ---
History of Present Illness - Reason for Consult Consult date: 07/14/17 abn protien,?MM. Requesting physician: SONIYA CEVALLOS - History of Present Illness Thank you for this consult, Patient seen/examined, record reviewed, at the dialysis center. Kindly asked to see for the reason above. Patient is a very poor historian. No hard data in her profile indicating hx of MM, and no family members around at this time.She is currently getting HD. She states ESRD dx recently.?Will await w/up labs, and get better info from the family.she denies any bone pain. Past History Past Medical History: atrial fib, COPD, ESRD, heart failure Past Surgical History: Other (VAs Cath, Pacemaker) Social history: . denies: smoking, alcohol abuse, prescription drug abuse, IV drug use Family history: CAD, hypertension Medications and Allergies Allergies Allergy/AdvReac Type Severity Reaction Status Date / Time naproxen Allergy Itching Verified 04/17/17 11:25 Home Medications Medication Instructions Recorded Confirmed Last Taken Type Apixaban [Eliquis] 2.5 mg PO BID 07/14/17 07/14/17 Unknown History Aspirin [Adult Low Dose Aspirin EC] 81 mg PO QPM 07/14/17 07/14/17 Unknown History AtorvaSTATin [Lipitor] 40 mg PO QHS 07/14/17 07/14/17 Unknown History Carvedilol [Coreg] 25 mg PO BID 07/14/17 07/14/17 Unknown History Losartan [Cozaar] 100 mg PO QDAY 07/14/17 07/14/17 Unknown History hydrALAZINE [Apresoline TAB] 100 mg PO TID 07/14/17 07/14/17 07/14/17 History Active Meds: Active Medications Apixaban (Eliquis) 2.5 mg PO BID [facility] PRN Reason: Protocol Aspirin (Halfprin Ec) 81 mg PO QPM [facility] Last Admin: 07/14/17 18:18 Dose: 81 mg Atorvastatin Calcium (Lipitor) 40 mg PO QHS [facility] Carvedilol (Coreg) 25 mg PO BID [facility] Heparin Sodium (Porcine) (Heparin) 5,000 unit IV [facility] PRN PRN Reason: hemodialysis Hydralazine HCl (Apresoline) 100 mg PO TID [facility] Last Admin: 07/14/17 18:17 Dose: 100 mg Sodium Chloride (Nacl 0.9%) 100 mls @ 999 mls/hr IV SHIR[facility] PRN PRN Reason: Hypotension Sodium Chloride (Nacl 0.9%) 100 mls @ 999 mls/hr IV SHIRA PRN PRN Reason: Hypotension Losartan Potassium (Cozaar) 100 mg PO QDAY [place] Review of Systems Constitutional: fatigue, weakness Breasts: deferred Exam - Constitutional Vitals: Temp Pulse Resp BP Pulse Ox 97.8 F 100 H 20 169/88 100 07/14/17 19:30 07/14/17 21:15 07/14/17 19:30 07/14/17 21:15 07/14/17 19:24 General appearance: Present: mild distress, well-nourished - EENT Eyes: Present: PERRL ENT: hearing intact, clear oral mucosa - Neck Neck: Present: supple, normal ROM - Respiratory Respiratory effort: normal Respiratory: bilateral: CTA - Cardiovascular Heart Sounds: Present: S1 & S2. Absent: rub, click - Extremities Extremities: pulses symmetrical, No edema Peripheral Pulses: within normal limits - Abdominal General gastrointestinal: Present: soft, non-tender, non-distended, normal bowel sounds Female genitourinary: Present: deferred - Rectal Rectal Exam: deferred - Integumentary Integumentary: Present: clear, warm, dry - Psychiatric Psychiatric: appropriate mood/affect - Neurologic Neurologic: CNII-XII intact, moves all extremities Results - Labs CBC & Chem 7: 07/14/17 13:59 07/14/17 13:59 Labs: Abnormal lab results 07/14/17 07/14/17 07/14/17 Range/Units 17:07 17:41 19:18 D-Dimer 4240.77 H (0-234) ng/mlDDU POC Glucose 172 H (70-105) Urine WBC (Auto) 21.0 H (0.0-6.0) /HPF Assessment and Plan - Patient Problems (1) Anemia Current Visit: Yes Status: Acute Qualifiers: Anemia type: A Iron deficiency anemia type: I Vitamin B12 deficiency anemia type: V Folate deficiency anemia type: F Bone marrow failure anemia type: B Hemolytic anemia type: H Other causes of anemia: O Chronic kidney disease stage: C Plan to address problem: This is anemia of chronic dz. supportive tx. (2) Generalized weakness Current Visit: Yes Status: Acute Plan to address problem: supportive. (3) Hyperkalemia Current Visit: Yes Status: Acute Plan to address problem: HD in progress. (4) UTI (urinary tract infection) Current Visit: Yes Status: Acute Qualifiers: Urinary tract infection type: U Hematuria presence: H Indwelling urinary catheter type: I Encounter type: E Plan to address problem: need culture.
[2017-07-14] MEDS: COREG PO SCH (23:50)
[2017-07-14] MEDS: ELIQUIS PO SCH (23:50)
[2017-07-14 23:56] LABS: Bilirubin,Direct 0.5 mg/dL (0-0.2); Bilirubin,Indirect 0.9 mg/dL; Bilirubin,Total 1.4 mg/dL (0.1-1.2)
--- NOTE | 2017-07-15 07:45 | XRay Report ---
Single view chest: Compared to 07/02/17. History: Weakness. Findings: Borderline cardiomegaly. Large right pleural effusion with mild pulmonary venous congestion. Stable venous catheter. Stable pacemaker. Impression: Cardiomegaly with large right pleural effusion.
[2017-07-15 09:58] VITALS: BP 116/60
[2017-07-15] MEDS: COREG PO SCH (09:58)
[2017-07-15] MEDS: APRESOLINE PO SCH ×2 (09:58→14:16)
[2017-07-15] MEDS: ELIQUIS PO SCH (09:58)
[2017-07-15] MEDS ORDERED: COZAAR PO SCH (10:00)
[2017-07-15] MEDS ORDERED: NON-FORMULARY (Losartan [Cozaar] 100 MG) PO SCH (10:00)
--- NOTE | 2017-07-15 10:00 | Progress Note ---
Subjective Interval history: Thank you for the consultation Patient is well-known to me from prior admission as well as from dialysis clinic Assessment and plan End-stage renal disease patient is currently on maintenance hemodialysis and was dialyzed yesterday Hyperkalemia mostly likely resulting from noncompliance would avoid any form of angiotensin receptor lowell BENIGNO inhibitors Thrombocytopenia needs to be checked for Hit as well as discontinue hydralazine for now which can cause thrombocytopenia,she will need to follow-up with hematology oncology Anemia in end-stage renal disease to monitor and follow; patient has been very poorly compliant History of long-standing poorly controlled hypertension Patient does have very poor support/she is also very noncompliant-in my opinion she'll benefit from placement which she has refused to me in the past Her overall prognosis is very poor in general/has had multiple hospitalizations in the past We'll continue to follow and make recommendation from renal standpoint Patient was adequately counseled and educated regarding all the renal related issues All questions were answered pertinent to renal care Thank you for the consultation, we will continue to follow and make recommendation from renal standpoint History of presenting illness: Patient is a 82-year-old -[place] female who was brought by her due to progressive weakness. She was also noted to have markedly elevated blood pressure 185/103 was also hyperkalemic. She is currently on maintenance hemodialysis 3 times a week, and does have history of underlying multiple chronic health issues including frequent hospitalization, congestive heart failure, COPD, dementia, atrial fibrillation. Upon arrival she was noted to have a potassium of 6.1 carbon dioxide was 16 requiring admission. She was also noted to be in acute on chronic congestive heart failure. Patient is very poorly compliant/with diet and lifestyle. She has also been noted to be thrombocytopenic for which she is currently being evaluated by hematology Past medical history is significant for: end-stage renal disease Dementia Hypertension Poor compliance Congestive heart failure Current allergies: naproxen Home medication present medications: Reviewed Social history: no history of recent alcohol drug tobacco use Family history:noncontributory relative to daughter Review of system positive for generalized weakness fatigue shortness of breath and uncontrolled hypertension Other review of systems were negative Physical examination Vitals: Reviewed from this admission General: No acute distress HEENT: Oral mucosa moist no uremic order mild pallor no icterus Neck: No thyromegaly nodular mass or JVD noted Chest: Clear to auscultation no rales or wheezes Heart: Regular rhythm S1-S2 heard no S3-S4 Abdomen: Nontender no organomegaly no masses no renal bruit no suprapubic masses noted Extremities: Mild edema No peripheral cyanosis dry skin pulses palpable Endocrine: No thyromegaly noted Psych; no agitation or aggression noted Back: Nontender thoracolumbar spine Musculoskeletal: No joint effusion noted Neurological: Alert awake follows commands higher function including speech memory thought cognition within normal limits Labs and x-rays: All were reviewed from this admission on chart today Objective - Vital Signs Vital signs: Vital Signs - 12hr 07/14/17 07/14/17 07/14/17 22:15 22:27 22:53 Temperature 98.6 F Pulse Rate 105 H 75 98 H Respiratory 18 Rate Blood Pressure 158/85 175/84 180/88 O2 Sat by Pulse Oximetry 07/14/17 07/14/17 07/15/17 23:30 23:50 02:00 Temperature 97.6 F Pulse Rate 113 H 113 H 113 H Respiratory 20 Rate Blood Pressure 178/98 178/98 O2 Sat by Pulse 100 Oximetry 07/15/17 09:57 Temperature 97.8 F Pulse Rate 16 L Respiratory 16 Rate Blood Pressure 116/60 O2 Sat by Pulse 0 L Oximetry - Lab 07/14/17 13:59 07/15/17 09:52 Most recent lab results Calcium 9.2 mg/dL (8.4-10.2) 07/14/17 23:08
[2017-07-15 10:24] LABS: BUN/Creatinine Ratio 8.29; Calcium 8.4 mg/dL (8.4-10.2); Chloride 95.4 mmol/L (98-107); Potassium 3.5 mmol/L (3.6-5.0)
--- NOTE | 2017-07-15 15:58 | Discharge Summary ---
Providers - Providers Date of discharge: 07/15/17 Attending physician: SOPHIA DELEON Primary care physician: SUPERVISOR REMELT Hospitalization Condition: Stable Hospital course: This 82-year-old female with history of CHF ejection fraction 45-50%, COPD, likely vascular dementia, atrial fibrillation on anticoagulation, end-stage renal disease with dialysis presented to ED with complaints of progressive weakness and shortness of breath for the past week with worsening symptom over 2 days. She noted to have potassium of 6.1 and chest x-ray showed cardiomegaly with large right pleural effusion. Patient noted to have thrombocytopenia which is stable since her prior admission. Hematology was consulted and recommended to follow up outpatient. Her potassium level improved following dialysis. Patient was recommended to have thoracenthesis for right pleural effusion, but she refused to stay and left AMA. Discharge diagnosis: Acute respiratory failure - likely due to volume overload and right pleural effusion End-stage renal disease on dialysis Right pleural effusion Acute on chronic systolic heart failure - Likely decompensated due to missing dialysis COPD with mild exacerbation Hyperkalemia - Likely due to ACEI and chronic renal failure - We'll hold ACEI Accelerated hypertension History of atrial flutter, rate controlled and on anticoagulation Thrombocytopenia likely due to chronic renal disease Metabolic acidosis from end-stage renal disease Disposition: DC-07 LEFT AGAINST MED ADVICE Core Measure Documentation - Palliative Care Palliative Care/ Comfort Measures: Not Applicable - Core Measures Any of the following diagnoses?: history only Exam - Constitutional Vitals: Temp Pulse Resp BP Pulse Ox 97.9 F 66 78 H 116/60 0 L 07/15/17 14:54 07/15/17 14:54 07/15/17 14:54 07/15/17 14:54 07/15/17 14:54 General appearance: Present: no acute distress - EENT Eyes: Present: PERRL ENT: hearing intact, clear oral mucosa - Neck Neck: Present: supple, normal ROM - Respiratory Respiratory effort: normal Respiratory: bilateral: CTA - Cardiovascular Heart Sounds: Present: S1 & S2. Absent: rub, click - Extremities Extremities: pulses symmetrical, No edema Peripheral Pulses: within normal limits - Abdominal General gastrointestinal: Present: soft, non-tender, non-distended, normal bowel sounds Female genitourinary: Present: normal - Integumentary Integumentary: Present: clear, warm, dry - Musculoskeletal Musculoskeletal: gait normal, strength equal bilaterally - Psychiatric Psychiatric: appropriate mood/affect, intact judgment & insight - Neurologic Neurologic: CNII-XII intact, moves all extremities Plan Activity: advance as tolerated Weight Bearing Status: Weight Bear as Tolerated Diet: renal Follow up with: PRIMARY CARE, [Primary Care Provider] - 7 Days
--- NOTE | 2017-07-15 16:05 | Progress Note ---
Assessment and Plan Acute respiratory failure - likely due to volume overload and right pleural effusion - improved after HD End-stage renal disease on dialysis - Status post history Right pleural effusion, -Repeat chest x-ray, may need thoracentesis Acute on chronic systolic heart failure - Likely decompensated due to missing dialysis - We'll resume home meds COPD with mild exacerbation - Nebulizer breathing treatment as needed Hyperkalemia - Likely due to ACEI and chronic renal failure - We'll hold ACEI Accelerated hypertension, - We'll DC ACEI and placed on Procardia - We'll continue Coreg History of atrial flutter, rate controlled and on anticoagulation with Coumadin Thrombocytopenia likely due to chronic renal disease Metabolic acidosis from end-stage renal disease, resolved with HD Subjective Date of service: 07/15/17 Interval history: Patient seen and examined. Medical records and medication list reviewed. No acute event overnight noted by the RN. Patient denies any chest pain. Patient is tolerating diet. She wants to go home. Discussed plan of care at bedside with patient. Objective - Exam Narrative Exam: GENERAL: Elderly -[place] female lying on bed appeared to be in no discomfort. HEENT: Normocephalic. Atraumatic. No conjunctival congestion or icterus. Patient has moist mucous membranes. NECK: Supple. Trachea midline. CHEST/LUNGS: Diminished breath sounds on the right side, breathing nonlabored. No wheezes crackles or rhonchi. HEART/CARDIOVASCULAR: S1 and S2 positive. ABDOMEN: Abdomen is soft, nontender, distended. Patient has normal bowel sounds. SKIN: There is no rash. Warm and dry. NEURO: No focal motor deficit. Follows command. MUSCULOSKELETAL: No joint effusion or tenderness. EXTRIMITY: No edema, no cyanosis or clubbing. PSYCH: Cooperative. - Constitutional Vitals: Vital Signs - 12hr 07/15/17 07/15/17 07/15/17 07:00 09:57 11:51 Temperature 97.8 F Pulse Rate 75 16 L Respiratory 16 Rate Blood Pressure 116/60 O2 Sat by Pulse 0 L 97 Oximetry 07/15/17 14:54 Temperature 97.9 F Pulse Rate 66 Respiratory 78 H Rate Blood Pressure 116/60 O2 Sat by Pulse 0 L Oximetry - Labs CBC & Chem 7: 07/14/17 13:59 07/15/17 09:52 Labs: Abnormal lab results 07/14/17 07/14/17 07/14/17 Range/Units 17:07 17:41 19:18 D-Dimer 4240.77 H (0-234) ng/mlDDU Potassium (3.6-5.0) mmol/L Chloride (98-107) mmol/L BUN (7-17) mg/dL Creatinine (0.7-1.2) mg/dL Glucose (65-100) mg/dL POC Glucose 172 H (70-105) Total Bilirubin (0.1-1.2) mg/dL Direct Bilirubin (0-0.2) mg/dL Urine WBC (Auto) 21.0 H (0.0-6.0) /HPF 07/14/17 07/15/17 Range/Units 23:08 09:52 D-Dimer (0-234) ng/mlDDU Potassium 3.5 L D (3.6-5.0) mmol/L Chloride 95.4 L (98-107) mmol/L BUN 39 H (7-17) mg/dL Creatinine 4.7 H (0.7-1.2) mg/dL Glucose 125 H (65-100) mg/dL POC Glucose (70-105) Total Bilirubin 1.40 H (0.1-1.2) mg/dL Direct Bilirubin 0.5 H (0-0.2) mg/dL Urine WBC (Auto) (0.0-6.0) /HPF
[2017-07-15] MEDS: HALFPRIN EC PO SCH (18:45)
[2017-07-15] MEDS ORDERED: PROCARDIA XL PO SCH (22:00)
--- NOTE | 2017-07-16 07:42 | XRay Report ---
AP CHEST: HISTORY: Followup right pleural effusion A small right pleural effusion has decreased by 1 or 2 rib levels since yesterday's exam. Improvement in mild cardiomegaly and pulmonary venous congestion is also demonstrated. No evidence for pneumonia or pneumothorax. Right venous catheter and pacemaker device are unchanged. IMPRESSION: Improvement in CHF/volume overload as described.
[2017-07-18 00:06] LABS: Abnormal Protein Band 1 2.6 g/dL; Albumin 3.9 g/dL (3.8-4.8); Gamma Globulin 3.1 g/dL (0.8-1.7)
== END 2017-07-15 20:07 | disposition left against medical advice (07) | DRG 682 ==
LOC: ED 13:23 → 4A 16:55
PROVIDERS: ADMIT Internal Medicine; ATTEND Internal Medicine
PROC: 5A1D60Z (ICD-10-PCS; principal; 2017-07-14)
DX: N17.9 Acute kidney failure, unspecified (principal); I50.23 Acute on chronic systolic (congestive) heart failure; J96.00 Acute respiratory failure, unspecified whether with hypoxia or hypercapnia; I13.2 Hypertensive heart and chronic kidney disease with heart failure and with stage 5 chronic kidney disease, or end stage renal disease; C90.00 Multiple myeloma not having achieved remission; N39.0 Urinary tract infection, site not specified; J44.1 Chronic obstructive pulmonary disease with (acute) exacerbation; E87.2 Acidosis; N18.6 End stage renal disease; F03.90 Unspecified dementia, unspecified severity, without behavioral disturbance, psychotic disturbance, mood disturbance, and anxiety; I48.91 Unspecified atrial fibrillation; I25.2 Old myocardial infarction; E87.5 Hyperkalemia; E16.2 Hypoglycemia, unspecified; D47.3 Essential (hemorrhagic) thrombocythemia; D63.1 Anemia in chronic kidney disease; F01.50 Vascular dementia, unspecified severity, without behavioral disturbance, psychotic disturbance, mood disturbance, and anxiety; T50.995A Adverse effect of other drugs, medicaments and biological substances, initial encounter; Y92.89 Other specified places as the place of occurrence of the external cause; Z88.8 Allergy status to other drugs, medicaments and biological substances; Z79.82 Long term (current) use of aspirin; Z79.01 Long term (current) use of anticoagulants; Z82.49 Family history of ischemic heart disease and other diseases of the circulatory system; Z95.0 Presence of cardiac pacemaker
CPT/HCPCS: 36415; 71010; 80048; 80053; 81001; 82232; 82248; 82310; 82607; 82747; 82962; 83010; 83615; 84075; 84100; 84165; 84166; 85025; 85379; 85384; 85652; 86038; 86803; 86880; 87086; 93005; 93010; 94644; 96374; 96375; 96376; A9270-GY; J1644; J1815; J1940; J7030

== ENCOUNTER 2017-07-23 14:40 | Emergency (ER) | payer MEDICARE ==
[2017-07-23 14:53] VITALS: BP 147/90
[2017-07-23 15:54] LABS: Hematocrit 26.6 % (30.3-42.9); Hemoglobin 8.2 gm/dl (10.1-14.3); Mean Corpuscular HGB Conc 31 % (30-34); Mean Corpuscular Hemoglobin 32 pg (28-32); Mean Corpuscular Volume 104 fl (79-97); Red Blood Count 2.55 M/mm3 (3.65-5.03); White Blood Count 3.2 K/mm3 (4.5-11.0)
[2017-07-23 16:01] LABS: Red Cell Distribution Width 21.9 % (13.2-15.2)
[2017-07-23 17:09] LABS: Platelet Count 63 K/mm3 (140-440)
== END 2017-07-23 18:30 | disposition left against medical advice (07) ==
LOC: ED 14:40
DX: R53.1 Weakness (principal); Z53.21 Procedure and treatment not carried out due to patient leaving prior to being seen by health care provider
CPT/HCPCS: 36415; 80061; 84484; 85027; 93005; 93010

== ENCOUNTER 2017-07-25 21:37 | Inpatient (IN) | payer MEDICARE ==
[2017-07-25 22:37] LABS: Basophils % (Auto) 0.9 % (0.0-1.8); Eosinophils % (Auto) 0.8 % (0.0-4.3); Hematocrit 29.4 % (30.3-42.9); Mean Corpuscular HGB Conc 31 % (30-34); Mean Corpuscular Hemoglobin 32 pg (28-32); Mean Corpuscular Volume 104 fl (79-97); Red Blood Count 2.82 M/mm3 (3.65-5.03)
[2017-07-25 22:41] LABS: BUN/Creatinine Ratio 9.04; Calcium 9.2 mg/dL (8.4-10.2); Chloride 93.3 mmol/L (98-107); INR 1.63 (0.87-1.13)
[2017-07-25 22:52] LABS: Potassium 6.5 mmol/L (3.6-5.0)
[2017-07-25] MEDS ORDERED: CALCIUM GLUCONATE 2,000 MG in NACL 0.9% 100 ML IV ONE (23:00)
[2017-07-25 23:08] LABS: Platelet Count 81 K/mm3 (140-440); Red Cell Distribution Width 21.7 % (13.2-15.2)
[2017-07-25] MEDS ORDERED: PROVENTIL IH ONE (23:14)
[2017-07-25] MEDS ORDERED: D50W (25GM) Syringe IV ONE (23:14)
[2017-07-25] MEDS ORDERED: LASIX IV ONE (23:24)
--- NOTE | 2017-07-25 23:56 | Emergency Department Report ---
ED General Adult HPI - General Chief complaint: Pain General Stated complaint: GENERAL WEAKNESS Time Seen by Provider: 07/25/17 22:59 Source: patient Mode of arrival: Ambulatory Limitations: No Limitations - History of Present Illness Initial comments: Patient is an 82-year-old female past medical history of end-stage renal disease who gets dialysis Friday who presents with weakness and elevated blood pressure. She states today she took her blood pressure and it was very elevated in the 200s. That because of that she came to the emergency department she also states that she is feeling weak all over her body. Patient states that the severity of her symptoms as a 6 out of 10 nothing makes it better or worse. Patient denies it being any pain. But she does states that she has some mild shortness of breath. Patient was previously in the hospital about one week ago. Severity scale (0 -10): 0 - Related Data Home Medications Medication Instructions Recorded Confirmed Last Taken Apixaban [Eliquis] 2.5 mg PO BID 07/14/17 07/14/17 Unknown Aspirin [Adult Low Dose Aspirin EC] 81 mg PO QPM 07/14/17 07/14/17 Unknown AtorvaSTATin [Lipitor] 40 mg PO QHS 07/14/17 07/14/17 Unknown Carvedilol [Coreg] 25 mg PO BID 07/14/17 07/14/17 Unknown hydrALAZINE [Apresoline TAB] 100 mg PO TID 07/14/17 07/14/17 07/14/17 Allergies Allergy/AdvReac Type Severity Reaction Status Date / Time naproxen Allergy Itching Verified 04/17/17 11:25 ED Review of Systems ROS: Stated complaint: GENERAL WEAKNESS Other details as noted in HPI Constitutional: denies: chills, fever Eyes: denies: eye pain, eye discharge, vision change ENT: denies: ear pain, throat pain Respiratory: denies: cough, shortness of breath, wheezing Cardiovascular: denies: chest pain, palpitations Endocrine: no symptoms reported Gastrointestinal: denies: abdominal pain, nausea, diarrhea Genitourinary: denies: urgency, dysuria, discharge Musculoskeletal: denies: back pain, joint swelling, arthralgia Skin: denies: rash, lesions Neurological: denies: headache, weakness, paresthesias Psychiatric: denies: anxiety, depression Hematological/Lymphatic: denies: easy bleeding, easy bruising ED Past Medical Hx - Past Medical History Hx Hypertension: Yes Hx Heart Attack/AMI: Yes Hx Congestive Heart Failure: Yes Hx Diabetes: No Hx Renal Disease: Yes (ESRD Dialysis T,Th, Sat) Hx Sickle Cell Disease: No Hx Asthma: No Hx COPD: Yes Hx Dementia: Yes Hx HIV: No Additional medical history: Afib/Aflutter - Surgical History Past Surgical History?: Yes Hx Pacemaker: Yes (Dual chamber PPM) Additional Surgical History: vas cath to right chest - Social History Smoking Status: Never Smoker Substance Use Type: None - Medications Home Medications: Home Medications Medication Instructions Recorded Confirmed Last Taken Type Apixaban [Eliquis] 2.5 mg PO BID 07/14/17 07/14/17 Unknown History Aspirin [Adult Low Dose Aspirin EC] 81 mg PO QPM 07/14/17 07/14/17 Unknown History AtorvaSTATin [Lipitor] 40 mg PO QHS 07/14/17 07/14/17 Unknown History Carvedilol [Coreg] 25 mg PO BID 07/14/17 07/14/17 Unknown History hydrALAZINE [Apresoline TAB] 100 mg PO TID 07/14/17 07/14/17 07/14/17 History ED Physical Exam - General Limitations: No Limitations General appearance: alert, in no apparent distress - Head Head exam: Present: atraumatic, normocephalic - Eye Eye exam: Present: normal appearance - ENT ENT exam: Present: mucous membranes moist - Neck Neck exam: Present: normal inspection - Respiratory Respiratory exam: Present: normal lung sounds bilaterally. Absent: respiratory distress - Cardiovascular Cardiovascular Exam: Present: regular rate, normal rhythm. Absent: systolic murmur, diastolic murmur, rubs, gallop - GI/Abdominal GI/Abdominal exam: Present: soft, normal bowel sounds - Extremities Exam Extremities exam: Present: other (left AV fistula) - Back Exam Back exam: Present: normal inspection - Neurological Exam Neurological exam: Present: alert, oriented X3 - Psychiatric Psychiatric exam: Present: normal affect, normal mood - Skin Skin exam: Present: warm, dry, intact, normal color. Absent: rash ED Course Vital Signs 07/25/17 07/25/17 07/25/17 21:59 23:04 23:05 Temperature 98.6 F 98.5 F Pulse Rate 86 86 84 Pulse Rate [ Anterior Bilateral Throughout] Respiratory 16 20 22 Rate Respiratory Rate [Anterior Bilateral Throughout] Blood Pressure 193/120 Blood Pressure 195/109 [Left] O2 Sat by Pulse 100 100 Oximetry 07/25/17 07/25/17 07/25/17 23:15 23:31 23:45 Temperature Pulse Rate 85 86 67 Pulse Rate [ Anterior Bilateral Throughout] Respiratory 28 H 22 27 H Rate Respiratory Rate [Anterior Bilateral Throughout] Blood Pressure 185/106 185/106 185/106 Blood Pressure [Left] O2 Sat by Pulse 100 100 100 Oximetry 07/26/17 07/26/17 07/26/17 00:00 00:15 00:30 Temperature Pulse Rate 91 H 97 H 95 H Pulse Rate [ Anterior Bilateral Throughout] Respiratory 22 22 20 Rate Respiratory Rate [Anterior Bilateral Throughout] Blood Pressure 199/109 199/109 199/109 Blood Pressure [Left] O2 Sat by Pulse 100 100 99 Oximetry 07/26/17 07/26/17 07/26/17 00:34 00:45 01:00 Temperature Pulse Rate 97 H 93 H Pulse Rate [ 95 H Anterior Bilateral Throughout] Respiratory 21 20 Rate Respiratory 22 Rate [Anterior Bilateral Throughout] Blood Pressure 199/109 198/110 Blood Pressure [Left] O2 Sat by Pulse 100 99 Oximetry - Reevaluation(s) Reevaluation #1: 07/26/17 00:44 Evaluated patient she has recieved a breathing treatment and will be admitted to the hospitalist. Reevaluation #2: 07/26/17 01:09 Patient's repeat potassium is 6.3. - Consultations Consultation #1: 07/26/17 00:42 Discussed with preparing box tender Dr. Moreno Patient does not need urgent dialysis patient will recieve, calcium chloride, kayexelate, lasix, insulin and dextrose. 07/26/17 00:43 ED Medical Decision Making - Lab Data Result diagrams: 07/25/17 22:08 07/25/17 23:55 Lab Results 07/25/17 07/25/17 07/25/17 Range/Units 22:08 22:08 22:08 WBC 4.0 L (4.5-11.0) K/mm3 RBC 2.82 L (3.65-5.03) M/mm3 Hgb 9.0 L (10.1-14.3) gm/dl Hct 29.4 L (30.3-42.9) % MCV 104 H (79-97) fl MCH 32 (28-32) pg MCHC 31 (30-34) % RDW 21.7 H (13.2-15.2) % Plt Count 81 L (140-440) K/mm3 Lymph % (Auto) 30.1 (13.4-35.0) % [place] % (Auto) 4.1 (0.0-7.3) % Eos % (Auto) 0.8 (0.0-4.3) % Baso % (Auto) 0.9 (0.0-1.8) % Lymph # 1.2 (1.2-5.4) K/mm3 [place] # 0.2 (0.0-0.8) K/mm3 Eos # 0.0 (0.0-0.4) K/mm3 Baso # 0.0 (0.0-0.1) K/mm3 Seg Neutrophils % 64.1 (40.0-70.0) % Seg Neutrophils # 2.6 (1.8-7.7) K/mm3 PT 20.2 H (12.2-14.9) Sec. INR 1.63 H (0.87-1.13) Sodium 138 (137-145) mmol/L Potassium 6.5 H* (3.6-5.0) mmol/L Chloride 93.3 L (98-107) mmol/L Carbon Dioxide 16 L (22-30) mmol/L Anion Gap 35 mmol/L BUN 85 H (7-17) mg/dL Creatinine 9.4 H (0.7-1.2) mg/dL Estimated GFR 5 ml/min BUN/Creatinine Ratio 9.04 % Glucose 73 (65-100) mg/dL Calcium 9.2 (8.4-10.2) mg/dL Troponin T 0.076 H (0.00-0.029) ng/mL - EKG Data -: EKG Interpreted by Me - EKG Data 07/26/17 00:19 EKG shows normal sinus rhythm left axis deviation incomplete left bundle-branch block with no ST segment elevations. Compared with prior old EKG. - Medical Decision Making Chief medical diagnosis: Hyperkalemia Differential diagnosis: Hypertension secondary to end-stage renal disease, uremia, fluid overload I will get cbc, xray chest, troponin, cmp, IV calcium, albuterol, ekg, IV Lasix , IV insulin, IV glucose Patient has hyperkalemia and she has potentially life-threatening diagnosis patient will get hyperkalemia treatment and I have discussed patient's care with Dr. Moreno the preparing box tender. Patient will get dialysis tomorrow. Patient's potassium has dropped by 0.2 discussed with the hospitalist and discussed with patient. Patient agrees with plan. Critical Care Time: Yes Critical care time in (mins) excluding proc time.: 35 Critical care attestation.: If time is entered above; I have spent that time in minutes in the direct care of this critically ill patient, excluding procedure time. Time spent with digital marketing consultant 5 minutes Time spent with patient 20 minutes Time reviewing laboratory findings 5 minutes Time spent reviewing all patient record 5 minutes ED Disposition Clinical Impression: End stage renal disease, Hyperkalemia, Weakness Disposition: 09 OP ADMIT IP TO THIS HOSP Is pt being admited?: No Does the pt Need Aspirin: No Condition: Stable Referrals: PRIMARY CARE, [Primary Care Provider] - 3-5 Days
[2017-07-26] MEDS ORDERED: KIONEX PO ONE (01:08)
[2017-07-26] MEDS ORDERED: ZOFRAN IV PRN (01:24)
[2017-07-26] MEDS ORDERED: TYLENOL PO PRN (01:24)
[2017-07-26] MEDS ORDERED: APRESOLINE IV PRN ×2 (01:25→03:59)
--- NOTE | 2017-07-26 05:27 | History and Physical Report ---
CHIEF COMPLAINT: Generalized weakness. HISTORY OF PRESENT ILLNESS: The patient is an 82-year-old female who states she has been feeling weak recently and also noted that her blood pressure was high and states she took her blood pressure yesterday because she noted that the blood pressure was in the 200s. She decided to come to the Emergency Room where she noticed that the patient denied any history of chest pain or pain anywhere. Denied history of fever or chills and states she has some mild shortness of breath. The patient also denies history of headache. PAST MEDICAL HISTORY: Pertinent for hypertension, coronary artery disease, status post myocardial infarction, congestive heart failure, end-stage renal disease, on dialysis on Tuesdays, and Saturdays. Also, the patient has a past history of dementia and irregular heartbeat notably atrial fibrillation. PAST SURGICAL HISTORY: Pertinent for dual chamber pacemaker. Also, the patient has past history of cardiac catheterization and stent placement. FAMILY HISTORY: Noncontributory. SOCIAL HISTORY: The patient lives with family. Does not smoke, does not drink alcohol and does not use illicit drugs. MEDICATIONS: The patient is on apixaban, Eliquis 2.5 mg by mouth daily, aspirin 81 mg daily, atorvastatin 40 mg daily, carvedilol 25 mg p.o. b.i.d., hydralazine 100 mg p.o. t.i.d. ALLERGIES: THE PATIENT IS ALLERGIC TO NAPROXEN. REVIEW OF SYSTEMS: CONSTITUTIONAL: There is no fever, no chills, no diaphoresis. HEENT: There is no headache or sore throat. CARDIOVASCULAR: There is no chest pain or orthopnea. RESPIRATORY: Shortness of breath noted. No cough. GASTROINTESTINAL: There is no nausea, no vomiting, no abdominal pain, diarrhea or constipation. NEUROLOGICAL: Generalized weakness present. No numbness, no dizziness, no altered mental status. MUSCULOSKELETAL: There is no joint pain or swelling. DERMATOLOGICAL: There is no skin rash or itching. GENITOURINARY: There is no dysuria, hematuria or flank pain. Rest of system review is normal. PHYSICAL EXAMINATION: GENERAL: At the time of exam, the patient was found to be alert, oriented x 3, and not in acute distress. VITAL SIGNS: Shows normal temperature of 98 degrees Fahrenheit, pulse of 91, respirations 22, blood pressure 198/110 and O2 sat of 99% on room air. HEENT: Pupils to be equal, round, reactive to light and accommodating. Extraocular muscles are intact. NECK: Supple with no JVD or carotid bruit. CARDIOVASCULAR SYSTEM: Show first and second heart sounds, which were heard with irregularly irregular rhythm. RESPIRATORY: Showed good air entry on both sides of the lung with no abnormal breath sounds. GASTROINTESTINAL SYSTEM: Show abdomen to be full, soft, nontender with no organomegaly or rigidity. NEUROLOGICAL SYSTEM: No focal deficits. MUSCULOSKELETAL: Show no joint swelling or tenderness. DERMATOLOGICAL SYSTEM: Show no skin rash. GENITOURINARY: Showing no costovertebral angle tenderness. PERTINENT LABORATORY AND IMAGING STUDIES: The patient had the following lab tests done: CBC shows a slightly low white count of 4.0 with low hemoglobin of 9 and low hematocrit of 29.4 and elevated MCV of 104. Rest of CBC including CBC differential were unremarkable. Platelet level was also low with a value of 81. Coagulation studies show elevated INR of 1.6 with high PT of 20.2. Chemistry shows normal sodium with high potassium level of 6.3 and low chloride level of 93.3. The patient's BUN is high with a value of 85 and creatinine is high with a value of 9.4. The patient's troponin levels first level was high with a value of 0.076 with second level trending downwards, but still high with a value of 0.072. IMAGING STUDIES: No imaging studies were shown on the patient's record at this time. DIAGNOSES: 1. Weakness. 2. Hyperkalemia. 3. Hypertensive crisis. 4. Elevated troponin. 5. End-stage renal disease. PLAN: The patient will be admitted to medical floor on telemetry and will have Nephrology consult in the morning with Dr. Moreno who is the patient's release specialist because of chronic kidney disease, waiting to be dialyzed. The patient will have basic metabolic panel done in the morning and will have cardiac enzymes involving troponin, total CK and CK-MB checked x 1 more level 6 hours after her last cardiac enzyme was done. The patient will be on Tylenol 650 mg every 4 hours as needed for fever and headache. The patient has had albuterol nebulizer because of the hyperkalemia and also has had calcium gluconate and amp of D50 with subcutaneous heparin because of hyperkalemia. The patient will be placed on hydralazine 10 mg IV every 4 hours as needed for blood pressure of greater than 160/90 and will be on IV Zofran 4 mg every 8 hours for nausea and vomiting. Also, the patient has had Kayexalate 15 grams by mouth for hyperkalemia. The patient's home medications that include apixaban will be started and further management of patient's conditions will be determined by the Nephrology consult. JOB# [id number] OCN/NTS
[2017-07-26 08:34] LABS: BUN/Creatinine Ratio 8.62; Calcium 9.4 mg/dL (8.4-10.2); Chloride 94.8 mmol/L (98-107); Potassium 5.4 mmol/L (3.6-5.0)
[2017-07-26 09:25] LABS: Creatine Kinase MB 1.9 ng/mL (0.0-4.0)
[2017-07-26] MEDS ORDERED: HEPARIN SUB-Q SCH (10:00)
[2017-07-26] MEDS: COREG PO SCH ×2 (10:20→21:21)
[2017-07-26] MEDS: ELIQUIS PO SCH ×2 (10:21→21:21)
[2017-07-26] MEDS ORDERED: PROCRIT IV PRN (11:34)
[2017-07-26] MEDS ORDERED: HEPARIN 10,000 UNITS/10 ML IV PRN (11:34)
[2017-07-26] MEDS ORDERED: NACL 0.9% 1000 ML 1,000 ML IV PRN (11:34)
[2017-07-26] MEDS ORDERED: NACL 0.9% 100 ML IV PRN (11:34)
[2017-07-26] MEDS ORDERED: HEPARIN IV PRN (11:34)
[2017-07-26] MEDS ORDERED: Fluarix Quad 2017-2018(36 MOS+) IM ONE (12:00)
--- NOTE | 2017-07-26 13:18 | Consultation ---
History of Present Illness - Reason for Consult Consult date: 07/26/17 end stage renal disease Medications and Allergies Allergies Allergy/AdvReac Type Severity Reaction Status Date / Time naproxen Allergy Itching Verified 04/17/17 11:25 Home Medications Medication Instructions Recorded Confirmed Last Taken Type Apixaban [Eliquis] 2.5 mg PO BID 07/14/17 07/14/17 Unknown History Aspirin [Adult Low Dose Aspirin EC] 81 mg PO QPM 07/14/17 07/14/17 Unknown History AtorvaSTATin [Lipitor] 40 mg PO QHS 07/14/17 07/14/17 Unknown History Carvedilol [Coreg] 25 mg PO BID 07/14/17 07/14/17 Unknown History hydrALAZINE [Apresoline TAB] 100 mg PO TID 07/14/17 07/14/17 07/14/17 History Active Meds: Active Medications Acetaminophen (Tylenol) 650 mg PO Q4H PRN PRN Reason: Fever Apixaban (Eliquis) 2.5 mg PO BID [facility] PRN Reason: Protocol Aspirin (Halfprin Ec) 81 mg PO QPM [facility] Atorvastatin Calcium (Lipitor) 40 mg PO QHS [facility] Carvedilol (Coreg) 25 mg PO BID [facility] Epoetin Harsha (Procrit) 10,000 unit IV [facility] PRN PRN Reason: hemodialysis Heparin Sodium (Porcine) (Heparin) 5,000 unit IV SHIRA PRN PRN Reason: hemodialysis Heparin Sodium (Porcine) (Heparin 10,000 Units/10 Ml) 2,000 unit IV SHIRA PRN PRN Reason: hemodialysis Hydralazine HCl (Apresoline) 20 mg IV Q4H PRN PRN Reason: Blood Pressure Hydralazine HCl (Apresoline) 100 mg PO TID [facility] Sodium Chloride (Nacl 0.9%) 100 mls @ 999 mls/hr IV SHIRA PRN PRN Reason: Hypotension Sodium Chloride (Nacl 0.9% 1000 Ml) 1,000 mls @ 100 mls/hr IV SHIRA PRN PRN Reason: FOR MUSCLE CRAMPS DURING HEMO Ondansetron HCl (Zofran) 4 mg IV Q8H PRN PRN Reason: Nausea And Vomiting Exam - Vital Signs Vital signs: Vital Signs Temp Pulse Resp BP Pulse Ox 98.6 F 86 16 193/120 100 07/25/17 21:59 07/25/17 21:59 07/25/17 21:59 07/25/17 21:59 07/25/17 21:59 Results - Lab Results 07/25/17 22:08 07/26/17 07:18 Most recent lab results Calcium 9.4 mg/dL (8.4-10.2) 07/26/17 07:18
[2017-07-26] MEDS ORDERED: NACL 0.9 (PRIMING MACHINE ONLY DIALYSIS) MC ONE (13:35)
--- NOTE | 2017-07-26 14:02 | Event Note ---
Date: 07/26/17 History physical labs and imaging were reviewed. Patient was admitted this morning for hypertensive urgency, hyperkalemia, and ESRD on hemodialysis. Patient was not in pain or distress. Nephrology consulted.
[2017-07-26] MEDS: APRESOLINE PO SCH ×2 (14:22→21:22)
[2017-07-26] MEDS ORDERED: HALFPRIN EC PO SCH (18:00)
[2017-07-27 05:48] LABS: Basophils % (Auto) 0.6 % (0.0-1.8); Eosinophils % (Auto) 1.1 % (0.0-4.3); Hematocrit 26.9 % (30.3-42.9); Hemoglobin 8.7 gm/dl (10.1-14.3); Mean Corpuscular HGB Conc 32 % (30-34); Mean Corpuscular Hemoglobin 33 pg (28-32); Mean Corpuscular Volume 101 fl (79-97); Red Blood Count 2.67 M/mm3 (3.65-5.03); White Blood Count 3.2 K/mm3 (4.5-11.0)
[2017-07-27 05:51] LABS: Platelet Count 75 K/mm3 (140-440); Red Cell Distribution Width 21.3 % (13.2-15.2)
[2017-07-27 06:10] LABS: BUN/Creatinine Ratio 6.55; Calcium 8.7 mg/dL (8.4-10.2); Chloride 94.2 mmol/L (98-107)
[2017-07-27 06:27] VITALS: BP 167/82
[2017-07-27] MEDS ORDERED: NORVASC PO SCH (10:00)
[2017-07-27] MEDS: COREG PO SCH (10:13)
[2017-07-27] MEDS: ELIQUIS PO SCH (10:13)
[2017-07-27] MEDS: APRESOLINE PO SCH (10:14)
--- NOTE | 2017-07-27 10:45 | Discharge Summary ---
Providers - Providers Date of Admission: 07/26/17 01:17 Date of discharge: 07/27/17 Attending physician: DHARMESH ORDOÑEZ MD 07/26/17 06:21 Consult to Physician [CONS] Routine Consulting Provider: YVES TUCKER Reason For Exam: ESRD Place consult to:: YVES TUCKER Notified:: a service Phone number called:: [phone] Was contact made?: Yes If yes, spoke with:: pop Time called:: 10:00 Primary care physician: INSURANCE SALES SPECIALIST Hospitalization Reason for admission: Hypertensive urgency, ESRD on HD, hyperkalemia Condition: Stable Hospital course: 82-year-old -[place] female presented to the emergency department complaining of she has been feeling weak recently and her BP was in the 200's She presented to the emergency department because of complaints. She denied chest pain, chills, fever, shortness of breath or headache. Patient has past medical history significant for end-stage renal disease on hemodialysis, hypertension. In the emergency department patient had hypokalemia and she was treated with hyperkalemia cocktail, nephrology was consulted and admitted to the floor. Next day patient was hemodialyzed. Patient's weakness subsided, hyperkalemia resolved. Patient's blood pressure medications were adjusted and discharged home. Disposition: DC-01 TO HOME OR SELFCARE Time spent for discharge: 31 minutes - Discharge Diagnoses (1) End stage renal disease Status: Acute (2) Hyperkalemia Status: Acute (3) Accelerated hypertension Status: Acute (4) ESRD (end stage renal disease) on dialysis Status: Acute Core Measure Documentation - Palliative Care Palliative Care/ Comfort Measures: Not Applicable - Core Measures Any of the following diagnoses?: none Exam - Physical Exam Narrative exam: Not in cardiopulmonary distress. The patient appeared well nourished and normally developed. Vital signs as documented. Head exam is unremarkable. No scleral icterus . Neck is without jugular venous distension, thyromegaly, or carotid bruits. Lungs are clear to auscultation. Cardiac exam reveals regular rate and Rhythm. Abdominal exam reveals normal bowel sounds, no masses Extremities are nonedematous and both femoral and pedal pulses are normal. 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 No focal weakness. - Constitutional Vitals: Temp Pulse Resp BP Pulse Ox 97.6 F 71 16 167/82 98 09/03/17 06:23 07/27/17 06:23 07/27/17 06:23 07/27/17 06:23 07/27/17 06:23 Plan Activity: no restrictions Weight Bearing Status: Full Weight Bearing Diet: low fat, low cholesterol, renal Follow up with: PRIMARY CARE, [Primary Care Provider] - 3-5 Days Prescriptions: amLODIPine [Norvasc] 10 mg PO QDAY #30 tablet
== END 2017-07-27 11:52 | disposition home or self-care (01) | DRG 291 ==
LOC: ED 21:37 → 4A 07-26 01:17
PROVIDERS: ADMIT Internal Medicine; ATTEND Internal Medicine
PROC: 3E0234Z Introduction of Serum, Toxoid and Vaccine into Muscle, Percutaneous Approach (ICD-10-PCS; principal; 2017-07-26)
PROC: 5A1D00Z (ICD-10-PCS; 2017-07-26)
DX: I13.2 Hypertensive heart and chronic kidney disease with heart failure and with stage 5 chronic kidney disease, or end stage renal disease (principal); N18.6 End stage renal disease; R74.8 Abnormal levels of other serum enzymes; E87.5 Hyperkalemia; Z23 Encounter for immunization; Z88.8 Allergy status to other drugs, medicaments and biological substances; Z79.82 Long term (current) use of aspirin; I50.9 Heart failure, unspecified; Z99.2 Dependence on renal dialysis; J44.9 Chronic obstructive pulmonary disease, unspecified; F03.90 Unspecified dementia, unspecified severity, without behavioral disturbance, psychotic disturbance, mood disturbance, and anxiety; I48.91 Unspecified atrial fibrillation; Z95.0 Presence of cardiac pacemaker
CPT/HCPCS: 36415; 80048; 82550; 82553; 82962; 84132; 84484; 85025; 85610; 90686; 93005; 93010; 94640; 96365; 96375; A9270-GY; J0360; J0610; J0885; J1644; J1815; J1940; J7030

== ENCOUNTER 2017-08-04 14:11 | Inpatient (IN) | payer MEDICARE ==
[2017-08-04] MEDS ORDERED: D50W (25GM) Syringe IV ONE (19:13)
--- NOTE | 2017-08-04 19:45 | History and Physical Report ---
History of Present Illness Date of examination: 08/04/17 Date of admission: 08/04/2017 Chief complaint: Generalized weakness History of present illness: 82-year-old female with a past medical history CHF, COPD, dementia, atrial fib/ flutter, hypertension, end-stage renal disease on dialysis Friday, , and Friday presents to the hospital with complaints of generalized weakness. Initial complaints that she cannot walk. Patient states she can walk but feels weak all over. No complaints of pain. Patient had a recent admission here 4 times in June for similar complaints of generalized weakness and for hypoglycemia, hyperkalemia, lactic acidosis, and urosepsis. Past History Past Medical History: atrial fib, anemia, cancer, dialysis, ESRD, GERD, heart failure, hypertension Past Surgical History: Other (dual chamber pacemaker placement cardiac catheterization and cardiac stent placement dual-chamber) Social history: , lives with family, full code. denies: smoking, alcohol abuse, IV drug use Family history: other (reviewed but not pertinent to current condition) Medications and Allergies Allergies Allergy/AdvReac Type Severity Reaction Status Date / Time naproxen Allergy Itching Verified 04/17/17 11:25 Home Medications Medication Instructions Recorded Confirmed Last Taken Type Apixaban [Eliquis] 2.5 mg PO BID 07/14/17 07/14/17 Unknown History Aspirin [Adult Low Dose Aspirin EC] 81 mg PO QPM 07/14/17 07/14/17 Unknown History AtorvaSTATin [Lipitor] 40 mg PO QHS 07/14/17 07/14/17 Unknown History Carvedilol [Coreg] 25 mg PO BID 07/14/17 07/14/17 Unknown History hydrALAZINE [Apresoline TAB] 100 mg PO TID 07/14/17 07/14/17 07/14/17 History amLODIPine [Norvasc] 10 mg PO QDAY #30 tablet 07/27/17 Unknown Rx Review of Systems All systems: negative (all 14 systems reviewed and found to be negative except as in HPI) Exam - Constitutional General appearance: Present: no acute distress, cachectic, other (malnourished) - EENT Eyes: Present: PERRL, EOM intact ( are as) ENT: clear oral mucosa, other (oral mucosa is moist ) - Neck Neck: Present: supple, normal ROM. Absent: masses or JVD, cervical LAD, carotid bruits - Respiratory Respiratory effort: normal Respiratory: bilateral: CTA (anteriorly), rales (by refill) - Cardiovascular Rhythm: irregularly irregular Heart Sounds: Present: S1 & S2. Absent: gallop, systolic murmur - Extremities Extremities: no ischemia, pulses intact, No edema, normal temperature, normal color, Full ROM (social) - Abdominal General gastrointestinal: Present: soft, non-tender, non-distended, normal bowel sounds - Integumentary Integumentary: Present: clear, warm, dry. Absent: erythema, rash - Musculoskeletal Musculoskeletal: generalized weakness - Psychiatric Psychiatric: appropriate mood/affect, cooperative - Neurologic Neurologic: CNII-XII intact, no focal deficits, moves all extremities
[2017-08-04] MEDS ORDERED: HEPARIN ONE (20:26)
[2017-08-04 20:34] LABS: BUN/Creatinine Ratio 9.75; Calcium 8.7 mg/dL (8.4-10.2); Chloride 88.5 mmol/L (98-107); Phosphorous 4.7 mg/dL (2.5-4.5); Potassium 5.9 mmol/L (3.6-5.0)
[2017-08-04 21:16] LABS: Basophils % (Auto) 0.8 % (0.0-1.8); Eosinophils % (Auto) 0.2 % (0.0-4.3); Hematocrit 27.7 % (30.3-42.9); Hemoglobin 8.6 gm/dl (10.1-14.3); Mean Corpuscular HGB Conc 31 % (30-34); Mean Corpuscular Hemoglobin 32 pg (28-32); Mean Corpuscular Volume 104 fl (79-97); Platelet Count 68 K/mm3 (140-440); Red Blood Count 2.66 M/mm3 (3.65-5.03); Red Cell Distribution Width 21.4 % (13.2-15.2); White Blood Count 3.3 K/mm3 (4.5-11.0)
--- NOTE | 2017-08-04 22:18 | Event Note ---
Discussed with ER MD at length, chart reviewdd patent needs dialysis will be ordered stat Orders given to the ER nurse to inform dialysis nurse information resources director about stat orderes and to call me if any questions
[2017-08-05 05:10] LABS: Basophils % (Auto) 0.9 % (0.0-1.8); Eosinophils % (Auto) 0.4 % (0.0-4.3); Hemoglobin 8.3 gm/dl (10.1-14.3); Mean Corpuscular HGB Conc 32 % (30-34); Mean Corpuscular Hemoglobin 33 pg (28-32); Mean Corpuscular Volume 102 fl (79-97); Platelet Count 71 K/mm3 (140-440); Red Blood Count 2.56 M/mm3 (3.65-5.03); Red Cell Distribution Width 21.3 % (13.2-15.2); White Blood Count 2.9 K/mm3 (4.5-11.0)
[2017-08-05 05:23] LABS: Albumin 3.1 g/dL (3.9-5); Albumin/Globulin Ratio 0.6 %; BUN/Creatinine Ratio 8.43; Bilirubin,Total 0.9 mg/dL (0.1-1.2); Calcium 8.3 mg/dL (8.4-10.2); Magnesium 1.8 mg/dL (1.7-2.3); Phosphorous 3.2 mg/dL (2.5-4.5); Potassium 4.7 mmol/L (3.6-5.0); Total Protein 8.2 g/dL (6.3-8.2)
[2017-08-05] MEDS ORDERED: APRESOLINE PO SCH (08:00)
--- NOTE | 2017-08-05 08:06 | XRay Report ---
ROUTINE CHEST, TWO VIEWS: HISTORY: Cough. Mild cardiomegaly, mild pulmonary venous congestion and small to medium right pleural effusion appear stable since 07/15/17. There is compressive atelectasis at the right lung base but no convincing pneumonia. No pneumothorax. Right dialysis catheter and pacemaker device are unchanged in position. IMPRESSION: Mild CHF not significantly changed since 07/15/17.
[2017-08-05 09:53] VITALS: BP 178/106
[2017-08-05] MEDS ORDERED: NORVASC PO SCH (10:00)
[2017-08-05] MEDS ORDERED: COREG PO SCH (10:00)
[2017-08-05] MEDS ORDERED: PEPCID PO SCH (10:00)
[2017-08-05] MEDS ORDERED: ELIQUIS PO SCH (10:00)
--- NOTE | 2017-08-05 12:12 | Discharge Summary ---
Providers - Providers Date of Admission: 08/04/17 19:15 Date of discharge: 08/05/17 Attending physician: DHARMESH ORDOÑEZ MD Primary care physician: CAR CONSTRUCTION SUPERINTENDENT Hospitalization Reason for admission: generalized weakness, SOB, hyperkalemia Condition: Stable Hospital course: Admission H&P 82-year-old female with a past medical history CHF, COPD, dementia, atrial fib/ flutter, hypertension, end-stage renal disease on dialysis Friday, , and Friday presents to the hospital with complaints of generalized weakness. Initial complaints that she cannot walk. Patient states she can walk but feels weak all over. No complaints of pain. Patient had a recent admission here 4 times in June for similar complaints of generalized weakness and for hypoglycemia, hyperkalemia, lactic acidosis, and urosepsis. Patient was admitted to the floor and nephrology was consulted and she get dialyzed overnight. By the time I evaluated her, patient was at baseline potassium was within normal limit, patient's strength is okay. No weakness, patient's blood pressure were controlled. Patient's medications were up-to- date. Patient was hemodynamically stabilized and discharge. Patient discharged home with is advised to keep her appointments for hemodialysis, and PCP. Disposition: DC-30 STILL A PATIENT - Discharge Diagnoses (1) Accelerated hypertension Status: Acute (2) Anemia Status: Acute Qualifiers: Anemia type: unspecified type Iron deficiency anemia type: I Vitamin B12 deficiency anemia type: V Folate deficiency anemia type: F Bone marrow failure anemia type: B Hemolytic anemia type: H Other causes of anemia: O Chronic kidney disease stage: C Qualified Code(s): D64.9 - Anemia, unspecified (3) ESRD (end stage renal disease) on dialysis Status: Acute (4) Weakness Status: Acute Core Measure Documentation - Palliative Care Palliative Care/ Comfort Measures: Not Applicable - Core Measures Any of the following diagnoses?: none Exam - Physical Exam Narrative exam: Not in cardiopulmonary distress. The patient appeared well nourished and normally developed. Vital signs as documented. Head exam is unremarkable. No scleral icterus . Neck is without jugular venous distension, thyromegaly, or carotid bruits. Lungs are clear to auscultation. Cardiac exam reveals regular rate and Rhythm. First and second heart sounds normal. No murmurs, rubs or gallops. Abdominal exam reveals normal bowel sounds, no masses, no organomegaly and no aortic enlargement. Extremities are nonedematous and both femoral and pedal pulses are normal. 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 No focal weakness. - Constitutional Vitals: Temp Pulse Resp BP Pulse Ox 98.0 F 87 20 178/106 99 08/05/17 08:02 08/05/17 09:51 08/05/17 08:02 08/05/17 09:51 08/05/17 00:45 Plan Activity: no restrictions Diet: low cholesterol, low salt, renal Follow up with: PRIMARY CARE, [Primary Care Provider] - 7 Days
[2017-08-05] MEDS ORDERED: HALFPRIN EC PO SCH (18:00)
== END 2017-08-05 15:15 | disposition home health service (06) | DRG 291 ==
LOC: ED 14:11 → 3A 19:15 → CC2 08-05 00:51
PROVIDERS: ADMIT Internal Medicine Geriatric Medicine; ATTEND Internal Medicine
PROC: 5A1D00Z (ICD-10-PCS; principal; 2017-08-04)
DX: I13.2 Hypertensive heart and chronic kidney disease with heart failure and with stage 5 chronic kidney disease, or end stage renal disease (principal); N18.6 End stage renal disease; I48.92 Unspecified atrial flutter; M62.81 Muscle weakness (generalized); E87.5 Hyperkalemia; I50.9 Heart failure, unspecified; Z99.2 Dependence on renal dialysis; J44.9 Chronic obstructive pulmonary disease, unspecified; F03.90 Unspecified dementia, unspecified severity, without behavioral disturbance, psychotic disturbance, mood disturbance, and anxiety; I48.91 Unspecified atrial fibrillation; Z88.8 Allergy status to other drugs, medicaments and biological substances; Z95.0 Presence of cardiac pacemaker; D64.9 Anemia, unspecified
CPT/HCPCS: 36415; 71020; 80048; 80053; 82962; 83735; 83880; 84100; 84443; 84484; 85025; J1644; J1815

== ENCOUNTER 2017-10-25 11:57 | Emergency (ER) | payer MEDICARE ==
[2017-10-25 13:31] LABS: Basophils % (Auto) 0.8 % (0.0-1.8); Eosinophils % (Auto) 7.4 % (0.0-4.3); Hematocrit 31.3 % (30.3-42.9); Hemoglobin 9.6 gm/dl (10.1-14.3); Mean Corpuscular HGB Conc 31 % (30-34); Mean Corpuscular Hemoglobin 32 pg (28-32); Mean Corpuscular Volume 105 fl (79-97); Platelet Count 128 K/mm3 (140-440); Red Blood Count 2.98 M/mm3 (3.65-5.03); White Blood Count 3.9 K/mm3 (4.5-11.0)
[2017-10-25 13:43] LABS: Calcium 9.6 mg/dL (8.4-10.2); Chloride 93.6 mmol/L (98-107); Potassium 4.9 mmol/L (3.6-5.0)
[2017-10-25] MEDS ORDERED: NORCO 5/325 PO ONE (14:26)
--- NOTE | 2017-10-25 14:33 | Emergency Department Report ---
HPI - General Chief Complaint: Abdominal Pain Time Seen by Provider: 10/25/17 14:18 - HPI HPI: Room 25 The patient is an 82-year-old female presenting with a chief complaint of left flank pain. Patient states this morning she developed pain in her left back and left flank. Patient states pain is constant and sharp in nature. Patient denies nausea/vomiting, fever, dysuria or hematuria. Patient denies any preceding trauma. Patient denies any other types of pain. The patient currently gives her pain a score of 10/10 Location: Left flank Duration: Constant since this morning Quality: Sharp Severity:10/10 Modifying factors: [see above] Context: [see above] Mode of transportation: [not driving] ED Past Medical Hx - Past Medical History Previous Medical History?: Yes Hx Hypertension: Yes Hx Heart Attack/AMI: Yes Hx Congestive Heart Failure: Yes Hx Renal Disease: Yes (ESRD Dialysis --) Hx COPD: Yes Hx Dementia: Yes Additional medical history: Afib/Aflutter - Surgical History Hx Pacemaker: Yes (Dual chamber PPM) Additional Surgical History: vas cath to right chest - Family History Family history: no significant - Social History Smoking Status: Never Smoker Substance Use Type: None - Medications Home Medications: Home Medications Medication Instructions Recorded Confirmed Last Taken Type Apixaban [Eliquis] 2.5 mg PO BID #60 tablet 09/15/17 Unknown Rx Aspirin [Adult Low Dose Aspirin EC] 81 mg PO QPM #30 tablet. 09/15/17 Unknown Rx AtorvaSTATin [Lipitor] 40 mg PO QHS #30 tablet 09/15/17 Unknown Rx Carvedilol [Coreg] 25 mg PO BID #60 tablet 09/15/17 Unknown Rx amLODIPine [Norvasc] 10 mg PO QDAY #30 tablet 09/15/17 Unknown Rx cloNIDine [Catapres] 0.1 mg PO BID #60 tablet 09/15/17 Unknown Rx hydrALAZINE [Apresoline TAB] 100 mg PO TID #90 tab 09/15/17 Unknown Rx HYDROcodone/APAP 5-325 [[place] 1 - 2 each PO Q6HR PRN #14 tablet 10/25/17 Unknown Rx 5/325] ED Review of Systems ROS: Stated complaint: LT LOWER BACK PAIN Other details as noted in HPI Constitutional: denies: fever Eyes: denies: eye pain ENT: denies: throat pain Cardiovascular: denies: chest pain Gastrointestinal: abdominal pain. denies: nausea, vomiting Genitourinary: denies: dysuria, hematuria Musculoskeletal: back pain Neurological: denies: headache Physical Exam - Physical Exam Vital Signs: Vital Signs 10/25/17 12:10 Temperature 98 F Physical Exam: GENERAL: The patient is well-developed well-nourished female lying on stretcher not appearing to be in acute distress. [] HEENT: Normocephalic. Atraumatic. Extraocular motions are intact. Patient has moist mucous membranes. NECK: Supple. Trachea midline CHEST/LUNGS: Clear to auscultation. There is no respiratory distress noted. HEART/CARDIOVASCULAR: Regular. There is no tachycardia. There is no gallop rub or murmur. ABDOMEN: Abdomen is soft, nontender. Patient has normal bowel sounds. There is no abdominal distention. SKIN: There is no rash. There is no edema. There is no diaphoresis. NEURO: The patient is awake, alert, and oriented. The patient is cooperative. The patient has normal speech MUSCULOSKELETAL: There is no evidence of acute injury. ED Course Vital Signs 10/25/17 12:10 Temperature 98 F ED Medical Decision Making - Lab Data Result diagrams: 10/25/17 13:14 10/25/17 13:14 - Radiology Data Radiology results: report reviewed (CT abdomen and pelvis), image reviewed (CT abdomen and pelvis) FINAL REPORT EXAM: CT ABDOMEN PELVIS WO CON HISTORY: left flank/left upper quadrant pain TECHNIQUE: CT of the abdomen and pelvis was performed without intravenous contrast. Reconstructions were included in the coronal and sagittal planes. PRIORS: 07/02/2017. FINDINGS: Lower thorax: Small right pleural effusion is seen. Multi chamber cardiac enlargement is again seen. Pacemaker is again seen. Small hiatal hernia again seen. Liver: The liver is normal in attenuation. No intrahepatic biliary duct dilation. Unchanged probable hepatic cysts. Dilated IVC and hepatic veins is again seen, possibly related to right heart failure. Gallbladder/ biliary system: No cholelithiasis. Increased dilation of the common bile duct is seen measuring up to 1 centimeter. No discrete filling defects are seen in the distal common bile duct. Spleen: No splenic lesions are seen. Pancreas: No pancreatic lesions are seen. No pancreatic duct dilation. Kidneys: Unchanged hyperdense lesion in the inferior pole of the right kidney measuring 1.3 centimeters. Additional low-attenuation lesion in the superior pole is grossly unchanged most likely representing a small cyst. No renal or ureteral calcifications. Adrenal glands: No adrenal masses. Vasculature: The abdominal aorta is nondilated. Atherosclerotic calcifications are seen in the abdominal aorta. Lymph nodes: No enlarged lymph nodes are seen in the abdomen or pelvis. Bowel, mesentery, peritoneum: No bowel obstruction. Moderate volume of free fluid is seen throughout the abdomen. No free air. The appendix is normal. Colonic diverticulosis is again seen. No evidence of diverticulitis. Urinary bladder: The urinary bladder is diffusely thick walled. Pelvis: Post hysterectomy. There is a moderate volume of free fluid in the pelvis. Abdominal wall: No abdominal wall hernia or other subcutaneous findings. Bones: There is a left hip joint effusion. Unchanged diffuse heterogeneous appearance of the bones. IMPRESSION: 1. Moderate volume of ascites and small right pleural effusion. 2. Increased dilation of the common bile duct measuring up to 1 centimeter. Recommend further evaluation with MRCP. 3. Urinary bladder wall thickening which can be seen in cystitis or bladder outlet obstruction. 4. Colonic diverticulosis without diverticulitis. 5. Unchanged nonspecific hyper attenuating right renal lesion which may represent hemorrhagic cyst or solid renal neoplasm. Further evaluation with multiphasic renal CT or MRI could be considered to characterize this lesion. 6. Left hip joint effusion. 7. Unchanged appearance of the bones suggesting multiple myeloma or diffuse metastases. 8. Unchanged multi chamber cardiac enlargement and dilation of the IVC and hepatic veins concerning for right heart strain/failure. Transcribed By: MG Dictated By: KALA HAIR MD Electronically Authenticated By: KALA HAIR MD Signed Date/Time: 10/25/17 1136 DD/ 1136 TD/TT: 10/25/17 1136 - Medical Decision Making Discussed with the patient at length her CT findings. I discussed the concerning heterogeneous appearance of her bone and maybe secondary to multiple myeloma. The patient states this was mentioned to her over 2 years ago by a physician at an rate within her primary physician told her she did not have multiple myeloma. I informed the patient that I will be giving her a referral to a campus manager oncologist for further evaluation - Differential Diagnosis renal colic, diverticulitis, zoster, gastritis, Critical care attestation.: If time is entered above; I have spent that time in minutes in the direct care of this critically ill patient, excluding procedure time. ED Disposition Clinical Impression: Left flank pain, Cholelithiasis, Renal mass Disposition: TO HOME OR SELFCARE Is pt being admited?: No Does the pt Need Aspirin: No Condition: Stable Instructions: Abdominal Pain (ED) Additional Instructions: Your CT abdomen and pelvis today revealed a "heterogeneous appearance of the bones" which may be due to multiple myeloma. It is important that she follow up with her primary physician and/or an oncologist for further evaluation. Return to the emergency department immediately should you develop worsening symptoms, fever, inability to tolerate food or liquid or any other concerns. Prescriptions: HYDROcodone/APAP 5-325 [[place] 5/325] 1 - 2 each PO Q6HR PRN #14 tablet PRN Reason: Pain Referrals: PRIMARY CARE,MD [Primary Care Provider] - 3-5 Days LEROY BATES DO [Staff Physician] - [place] (Dr. Bates is an oncologist. Please follow up with him for further evaluation/exclusion of multiple myeloma) Time of Disposition: 16:17
--- NOTE | 2017-10-25 15:39 | Cat Scan Report ---
FINAL REPORT EXAM: CT ABDOMEN PELVIS WO CON HISTORY: left flank/left upper quadrant pain TECHNIQUE: CT of the abdomen and pelvis was performed without intravenous contrast. Reconstructions were included in the coronal and sagittal planes. PRIORS: 07/02/2017. FINDINGS: Lower thorax: Small right pleural effusion is seen. Multi chamber cardiac enlargement is again seen. Pacemaker is again seen. Small hiatal hernia again seen. Liver: The liver is normal in attenuation. No intrahepatic biliary duct dilation. Unchanged probable hepatic cysts. Dilated IVC and hepatic veins is again seen, possibly related to right heart failure. Gallbladder/ biliary system: No cholelithiasis. Increased dilation of the common bile duct is seen measuring up to 1 centimeter. No discrete filling defects are seen in the distal common bile duct. Spleen: No splenic lesions are seen. Pancreas: No pancreatic lesions are seen. No pancreatic duct dilation. Kidneys: Unchanged hyperdense lesion in the inferior pole of the right kidney measuring 1.3 centimeters. Additional low-attenuation lesion in the superior pole is grossly unchanged most likely representing a small cyst. No renal or ureteral calcifications. Adrenal glands: No adrenal masses. Vasculature: The abdominal aorta is nondilated. Atherosclerotic calcifications are seen in the abdominal aorta. Lymph nodes: No enlarged lymph nodes are seen in the abdomen or pelvis. Bowel, mesentery, peritoneum: No bowel obstruction. Moderate volume of free fluid is seen throughout the abdomen. No free air. The appendix is normal. Colonic diverticulosis is again seen. No evidence of diverticulitis. Urinary bladder: The urinary bladder is diffusely thick walled. Pelvis: Post hysterectomy. There is a moderate volume of free fluid in the pelvis. Abdominal wall: No abdominal wall hernia or other subcutaneous findings. Bones: There is a left hip joint effusion. Unchanged diffuse heterogeneous appearance of the bones. IMPRESSION: 1. Moderate volume of ascites and small right pleural effusion. 2. Increased dilation of the common bile duct measuring up to 1 centimeter. Recommend further evaluation with MRCP. 3. Urinary bladder wall thickening which can be seen in cystitis or bladder outlet obstruction. 4. Colonic diverticulosis without diverticulitis. 5. Unchanged nonspecific hyper attenuating right renal lesion which may represent hemorrhagic cyst or solid renal neoplasm. Further evaluation with multiphasic renal CT or MRI could be considered to characterize this lesion. 6. Left hip joint effusion. 7. Unchanged appearance of the bones suggesting multiple myeloma or diffuse metastases. 8. Unchanged multi chamber cardiac enlargement and dilation of the IVC and hepatic veins concerning for right heart strain/failure.
[2017-10-25 17:14] VITALS: BP 170/85
== END 2017-10-25 17:00 | disposition home or self-care (01) ==
LOC: ED 11:57
DX: K80.20 Calculus of gallbladder without cholecystitis without obstruction (principal); N28.89 Other specified disorders of kidney and ureter; I10 Essential (primary) hypertension; I50.9 Heart failure, unspecified; I25.2 Old myocardial infarction; J44.9 Chronic obstructive pulmonary disease, unspecified
CPT/HCPCS: 36415; 74176; 80048; 85025

== ENCOUNTER 2017-11-01 16:50 | Emergency (ER) | payer MEDICARE ==
[2017-11-01 19:01] LABS: Hematocrit 32.2 % (30.3-42.9); Hemoglobin 9.8 gm/dl (10.1-14.3); Mean Corpuscular HGB Conc 30 % (30-34); Mean Corpuscular Hemoglobin 33 pg (28-32); Mean Corpuscular Volume 107 fl (79-97); Platelet Count 130 K/mm3 (140-440); Red Blood Count 3.01 M/mm3 (3.65-5.03); Red Cell Distribution Width 18.6 % (13.2-15.2); White Blood Count 4.2 K/mm3 (4.5-11.0)
[2017-11-01 19:13] LABS: Albumin 3.8 g/dL (3.9-5); Albumin/Globulin Ratio 0.7 %; Bilirubin,Total 0.5 mg/dL (0.1-1.2); Calcium 9.7 mg/dL (8.4-10.2); Chloride 92.8 mmol/L (98-107); Potassium 5.3 mmol/L (3.6-5.0); Total Protein 9.4 g/dL (6.3-8.2)
[2017-11-01 19:29] VITALS: BP 117/42
[2017-11-01] MEDS ORDERED: ZOFRAN IV ONE (19:52)
[2017-11-01] MEDS ORDERED: MORPHINE IV ONE (19:52)
--- NOTE | 2017-11-01 19:57 | Emergency Department Report ---
ED Abdominal Pain HPI - General Chief Complaint: Abdominal Pain Stated Complaint: ABD PAIN Time Seen by Provider: 11/01/17 19:47 Source: EMS Mode of arrival: Stretcher Limitations: No Limitations - History of Present Illness Initial Comments: Patient is a 82 years old female with history of high blood pressure present to the ER with left lower quadrant abdominal pain started this morning, fullness. Patient denied any nausea vomiting or diarrhea. She also denied any urinary symptoms or fever. No chest pain. MD Complaint: abdominal pain -: This morning Location: LLQ Radiation: none Migration to: no migration Severity scale (0 -10): 7 Quality: fullness Consistency: constant Improves With: nothing Worsens With: nothing Associated Symptoms: denies: diarrhea - Related Data Previous Rx's Medication Instructions Recorded Last Taken Type Apixaban [Eliquis] 2.5 mg PO BID #60 tablet 09/15/17 Unknown Rx Aspirin [Adult Low Dose Aspirin EC] 81 mg PO QPM #30 tablet.dr 09/15/17 Unknown Rx AtorvaSTATin [Lipitor] 40 mg PO QHS #30 tablet 09/15/17 Unknown Rx Carvedilol [Coreg] 25 mg PO BID #60 tablet 09/15/17 Unknown Rx amLODIPine [Norvasc] 10 mg PO QDAY #30 tablet 09/15/17 Unknown Rx cloNIDine [Catapres] 0.1 mg PO BID #60 tablet 09/15/17 Unknown Rx hydrALAZINE [Apresoline TAB] 100 mg PO TID #90 tab 09/15/17 Unknown Rx HYDROcodone/APAP 5-325 [[place] 1 - 2 each PO Q6HR PRN #14 tablet 10/25/17 Unknown Rx 5/325] Allergies Allergy/AdvReac Type Severity Reaction Status Date / Time naproxen Allergy Itching Verified 04/17/17 11:25 ED Review of Systems ROS: Stated complaint: ABD PAIN Other details as noted in HPI Comment: All other systems reviewed and negative Constitutional: denies: chills, fever Respiratory: denies: cough, orthopnea, shortness of breath, SOB with exertion, SOB at rest Cardiovascular: denies: chest pain, palpitations, dyspnea on exertion, edema, syncope Gastrointestinal: abdominal pain. denies: nausea, vomiting, diarrhea, constipation, hematemesis, melena, hematochezia Genitourinary: denies: urgency, dysuria, frequency, hematuria, discharge Musculoskeletal: denies: back pain Skin: denies: rash Neurological: denies: headache, weakness, numbness, paresthesias, confusion, abnormal gait, vertigo ED Past Medical Hx - Past Medical History Previous Medical History?: Yes Hx Hypertension: Yes Hx Heart Attack/AMI: Yes Hx Congestive Heart Failure: Yes Hx Diabetes: No Hx Renal Disease: Yes (ESRD Dialysis M-W-F) Hx Sickle Cell Disease: No Hx Asthma: No Hx COPD: Yes Hx Dementia: Yes Hx HIV: No Additional medical history: Afib/Aflutter - Surgical History Past Surgical History?: Yes Hx Pacemaker: Yes (Dual chamber PPM) Additional Surgical History: vas cath to right chest - Social History Smoking Status: Unknown if ever smoked Substance Use Type: Alcohol - Medications Home Medications: Home Medications Medication Instructions Recorded Confirmed Last Taken Type Apixaban [Eliquis] 2.5 mg PO BID #60 tablet 09/15/17 11/01/17 Unknown Rx Aspirin [Adult Low Dose Aspirin EC] 81 mg PO QPM #30 tablet. 09/15/17 Unknown Rx AtorvaSTATin [Lipitor] 40 mg PO QHS #30 tablet 09/15/17 11/01/17 Unknown Rx Carvedilol [Coreg] 25 mg PO BID #60 tablet 09/15/17 11/01/17 Unknown Rx amLODIPine [Norvasc] 10 mg PO QDAY #30 tablet 09/15/17 11/01/17 Unknown Rx cloNIDine [Catapres] 0.1 mg PO BID #60 tablet 09/15/17 11/01/17 Unknown Rx hydrALAZINE [Apresoline TAB] 100 mg PO TID #90 tab 09/15/17 11/01/17 Unknown Rx HYDROcodone/APAP 5-325 [[place] 1 - 2 each PO Q6HR PRN #14 tablet 10/25/17 Unknown Rx 5/325] ED Physical Exam - General Limitations: No Limitations General appearance: alert, in no apparent distress - Head Head exam: Present: atraumatic, normocephalic, normal inspection - Eye Eye exam: Present: normal appearance, PERRL Pupils: Present: normal accommodation - ENT ENT exam: Present: normal exam, normal orophraynx, mucous membranes moist - Neck Neck exam: Present: normal inspection, full ROM. Absent: tenderness, meningismus, lymphadenopathy, thyromegaly - Respiratory Respiratory exam: Present: normal lung sounds bilaterally. Absent: respiratory distress, wheezes, rales, rhonchi, stridor, chest wall tenderness, accessory muscle use, decreased breath sounds, prolonged expiratory - Cardiovascular Cardiovascular Exam: Present: regular rate, normal rhythm, normal heart sounds - GI/Abdominal GI/Abdominal exam: Present: soft, tenderness (left lower quadrant), normal bowel sounds. Absent: distended, guarding, rebound, rigid, organomegaly, mass, bruit, pulsatile mass, hernia - Extremities Exam Extremities exam: Present: normal inspection, full ROM, normal capillary refill - Back Exam Back exam: Present: normal inspection. Absent: tenderness, CVA tenderness (R), CVA tenderness (L) - Neurological Exam Neurological exam: Present: alert, oriented X3, CN II-XII intact, normal gait - Skin Skin exam: Present: warm, intact, normal color ED Course Vital Signs 11/01/17 11/01/17 11/01/17 18:03 18:10 18:14 Temperature 98.5 F Pulse Rate 64 Respiratory 16 16 Rate Blood Pressure 124/46 124/80 Blood Pressure [Right] O2 Sat by Pulse 100 100 Oximetry 11/01/17 11/01/17 11/01/17 18:20 18:30 18:40 Temperature Pulse Rate 59 L 56 L 56 L Respiratory 12 15 15 Rate Blood Pressure 124/46 124/46 124/46 Blood Pressure [Right] O2 Sat by Pulse 100 100 100 Oximetry 11/01/17 11/01/17 11/01/17 18:50 19:00 19:10 Temperature Pulse Rate 61 56 L 60 Respiratory 15 15 14 Rate Blood Pressure 124/46 117/42 117/42 Blood Pressure [Right] O2 Sat by Pulse 99 98 100 Oximetry 11/01/17 11/01/17 19:20 19:26 Temperature 98.7 F Pulse Rate 55 L 66 Respiratory 14 16 Rate Blood Pressure 117/42 Blood Pressure 117/42 [Right] O2 Sat by Pulse 100 100 Oximetry - Reevaluation(s) Reevaluation #1: 11/01/17 22:37 Patient stated that her abdominal pain is almost resolved. She admitted that she is having trouble his bowel movement. Patient is still denying any nausea or vomiting or chest pain. ED Medical Decision Making - Lab Data Result diagrams: 11/01/17 18:32 11/01/17 18:32 - Radiology Data Radiology results: report reviewed Referring Physician: JALIL CAMP Patient Name: HORTENCIA SYLVESTER Date of : 1935 Sex: Female Report Date: 2017-11-01 Report Status: Finalized Findings [facility] [address] [place] [address] Cat Scan Report Signed Patient: HORTENCIA SYLVESTER MR#: [id number] : 1935 Acct:[id number] Age/Sex: 82 / F ADM Date: 11/01/17 Loc: ED Attending Dr: Ordering Physician: JALIL CAMP Date of Service: 11/01/17 Procedure(s): CT abdomen pelvis w con Accession Number(s): [id number] cc: JALIL CAMP FINAL REPORT EXAM: CT ABDOMEN PELVIS W CON HISTORY: abdominal pain TECHNIQUE: Standard enhanced CT of the abdomen and pelvis. Coronal and sagittal reconstruction was also performed.. Delayed imaging through the kidneys and bladder was obtained. Contrast: 100 mL Omnipaque 300 given IV. PRIORS: CT a/P 10/25/2017 FINDINGS: Within the abdomen, the liver demonstrates a stable low-density rounded cyst in the lateral periphery of the right lobe. The spleen, pancreas, gallbladder, and adrenal glands are unremarkable. A hyperdense non enhanced focus extending off the posterior inferior pole right kidney is stable. Both kidneys are small in size. Multiple low-density cysts are present bilaterally in the kidneys, better defined with contrast. 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 There is low-density fluid around the lateral right part of the liver and a small amount in the pelvis consistent with ascites, unchanged. Scattered diverticuli throughout the colon are again noted without active diverticulitis. Moderate stool is present throughout the colon. No evidence for retroperitoneal or pelvic lymphadenopathy is seen. The small bowel loops have normal caliber. No soft tissue mass, fluid collection, inflammatory change, or free air is seen within the abdomen or pelvis. The appendix is not visualized. Within the pelvis, the bladder is not optimally distended but demonstrates diffuse wall prominence. The uterus has been surgically removed. No evidence for mass or lymphadenopathy is seen in the pelvis. Images through the upper abdomen include the lung bases which demonstrates a moderate free-flowing low-density right pleural effusion, smaller than seen previously. Mild linear bibasilar fibrosis is again noted. Bony structures show diffuse osteopenia, stable. Degenerative disc changes throughout the lumbar spine are present most marked at L5-S1. IMPRESSION: 1. no acute intra-abdominal process noted. 2. 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 Ascites which is unchanged in amount 4. Cysts in the right lobe of the liver and kidneys which are stable. This includes a hyperdense cyst off the lower pole right kidney which does not appear to enhance, likely a hemorrhagic cyst 5. moderate free-flowing right pleural effusion 6. Moderate stool present throughout the colon with scattered diverticuli but no evidence for diverticulitis. Transcribed By: [facility] Dictated By: MIKE KILGORE MD Electronically Authenticated By: MIKE KILGORE MD Signed Date/Time: 11/01/171733 DD/ 33 TD/TT: 11/01/171733 - Medical Decision Making Patient stated that she is improving with the pain medication. CT abdomen and pelvis, showed no acute finding except for possible conscious sedation. I'll discharge patient home with his prescription for lactulose and Colace. I advised patient to return to the ER if her symptoms is not improving. Critical care attestation.: If time is entered above; I have spent that time in minutes in the direct care of this critically ill patient, excluding procedure time. ED Disposition Clinical Impression: Abdominal pain, Constipation Disposition: DC-01 TO HOME OR SELFCARE Is pt being admited?: No Condition: Stable Instructions: Abdominal Pain (ED), Constipation (ED), High Fiber Diet (ED) Referrals: PRIMARY CARE, [Primary Care Provider] - 3-5 Days
[2017-11-01] MEDS ORDERED: NACL ONE (20:11)
[2017-11-01 20:54] LABS: Basophils % (Manual) 0 % (0.0-1.8); Blastocytes % (Manual) 0 %; Macrocytosis 1+; Ovalocytes 1+; Polychromasia 1+
[2017-11-01 20:55] LABS: Diff Status Complete; Platelet Estimate Consistent w Auto; Tear Drop Cells Few
--- NOTE | 2017-11-01 21:37 | Cat Scan Report ---
FINAL REPORT EXAM: CT ABDOMEN PELVIS W CON HISTORY: abdominal pain TECHNIQUE: Standard enhanced CT of the abdomen and pelvis. Coronal and sagittal reconstruction was also performed.. Delayed imaging through the kidneys and bladder was obtained. Contrast: 100 mL Omnipaque 300 given IV. PRIORS: CT a/P 10/25/2017 FINDINGS: Within the abdomen, the liver demonstrates a stable low-density rounded cyst in the lateral periphery of the right lobe. The spleen, pancreas, gallbladder, and adrenal glands are unremarkable. A hyperdense non enhanced focus extending off the posterior inferior pole right kidney is stable. Both kidneys are small in size. Multiple low-density cysts are present bilaterally in the kidneys, better defined with contrast. 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 There is low-density fluid around the lateral right part of the liver and a small amount in the pelvis consistent with ascites, unchanged. Scattered diverticuli throughout the colon are again noted without active diverticulitis. Moderate stool is present throughout the colon. No evidence for retroperitoneal or pelvic lymphadenopathy is seen. The small bowel loops have normal caliber. No soft tissue mass, fluid collection, inflammatory change, or free air is seen within the abdomen or pelvis. The appendix is not visualized. Within the pelvis, the bladder is not optimally distended but demonstrates diffuse wall prominence. The uterus has been surgically removed. No evidence for mass or lymphadenopathy is seen in the pelvis. Images through the upper abdomen include the lung bases which demonstrates a moderate free-flowing low-density right pleural effusion, smaller than seen previously. Mild linear bibasilar fibrosis is again noted. Bony structures show diffuse osteopenia, stable. Degenerative disc changes throughout the lumbar spine are present most marked at L5-S1. IMPRESSION: 1. no acute intra-abdominal process noted. 2. 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 Ascites which is unchanged in amount 4. Cysts in the right lobe of the liver and kidneys which are stable. This includes a hyperdense cyst off the lower pole right kidney which does not appear to enhance, likely a hemorrhagic cyst 5. moderate free-flowing right pleural effusion 6. Moderate stool present throughout the colon with scattered diverticuli but no evidence for diverticulitis.
== END 2017-11-01 23:39 | disposition home or self-care (01) ==
LOC: ED 16:50
DX: R10.32 Left lower quadrant pain (principal); K59.00 Constipation, unspecified; I13.2 Hypertensive heart and chronic kidney disease with heart failure and with stage 5 chronic kidney disease, or end stage renal disease; N18.6 End stage renal disease; I50.9 Heart failure, unspecified; I25.2 Old myocardial infarction; J44.9 Chronic obstructive pulmonary disease, unspecified; I48.91 Unspecified atrial fibrillation; F03.90 Unspecified dementia, unspecified severity, without behavioral disturbance, psychotic disturbance, mood disturbance, and anxiety; Z99.2 Dependence on renal dialysis; Z88.6 Allergy status to analgesic agent
CPT/HCPCS: 36415; 74177; 80053; 83690; 85007; 85025; 96374; 99284; J2270; J2405; Q9967